=== PATIENT | female | born 1965 | race African-American/Black ===

== ENCOUNTER → 2017-01-28 09:55 | Outpatient (CLI) | payer MEDICAID ==
[2015-08-26 13:32] VITALS: BMI 35.4
[~2017-01-28 09:55] MED LIST: ATIVAN0.5 MG PO; CATAPRES0.1 MG PO; FERROUS SULFAT325 MG PO; GRAPE SEED EXTRACT PO; LANTUS INSULIN10 ML SC; LASIX40 MG PO; LUMIGAN 0.01%2.5 ML EACH EYE; MEGACE40 MG PO; MEGESTROL PO; MULTIPLE VITAMI1 TA1 PO; NORVASC5 MG PO; NOVOLOG100 U/M1 SC; PROBIOTIC1 EAC1 PO; PROTONIX PO; PROTONIX40 MG PO; TUMERIC PO; VITAMIN B-12 PO; VITAMIN C PO; [UNRECOGNIZED DRUG - REMARK] PO; [UNRECOGNIZED DRUG - REMARK] PO
== END | disposition home or self-care (01) ==
LOC: D.NM 09:55
DX: R00.2 Palpitations (principal); R06.00 Dyspnea, unspecified

== ENCOUNTER 2019-03-30 14:10 | Inpatient (IN) | payer MEDICAID ==
[2019-03-30] MEDS ORDERED: PAXIL20 MG PO (14:19)
[2019-03-30] MEDS ORDERED: ATIVAN1 MG PO (14:20)
[2019-03-30] MEDS ORDERED: METOPROLOL TART50 MG PO ×2 (14:20→22:53)
[2019-03-30 14:50] LABS: BASOPHILS 0.1 % (0-2); EOSINOPHILS 0 % (0-7); HEMATOCRIT 42.6 % (36.0-48.0); HEMOGLOBIN 14.5 g/dL (12-16); IMMATURE GRANULOCYTES 0.2 % (0-5); LYMPHOCYTES 3.8 % (15-50); MCH 29.9 pg (26.0-34.0); MCV 87.8 fL (80.0-100.0); MEAN PLATELET VOLUME 10.2 fL (7.4-10.4); MONOCYTES 3.9 % (2-11); PLATELET COUNT 286 10x3/uL (130-400); RBC 4.85 10x6/uL (4.00-5.40); RDW 15.6 % (11.5-14.5); WBC 16.7 10x3/uL (4.8-10.8)
[2019-03-30 14:52] LABS: APPEARANCE CLEAR (CLEAR); COLOR YELLOW (YELLOW); NITRITE NEGATIVE (NEGATIVE); SPECIFIC GRAVITY 1.005 (1.005-1.020)
[2019-03-30 14:53] LABS: BILIRUBIN NEGATIVE (NEGATIVE); GLUCOSE 500 mg/dL (NEGATIVE); KETONE NEGATIVE (NEGATIVE); PROTEIN 3+ mg/dL (NEGATIVE); UROBILINOGEN NORMAL (NORMAL)
--- NOTE | 2019-03-30 15:03 | NUR ---
PT APPEARS AGGITATED AND HAS COMPLAINED SINCE ARRIVAL TO ED ROOM E6. PT C/O ROOM BEING COLD, BLANKET WERE THEN PROVIDED FOR COMFORT. PT C/O IV BEING STARTED IN THE LEFT ARM BY THIS NURSE, PT IS RT ARM RESERVE D/T DIALYSIS FISTULA. WHEN VERIFYING PT'S ALLERGIES AND MEDICAL HX, PT BECAME VISIBLY AGGITATED AND ASKED THIS NURSE "WHAT DO YOU NOT GET ABOUT WHAT I TOLD YOU." THIS NURSE EXPLAINED THAT IN ORDER TO PROVIDE THE BEST CARE POSSIBLE, I NEEDED TO BE AWARE OF HER HEALTH HX AND CURRENT SYMPTOMS. THIS NURSE ASKED PT IF I HAD DONE SOMETHING TO OFFEND HER BASED ON PT APPEARING AGGITATED AND THE TONE SHE WAS SPEAKING TO THIS NURSE WITH. PT REPLIED, "NO I GET AGGITATED AND TAKE MEDICATION FOR ANXIETY." ASSESSMENT COMPLETED AND CALL LIGHT GIVEN TO PT. HOB ADJUSTED MULTIPLE TIMES. WILL CONTINUE TO MONITOR. FRIENDS OF PT AT THE BEDSIDE.
[2019-03-30 15:05] LABS: BACTERIA FEW /hpf (NONE SEEN); EPITHELIAL CELLS 0-5 /hpf (0-5); MUCUS <1+ /lpf (NONE SEEN); RED CELLS - URINE 0-5 /hpf (0-5); WHITE CELLS - URINE 0-5 /hpf (0-5)
[2019-03-30 15:11] LABS: ALBUMIN 4.3 g/dL (3.4-5.0); ANION GAP 18.5 mmol/L (8-16); BILIRUBIN - TOTAL 0.82 mg/dL (0.2-1.3); CALCIUM 10.2 mg/dL (8.5-10.1); CREATININE - SERUM 9.4 mg/dL (0.6-1.3); POTASSIUM - SERUM 4.5 mmol/L (3.5-5.1); PROTEIN - SERUM 8.7 g/dL (6.4-8.2)
--- NOTE | 2019-03-30 15:15 | NUR ---
ERP INFORMED OF GLUCOSE - 425.
--- NOTE | 2019-03-30 15:19 | NUR ---
THIS NURSE PROMPTLY ANSWERED PT'S CALL LIGHT. PT STATES "I HAVE HAD DIARRHEA." THIS NURSE THEN ASKED PT IF SHE WOULD LIKE ASSISTANCE TO THE BATHROOM, PT ROLLED HER EYES, LOUDLY SIGHED, AND SAID "I DONE TOLD YOU THAT TOILET IN THERE IS TOO LOW TO THE GROUND FOR ME. I WANT A BEDSIDE TOILET" IN A VERY AGGITATED MANNER. THIS NURSE RESPONDED THAT PT MIGHT HAVE MADE THAT STATEMENT, BUT IT WAS NOT TO THIS RN, THEREFORE I WAS UNAWARE SHE DID NOT WANT TO USE THE BATHROOM. BEDSIDE TOILET WAS THEN BROUGHT TO PT ROOM AND PT ASSISTED WITH TRANSFERRING. PT CONINTUES TO COMPLAIN ABOUT MANY THINGS, INCLUDING THINGS THAT HAVE HAPPENED TO HER AT DIFFERENT HOSPITAL FACILITIES. PT WILL THEN MAKE STATEMENTS SUCH , "YOU ALL BETTER NOT THINK YOU ARE GOING TO DO THAT TO ME HERE." THIS NURSE HAS REPEATEDLY STATED TO PT THAT STAFF, INCLUDING MYSELF, WOULD PROVIDE THE BEST POSSIBLE CARE WE CAN.
--- NOTE | 2019-03-30 15:43 | NUR ---
ANSWERED PT CALL LIGHT, PT SITTING UPRIGHT AT THE SIDE OF THE BED. PT CONTINUES TO C/O HER ROOM BEING TOO COLD. BLANKETS THAT WERE PROVIDED LYING IN A PILE AT THE FOOT OF THE BED. THIS NURSE BEGAN FOLDING BLANKETS AND THEN LAYED BLANKETS AROUND PT'S SHOULDERS, COVERING HER BACK. PT THEN STATED, I DON'T WANT THESE BLANKETS, THEY AREN'T EVEN WARM ANYMORE. I WANT SOME MORE WARM BLANKETS." THIS NURSE EXPLAINED THAT THE BLANKET WARMER HAD BEEN RESTOCKED AND ONCE WARM, ADDITIONAL BLANKETS WOULD BE PROVIDED.
--- NOTE | 2019-03-30 16:21 | NUR ---
THIS NURSE HAS ANSWERED PT'S CALL LIGHT MANY MANY TIMES SINCE ARRIVAL TO HER ROOM. WHEN THIS NURSE ANSWERED PT'S MOST RECENT CALL LIGHT, PT STATED THAT SHE HAD TO TRANSFER HERSELF FROM THE BED TO THE TOILET AND WAS "SLIPPING ALL OVER THE PLACE." PT STATED I NEED HELP EVERY 3-5 MINUTES. SLIP RESISTANT SOCKS WERE APPLIED BY THIS NURSE WHEN PT FIRST ARRIVED. PT HAS BEEN EDUCATED ON USE OF CALL LIGHT AND TO ASK FOR ASSISTANCE BEFORE TRANSFERRING HERSELF. THIS NURSE SUGGESTED THAT IF PT IS REQUIRING TOILETING EVERY 3-5 MINUTES THAT SHE REMAIN ON THE BEDSIDE TOILET FOR LONGER LENGTHS OF TIME. PT REFUSED. THIS NURSE EXPLAINED THAT D/T HAVING MULTIPLE PATIENTS, I AM UNABLE TO BE AT HER BEDSIDE EVERY 3-5 MINUTES, BUT I WOULD CONTINUE TO ATTEMPT TO PROVIDE THE BEST CARE POSSIBLE. ADDITIONAL WARM BALNKETS THEN LAID ON PT, AFTER SHE WAS ASSISTED BACK INTO BED. AGAIN, HOB ADJUSTED FOR COMFORT.
--- NOTE | 2019-03-30 17:05 | NUR ---
PT RETURNED TO THE ED VIA STRETCHER AT THIS TIME FOLLOWING ORDERED CT SCAN.
--- NOTE | 2019-03-30 17:15 | NUR ---
ONCE PT RETURNED TO THE ED SHE REQUESTED THAT BEDSIDE TOILET BE REMOVED FROM HER ROOM. PT STATES THAT SHE NO LONGER NEEDS BEDSIDE TOILET. PT LYING IN BED, DENIES ANY OTHER NEEDS. TOILET REMOVED REQUESTED.
--- NOTE | 2019-03-30 17:43 | NUR ---
PT REQUESTING ADDITIONAL HEATED BLANKETS AND WATER. PT HAS BEEN ADVISED MULTIPLE TIMES THAT WITH HER ABD PAIN, DIARRHEA, NAUSEA, AND REPORTED VOMITING, ANY PO INTAKE WOULD LIKELY MAKE SYMPTOMS WORSE. ALSO, PER TREATING PROVIDER, PT NOT TO HAVE PO INTAKE UNTIL CT RESULTS ARE BACK. PT DISREGARDED THIS, NURSE NOTIFIED BY LAB STAFF MEMBER THAT PT IS ASKING FOR WATER. WILL PROVIDE ADDITIONAL BLANKETS AGAIN REQUESTED BY PT.
--- NOTE | 2019-03-30 18:46 | NUR ---
PT REFUSED MEAL TRAY, REQUESTED JELLO AND SPRITE. PT THEN DEMANDED THAT THE CAN BE WRAPPED IN MATERIAL MAKING IT A TOLERABLE TEMPATURE FOR HER TO HOLD THE CAN. PT THEN DEMANDED THAT THIS NURSE BRING HER "NAME BRAND SPRITE" PT ALSO STATED THAT THE OFF BRAND SODA WAS "GOING TO MAKE HER THROW UP" AND IT WAS RIDICULOUS THAT I GAVE IT TO HER. THIS NURSE EXPLAINED THAT THE HOSPITAL CARRIED ONE BRAND OF SODA, THEREFORE THAT WAS ALL I COULD OFFER TO HER. PT REPLIED, "YOU BETTER FIGURE IT OUT THEN. GO GET ME SOME WATER." PT REFUSED MEAL TRAY AFTER THIS NURSE ADMINISTERED ORDERED INSULIN.
--- NOTE | 2019-03-30 18:50 | MORECARE ---
CASE MANAGEMENT DISCHARGE SUMMARY PATIENT: SMITH GILBERT UNIT: [id number] ADM DATE: 03/30/19 AGE: 53 : 61 SEX: F ROOM/BED: D.9466 AUTHOR: PARVIN GIFFORD PHYSICIAN: REFERRING PHYSICIAN: ROBINSON LIANG MD DATE OF SERVICE: 03/30/19 Discharge Plan Patient Name: SMITH GILBERT [facility] [facility] 1965 Planned Disposition: Anticipated Discharge Date: 04/03/19 Discharge Date: Expected LOS: 4 Initial Reviewer: [email or web address] Initial Review Date: 03/30/2019 Generated: 03/30/19 7:49 pm DCPIA - Discharge Planning Initial Assessment Updated by [id number]: Adriana Saha on 03/30/19 6:46 pm * Is the patient Alert and Oriented? Yes * PCP Dr. Cosme and Dr. Liang * Pharmacy [facility] * Preadmission Environment Home Alone * ADLs Independent * Equipment Bedside Commode Cane Glucometer Tub Bench * Other Equipment depends and bed pads from [employer]. * List name and contact numbers for known caregivers / representatives who currently or will assist patient after discharge: Chana verde - [phone] Josey Thomas [facility] - [phone] * Verbal permission to speak to the caregivers and representatives has been obtained from the patient. Yes * Community resources currently utilized Other Private Duty Care * Please name any agencies selected above. Stated she has AAA for counselors??? and is in the process for her niece getting approved to be her paid cg through [facility]. * Additional services required to return to the preadmission environment? No * Can the patient safely return to the preadmission environment? Yes * Has this patient been hospitalized within the prior 30 days at any hospital? Yes Patient Name: SMITH GILBERT Page 68430 at 1850 All edits/amendments must be made on the electronic document DICTATION DATE: 03/30/191848 SENIOR ELECTRICAL ENGINEER: ROSA 03/30/191848 RPT#: [id number] DC DATE: STATUS: ADM IN [facility] [address] [place] [address] END OF REPORT
--- NOTE | 2019-03-30 18:57 | MORECARE ---
CASE MANAGEMENT DISCHARGE SUMMARY PATIENT: SMITH GILBERT UNIT: [id number] ADM DATE: 03/30/19 AGE: 53 : 61 SEX: F ROOM/BED: D.9016 AUTHOR: BALTADOC PHYSICIAN: REFERRING PHYSICIAN: ROBINSON LIANG MD DATE OF SERVICE: 03/30/19 Discharge Plan Patient Name: SMITH GILBERT Facility: [facility]:[place] : 1965 Planned Disposition: Anticipated Discharge Date: 04/03/19 Discharge Date: Expected LOS: 4 Initial Reviewer: [email or web address] Initial Review Date: 03/30/2019 Generated: 03/30/19 7:56 pm Comments DCP- Discharge Planning Updated by [email or web address]: Adriana Saha on 03/30/19 5:[address] Patient Name: SMITH GILBERT Admission Status: ER Accout number: [id number] Admission Date: 03-30-2019 : 1965 Admission Diagnosis: Attending: ROBINSON LIANG Current LOS: 1 Anticipated DC Date: 04-03-2019 Planned Disposition: Primary Insurance: MEDICAID [place] Discharge Planning Comments: CM met with patient and two other ladies in the room to complete initial dc planning assessment. CM educated patient on the CM role and verbal consent given by patient to complete assessment. CM verified patient's address, phone number, and emergency contact phone numbers. Patient lives at home alone but reports she has area agency on aging for counselors. She also reported that her niece is in the process of getting approved to be her pd cg through [facility]. At discharge patient plans to return home and feels this is a safe discharge. CM discussed availability of home health, rehab services, and medical equipment. Cm asked her about HH at dc and she reported that she already told me she had AAA, unsure if a nurse visits her, she kept saying counselor. Patient is also a dialysis patient and her last hd treatment was 3 days ago. She gets to and from HD via [facility]. She goes [facility] every M--. Patient stated she needs help getting her current call button to work further in her home than her bedroom. She has given her murray to her niece for emergencies so she can get in if she falls and has to push her button but she said it only works if she falls in her bedroom. Patient reports a family member will transport her home at time of discharge. CM will continue to follow and will assist as needed with dc plans/needs. Animal Control Licensing Worker: Adriana Saha RN, [facility] DCPIA - Discharge Planning Initial Assessment Updated by [id number]: Adriana Saha on 03/30/19 6:46 pm * Is the patient Alert and Oriented? Yes * PCP Dr. Cosme and Dr. Liang * Pharmacy [facility] * Preadmission Environment Home Alone * ADLs Independent * Equipment Bedside Commode Cane Glucometer Tub Bench * Other Equipment depends and bed pads from [employer]. * List name and contact numbers for known caregivers / representatives who currently or will assist patient after discharge: Chana verde - [phone] Josey cain - [phone] * Verbal permission to speak to the caregivers and representatives has been obtained from the patient. Yes * Community resources currently utilized Other Private Duty Care * Please name any agencies selected above. Stated she has AAA for counselors??? and is in the process for her niece getting approved to be her paid cg through [facility]. * Additional services required to return to the preadmission environment? No * Can the patient safely return to the preadmission environment? Yes * Has this patient been hospitalized within the prior 30 days at any hospital? Yes Last DP export: 03/30/19 5:50 p Patient Name: SMITH GILBERT Page 25038 at 1857 All edits/amendments must be made on the electronic document DICTATION DATE: 03/30/191855 BEATER LEAD: ROSA 03/30/191855 RPT#: [id number] DC DATE: STATUS: ADM IN [facility] [address] [place] [address] END OF REPORT
--- NOTE | 2019-03-30 19:12 | NUR ---
ROOM 2138 ASSIGNED AT 1815, THIS NURSE CALLED REPORT TO LISY RN AT 1833. WHEN ASSESSING VS PRIOR TO PT LEAVING THE ED, BP 200/81. PROVIDER Steve MAI NOTIFIED. NOTED, PT HAS A HX OF HTN. ORDER RECEIVED TO TREAT BP, THEN TRANSPORT PT TO ASSIGNED ROOM.
--- NOTE | 2019-03-30 19:15 | NUR ---
PT REFUSED 10MG HYDRALAZINE. STATED" YOU DONT KNOW HOW MEDICATION WORK IN ME. GIVE ME 5 NOW AND 5 LATER". ASKED PA TO CHANGE ORDER TO MEET PT DEMAND. ORDER APPROVED
[2019-03-30 20:00] VITALS: BP 189/86
[2019-03-30 23:05] VITALS: BP 189/86; BMI 29.0
--- NOTE | 2019-03-30 23:43 | NUR ---
RECIEVED REPORT FROM ER. PT BROUGHT TO FLOOR IN W/C WITH STAFF ASSISTING HER. TRANSFERED SELF TO BED. ALERT AND ORIENTED X4. TRANSFERED SELF TO B/R. BECAME AGGITATED WHEN ASKED WHEN LAST TIME SHE TOOK HER MEDICINE. EXPLAINED THAT IS PART OF ADMISSION. THAN BECAME AGGITATED WHEN ASKED ABOUT HER HISTORY. ASSESSMENCOMPLTED. DR. LIANG IN TO SEE PT AND AFTER HE LEFT PT ASKED FOR SOMETHING FOR A HEADACHE. TOLD THIS NURSE TO CALL HIM AND GET SOMETHING FOR HER. SPOKE WITH ALAN ZAYAS WITH NEW ORDER FOR TYLENOL PER PT REQUEST. SAID HER PAIN WAS 10/10 IN HER HEAD AND BACK. NO OTHER COMPLAINTS VOICED.
[2019-03-31] VITALS: BP 179/60
[2019-03-31 05:00] VITALS: BP 181/73
--- NOTE | 2019-03-31 07:51 | NUR ---
ROUNDING DONE WITH PATIENT REQUESTING BOILED EGG, GRAPE JUICE, TOAST, FOR BREAKFAST, UP IN ROOM. LEFT AC PIV SEEN WITH SALINE LOCK. RESE. RIGHT ARM WITH AVF, + BRUIT AND THRILL.
[2019-03-31 08:13] LABS: ANION GAP 18.4 mmol/L (8-16); CALCIUM 9.5 mg/dL (8.5-10.1); CREATININE - SERUM 10.1 mg/dL (0.6-1.3); MAGNESIUM - SERUM 2.4 mg/dL (1.8-2.4); PHOSPHOROUS 5.4 mg/dL (2.5-4.9); POTASSIUM - SERUM 4.4 mmol/L (3.5-5.1)
[2019-03-31 08:19] LABS: BASOPHILS 0.2 % (0-2); EOSINOPHILS 0.6 % (0-7); HEMOGLOBIN 12.5 g/dL (12-16); IMMATURE GRANULOCYTES 0.3 % (0-5); LYMPHOCYTES 12.4 % (15-50); MCH 28.9 pg (26.0-34.0); MCHC 32.9 g/dL (31.0-37.0); MEAN PLATELET VOLUME 10.2 fL (7.4-10.4); MONOCYTES 5.9 % (2-11); NEUTROPHILS 80.6 % (40-80); PLATELET COUNT 266 10x3/uL (130-400); RBC 4.32 10x6/uL (4.00-5.40); RDW 15.8 % (11.5-14.5)
[2019-03-31 08:21] LABS: WBC 11.5 10x3/uL (4.8-10.8)
--- NOTE | 2019-03-31 08:41 | NUR ---
PATINET IS MADE NPO FOR MRI OF ABDOMEN. SIGN TO DOOR.
[2019-03-31 09:55] VITALS: BP 174/76
--- NOTE | 2019-03-31 10:33 | NUR ---
PATIENT DOES NOT WANT TO WEAR SCD'S, UP IN ROOM
[2019-03-31 12:49] VITALS: BP 179/66
--- NOTE | 2019-03-31 13:08 | NUR ---
I CALLED SANDI IN MRI TO SEE HOW MUCH LONGER FOR XRAY PATIENT IS GETTING HUNGRY. SHE STATES THAT ARE FINISHING ONE NOW AND THEN THIS PAITENT WILL BE NEXT. THIS IS RELAYED TO THE PATIENT.
--- NOTE | 2019-03-31 13:24 | NUR ---
SANDI WITH MRI HERE.
--- NOTE | 2019-03-31 13:26 | NUR ---
I CALLED THE DIET OFFICE FOR HER LATE LUNCH TRAY.
[2019-03-31 13:40] VITALS: BMI 28.9
--- NOTE | 2019-03-31 14:13 | NUR ---
BACK FROM MRI, UNABLE WITH FOOD TRAY. WILL TRY AND ORDER WHAT SHE WANTS.
--- NOTE | 2019-03-31 14:54 | NUR ---
PATIENT B/P IS 185/78, THIS IS RELAYED TO JUAN PERDOMO APN TO SEE ABOUT RE-STARTING HOME MEDS.
--- NOTE | 2019-03-31 16:43 | NUR ---
TO DIALYSIS VIA WHEELCHAIR.
--- NOTE | 2019-03-31 16:43 | NUR ---
NO STOOL YET FOR THIS SHIFT AT THIS TIME.
[2019-03-31 17:57] VITALS: BP 185/78
[2019-03-31 20:00] VITALS: BP 142/73
--- NOTE | 2019-03-31 20:45 | NUR ---
PT HAS ARRIVED BACK TO FLOOR FROM DIALYSIS BY WHEELCHAIR, PT DENIES FURTHER NEEDS AT THIS TIME. NO S/S OF DISTRESS NOTED. VITALS STABLE. 173 BLOOD SUGAR TREATED ORDERED. CALL LIGHT IN REACH. WILL CTM.
[2019-04-01] VITALS: BP 173/55
[2019-04-01 04:00] VITALS: BP 173/63
--- NOTE | 2019-04-01 04:39 | NUR ---
I have reviewed this patient and I concur with the Shift Assessment completed by the Licensed Practical Nurse today this shift.
--- NOTE | 2019-04-01 07:05 | NUR ---
UPON ENTERING ROOM SHE WAS COMING OUT OF THE BATHROOM. SHE DENIES ANY CURRENT NEEDS EXCEPT TO ASK WHEN BREAKFAST WAS. RESP EVEN WITHOUT LABOR. SHE IS ALERT
--- NOTE | 2019-04-01 09:30 | NUR ---
SITTING UP IN CHAIR IN ROOM WITH CL IN REACH. HL FLUSHED AND RETAPED AT THIS TIME. NO C/O VOICED.
[2019-04-01 10:08] VITALS: BP 149/58
[2019-04-01 10:44] LABS: BASOPHILS 0.3 % (0-2); EOSINOPHILS 1.6 % (0-7); HEMATOCRIT 38.8 % (36.0-48.0); HEMOGLOBIN 12.9 g/dL (12-16); IMMATURE GRANULOCYTES 0.4 % (0-5); LYMPHOCYTES 18.4 % (15-50); MCH 29.9 pg (26.0-34.0); MCHC 33.2 g/dL (31.0-37.0); MONOCYTES 10.5 % (2-11); NEUTROPHILS 68.8 % (40-80); PLATELET COUNT 234 10x3/uL (130-400); RBC 4.31 10x6/uL (4.00-5.40); RDW 15.8 % (11.5-14.5)
[2019-04-01 10:45] LABS: WBC 7.1 10x3/uL (4.8-10.8)
[2019-04-01 10:55] LABS: ANION GAP 14.2 mmol/L (8-16); CALCIUM 9.1 mg/dL (8.5-10.1); CARBON DIOXIDE 29.7 mmol/L (21.0-32.0); CREATININE - SERUM 8.3 mg/dL (0.6-1.3); POTASSIUM - SERUM 3.9 mmol/L (3.5-5.1)
--- NOTE | 2019-04-01 12:10 | NUR ---
SITTING IN ROOM UP IN CHAIR EATING LUNCH DENIES ANY CURRENT NEEDS CL IN REACH
--- NOTE | 2019-04-01 13:44 | NUR ---
SITTING UP IN CHAIR IN ROOM RECLINED BACK RESTING WITH EYES CLOSED RESP EVEN WITHOUT LABOR
--- NOTE | 2019-04-01 14:45 | NUR ---
LIQUID STOOL SAMPLE TAKEN TO LAB AT THIS TIME.
--- NOTE | 2019-04-01 17:30 | NUR ---
FSBS WAS 88 STATES I HAVE TO HAVE SOMETHING TO EAT. SKIN W/D NO S/S OF HYOGLYCEMIA. SHE REQUESTED A JELLO AND IT WAS GIVEN TO MAINTAIN BLOOD SUGAR STATUS. SHE STATES I HAVE BEEN TAKING CARE OF MY BLOOD SURGAR A LONG TIME
--- NOTE | 2019-04-01 17:42 | NUR ---
NEW ORDER GIVEN BY JARON LOERA FOR FLAGYL 500MG PO Q 8 HOURS FOR DX OF C-DIFF. SHE HAS BEEN PLACED IN ENTERIC PRECAUTIONS ALREADY. SHE IS AWARE OF NEW ORDER AND DX.
[2019-04-01 20:00] VITALS: BP 193/79
--- NOTE | 2019-04-01 20:30 | NUR ---
EVENING ROUNDS COMPLETED. REPORT RECEIVED. PT SITTING UP IN BED WITH EYES OPEN, RR EVEN AND UNLABORED. INTRODUCED SELF TO PT. PT DENIES FURTHER NEEDS AT THIS TIME. CALL LIGHT IN REACH. WILL CTM.
[2019-04-02] VITALS: BP 179/73
--- NOTE | 2019-04-02 03:20 | NUR ---
I have reviewed this patient and I concur with the Shift Assessment completed by the Licensed Practical Nurse today this shift.
[2019-04-02 04:00] VITALS: BP 170/79
--- NOTE | 2019-04-02 06:35 | NUR ---
PT SITTING UP IN BED WITH EYES OPEN, RR EVEN AND UNLABORED. PT HAS TAKEN SHOWER INDEPENDENTLY. 107 BLOOD SUGAR. NO COVERAGE NEEDED. CALL LIGHT IN REACH. DENIES FURTHER NEEDS AT THIS TIME. WILL CTM.
[2019-04-02 06:42] LABS: BASOPHILS 0.5 % (0-2); EOSINOPHILS 2.3 % (0-7); HEMATOCRIT 39.5 % (36.0-48.0); HEMOGLOBIN 13.2 g/dL (12-16); IMMATURE GRANULOCYTES 0.2 % (0-5); LYMPHOCYTES 31.3 % (15-50); MCH 29.5 pg (26.0-34.0); MCHC 33.4 g/dL (31.0-37.0); MCV 88.2 fL (80.0-100.0); MEAN PLATELET VOLUME 10.2 fL (7.4-10.4); MONOCYTES 8.9 % (2-11); NEUTROPHILS 56.8 % (40-80); PLATELET COUNT 237 10x3/uL (130-400); RBC 4.48 10x6/uL (4.00-5.40); RDW 15.5 % (11.5-14.5); WBC 6.5 10x3/uL (4.8-10.8)
--- NOTE | 2019-04-02 07:00 | NUR ---
RECEIVED REPORT. ASSUMED CARE OF PATIENT. CALL LIGHT WITHIN REACH. PATIENT SITTING TO SIDE OF BED, SHOWER COMPLETE. NO DISTRESS. DENIES NEEDS AT THIS TIME.
[2019-04-02 07:15] LABS: ANION GAP 22.6 mmol/L (8-16); CALCIUM 9.4 mg/dL (8.5-10.1); CARBON DIOXIDE 23.7 mmol/L (21.0-32.0); CREATININE - SERUM 9.2 mg/dL (0.6-1.3); POTASSIUM - SERUM 4.3 mmol/L (3.5-5.1)
[2019-04-02 08:51] VITALS: BP 168/71
--- NOTE | 2019-04-02 10:33 | NUR ---
STILL WAITING FOR PHARMACY TO BRING ORAL VANC TO UNIT.
--- NOTE | 2019-04-02 11:19 | NUR ---
FINALLY RECEIVED ORAL VANC FROM PHARMACY AT 1105! FSBS 95. NO INSULIN PER SLIDING SCALE. NO DISTRESS.
[2019-04-02 12:07] VITALS: BP 168/70
--- NOTE | 2019-04-02 12:42 | NUR ---
20 GAUGE IV REMOVED FROM LEFT AC. CATHETER TIP INTACT. CATHETER WOULD NOT FLUSH FOR ANTIBIOTIC ADMINISTRATION. 22 GAUGE IV PLACED X 1 STICK TO LEFT FOREARM. TOLERATED IV PLACEMENT WELL. TAPED, DATED, AND SECURED. NO DISTRESS.
--- NOTE | 2019-04-02 16:45 | NUR ---
PATIENT COMPLAIN OF THE BROTH THAT WAS PROVIDED FOR PM MEAL. PATIENT UPSET WITH THE BROTH THIS PRESCHOOL ASSOCIATE TEACHER PROVIDED HER. FINALLY CHICKEN BROTH MADE TO PATIENTS LIKING. PATIENT SITTING TO CHAIR AT BEDSIDE.
[2019-04-02 16:59] VITALS: BP 165/79
--- NOTE | 2019-04-02 17:23 | NUR ---
FSBS 207. PATIENT REFUSED INSULIN AND WILL WAIT TO SEE HOW HER FSBS IS AT 2100 DUE TO ONLY BEING ON CLEAR LIQUIDS.
[2019-04-02 20:00] VITALS: BP 199/89
--- NOTE | 2019-04-02 23:52 | NUR ---
EVENING ROUNDS COMPLETED. PT SITTING UP IN BED WITH EYES OPEN, RR EVEN AND UNLABORED. NO S/S OF DISTRESS NOTED. BED IN LOW POSITION. CALL LIGHT IN REACH. NIGHT TIME MEDICATIONS ADMINISTERED WITHOUT ISSUE. WILL CTM.
[2019-04-03] VITALS: BP 181/82
[2019-04-03 04:00] VITALS: BP 155/73
--- NOTE | 2019-04-03 04:00 | NUR ---
I have reviewed this patient and I concur with the Shift Assessment completed by the Licensed Practical Nurse today this shift.
[2019-04-03 06:16] LABS: ANION GAP 19.6 mmol/L (8-16); CALCIUM 9.5 mg/dL (8.5-10.1); CARBON DIOXIDE 26.4 mmol/L (21.0-32.0); CREATININE - SERUM 10.4 mg/dL (0.6-1.3)
[2019-04-03 06:55] LABS: BASOPHILS 0.3 % (0-2); EOSINOPHILS 3.9 % (0-7); HEMATOCRIT 42.6 % (36.0-48.0); HEMOGLOBIN 14.4 g/dL (12-16); IMMATURE GRANULOCYTES 0.4 % (0-5); LYMPHOCYTES 13.5 % (15-50); MCH 29.6 pg (26.0-34.0); MCHC 33.8 g/dL (31.0-37.0); MCV 87.7 fL (80.0-100.0); MEAN PLATELET VOLUME 10.5 fL (7.4-10.4); MONOCYTES 5.5 % (2-11); NEUTROPHILS 76.4 % (40-80); PLATELET COUNT 254 10x3/uL (130-400); RBC 4.86 10x6/uL (4.00-5.40); RDW 15.2 % (11.5-14.5); WBC 7.7 10x3/uL (4.8-10.8)
[2019-04-03 08:00] VITALS: BP 173/81
[2019-04-03 12:12] VITALS: BP 158/59
--- NOTE | 2019-04-03 14:06 | NUR ---
Nutrition follow-up: Pt now on clear liquid diet Labs reviewed Wt: 152# RDN will monitor patients diet advnacement and tolerance. RDN following.
[2019-04-03 16:24] VITALS: BP 154/55
--- NOTE | 2019-04-03 19:56 | NUR ---
PT CURRENTLY RECIEVING DIALYSIS IN ROOM. INITIAL ASSESSMENT COMPLETE. PT STATES "I AM HAVING JUST A LITTLE BIT OF HEADACHE." WILL CPOC.
[2019-04-03 20:00] VITALS: BP 188/42
--- NOTE | 2019-04-03 20:50 | NUR ---
PT STATE HEADACHE IS 6/10. TYLENOL GIVEN AT THIS TIME. PT STILL RECIEVING DIALYSIS.
--- NOTE | 2019-04-03 22:05 | NUR ---
PT BLOOD PRESSURE POST DIALYSIS IS 187/73. PO 0.1MG PRN CLONIDINE GIVEN PER PROVIDERS ORDER. PT ALSO REFUSED INSULIN, STATES 175 FSBS IN NOT REALLY HIGH, AND HER BLOOD SUGAR DROPS WITH LITTLE AMOUNT OF HUMULIN. INSULIN HELD AT THIS TIME. IV ATBX INFUSING @ THIS TIME. PT DENIES ANY FURTHER NEEDS. WILL CTM. CL WITHIN REACH.
[2019-04-04 04:00] VITALS: BP 149/52
[2019-04-04 04:49] LABS: BASOPHILS 0.4 % (0-2); EOSINOPHILS 3.5 % (0-7); HEMATOCRIT 34.4 % (36.0-48.0); IMMATURE GRANULOCYTES 0.4 % (0-5); MCH 28.9 pg (26.0-34.0); MCHC 33.1 g/dL (31.0-37.0); MCV 87.3 fL (80.0-100.0); MEAN PLATELET VOLUME 9.9 fL (7.4-10.4); MONOCYTES 14.1 % (2-11); NEUTROPHILS 61.6 % (40-80); RBC 3.94 10x6/uL (4.00-5.40); RDW 14.8 % (11.5-14.5)
[2019-04-04 05:12] LABS: HEMOGLOBIN 11.4 g/dL (12-16); PLATELET COUNT 187 10x3/uL (130-400); WBC 5.4 10x3/uL (4.8-10.8)
[2019-04-04 05:15] LABS: ANION GAP 14.3 mmol/L (8-16); CALCIUM 8.5 mg/dL (8.5-10.1); CARBON DIOXIDE 29.4 mmol/L (21.0-32.0); POTASSIUM - SERUM 3.7 mmol/L (3.5-5.1)
[2019-04-04 08:15] VITALS: BP 118/58
[2019-04-04 11:48] VITALS: BP 160/54
[2019-04-04 15:09] VITALS: BP 195/79
--- NOTE | 2019-04-04 19:25 | NUR ---
PT ASLEEP. AROUSES TO NURSE COMING INTO ROOM. PT DENIES ANY NEEDS. DINNER TRAY TAKEN FROM ROOM. PT HAS NO S/S OF DISTRESS,. NAME AND DATE PLACED ON BOARD. PT WILL CALL FOR ASSIST WHEN NEEDED. WILL CPOC
[2019-04-04 20:00] VITALS: BP 161/76
--- NOTE | 2019-04-04 22:57 | NUR ---
PT FSBS IS 281 PT ONLY WANTS 6 UNITS STATES ANY MORE THAN THAT WILL CAUSE HYPOGLYCEMIA. NURSE GAVE 6 UNITS. PT IS 162 POUNDS AT THIS TIME. NIGHT MEDICATIONS GIVEN. PT HAS NO S/S OF DISTRESS. WILL CPOC
[2019-04-05 04:00] VITALS: BP 134/69
[2019-04-05 05:05] LABS: BASOPHILS 0.3 % (0-2); EOSINOPHILS 3.7 % (0-7); HEMATOCRIT 34.1 % (36.0-48.0); HEMOGLOBIN 11.5 g/dL (12-16); IMMATURE GRANULOCYTES 0.5 % (0-5); LYMPHOCYTES 26.1 % (15-50); MCH 29.6 pg (26.0-34.0); MCHC 33.7 g/dL (31.0-37.0); MCV 87.9 fL (80.0-100.0); MEAN PLATELET VOLUME 9.5 fL (7.4-10.4); NEUTROPHILS 58.4 % (40-80); PLATELET COUNT 187 10x3/uL (130-400); RBC 3.88 10x6/uL (4.00-5.40); WBC 5.9 10x3/uL (4.8-10.8)
[2019-04-05 05:38] LABS: ANION GAP 16.9 mmol/L (8-16); CALCIUM 8.6 mg/dL (8.5-10.1); CARBON DIOXIDE 26.4 mmol/L (21.0-32.0); CREATININE - SERUM 8.6 mg/dL (0.6-1.3)
[2019-04-05 05:47] LABS: POTASSIUM - SERUM 4.3 mmol/L (3.5-5.1)
--- NOTE | 2019-04-05 06:09 | NUR ---
PT UP INTO CHAIR. PT HAS NO S/S OF DISTRESS. CALL LIGHT IN REACH. PT MORNING MEDS GIVEN. WILL CPOC
--- NOTE | 2019-04-05 06:11 | NUR ---
FSBS 126 NO INSULIN NEEDED.
[2019-04-05 08:39] VITALS: BP 153/56
[2019-04-05 11:40] VITALS: BP 156/62
--- NOTE | 2019-04-05 14:24 | NUR ---
Nutrition follow-up: Diet advanced to renal with po intake 75-100% of meals Wt: 162# +BM Labs reviewed RDN following.
--- NOTE | 2019-04-05 16:33 | MORECARE ---
CASE MANAGEMENT DISCHARGE SUMMARY PATIENT: SMITH GILBERT UNIT: [id number] ADM DATE: 03/30/19 AGE: 53 : 61 SEX: F ROOM/BED: D.3434 AUTHOR: BALTADOC PHYSICIAN: REFERRING PHYSICIAN: ROBINSON LIANG MD DATE OF SERVICE: 04/05/19 Discharge Plan Patient Name: SMITH GILBERT Facility: [facility]:[place] : 1965 Planned Disposition: Anticipated Discharge Date: 04/03/19 Discharge Date: Expected LOS: 4 Initial Reviewer: [email or web address] Initial Review Date: 03/30/2019 Generated: 04/05/19 5:32 pm DCP- Discharge Planning Updated by [email or web address]: Adriana Saha on 03/30/19 5:[address] Patient Name: SMITH GILBERT Admission Status: ER Accout number: [id number] Admission Date: 03-30-2019 : 1965 Admission Diagnosis: Attending: ROBINSON LIANG Current LOS: 1 Anticipated DC Date: 04-03-2019 Planned Disposition: Primary Insurance: MEDICAID [place] Discharge Planning Comments: CM met with patient and two other ladies in the room to complete initial dc planning assessment. CM educated patient on the CM role and verbal consent given by patient to complete assessment. CM verified patient's address, phone number, and emergency contact phone numbers. Patient lives at home alone but reports she has area agency on aging for counselors. She also reported that her niece is in the process of getting approved to be her pd cg through [facility]. At discharge patient plans to return home and feels this is a safe discharge. CM discussed availability of home health, rehab services, and medical equipment. Cm asked her about HH at dc and she reported that she already told me she had AAA, unsure if a nurse visits her, she kept saying counselor. Patient is also a dialysis patient and her last hd treatment was 3 days ago. She gets to and from HD via [facility]. She goes to [facility] every M-W-. Patient stated she needs help getting her current call button to work further in her home than her bedroom. She has given her murray to her niece for emergencies so she can get in if she falls and has to push her button but she said it only works if she falls in her bedroom. Patient reports a family member will transport her home at time of discharge. CM will continue to follow and will assist as needed with dc plans/needs. Archery Equipment Hay Sorter: Adriana Saha RN, [facility] DCPIA - Discharge Planning Initial Assessment Updated by [id number]: Adriana Saha on 03/30/19 6:46 pm * Is the patient Alert and Oriented? Yes * PCP Dr. Cosme and Dr. Liang * Pharmacy [facility] * Preadmission Environment Home Alone * ADLs Independent * Equipment Bedside Commode Cane Glucometer Tub Bench * Other Equipment depends and bed pads from [employer]. * List name and contact numbers for known caregivers / representatives who currently or will assist patient after discharge: Chana verde - [phone] Josey cain - [phone] * Verbal permission to speak to the caregivers and representatives has been obtained from the patient. Yes * Community resources currently utilized Other Private Duty Care * Please name any agencies selected above. Stated she has AAA for counselors??? and is in the process for her niece getting approved to be her paid cg through [facility]. * Additional services required to return to the preadmission environment? No * Can the patient safely return to the preadmission environment? Yes * Has this patient been hospitalized within the prior 30 days at any hospital? Yes External Providers External Provider: OTHER-OTHER Next Contact Date: 04/05/2019 Service Request Date: Service Type: Resolution: Reviewer: Comments: Last DP export: 03/30/19 5:56 p Patient Name: SMITH GILBERT Page 87978 at 1633 All edits/amendments must be made on the electronic document DICTATION DATE: 04/05/19 163 INSTRUCTOR TRAINER CANINE SERVICE: ROSA 04/05/19 163 RPT#: [id number] DC DATE: STATUS: ADM IN [facility] [address] [place] [address] END OF REPORT
--- NOTE | 2019-04-05 16:43 | MORECARE ---
CASE MANAGEMENT DISCHARGE SUMMARY PATIENT: SMITH GILBERT UNIT: [id number] ADM DATE: 03/30/19 AGE: 53 : 61 SEX: F ROOM/BED: D.4860 AUTHOR: BALTADOC PHYSICIAN: REFERRING PHYSICIAN: ROBINSON LIANG MD DATE OF SERVICE: 04/05/19 Discharge Plan Patient Name: SMITH GIBLERT Facility: [facility]:[place] : 1965 Planned Disposition: Home Anticipated Discharge Date: 04/06/19 Discharge Date: Expected LOS: 7 Initial Reviewer: [email or web address] Initial Review Date: 03/30/2019 Generated: 04/05/19 5:42 pm DCP- Discharge Planning Updated by [id number]: Adriana Saha on 03/30/19 5:[address] Patient Name: SMITH GILBERT Admission Status: ER Accout number: [id number] Admission Date: 03-30-2019 : 1965 Admission Diagnosis: Attending: ROBINSON LIANG Current LOS: 1 Anticipated DC Date: 04-03-2019 Planned Disposition: Primary Insurance: MEDICAID [place] Discharge Planning Comments: CM met with patient and two other ladies in the room to complete initial dc planning assessment. CM educated patient on the CM role and verbal consent given by patient to complete assessment. CM verified patient's address, phone number, and emergency contact phone numbers. Patient lives at home alone but reports she has area agency on aging for counselors. She also reported that her niece is in the process of getting approved to be her pd cg through [facility]. At discharge patient plans to return home and feels this is a safe discharge. CM discussed availability of home health, rehab services, and medical equipment. Cm asked her about HH at dc and she reported that she already told me she had AAA, unsure if a nurse visits her, she kept saying counselor. Patient is also a dialysis patient and her last hd treatment was 3 days ago. She gets to and from HD via [facility] transport. She goes to [facility] every M--. Patient stated she needs help getting her current call button to work further in her home than her bedroom. She has given her murray to her niece for emergencies so she can get in if she falls and has to push her button but she said it only works if she falls in her bedroom. Patient reports a family member will transport her home at time of discharge. CM will continue to follow and will assist as needed with dc plans/needs. Pizza Maker: Adriana Saha RN, [facility] DCPIA - Discharge Planning Initial Assessment Updated by [email or web address]: Adriana Saha on 03/30/19 6:46 pm * Is the patient Alert and Oriented? Yes * PCP Dr. Cosme and Dr. Liang * Pharmacy [facility] * Preadmission Environment Home Alone * ADLs Independent * Equipment Bedside Commode Cane Glucometer Tub Bench * Other Equipment depends and bed pads from [employer]. * List name and contact numbers for known caregivers / representatives who currently or will assist patient after discharge: Chana verde - [phone] Josey cain - [phone] * Verbal permission to speak to the caregivers and representatives has been obtained from the patient. Yes * Community resources currently utilized Other Private Duty Care * Please name any agencies selected above. Stated she has AAA for counselors??? and is in the process for her niece getting approved to be her paid cg through [facility]. * Additional services required to return to the preadmission environment? No * Can the patient safely return to the preadmission environment? Yes * Has this patient been hospitalized within the prior 30 days at any hospital? Yes Last DP export: 04/05/19 3:32 p Patient Name: SMITH GILBERT Page 33648 at 1643 All edits/amendments must be made on the electronic document DICTATION DATE: 04/05/191641 SNUFF PACKING MACHINE OPERATOR: ROSA 04/05/191641 RPT#: [id number] DC DATE: STATUS: ADM IN [facility] [address] [place] [address] END OF REPORT
--- NOTE | 2019-04-05 16:56 | NUR ---
ALERT AND ORIENTED X4. SITTING UP IN BED. CASE MANAGEMENT AT BEDSIDE. FSBS 186. PATIENT REFUSE INSULIN. PATIENT REPORTS EYES BURNING. PATIENT STATES, "I THINK IT'S THE VANCOMYCIN CAUSING THEM TO BURN. I HEARD THATS A SIDE AFFECT." REQUEST EYE DROPS. NOTIFY DOCTOR. CONTINUE PLAN OF CARE AND SAFETY PRECAUTIONS.
--- NOTE | 2019-04-05 17:05 | MORECARE ---
CASE MANAGEMENT DISCHARGE SUMMARY PATIENT: SMITH GILBERT UNIT: [id number] ADM DATE: 03/30/19 AGE: 53 : 61 SEX: F ROOM/BED: D.9862 AUTHOR: BALTADOC PHYSICIAN: REFERRING PHYSICIAN: ROBINSON LIANG MD DATE OF SERVICE: 04/05/19 Discharge Plan Patient Name: SMITH GILBERT Facility: [facility]:[place] : 1965 Planned Disposition: Home Anticipated Discharge Date: 04/06/19 Discharge Date: Expected LOS: 7 Initial Reviewer: [email or web address] Initial Review Date: 03/30/2019 Generated: 04/05/19 6:04 pm Comments DCP- Discharge Planning Updated by [email or web address]: Aldo Valencia on 04/05/19 4:[address] Patient Name: SMITH GILBERT Encounter No: [id number] : 1965 Primary Insurance: [place]ID [place] Anticipated DC Date: 04-06-2019 Planned Disposition: Home DCP follow-up note: CM SPOKE TO CHANA PERDOMO WHO INFORMED CM THAT PT REPORTS NOT BEING ABLE TO AFFORD MEDICATIONS FOR DISCHARGE AND SHE WAS READY TO DISCHARGE TODAY. CM MET WITH PT IN ROOM TO DISCUSS DISCHARGE PLANNING AND NEEDS. PT INFORMED CM THAT SHE ALREADY TOLD THE DOCTOR AND IS TELLING CM THAT SHE IS NOT LEAVING UNTIL WEDNESDAY. CM ASKED WHY PT NEEDS TO STAY UNTIL WEDNESDAY, PT STATES SHE WILL FIND A RIDE WEDNESDAY AND HAS NO RIDE UNTIL THEN. CM INFORMED PT THAT CM CAN ASSIST WITH ARRANGING MEDICAID TRANSPORTATION. PT STATES SHE HAS NO MONEY, NOT EVEN A BEATRIS, TO PAY FOR ANYTHING. CM EXPLORED PT'S PERSONAL RESOURCES AND SUPPORT SYSTEM. PT VERY UPSET ABOUT CM ASKING ABOUT FINANCES AND HER SUPPORT SYSTEM. CM EXPLAINED THAT IF PT IS ASKING FOR HELP, CM NEEDS INFORMATION. PT STATES SHE MAKES $771 MONTH IN DISABILITY. SHE RECEIVES $40 SNAP. PT'S RENT IS $230 PER MONTH, PLUS UTILITIES THAT ARE ABOUT $250 PER MONTH. PT HAS SIX SLOTS FOR MEDICATION THROUGH MEDICAID BUT SHE STATES SHE DOES NOT HAVE ANY MONEY EVEN FOR THE COPAY. PT REPORTS SHE HAS FAMILY AND FRIENDS, BUT NONE THAT WILL HELP HER WITH ANTIBIOTICS OR MONEY. PT RIDES [place] MEDICAID VAN FOR ALL OF HER MEDICAL APPOINTMENTS. PT REPORTS BEING LEGALLY BLIND AND "FALLS A LOT". CM DISCUSSED REHAB SERVICES, PT DECLINES AND STATES SHE IS GOING HOME ON WEDNESDAY. PT REPORTS HER NEICE WILL ASSIST HER AT HOME IF NEEDED WITH CARE. PT STATES SOMEONE NEEDS TO HELP HER WITH THESE MEDICINES. PT ASKED FOR TAXI RIDE HOME WEDNESDAY; CM OBSERVED PT STATED THAT SHE HAD A RIDE ON WEDNESDAY, PT STATES SHE WAS NOT SURE. CM INFORMED PT THAT A TAXI RIDE IS OVER $100 AND THE HOSPITAL IS NOT PLACING PT IN A TAXI ON WEDNESDAY. PT STATES SHE WILL FIND A RIDE BUT THAT SHE IS NOT LEAVING SHE CAN'T GET HER MEDICATION. CM CALLED PT'S PHARMACY, [facility] IN [place], SPOKE TO LISY WHO INFORMED CM THAT PT HAS ON SLOT LEFT, MEDICATIONS WOULD COST FLAGYL $15, VANC $3 (USING LAST SLOT FOR MEDICATION). CM CALLED [facility] IN [place], , SPOKE TO SUMMER, THEY CAN BILL PT'S MEDICAID SLOT AND THE FLAGYL WILL BE $29.41 (WAS $111.30 WITHOUT SLOT) TOTAL WOULD BE $32.41. CM CALLED AND SPOKE TO CM SLURRY PLANT OPERATOR DARIUSZ WHO AUTHORIZED EXPENSE. CM SPOKE TO PT WHO AGREED TO PLAN. CM CALLED [facility] IN [place], PROVIDED SUMMER WITH PATIENTS INFORMATION FOR BILLING AND PRESCRITPION INFORMATION. CM OBTAINED PRESCRIPTON AND FAXED TO [facility] AT [phone]. SUMMER AT [facility] INFORMED CM THAT PRESCRIPTION WILL BE READY IN THE MORNING. CM CALLED [employer] TRANSPORT, , SPOKE TO CANDI, SCHEDULED FOR 1000AM, CONFIRMATION # [id number]. CM CALLED AND SPOKE TO SUMMER AT [facility], WAS ADVISED THAT VANCOMYCIN WAS HAVING TO BE ORDERED IN BUT BOTH ANTIBIOTICS WOULD BE READY FOR WIDE PIECE GOODS INSPECTOR AT ABOUT 1030AM TOMORROW. CM TO CALL MEDICAID TRANSPORT, , ASK TO CHANGE WIDE PIECE GOODS INSPECTOR TIME ON 04-06-19 TO AFTER LUNCH. Aldo Valencia,. CASE MANAGEMENT DCP- Discharge Planning Updated by [email or web address]: Adriana Saha on 03/30/19 5:[address] Patient Name: SMITH GILBERT Admission Status: ER Accout number: [id number] Admission Date: 03-30-2019 : 02-18-1966 Admission Diagnosis: Attending: ROBINSON LIANG Current LOS: 1 Anticipated DC Date: 04-03-2019 Planned Disposition: Primary Insurance: MED[place]ID [place] Discharge Planning Comments: CM met with patient and two other ladies in the room to complete initial dc planning assessment. CM educated patient on the CM role and verbal consent given by patient to complete assessment. CM verified patient's address, phone number, and emergency contact phone numbers. Patient lives at home alone but reports she has area agency on aging for counselors. She also reported that her niece is in the process of getting approved to be her pd cg through [facility]. At discharge patient plans to return home and feels this is a safe discharge. CM discussed availability of home health, rehab services, and medical equipment. Cm asked her about HH at dc and she reported that she already told me she had AAA, unsure if a nurse visits her, she kept saying counselor. Patient is also a dialysis patient and her last hd treatment was 3 days ago. She gets to and from HD via [facility]. She goes to [facility] every --. Patient stated she needs help getting her current call button to work further in her home than her bedroom. She has given her murray to her niece for emergencies so she can get in if she falls and has to push her button but she said it only works if she falls in her bedroom. Patient reports a family member will transport her home at time of discharge. CM will continue to follow and will assist as needed with dc plans/needs. Head Neck Surgeon: Adriana Saha RN, [facility] DCPIA - Discharge Planning Initial Assessment Updated by [email or web address]: Adriana Saha on 03/30/19 6:46 pm * Is the patient Alert and Oriented? Yes * PCP Dr. Cosme and Dr. Liang * Pharmacy [facility] * Preadmission Environment Home Alone * ADLs Independent * Equipment Bedside Commode Cane Glucometer Tub Bench * Other Equipment depends and bed pads from [employer]. * List name and contact numbers for known caregivers / representatives who currently or will assist patient after discharge: Chana verde - [phone] Josey cain - [phone] * Verbal permission to speak to the caregivers and representatives has been obtained from the patient. Yes * Community resources currently utilized Other Private Duty Care * Please name any agencies selected above. Stated she has AAA for counselors??? and is in the process for her niece getting approved to be her paid cg through [facility]. * Additional services required to return to the preadmission environment? No * Can the patient safely return to the preadmission environment? Yes * Has this patient been hospitalized within the prior 30 days at any hospital? Yes Last DP export: 04/05/19 3:42 p Patient Name: SMITH GILBERT Page 45378 at 1705 All edits/amendments must be made on the electronic document DICTATION DATE: 04/05/191703 EXPORT FREIGHT SPECIALIST: ROSA 04/05/191703 RPT#: [id number] DC DATE: STATUS: ADM IN [facility] [address] [place] [address] END OF REPORT
[2019-04-05 20:00] VITALS: BP 174/57
--- NOTE | 2019-04-05 20:04 | NUR ---
REPORT RECIEVIED AND ROUNDING COMPLETE. PT SITTING ON THE SIDE OF HER BED. PT IS UPSET BECAUSE TODAY HER POWER GOT SHUT OFF AND SHE IS WORRIED ABOUT BEING DISCHARGED TOMORROW AND NEEDING OXYGEN AND NOT HAVING POWER. PT WANTS TO SPEAK WITH JUVENAL. INFORMED HER THAT JUVENAL IS GONE FOR THE DAY AND WILL RETURN IN THE MORNING. PT STATES SHE HAS NO OTHER NEEDS AT THIS TIME CALL LIGHT WITHIN REACH AND BED IN LOWEST POSITION. PT IS SHOWING NO S/SX OF DISTRESS.
[2019-04-06 04:00] VITALS: BP 158/60
--- NOTE | 2019-04-06 04:01 | NUR ---
I have reviewed this patient and I concur with the Shift Assessment completed by the Licensed Practical Nurse today this shift.
[2019-04-06 07:11] LABS: ANION GAP 16.7 mmol/L (8-16); CARBON DIOXIDE 26.7 mmol/L (21.0-32.0); CREATININE - SERUM 7.1 mg/dL (0.6-1.3); POTASSIUM - SERUM 4.4 mmol/L (3.5-5.1)
[2019-04-06 07:39] LABS: BASOPHILS 0.4 % (0-2); EOSINOPHILS 3.6 % (0-7); HEMATOCRIT 34.2 % (36.0-48.0); HEMOGLOBIN 11.4 g/dL (12-16); IMMATURE GRANULOCYTES 0.4 % (0-5); LYMPHOCYTES 22.4 % (15-50); MCH 29.4 pg (26.0-34.0); MCHC 33.3 g/dL (31.0-37.0); MCV 88.1 fL (80.0-100.0); MEAN PLATELET VOLUME 10.1 fL (7.4-10.4); MONOCYTES 13.1 % (2-11); NEUTROPHILS 60.1 % (40-80); PLATELET COUNT 217 10x3/uL (130-400); RBC 3.88 10x6/uL (4.00-5.40); RDW 15.2 % (11.5-14.5); WBC 6.9 10x3/uL (4.8-10.8)
[2019-04-06 08:10] VITALS: BP 204/88
--- NOTE | 2019-04-06 08:57 | MORECARE ---
CASE MANAGEMENT DISCHARGE SUMMARY PATIENT: SMITH GILBERT UNIT: [id number] ADM DATE: 03/30/19 AGE: 53 : 61 SEX: F ROOM/BED: D.4179 AUTHOR: BALTADOC PHYSICIAN: REFERRING PHYSICIAN: ROBINSON LIANG MD DATE OF SERVICE: 04/06/19 Discharge Plan Patient Name: SMITH GILBERT Facility: [facility]:[place] : 1965 Planned Disposition: Home Anticipated Discharge Date: 04/06/19 Discharge Date: Expected LOS: 7 Initial Reviewer: [email or web address] Initial Review Date: 03/30/2019 Generated: 04/06/19 9:57 am Comments DCP- Discharge Planning Updated by [email or web address]: Aldo Valencia on 04/06/19 7:[address] Patient Name: SMITH GILBERT Encounter No: [id number] : 1965 Primary Insurance: MEDICAID [place] Anticipated DC Date: 04-06-2019 Planned Disposition: Home DCP follow-up note: CM CALLED [employer] TRANSPORT, , CHANGED LOAD DISPATCHER TIME TO 1200 NOON TODAY. ANTIBIOTICS WOULD BE READY FOR LOAD DISPATCHER AT [facility] ABOUT 1030AM TODAY TO PROVIDE TO PT FOR DISCHARGE HOME TODAY. Aldo Valencia,. CASE MANAGEMENT DCP- Discharge Planning Updated by [id number]: Aldo Valencia on 04/05/19 4:[address] Patient Name: SMITH GILBERT Encounter No: [id number] : 1965 Primary Insurance: MEDICAID [place] Anticipated DC Date: 04-06-2019 Planned Disposition: Home DCP follow-up note: CM SPOKE TO CHANA PERDOMO WHO INFORMED CM THAT PT REPORTS NOT BEING ABLE TO AFFORD MEDICATIONS FOR DISCHARGE AND SHE WAS READY TO DISCHARGE TODAY. CM MET WITH PT IN ROOM TO DISCUSS DISCHARGE PLANNING AND NEEDS. PT INFORMED CM THAT SHE ALREADY TOLD THE DOCTOR AND IS TELLING CM THAT SHE IS NOT LEAVING UNTIL WEDNESDAY. CM ASKED WHY PT NEEDS TO STAY UNTIL WEDNESDAY, PT STATES SHE WILL FIND A RIDE WEDNESDAY AND HAS NO RIDE UNTIL THEN. CM INFORMED PT THAT CM CAN ASSIST WITH ARRANGING MEDICAID TRANSPORTATION. PT STATES SHE HAS NO MONEY, NOT EVEN A BEATRIS, TO PAY FOR ANYTHING. CM EXPLORED PT'S PERSONAL RESOURCES AND SUPPORT SYSTEM. PT VERY UPSET ABOUT CM ASKING ABOUT FINANCES AND HER SUPPORT SYSTEM. CM EXPLAINED THAT IF PT IS ASKING FOR HELP, CM NEEDS INFORMATION. PT STATES SHE MAKES $771 MONTH IN DISABILITY. SHE RECEIVES $40 SNAP. PT'S RENT IS $230 PER MONTH, PLUS UTILITIES THAT ARE ABOUT $250 PER MONTH. PT HAS SIX SLOTS FOR MEDICATION THROUGH MEDICAID BUT SHE STATES SHE DOES NOT HAVE ANY MONEY EVEN FOR THE COPAY. PT REPORTS SHE HAS FAMILY AND FRIENDS, BUT NONE THAT WILL HELP HER WITH ANTIBIOTICS OR MONEY. PT RIDES [place] MEDICAID VAN FOR ALL OF HER MEDICAL APPOINTMENTS. PT REPORTS BEING LEGALLY BLIND AND "FALLS A LOT". CM DISCUSSED REHAB SERVICES, PT DECLINES AND STATES SHE IS GOING HOME ON WEDNESDAY. PT REPORTS HER NEICE WILL ASSIST HER AT HOME IF NEEDED WITH CARE. PT STATES SOMEONE NEEDS TO HELP HER WITH THESE MEDICINES. PT ASKED FOR TAXI RIDE HOME WEDNESDAY; CM OBSERVED PT STATED THAT SHE HAD A RIDE ON WEDNESDAY, PT STATES SHE WAS NOT SURE. CM INFORMED PT THAT A TAXI RIDE IS OVER $100 AND THE HOSPITAL IS NOT PLACING PT IN A TAXI ON WEDNESDAY. PT STATES SHE WILL FIND A RIDE BUT THAT SHE IS NOT LEAVING SHE CAN'T GET HER MEDICATION. CM CALLED PT'S PHARMACY, [facility] [place], SPOKE TO LISY WHO INFORMED CM THAT PT HAS ON SLOT LEFT, MEDICATIONS WOULD COST FLAGYL $15, VANC $3 (USING LAST SLOT FOR MEDICATION). CM CALLED [facility] IN , , SPOKE TO SUMMER, THEY CAN BILL PT'S MEDICAID SLOT AND THE FLAGYL WILL BE $29.41 (WAS $111.30 WITHOUT SLOT) TOTAL WOULD BE $32.41. CM CALLED AND SPOKE TO CM STEM ROLLER OPERATOR DARIUSZ WHO AUTHORIZED EXPENSE. CM SPOKE TO PT WHO AGREED TO PLAN. CM CALLED [facility] IN , PROVIDED SUMMER WITH PATIENTS INFORMATION FOR BILLING AND PRESCRITPION INFORMATION. CM OBTAINED PRESCRIPTON AND FAXED TO [facility] AT [phone]. SUMMER AT [facility] INFORMED CM THAT PRESCRIPTION WILL BE READY IN THE MORNING. CM CALLED [employer]SP[employer], , SPOKE TO CANDI, SCHEDULED FOR 1000AM, CONFIRMATION # [id number]. CM CALLED AND SPOKE TO SUMMER AT [facility], WAS ADVISED THAT VANCOMYCIN WAS HAVING TO BE ORDERED IN BUT BOTH ANTIBIOTICS WOULD BE READY FOR LOAD DISPATCHER AT ABOUT 1030AM TOMORROW. CM TO CALL MEDICAID TRANSPORT, , ASK TO CHANGE LOAD DISPATCHER TIME ON 04-06-19 TO AFTER LUNCH. Aldo Valencia,. CASE MANAGEMENT DCP- Discharge Planning Updated by [email or web address]: Adriana Saha on 03/30/19 5:[address] Patient Name: SMIHT GILBERT Admission Status: ER Accout number: [id number] Admission Date: 03-30-2019 : 1965 Admission Diagnosis: Attending: ROBINSON LIANG Current LOS: 1 Anticipated DC Date: 04-03-2019 Planned Disposition: Primary Insurance: MEDICAID [place] Discharge Planning Comments: CM met with patient and two other ladies in the room to complete initial dc planning assessment. CM educated patient on the CM role and verbal consent given by patient to complete assessment. CM verified patient's address, phone number, and emergency contact phone numbers. Patient lives at home alone but reports she has [facility] agency on aging for counselors. She also reported that her niece is in the process of getting approved to be her pd cg through [facility]. At discharge patient plans to return home and feels this is a safe discharge. CM discussed availability of home health, rehab services, and medical equipment. Cm asked her about HH [place] and she reported that she already told me she had AAA, unsure if a nurse visits her, she kept saying counselor. Patient is also a dialysis patient and her last hd treatment was 3 days ago. She gets to and from HD via [facility]. She goes to [facility] every --. Patient stated she needs help getting her current call button to work further in her home than her bedroom. She has given her murray to her niece for emergencies so she can get in if she falls and has to push her button but she said it only works if she falls in her bedroom. Patient reports a family member will transport her home at time of discharge. CM will continue to follow and will assist as needed with dc plans/needs. Experimental Welder: Adriana Saha RN, [facility] DCPIA - Discharge Planning Initial Assessment Updated by [id number]: Adriana Saha on 03/30/19 6:46 pm * Is the patient Alert and Oriented? Yes * PCP Dr. Cosme and Dr. Liang * Pharmacy [facility] * Preadmission Environment Home Alone * ADLs Independent * Equipment Bedside Commode Cane Glucometer Tub Bench * Other Equipment depends and bed pads from [employer]. * List name and contact numbers for known caregivers / representatives who currently or will assist patient after discharge: Chana verde - [phone] Josey Thomas - - [phone] * Verbal permission to speak to the caregivers and representatives has been obtained from the patient. Yes * Community resources currently utilized Other Private Duty Care * Please name any agencies selected above. Stated she has AAA for counselors??? and is in the process for her niece getting approved to be her paid cg through [facility]. * Additional services required to return to the preadmission environment? No * Can the patient safely return to the preadmission environment? Yes * Has this patient been hospitalized within the prior 30 days at any hospital? Yes Last DP export: 04/05/19 4:04 p Patient Name: SMITH GILBERT Page 12358 at 0857 All edits/amendments must be made on the electronic document DICTATION DATE: 04/06/19856 CLINICAL TRIALS ASSISTANT: ROSA 04/06/19856 RPT#: [id number] DC DATE: STATUS: ADM IN [facility] [address] [place] [address] END OF REPORT
[2019-04-06 11:37] VITALS: BP 172/81
[2019-04-06] MEDS ORDERED: Vancomycin HCl PO (12:07)
[2019-04-06] MEDS ORDERED: FLAGYL500 MG PO (12:07)
--- NOTE | 2019-04-06 12:38 | MORECARE ---
CASE MANAGEMENT DISCHARGE SUMMARY PATIENT: SMITH GILBERT UNIT: [id number] ADM DATE: 03/30/19 AGE: 53 : 61 SEX: F ROOM/BED: D.5949 AUTHOR: BALTADOC PHYSICIAN: REFERRING PHYSICIAN: ROBINSON LIANG MD DATE OF SERVICE: 04/06/19 Discharge Plan Patient Name: SMITH GILBERT Facility: [facility]:[place] : 1965 Planned Disposition: Home Anticipated Discharge Date: 04/06/19 Discharge Date: Expected LOS: 7 Initial Reviewer: [id number] Initial Review Date: 03/30/2019 Generated: 04/06/19 1:38 pm Comments DCP- Discharge Planning Updated by [id number]: Aldo Valencia on 04/06/19 7:[address] Patient Name: SMITH GILBERT Encounter No: [id number] : 1965 Primary Insurance: MEDICAID [place] Anticipated DC Date: 04-06-2019 Planned Disposition: Home DCP follow-up note: CM CALLED MEDICAID TRANSPORT, , CHANGED RESISTOR WINDER TIME TO 1200 NOON TODAY. ANTIBIOTICS WOULD BE READY FOR RESISTOR WINDER AT [facility] ABOUT 1030AM TODAY TO PROVIDE TO PT FOR DISCHARGE HOME TODAY. Aldo Valencia,. CASE MANAGEMENT DCP- Discharge Planning Updated by [id number]: Aldo Valencia on 04/05/19 4:[address] Patient Name: SMITH GILBERT Encounter No: [id number] : 1965 Primary Insurance: MEDICAID [place] Anticipated DC Date: 04-06-2019 Planned Disposition: Home DCP follow-up note: CM SPOKE TO CHANA PERDOMO WHO INFORMED CM THAT PT REPORTS NOT BEING ABLE TO AFFORD MEDICATIONS FOR DISCHARGE AND SHE WAS READY TO DISCHARGE TODAY. CM MET WITH PT IN ROOM TO DISCUSS DISCHARGE PLANNING AND NEEDS. PT INFORMED CM THAT SHE ALREADY TOLD THE DOCTOR AND IS TELLING CM THAT SHE IS NOT LEAVING UNTIL WEDNESDAY. CM ASKED WHY PT NEEDS TO STAY UNTIL WEDNESDAY, PT STATES SHE WILL FIND A RIDE WEDNESDAY AND HAS NO RIDE UNTIL THEN. CM INFORMED PT THAT CM CAN ASSIST WITH ARRANGING MEDICAID TRANSPORTATION. PT STATES SHE HAS NO MONEY, NOT EVEN A BEATRIS, TO PAY FOR ANYTHING. CM EXPLORED PT'S PERSONAL RESOURCES AND SUPPORT SYSTEM. PT VERY UPSET ABOUT CM ASKING ABOUT FINANCES AND HER SUPPORT SYSTEM. CM EXPLAINED THAT IF PT IS ASKING FOR HELP, CM NEEDS INFORMATION. PT STATES SHE MAKES $771 MONTH IN DISABILITY. SHE RECEIVES $40 SNAP. PT'S RENT IS $230 PER MONTH, PLUS UTILITIES THAT ARE ABOUT $250 PER MONTH. PT HAS SIX SLOTS FOR MEDICATION THROUGH MEDICAID BUT SHE STATES SHE DOES NOT HAVE ANY MONEY EVEN FOR THE COPAY. PT REPORTS SHE HAS FAMILY AND FRIENDS, BUT NONE THAT WILL HELP HER WITH ANTIBIOTICS OR MONEY. PT RIDES [place] MEDICAID VAN FOR ALL OF HER MEDICAL APPOINTMENTS. PT REPORTS BEING LEGALLY BLIND AND "FALLS A LOT". CM DISCUSSED REHAB SERVICES, PT DECLINES AND STATES SHE IS GOING HOME ON WEDNESDAY. PT REPORTS HER NEICE WILL ASSIST HER AT HOME IF NEEDED WITH CARE. PT STATES SOMEONE NEEDS TO HELP HER WITH THESE MEDICINES. PT ASKED FOR TAXI RIDE HOME WEDNESDAY; CM OBSERVED PT STATED THAT SHE HAD A RIDE ON WEDNESDAY, PT STATES SHE WAS NOT SURE. CM INFORMED PT THAT A TAXI RIDE IS OVER $100 AND THE HOSPITAL IS NOT PLACING PT IN A TAXI ON WEDNESDAY. PT STATES SHE WILL FIND A RIDE BUT THAT SHE IS NOT LEAVING SHE CAN'T GET HER MEDICATION. CM CALLED PT'S PHARMACY, [facility] [place], SPOKE TO LISY WHO INFORMED CM THAT PT HAS ON SLOT LEFT, MEDICATIONS WOULD COST FLAGYL $15, VANC $3 (USING LAST SLOT FOR MEDICATION). CM CALLED [facility] , , SPOKE TO SUMMER, THEY CAN BILL PT'S MEDICAID SLOT AND THE FLAGYL WILL BE $29.41 (WAS $111.30 WITHOUT SLOT) TOTAL WOULD BE $32.41. CM CALLED AND SPOKE TO CM WIRE DRAWING DIE MAKER DARIUSZ WHO AUTHORIZED EXPENSE. CM SPOKE TO PT WHO AGREED TO PLAN. CM CALLED [facility] , PROVIDED SUMMER WITH PATIENTS INFORMATION FOR BILLING AND PRESCRITPION INFORMATION. CM OBTAINED PRESCRIPTON AND FAXED TO [facility] AT [phone]. SUMMER AT [facility] INFORMED CM THAT PRESCRIPTION WILL BE READY IN THE MORNING. CM CALLED MEDICAID TRANSPORT, , SPOKE TO CANDI, SCHEDULED FOR 1000AM, CONFIRMATION # [id number]. CM CALLED AND SPOKE TO SUMMER AT [facility], WAS ADVISED THAT VANCOMYCIN WAS HAVING TO BE ORDERED IN BUT BOTH ANTIBIOTICS WOULD BE READY FOR RESISTOR WINDER AT ABOUT 1030AM TOMORROW. CM TO CALL MEDICAID TRANSPORT, , ASK TO CHANGE RESISTOR WINDER TIME ON 04-06-19 TO AFTER LUNCH. Aldo Valencia,. CASE MANAGEMENT DCP- Discharge Planning Updated by [id number]: Adriana Shaa on 03/30/19 5:[address] Patient Name: SMITH GILBERT Admission Status: ER Accout number: [id number] Admission Date: 03-30-2019 : 1965 Admission Diagnosis: Attending: ROBINSON LIANG Current LOS: 1 Anticipated DC Date: 04-03-2019 Planned Disposition: Primary Insurance: MEDICAID [place] Discharge Planning Comments: CM met with patient and two other ladies in the room to complete initial dc planning assessment. CM educated patient on the CM role and verbal consent given by patient to complete assessment. CM verified patient's address, phone number, and emergency contact phone numbers. Patient lives at home alone but reports she has [facility] agency on aging for counselors. She also reported that her niece is in the process of getting approved to be her pd cg through [facility]. At discharge patient plans to return home and feels this is a safe discharge. CM discussed availability of home health, rehab services, and medical equipment. Cm asked her about HH at al and she reported that she already told me she had AAA, unsure if a nurse visits her, she kept saying counselor. Patient is also a dialysis patient and her last hd treatment was 3 days ago. She gets to and from HD via [facility] transport. She goes [facility] every --. Patient stated she needs help getting her current call button to work further in her home than her bedroom. She has given her murray to her niece for emergencies so she can get in if she falls and has to push her button but she said it only works if she falls in her bedroom. Patient reports a family member will transport her home at time of discharge. CM will continue to follow and will assist as needed with dc plans/needs. Guest Services Director: Adriana Saha RN, [facility] DCPIA - Discharge Planning Initial Assessment Updated by [id number]: Adriana Saha on 03/30/19 6:46 pm * Is the patient Alert and Oriented? Yes * PCP Dr. Cosme and Dr. Liang * Pharmacy [facility] * Preadmission Environment Home Alone * ADLs Independent * Equipment Bedside Commode Cane Glucometer Tub Bench * Other Equipment depends and bed pads from [employer]. * List name and contact numbers for known caregivers / representatives who currently or will assist patient after discharge: Chana verde - [phone] Josey Thomas - - [phone] * Verbal permission to speak to the caregivers and representatives has been obtained from the patient. Yes * Community resources currently utilized Other Private Duty Care * Please name any agencies selected above. Stated she has AAA for counselors??? and is in the process for her niece getting approved to be her paid cg through [facility]. * Additional services required to return to the preadmission environment? No * Can the patient safely return to the preadmission environment? Yes * Has this patient been hospitalized within the prior 30 days at any hospital? Yes Last DP export: 04/06/19 7:57 a Patient Name: SMITH GILBERT Page 00447 at 1238 All edits/amendments must be made on the electronic document DICTATION DATE: 04/06/19 1238 CAMP PROGRAM DIRECTOR: ROSA 04/06/19 1238 RPT#: [id number] DC DATE: STATUS: ADM IN [facility] [address] [place] [address] END OF REPORT
--- NOTE | 2019-04-06 12:46 | MORECARE ---
CASE MANAGEMENT DISCHARGE SUMMARY PATIENT: SMITH GILBERT UNIT: [id number] ADM DATE: 03/30/19 AGE: 53 : 61 SEX: F ROOM/BED: D.1245 AUTHOR: BALTA,DOC PHYSICIAN: REFERRING PHYSICIAN: ROBINSON LIANG MD DATE OF SERVICE: 04/06/19 Discharge Plan Patient Name: SMITH GILBERT Facility: [facility]:[place] : 1965 Planned Disposition: Home Anticipated Discharge Date: 04/06/19 Discharge Date: Expected LOS: 7 Initial Reviewer: [id number] Initial Review Date: 03/30/2019 Generated: 04/06/19 1:46 pm Comments DCP- Discharge Planning Updated by [id number]: Aldo Hernandez on 04/06/19 11:[address] Patient Name: SMITH GILBERT Encounter No: [id number] : 1965 Primary Insurance: MEDICAID [place] Anticipated DC Date: 04-06-2019 Planned Disposition: Home DCP follow-up note: CM CALLED MEDICAID TRANSPORT, , CHANGED VEHICLE DYNAMICS ENGINEER TIME TO 1200 NOON TODAY. ANTIBIOTICS WOULD BE READY FOR VEHICLE DYNAMICS ENGINEER AT [facility] ABOUT 1030AM TODAY TO PROVIDE TO PT FOR DISCHARGE HOME TODAY. Aldo Hernandez,. CASE MANAGEMENT Appended by Aldo Hernandez on 04/06/2019 12:39 CDT: CM P[facility] [place], COSTS OF $32. 41 BILLED TO CASE MANAGEMENT. CM RETURNED TO HOSPITAL. PT REQUESTED TO SEE CM. CM MET WITH PT IN ROOM WHO REQUESTED THAT CM SEND LETTER TO [facility] TO ASSIST WITH GETTING HER ELECTRICITY TURNED BACK ON AND PT HAS DISCUSSED THIS WITH CHANA MONTAGUE. PT IN AGREEMENT WITH DISCHARGE HOME TODAY. VERO MET WITH CHANA MONTAGUE WHO INFORMED CM THAT PT HAS LIFESAVING EQUIPMENT AT HOME, OXYGEN, CPAP AND LIFE ALERT BUTTON. CM COMPILED LETTER, FAXED TO [facility] AT [phone]. MEDICAID TRANSPORT ARRIVED, CHANA MONTAGUE INFORMED CM THAT IT WAS NOT DETERMINED AT THIS TIME THAT PT WILL DISCHARGE TODAY. CM CANCELLED TRANSPORT WITH MARKETING OFFICER. CM RECEIVED CALL BRIGIDO OF [facility] WHO INFORMED CM THAT PT'S ELECTRICITY WILL BE RESTORED TODAY AND THAT THEY WILL FAX A LETTER OF MEDICAL NECESSITY TO DR. LIANG'S OFFICE FOR SIGNATURE. PT NOTIFIED. CHANA MONTAGUE INFORMED CM THAT PT WILL DISCHARGE HOME TODAY. CM CALLED MEDICAID TRANSPORT, , SCHEDULED VAN VEHICLE DYNAMICS ENGINEER FOR 3PM TODAY, CONFIRMATION NUMBER [id number]. EXTRACTOR OPERATOR SOLVENT PROCESS NURSE NOTIFIED. HOME ANTIBIOTICS SUPPLIED TO EXTRACTOR OPERATOR SOLVENT PROCESS NURSE TO SEND HOME WITH PT. NO FURTHER DISCHARGE NEEDS IDENTIFIED. MEDICAID TRANSPORT TO VEHICLE DYNAMICS ENGINEER PT AT 3PM TODAY. ALDO HERNANDEZ, CASE MANAGEMENT DCP- Discharge Planning Updated by [id number]: Aldo Hernandez on 04/05/19 4:[address] Patient Name: SMITH GILBERT Encounter No: [id number] : 1965 Primary Insurance: MEDICAID [facility] DC Date: 04-06-2019 Planned Disposition: Home DCP follow-up note: CM SPOKE TO CHANA PERDOMO WHO INFORMED CM THAT PT REPORTS NOT BEING ABLE TO AFFORD MEDICATIONS FOR DISCHARGE AND SHE WAS READY TO DISCHARGE TODAY. CM MET WITH PT IN ROOM TO DISCUSS DISCHARGE PLANNING AND NEEDS. PT INFORMED CM THAT SHE ALREADY TOLD THE DOCTOR AND IS TELLING CM THAT SHE IS NOT LEAVING UNTIL WEDNESDAY. CM ASKED WHY PT NEEDS TO STAY UNTIL WEDNESDAY, PT STATES SHE WILL FIND A RIDE WEDNESDAY AND HAS NO RIDE UNTIL THEN. CM INFORMED PT THAT CM CAN ASSIST WITH ARRANGING MEDICAID TRANSPORTATION. PT STATES SHE HAS NO MONEY, NOT EVEN A BEATRIS, TO PAY FOR ANYTHING. CM EXPLORED PT'S PERSONAL RESOURCES AND SUPPORT SYSTEM. PT VERY UPSET ABOUT CM ASKING ABOUT FINANCES AND HER SUPPORT SYSTEM. CM EXPLAINED THAT IF PT IS ASKING FOR HELP, CM NEEDS INFORMATION. PT STATES SHE MAKES $771 MONTH IN DISABILITY. SHE RECEIVES $40 SNAP. PT'S RENT IS $230 PER MONTH, PLUS UTILITIES THAT ARE ABOUT $250 PER MONTH. PT HAS SIX SLOTS FOR MEDICATION THROUGH MEDICAID BUT SHE STATES SHE DOES NOT HAVE ANY MONEY EVEN FOR THE COPAY. PT REPORTS SHE HAS FAMILY AND FRIENDS, BUT NONE THAT WILL HELP HER WITH ANTIBIOTICS OR MONEY. PT RIDES [place] MEDICAID VAN FOR ALL OF HER MEDICAL APPOINTMENTS. PT REPORTS BEING LEGALLY BLIND AND "FALLS A LOT". CM DISCUSSED REHAB SERVICES, PT DECLINES AND STATES SHE IS GOING HOME ON WEDNESDAY. PT REPORTS HER NEICE WILL ASSIST HER AT HOME IF NEEDED WITH CARE. PT STATES SOMEONE NEEDS TO HELP HER WITH THESE MEDICINES. PT ASKED FOR TAXI RIDE HOME WEDNESDAY; CM OBSERVED PT STATED THAT SHE HAD A RIDE ON WEDNESDAY, PT STATES SHE WAS NOT SURE. CM INFORMED PT THAT A TAXI RIDE IS OVER $100 AND THE HOSPITAL IS NOT PLACING PT IN A TAXI ON WEDNESDAY. PT STATES SHE WILL FIND A RIDE BUT THAT SHE IS NOT LEAVING SHE CAN'T GET HER MEDICATION. CM CALLED PT'S PHARMACY, [facility] IN [place], SPOKE TO LISY WHO INFORMED CM THAT PT HAS ON SLOT LEFT, MEDICATIONS WOULD COST FLAGYL $15, VANC $3 (USING LAST SLOT FOR MEDICATION). CM CALLED [facility] IN [place], , SPOKE TO SUMMER, THEY CAN BILL PT'S MEDICAID SLOT AND THE FLAGYL WILL BE $29.41 (WAS $111.30 WITHOUT SLOT) TOTAL WOULD BE $32.41. CM CALLED AND SPOKE TO CM MEDICAL PATHOLOGY TEACHER DARIUSZ WHO AUTHORIZED EXPENSE. CM SPOKE TO PT WHO AGREED TO PLAN. CM CALLED [facility] IN [place], PROVIDED SUMMER WITH PATIENTS INFORMATION FOR BILLING AND PRESCRITPION INFORMATION. CM OBTAINED PRESCRIPTON AND FAXED TO [facility] AT [phone]. SUMMER AT [facility] INFORMED CM THAT PRESCRIPTION WILL BE READY IN THE MORNING. CM CALLED MEDICAID TRANSPORT, , SPOKE TO CANDI, SCHEDULED FOR 1000AM, CONFIRMATION # [phone]. CM CALLED AND SPOKE TO SUMMER AT [facility], WAS ADVISED THAT VANCOMYCIN WAS HAVING TO BE ORDERED IN BUT BOTH ANTIBIOTICS WOULD BE READY FOR VEHICLE DYNAMICS ENGINEER AT ABOUT 1030AM TOMORROW. CM TO CALL MEDICAID TRANSPORT, , ASK TO CHANGE VEHICLE DYNAMICS ENGINEER TIME ON 04-06-19 TO AFTER LUNCH. Aldo Hernandez,. CASE MANAGEMENT DCP- Discharge Planning Updated by [id number]: Adriana Saha on 03/30/19 5:[address] Patient Name: SMITH GILBERT Admission Status: ER Accout number: [id number] Admission Date: 03-30-2019 : 1965 Admission Diagnosis: Attending: ROBINSON LIANG Current LOS: 1 Anticipated DC Date: 04-03-2019 Planned Disposition: Primary Insurance: MEDICAID [place] Discharge Planning Comments: CM met with patient and two other ladies in the room to complete initial dc planning assessment. CM educated patient on the CM role and verbal consent given by patient to complete assessment. CM verified patient's address, phone number, and emergency contact phone numbers. Patient lives at home alone but reports she has area agency on aging for counselors. She also reported that her niece is in the process of getting approved to be her pd cg through [facility]. At discharge patient plans to return home and feels this is a safe discharge. CM discussed availability of home health, rehab services, and medical equipment. Cm asked her about HH at dc and she reported that she already told me she had AAA, unsure if a nurse visits her, she kept saying counselor. Patient is also a dialysis patient and her last hd treatment was 3 days ago. She gets to and from HD via [facility] transport. She goes to [facility] every --. Patient stated she needs help getting her current call button to work further in her home than her bedroom. She has given her murray to her niece for emergencies so she can get in if she falls and has to push her button but she said it only works if she falls in her bedroom. Patient reports a family member will transport her home at time of discharge. CM will continue to follow and will assist as needed with dc plans/needs. Facing End Trimmer: Adriana Saha RN, [facility] DCPIA - Discharge Planning Initial Assessment Updated by [id number]: Adriana Saha on 03/30/19 6:46 pm * Is the patient Alert and Oriented? Yes * PCP Dr. Cosme and Dr. Liang * Pharmacy [facility] * Preadmission Environment Home Alone * ADLs Independent * Equipment Bedside Commode Cane Glucometer Tub Bench * Other Equipment depends and bed pads from [facility]. * List name and contact numbers for known caregivers / representatives who currently or will assist patient after discharge: Chana verde - [phone] Josey Thomas - sister - [phone] * Verbal permission to speak to the caregivers and representatives has been obtained from the patient. Yes * Community resources currently utilized Other Private Duty Care * Please name any agencies selected above. Stated she has AAA for counselors??? and is in the process for her niece getting approved to be her paid cg through [facility]. * Additional services required to return to the preadmission environment? No * Can the patient safely return to the preadmission environment? Yes * Has this patient been hospitalized within the prior 30 days at any hospital? Yes Last DP export: 04/06/19 11:38 a Patient Name: SMITH GILBERT Page 90712 at 1246 All edits/amendments must be made on the electronic document DICTATION DATE: 04/06/191245 CAFE SERVER: ROSA 04/06/19 1246 RPT#: [id number] DC DATE: STATUS: ADM IN [facility] [address] [place] [address] END OF REPORT
--- NOTE | 2019-04-06 15:07 | NUR ---
I have reviewed this patient and I concur with the Shift Assessment completed by the Licensed Practical Nurse today this shift.
--- NOTE | 2019-04-06 16:04 | NUR ---
D/C INSTRUCTIONS GIVEN TO PT, IV REMOVED AND PT TAKEN TO [facility]AT BUS VIA WHEELCHAIR.
== END 2019-04-06 16:04 | disposition home or self-care (01) | DRG 438 ==
LOC: D.ER 14:10 → D.M2 18:31
PROVIDERS: Family Medicine; Internal Medicine; ADMIT Internal Medicine Nephrology; ATTEND Internal Medicine Nephrology
DX: K86.3 Pseudocyst of pancreas (principal); J18.9 Pneumonia, unspecified organism; N18.6 End stage renal disease; I12.0 Hypertensive chronic kidney disease with stage 5 chronic kidney disease or end stage renal disease; A04.72 Enterocolitis due to Clostridium difficile, not specified as recurrent; Z99.2 Dependence on renal dialysis; Z91.15 Patient's noncompliance with renal dialysis; E11.22 Type 2 diabetes mellitus with diabetic chronic kidney disease; Z87.891 Personal history of nicotine dependence

== ENCOUNTER 2019-04-27 00:18 | Inpatient (IN) | payer MEDICAID ==
[~2019-04-27] VITALS: Ht 158.8 cm; Wt 68.2 kg
[2019-04-27] VITALS: BP 204/76
[~2019-04-27 00:18] MED LIST changes: +ATIVAN1 MG PO; +FLAGYL500 MG PO; +METOPROLOL TART50 MG PO; +PAXIL20 MG PO; +Vancomycin HCl PO
[2019-04-27 01:07] LABS: BASOPHILS 0.3 % (0-2); EOSINOPHILS 0.3 % (0-7); HEMATOCRIT 40.9 % (36.0-48.0); HEMOGLOBIN 13.9 g/dL (12-16); IMMATURE GRANULOCYTES 0.5 % (0-5); LYMPHOCYTES 8.2 % (15-50); MCH 30.2 pg (26.0-34.0); MCV 88.9 fL (80.0-100.0); MEAN PLATELET VOLUME 10.4 fL (7.4-10.4); MONOCYTES 3.8 % (2-11); NEUTROPHILS 86.9 % (40-80); RDW 15.1 % (11.5-14.5); WBC 5.9 10x3/uL (4.8-10.8)
[2019-04-27 01:11] LABS: PLATELET COUNT 296 10x3/uL (130-400)
[2019-04-27 01:20] LABS: ANION GAP 16.6 mmol/L (8-16); BILIRUBIN - TOTAL 0.65 mg/dL (0.2-1.3); CALCIUM 10.2 mg/dL (8.5-10.1); CARBON DIOXIDE 28.4 mmol/L (21.0-32.0); CREATININE - SERUM 5.3 mg/dL (0.6-1.3); MAGNESIUM - SERUM 2.3 mg/dL (1.8-2.4); PROTEIN - SERUM 8.6 g/dL (6.4-8.2)
[2019-04-27 03:06] VITALS: BP 204/76; BMI 27.1
--- NOTE | 2019-04-27 03:17 | NUR ---
PATIENT TO THE FLOOR VIA WHELLCHAIR. FAMILY PRESENT. PATIENT'S B/P WAS 204/76. PAGED JUAN AVALOS AND SHE GAVE ORDERS, PUT ORDERS IN AND CALLED BANKING CENTER MANAGER TO PULL MEDICATIONS. CALL LIGTH WITHIN REACH AND BED IN LOWEST POSITION.
--- NOTE | 2019-04-27 07:49 | NUR ---
INITIAL ROUNDING, PATIENT IS UP AND DRESSED TRYING TO PLUG IN HER CELL PHONE VEHICLE CALIBRATION ENGINEER ABOVE THE BED. SHE IS REQUESTING THE RECLINER BE REMOVED FROM HER ROOM STATING 'IT IS A FALL RISK AND I DONT NEED IT". THE CHAIR WAS REMOVED AT THIS TIME AND SWAPPED FOR A SMALL STRAIGHT BACK CHAIR, SHE IS PLEASED. WHITE BOARD UPDATED.
[2019-04-27 08:03] VITALS: BP 182/62
[2019-04-27 12:06] VITALS: BP 182/64
--- NOTE | 2019-04-27 13:00 | NUR ---
CALLED AND SPOKE TO CRYSTAL KRAUS R D INTERN FOR HOBBY. SBAR, UPDATE ON PATIENT. INQUIRED ABOUT THE IVF ORDERED TO BE STARTED. NAYANA GAVE VERBAL TO D/C THE ORDER LONG THE PATIENT IS TOLERATING A CLEAR LIQUID DIET AND NOT HAVING N/V. IF THE PATIENT IS UNABLE TO HOLD LIQUIDS DOWN, RESTART NS AT 60 ML/HR
[2019-04-27 13:24] VITALS: Ht 158.8 cm; Wt 68.2 kg
[2019-04-27 19:13] VITALS: BP 173/59
[2019-04-27 20:00] VITALS: BP 137/55
--- NOTE | 2019-04-27 20:02 | NUR ---
REPORT RECIEVED AND ROUNDING COMPLETE. PATIENT STANDING IN DOORWAY OF HER BATHROOM. PATIENT WAS VERY DEMANDING IN KNOWING WHY SHE WASNT GETTING WHAT SHE WANTED. I ASKED WHAT SHE MENT AND SHE SAID NEVER MIND YOU WONT HELP ANYWAYS. I TOLD HER I WOULD DO ME BEST BUT SHE DIDNT WANT TO HEAR ANY OF IT. PATIENT STATED SHE NEEDED A HAT IN HER TOLIET FOR STOOL SAMPLE. AND WOULD LIKE TO REVIEW HER MEDICATIONS. I TOLD HER I WOULD BRING HAT AND REVIEW MEDICATIONS WITH HER. NO OTHER NEEDS AT THIS TIME CALL LIGTH WITHIN REACH AND BED IN LOWEST POSITION.
--- NOTE | 2019-04-28 01:38 | NUR ---
LAB CALLED PATIENT IS POSTIVE FOR CDIFF ANTIGEN. PRECATIONS PLACED ON DOOR. PATEINT INFORMED.
--- NOTE | 2019-04-28 03:20 | NUR ---
I have reviewed this patient and I concur with the Shift Assessment completed by the Licensed Practical Nurse today this shift.
[2019-04-28 04:00] VITALS: BP 157/58
[2019-04-28 06:15] LABS: BASOPHILS 0.2 % (0-2); EOSINOPHILS 1.6 % (0-7); HEMATOCRIT 34.5 % (36.0-48.0); IMMATURE GRANULOCYTES 0.3 % (0-5); LYMPHOCYTES 23.6 % (15-50); MCH 28.8 pg (26.0-34.0); MCHC 31.6 g/dL (31.0-37.0); MEAN PLATELET VOLUME 10.2 fL (7.4-10.4); MONOCYTES 10.9 % (2-11); NEUTROPHILS 63.4 % (40-80); PLATELET COUNT 239 10x3/uL (130-400); RBC 3.78 10x6/uL (4.00-5.40); RDW 15.5 % (11.5-14.5)
[2019-04-28 06:40] LABS: ANION GAP 13.4 mmol/L (8-16); CALCIUM 9.1 mg/dL (8.5-10.1); CARBON DIOXIDE 28.8 mmol/L (21.0-32.0); CHOL - HDL RATIO 3.5 ratio (2.3-4.1); HEMOGLOBIN 10.9 g/dL (12-16); LDL-HDL RATIO 2.1 ratio (1.5-3.5); MCV 91.3 fL (80.0-100.0); POTASSIUM - SERUM 4.2 mmol/L (3.5-5.1); WBC 9.1 10x3/uL (4.8-10.8)
[2019-04-28 06:41] LABS: CREATININE - SERUM 7.1 mg/dL (0.6-1.3)
--- NOTE | 2019-04-28 07:00 | NUR ---
INITIAL ROUNDING, PATIENT RESTING IN BED SEMI FOWLERS, LIGHTS OFF, EYES CLOSED. CALL LIGHT IN REACH
[2019-04-28 08:05] VITALS: BP 142/62
--- NOTE | 2019-04-28 08:15 | NUR ---
PATIENT CALLED AND DEMANDED A TURKEY SANDWITCH, STATING "I ATE ONE LAST NIGHT", SHE WAS INSTRUCTED ON THE CLEAR LIQUID DIET ORDERED SHE INTURREPTED THE EXPLANATION AND WASNT INTERESTED IN FURTHER DISSCUSSION. RECREATION SUPERVISOR NOTIFIED OF THE PATIENT BEING UPSET AND WILL SPEAK WITH HER.
--- NOTE | 2019-04-28 11:15 | NUR ---
REFUSED SCD'S PER ESTEVAN/ALEJA
--- NOTE | 2019-04-28 12:54 | NUR ---
DIALYSIS COODINATOR: [facility] MWF @ 11:00AM. JUAN DO.
[2019-04-28 20:00] VITALS: BP 158/61
--- NOTE | 2019-04-28 20:15 | NUR ---
RECIEVED UP IN BED WITH EYES OPENA ND TV ON. ALERT AND ORIENTED X4. UP AD CRISTIANE TO B/R. REMAINS IN ISOLATION. IV TO LEFT FA SL.. REMAINS ON CLEAR LIQUID DIET AT THIS TIME. EDUCATED ON DIET AND DISEASE PROCESS. REPORTED NONCOMPLIANT WITH DIET. DENIES ANY NEEDS AT THIS TIME.
[2019-04-29] VITALS: BP 171/64
[2019-04-29 04:00] VITALS: BP 148/60
[2019-04-29 06:42] LABS: BASOPHILS 0.4 % (0-2); HEMATOCRIT 37.6 % (36.0-48.0); HEMOGLOBIN 12.2 g/dL (12-16); IMMATURE GRANULOCYTES 0.3 % (0-5); LYMPHOCYTES 25.5 % (15-50); MCH 29.3 pg (26.0-34.0); MCHC 32.4 g/dL (31.0-37.0); MCV 90.4 fL (80.0-100.0); MEAN PLATELET VOLUME 9.9 fL (7.4-10.4); MONOCYTES 11.2 % (2-11); NEUTROPHILS 60.6 % (40-80); PLATELET COUNT 225 10x3/uL (130-400); RBC 4.16 10x6/uL (4.00-5.40); RDW 14.9 % (11.5-14.5); WBC 6.9 10x3/uL (4.8-10.8)
[2019-04-29 06:44] LABS: ANION GAP 13.9 mmol/L (8-16); CALCIUM 8.9 mg/dL (8.5-10.1); CARBON DIOXIDE 29.1 mmol/L (21.0-32.0); CREATININE - SERUM 6.5 mg/dL (0.6-1.3)
[2019-04-29 08:00] VITALS: BP 157/67
--- NOTE | 2019-04-29 08:09 | NUR ---
AM MEDS GIVEN AT THIS TIME. PT A/O X4, RESP EVEN AND NONLABORED ON RA. LT WRIST IV SL. PT DENIES ANY NEEDS AT THIS TIME. CALL LIGHT IN REACH,NAD NOTED, WILL CONTINUE PLAN OF CARE.
--- NOTE | 2019-04-29 16:28 | NUR ---
BLOOD SUGAR OF 112, NO COVERAGE NEEDED PER S/S. PT ASKED FOR POPSICLE, WILL PROVIDE PT WITH PROSICLE, PT DENIES ANY OTHER NEEDS AT THIS TIME. CALL LIGHT IN REACH, NAD NOTED.
[2019-04-29 16:45] VITALS: BP 147/62
--- NOTE | 2019-04-29 19:34 | NUR ---
RECIEVED LAYING IN BED WITH TV ON. ALERT AND ORIENTED X4. UP AD CRISTIANE TO B/R. IV TO LEFT FA SL.. REMAINS IN ENTERIC ISOLATION. RIGHT ARM RESERVE. DENIES ANY NEEDS AT THIS TIME.
[2019-04-29 20:00] VITALS: BP 128/48
[2019-04-30] VITALS: BP 146/52
--- NOTE | 2019-04-30 01:52 | NUR ---
WHEN ATTEMPTING TO GIVE PROTONIX IV THE IV INFILTRATED. IV D/C'D AND NOT RESTARTED D/T PROBABLE D/C TOMORROW.
[2019-04-30 04:00] VITALS: BP 162/63
[2019-04-30 07:13] LABS: ANION GAP 18.9 mmol/L (8-16); CALCIUM 8.7 mg/dL (8.5-10.1); CARBON DIOXIDE 22.6 mmol/L (21.0-32.0); POTASSIUM - SERUM 4.5 mmol/L (3.5-5.1)
[2019-04-30 07:16] LABS: CREATININE - SERUM 8.3 mg/dL (0.6-1.3)
--- NOTE | 2019-04-30 07:25 | NUR ---
KOFI MULLINS APN ULTRASOUND COORDINATOR FOR DR. LEA NOTIFIED AT 0643. EMERGENCY PHONE NUMBER GOES TO A PHARMACY AND NIECES NUMBER DISCONNECTED. PT GAVE THIS NURSE DENISSE HOLGUIN PHONE NUMBER AND STATED SHE IS NEXT OF [facility]. CALLED WITH NO ANSWER. LEFT A MESSAGE TO RETURN CALL WITH PHONE NUMBER.
[2019-04-30 07:30] LABS: BASOPHILS 0.3 % (0-2); EOSINOPHILS 1.8 % (0-7); HEMATOCRIT 35.4 % (36.0-48.0); HEMOGLOBIN 11.9 g/dL (12-16); IMMATURE GRANULOCYTES 0.5 % (0-5); LYMPHOCYTES 17.2 % (15-50); MCH 29.7 pg (26.0-34.0); MCHC 33.6 g/dL (31.0-37.0); MEAN PLATELET VOLUME 10.6 fL (7.4-10.4); MONOCYTES 9.9 % (2-11); NEUTROPHILS 70.3 % (40-80); PLATELET COUNT 207 10x3/uL (130-400); RBC 4.01 10x6/uL (4.00-5.40); RDW 14.7 % (11.5-14.5)
[2019-04-30 07:31] LABS: MCV 88.3 fL (80.0-100.0); WBC 8.8 10x3/uL (4.8-10.8)
--- NOTE | 2019-04-30 07:50 | NUR ---
PT STATES BOTH KNEES HURT. ULTRAM GIVEN PER ORDER. ASSESSMENT DONE. NO DISTRESS NOTED OTHERWISE. RR EVEN AND UNLABORED. DENIES NEEDS AT THIS TIME.
[2019-04-30 09:40] VITALS: BP 164/59
--- NOTE | 2019-04-30 10:36 | NUR ---
TUBE FEEDING GIVEN PER ORDER. PT TOLERATED WELL. NO RESIDUAL BEFORE FEEDING.
[2019-04-30] MEDS ORDERED: Pancrease 5000,17,00 PO (10:48)
[2019-04-30] MEDS ORDERED: Vancomycin HCl PO (10:48)
[2019-04-30] MEDS ORDERED: PROTONIX40 MG PO (10:49)
[2019-04-30] MEDS ORDERED: FLORAJEN3 CAPS460 MG PO (10:49)
--- NOTE | 2019-04-30 13:32 | NUR ---
PT D/C PER PERSONAL VEHICHLE. D/C PAPERWORK SIGNED. PT HAD NO FURTHER QUESTIONS OR CONCERNS AND VERBALIZED UNDERSTANDING.
--- NOTE | 2019-05-02 09:25 | MORECARE ---
CASE MANAGEMENT DISCHARGE SUMMARY PATIENT: SMITH GILBERT UNIT: [id number] ADM DATE: 04/27/19 AGE: 53 : 61 SEX: F ROOM/BED: D.2131 AUTHOR: PARVIN GIFFORD PHYSICIAN: REFERRING PHYSICIAN: ROBINSON LIANG MD DATE OF SERVICE: 05/02/19 Discharge Plan Patient Name: SMITH GILBERT Facility: [facility]:[place] : 1965 Planned Disposition: Home Anticipated Discharge Date: 04/30/19 Discharge Date: 04/30/2019 Expected LOS: 3 Initial Reviewer: [id number] Initial Review Date: 04/27/2019 Generated: 05/02/19 10:24 am Comments DCP- Discharge Planning Updated by [id number]: Veda Garza on 04/30/19 11:[address] Patient Name: SMITH GILBERT Admission Status: ER Accout number: [id number] Admission Date: 04-27-2019 : 1965 Admission Diagnosis: Attending: ROBINSON LIANG Current LOS: 3 Anticipated DC Date: Planned Disposition: Primary Insurance: MEDICAID [place] Discharge Planning Comments: PT STATES SHE CAN NOT AFFORD HER MEDS AGAIN AND WE ALWAYS HELP HER. PT GIVEN TODAYS DOSES OF MEDICATIONS AND WAS GIVEN 4 TABS OF VANCOMYCIN TO TAKE HOME UNTIL ARRANGEMENTS CAN BE MADE AT [facility] TOMORROW THE NEXT BUSINESS DAY. 05-01-19 Radiation Technician: Veda Garza Patient Name: SMITH GILBERT Page 52289 at 0925 All edits/amendments must be made on the electronic document DICTATION DATE: 05/02/19923 AUTOMATION ENGINEERING MANAGER: ROSA 05/02/19923 RPT#: [id number] DC DATE:04/30/19 STATUS: DIS IN [place] [id number] [place] [address] END OF REPORT
== END 2019-04-30 13:34 | disposition home or self-care (01) | DRG 438 ==
LOC: D.ER 00:18 → D.M2 01:38
PROVIDERS: Emergency Medicine; Internal Medicine Nephrology; ADMIT Internal Medicine Nephrology; ATTEND Internal Medicine Nephrology
DX: K85.90 Acute pancreatitis without necrosis or infection, unspecified (principal); N18.6 End stage renal disease; I12.0 Hypertensive chronic kidney disease with stage 5 chronic kidney disease or end stage renal disease; A04.72 Enterocolitis due to Clostridium difficile, not specified as recurrent; E11.22 Type 2 diabetes mellitus with diabetic chronic kidney disease; K21.9 Gastro-esophageal reflux disease without esophagitis; Z86.73 Personal history of transient ischemic attack (TIA), and cerebral infarction without residual deficits; F32.9 Major depressive disorder, single episode, unspecified; K86.9 Disease of pancreas, unspecified

== ENCOUNTER → 2019-07-13 08:11 | Outpatient (CLI) | payer MEDICAID ==
[2019-04-27 13:24] VITALS: BMI 27.0
[~2019-07-13 08:11] MED LIST changes: +FLORAJEN3 CAPS460 MG PO; +Pancrease 5000,17,00 PO
--- NOTE | 2019-07-17 14:34 | ST ---
PATIENT:SMITH GILBERT MEDICAL RECORD: [id number] SEX: F LOCATION:[facility] ORDER #: ADMISSION DATE: 07/13/19 AGE OF PATIENT: 53 REFERRING PHYSICIAN: INTERPRETING PHYSICIAN: FISH ARRIOLA MD DATE OF SERVICE: 07/13/2019 PROCEDURE: Nuclear stress test. INDICATIONS: Angina, abnormal ECG, hypertension, diabetes. She was exercised on standard Lexiscan protocol with 33 mCi of sestamibi injected at peak stress, 11 mCi were used previously for rest images. FINDINGS: Gated SPECT reveals a dilated left ventricle, ejection fraction decreased at 31%. SPECT imaging: Cardiolite was used as myocardial perfusion agent. There is a large area of reversibility anteriorly, laterally, apically as well as inferiorly. This includes the basal, mid, apical, anterior segments, basal, mid, apical, inferior segments, apical lateral, mid lateral, basal lateral segments as well as the apex itself. OVERALL IMPRESSION: This is markedly abnormal high risk nuclear stress test, reversible ischemia in multiple territories including anterior, lateral, apical, and inferior suggestive of severe multivessel coronary artery disease. TRANSINT:[id number] Voice Confirmation ID: [id number] DOCUMENT ID: [id number] FISH ARRIOLA MD at 1434 CC: [id number] DICTATION DATE: 07/16/19 1231 SALON/SPA MANAGER: 07/17/19 0009 DEP CLI 07/13/19 [id number] [place] [address]
--- NOTE | 2019-07-18 14:23 | EC ---
PATIENT:SMITH GILBERT DATE OF SERVICE: 07/13/19 SEX: F MEDICAL RECORD: [id number] DATE OF : [birth year] LOCATION:[facility] AGE OF PATIENT: 53 ADMISSION DATE: 07/13/19 REFERRING PHYSICIAN: INTERPRETING PHYSICIAN: RADHA CORDON MD ECHOCARDIOGRAM REPORT ECHO CHARGES 4 ECHO COMPLETE Date: 07/13/19 CLINICAL DIAGNOSIS: HEART MURMUR ECHOCARDIOGRAPHIC MEASUREMENTS (adult normal given) AC root (d.<3.7cm) 2.9 cm LV Septum d (<1.2 cm> 1.4 cm Valve Excursion 1.5 cm LV Septum (systole) 1.6 cm Left Atria (s.<4.0cm> 3.7 cm LVPW d(<1.2cm) 1.4 cm RV (d.<2.3cm) 4.1 cm LVPW (sytole) 1.5 cm LV diastole(<5.6CM) 4.4 cm MV E-F(>70mm/sec) cm LV systole 3.2 cm LVOT Diameter 1.7 cm MV exc.(>10mm) 1.6 cm Est.ejection fraction (50-75%) % DOPPLER: LVIT cm/sec A 92.0 cm/sec E 85.0 cm/sec LA cm/sec RVSP 31 mmHg LVOT 78 cm/sec AOP1/2T m/s Asc. Ao 128 cm/sec RVOT 48 cm/sec RA cm/sec PA 88 cm/sec AV Gradient Peak 6.50 mmHg AV Mean 3.50 mmHg AV Area 1.6 cm MV Gradient Peak 4.04 mmHg MV Mean 2.06 mmHg MV Area cm COMMENTS: Wolf Hunter: 2 ALIS BRAXTON Senior Project Leader/Team Lead: 3 Dr. Soria TAPE# PACS Pericardial Effusion Y DATE OF SERVICE: Adequate 2D, color flow imaging, spectral Doppler, and M-mode. Mild LVH. LV internal dimension is normal. Wall motion is normal. EF is greater than or equal 55%. Aortic valve is tricuspid. No evidence of stenosis by Doppler interrogation. Left atrium is normal. Mitral valve shows no prolapse. Trace MR. Right-sided chambers are grossly normal. Trace TR. TRANSINT:[id number] Voice Confirmation ID: [id number] DOCUMENT ID: [id number] ECHOCARDIOGRAM REPORT [id number] GOSHEN,SMITH RADHA CORDON MD at 1423 CC: [id number] DICTATION DATE: 07/17/19 1312 COTTON PICKING MACHINE OPERATOR: 07/18/19 0037 DEP CLI 07/13/19 [id number] [place] [address]
== END | disposition home or self-care (01) ==
LOC: D.HCCECHO 08:11
PROVIDERS: ATTEND Internal Medicine Interventional Cardiology
DX: I20.9 Angina pectoris, unspecified (principal)

== ENCOUNTER 2019-08-08 10:06 | Outpatient (CLI) | payer MEDICAID ==
[~2019-08-08] VITALS: Ht 158.8 cm; Wt 71.4 kg
--- NOTE | ~2019-08-08 | HEMODYNAMI ---
PATIENT:SMITH GILBERT MEDICAL RECORD: [id number] : 61 LOCATION:[facility] ADMISSION DATE: 08/08/19 Generatedon:08/08/201914:18 Patient name: SMITH GILBERT Patient #: [id number] SSN: [id number] : 1965 Date of study: 08/08/2019 Page: Of Hemodynamic Procedure Report Patient Data Patient Demographics Procedure consent was obtained First Name: SMITH Gender: Female Last Name: OFELIA : 1965 Patient #: [id number] Age: 53 year(s) Race: Black SSN: [id number] Additional ID: [id number] Contact details Address: [address] [place] [address] [address] State: [place] City: [place] Zip code: [address] Past Medical History Allergies Allergen Reaction Date Comments Reported Other 08/08/2019 iodine,gabapentin(from allergy Neurontin)/ondansetron(from zofran) /latex Admission Admission Data Admission Date: 08/08/2019 Admission Time: 10:06 Arrival Date: 08/08/2019 Arrival Time: 0:00 Admit Source: Other Insurance Payor: Medicaid [facility] #: [id number] Height (in.): 62.6 BSA: 1.73 (m2) Height (cm.): 159 BMI: 28.08 (kg/m2) Weight (lbs.): 156.53 Weight (kg.): 71 Lab Results Lab Result Date: 08/08/2019 Lab Result Time: 0:00 Biochemistry Name Units Result Min Max BUN mg/dl 48 --(----)-* 7 18 Creatinine mg/dl 6.3 --(----)-* 0.6 1.3 eGFR ml/min 9 *-(----)-- 90 120 AM CBC Name Units Result Min Max Hemoglobin g/dl 13.3 -*(----)-- 13.5 17.5 Procedure Procedure Types Cath Procedure Diagnostic Procedure LHC LH w/Coronaries Sedation Charges Moderate Sedation up to 30 minutes PCI Procedure Coronary Stent Coronary Stent Initial Peripheral Cath Diagnostic Procedure Volunteer Recruiter Peripheral Procedures AFRO (Diagnostic) Procedure Description Procedure Date Procedure Date: 08/08/2019 Procedure Start Time: 13:35 Procedure End Time: 14:14 Procedure Staff Name Function Sean Rodriguez MD Performing Physician Diane Henry RT Monitor Kellen Fu RT Monitor Tasneem Donato RN Nurse Roopa Bang RT Scrub Indication Angina Procedure Data Cath Procedure Fluoroscopy Diagnostic fluoroscopy Total fluoroscopy Time: 0 time: 0 min min Diagnostic fluoroscopy Total fluoroscopy dose: 908 dose: 908 mGy mGy Contrast Material Contrast Material Type Amount (ml) Isovue 300 165 Entry Location Entry Primary Successful Side Size Upsize Upsize Entry Closure Succes sful Closure Location (Fr) 1 (Fr) 2 (Fr) Remarks Device Remarks Femoral Right 5 Fr 6 Fr Exoseal artery Short Estimated blood loss: 10 ml Diagnostic catheters Device Type Used For End Catheter Placement MULTIPACK JL 4.0 5Fr Left Coronary catheter Angiography MULTIPACK 3DRC 5Fr Right Coronary catheter Angiography MULTIPACK Pigtail 5 Fr LV Angiography catheter Procedure Complications No complications Procedure Medications Medication Administration Route Dosage 0.9% NaCl I.V. Oxygen etCO2 Nasal cannula 2 l/min Lidocaine 2% added to field 20 Heparin Flush Bag added to field 2 bags (1000units/500ml NS) Versed I.V. 2 mg Fentanyl I.V. 50 mcg Fentanyl I.V. 50 mcg Lopressor I.V. 5 mg Heparin Bolus I.V. 5000 units Integrilin (Bolus I.V. 6.2 ml 2mg/ml) Integrilin (Bolus wasted 3.8 ml 2mg/ml) Plavix P.O. 600 mg Hemodynamics Rest BSA: 1.73 (m2) HGB: 13.3 (g/dl) O2 Consumption: Estimated: 188.66 (ml/min) O2 Co nsumption indexed: Estimated:109.05 (ml/min/m) Heart Rate: 104 (bpm) Pressure Samples Time Site Value (mmHg) Purpose Heart Use Rate(bpm) 13:44 LV 208/23,24 Snapshot 94 Gradients Valve Time Site Site Mean SEP/DFP Peak To Heart Use 1 2 (mmHg) (sec/min) Peak Rate (mmHg) (bpm) Aortic 13:44 LV AO 92 Snapshots Pre Cath Intra NCS Post Cath Vital Signs Time Heart Resp SPO2 etCO2 NIBP (mmHg) Rhythm Pain Sedation Rate (ipm) (%) (mmHg) Status Level (bpm) 13:26:54 [address] 0 (11) 10(A) , No pain 13:27:41 104 20 100 36.1 219/117(171) ST 0 (11) 10(A) , No pain 13:32:24 105 19 99 48.2 196/108(147) ST 0 (11) 10(A) , No pain 13:37:00 111 18 100 47.4 209/116(157) ST 0 (11) 10(A) , No pain 13:41:39 110 18 99 48.2 197/109(154) ST 0 (11) 9(A) , No pain 13:46:15 89 15 100 48.2 198/102(158) NSR 0 (11) 9(A) , No pain 13:50:50 87 15 100 48.1 195/104(145) NSR 0 (11) 9(A) , No pain 13:55:14 86 15 100 46.7 147/83(125) NSR 0 (11) 9(A) , No pain 14:00:13 88 16 100 42.9 Measuring NSR 0 (11) 9(A) , No pain 14:00:29 89 16 100 45.1 146/92(116) NSR 0 (11) 9(A) , No pain 14:04:49 89 16 100 42.1 122/85(108) NSR 0 (11) 9(A) , No pain 14:09:48 88 19 100 20.3 Measuring NSR 0 (11) 9(A) , No pain 14:11:12 87 15 100 42.9 202/101(147) NSR 0 (11) 9(A) , No pain Medications Time Medication Route Dose Verified Delivered Reason Notes Effectiveness by by 13:33:46 0.9% NaCl I.V. kvo Sean Boateng used for JenniferWill Donato procedure MD HART 13:33:53 Oxygen etCO2 2 Sean Boateng used for Nasal l/min St Will Donato procedure cannula MD HART 13:33:59 Lidocaine 2% added 20ml Sean Estrada for local to vial [place] [facility] anesthetic field MD MEHTA 13:34:04 Heparin Flush added 2 Sean Estrada used for Bag to bags [facility] procedure (1000units/500ml field MD MEHTA NS) 13:34:18 Versed I.V. 2 mg Sean Tasneem for sedation St Will Donato MD RN 13:34:24 Fentanyl I.V. 50 Sean Tasneem for sedation mcg St Will Donato MD RN 13:38:29 Fentanyl I.V. 50 Sean Tasneem for sedation mcg St Will Donato MD RN 13:41:37 Lopressor I.V. 5 mg Sean Tasneem Per physician St Will Donato MD, RN 13:50:34 Heparin Bolus I.V. 5000 Sean Tasneem for verif ied units Psychiatric anticoagulation with Dr. MEHTA RN [place] 13:50:47 Integrilin I.V. 6.2 Sean Tasneem for (Bolus 2mg/ml) ml St Will Donato antiplatelet RN therapy 13:51:14 Integrilin wasted 3.8 Sean Castroyla for (Bolus 2mg/ml) ml St Will Donato antiplatelet RN therapy 13:51:20 Plavix P.O. 600 Sean Castroyla for mg St Will Donato antiplatelet RN therapy Procedure Log Time Note 13:05:51 Informed consent obtained and on chart 13:06:26 Procedure Status Elective Heart Cath (OP). 13:07:31 Indication : Angina 13:07:39 Diane Henry RT(R) sent for patient. Start room use. 13:07:41 Time tracking: Regular hours (M-F 7:00 - 5:00) 13:07:50 Plan of Care:Hemodynamics will remain stable., Cardiac rhythm will remain stable., Comfort level will be maintained., Respiratory function will remain adequate., Patient/ family verbilizes understanding of procedure., Procedure tolerated without complication., Recovers from procedure without complications.. 13:08:42 ACC Patient presents with Stable Angina CCS Anginal Class 2--Slight limitation of ordinary activity. 13:11:55 Arrival Date: 08/08/2019 12:00:00 AM 13:12:13 Insurance Payor : Medicaid 13:12:21 Patient Height : 62.6 inches 13:12:27 Patient Weight : 156.53 lbs 13:12:32 Admit Source: Other 13:14:36 Patient allergic to Other allergyiodine,gabapentin(from Neurontin)/ondansetron(from zofran) /latex 13:15:33 Patient received from Pre/Post Procedure Room to CCL 1 Alert and oriented. Tansferred to table in Supine position. 13:20:04 ACCPatient has been prescribed/administered the following anti-anginal medication within the last 2 weeks: None 13:20:08 Warm blankets applied, and susana hugger turned on for patient comfort. 13:20:09 Correct patient and procedure confirmed by team. 13:20:22 H&P Date Dictated: 08/08/2019 H&P Addendum completed by physician on da y of procedure. (MUST COMPLETE FOR ALL OUTPATIENTS), New H&P dictated by physician.. 13:20:24 Pre-procedure instructions explained to patient. 13:20:25 Pre-op teaching completed and patient verbalized understanding. 13:20:52 Family in patients room. 13:20:55 Patient NPO since Midnight. 13:20:59 Is the patient allergic to Iodine/contrast media? Yes. 13:21:02 Was the patient premedicated? Yes 13:21:15 Is patient on blood thinner?No 13:21:20 Patient diabetic? Yes. 13:21:22 If diabetic: On Metformin? No 13:21:29 Previous problem with sedation/anesthesia? No ? 13:21:32 Snore? Yes 13:21:57 Sleep apnea? No 13:21:59 Deviated septum? No 13:22:02 Opens mouth fully? Yes 13:22:04 Sticks out tongue? Yes 13:22:12 Airway obstruction? Yes bronchitis 13:22:43 Dentures? No ? 13:23:02 Pre procedure: right dorsailis pedis pulse Doppler 13:23:09 Pre procedure: left dorsailis pedis pulse Doppler 13:23:18 Patient pain scale 0/10 ?. 13:23:30 IV patent on arrival in left forearm with 0.9% NaCl at [facility]. 13:25:04 Vital chart was started 13:25:30 Lab Result : Creatinine 6.3 mg/dl 13:25:30 Lab Result : BUN 48 mg/dl 13:25:30 Lab Result : Hemoglobin 13.3 g/dl 13:25:30 Lab Result : eGFR AM 9 ml/min 13:25:51 Lab results completed and on chart. 13:27:59 Risk of Mortality: 0.3 13:28:04 Risk of blood transfusion: 4.0 13:28:10 Risk of KIERRA: 11.6 13:28:16 Right groin area was prepped with chlora-prep and draped in sterile fashion 13:28:19 Alarms reviewed by R. N. 13:28:19 Sharps counted by scrub and verified by R.N. 13:30:32 Baseline sample Acquired. 13:30:40 Rhythm: sinus tachycardia 13:30:48 Full Disclosure recording started 13:30:48 - 13:31:55 Physician arrived 13:33:26 Use device set Femoral Dx 13:33:28 ACIST Syringe (36774) opened to sterile field. 13:33:29 Bag Decanter (2002S) opened to sterile field. 13:33:30 Medline Cath Pack ([id number]) opened to sterile field. 13:33:32 ACIST Hand Control (45008) opened to sterile field. 13:33:33 ACIST Manifold (96813) opened to sterile field. 13:33:37 DIAGNOSTIC Multipack 5Fr catheter set (QJ6680) opened to sterile field. 13:33:38 Tegaderm 4 x 4 (1626W) opened to sterile field. 13:33:40 SHEATH 5FR Neponset (JNU582) opened to sterile field. 13:33:42 EMERALD Guide Wire (366-717) opened to sterile field. 13:33:46 0.9% NaCl kvo I.V. was administered by Tasneem Donato RN; used for procedure; Verbal order read back and verified. 13:33:49 Zero performed for pressure channel P1 13:33:53 Oxygen 2 l/min etCO2 Nasal cannula was administered by Tasneem Donato RN ; used for procedure; Verbal order read back and verified. 13:33:59 Lidocaine 2% 20ml vial added to field was administered by Sean Rodriguez MD; for local anesthetic; Verbal order read back and verified. 13:34:04 Heparin Flush Bag (1000units/500ml NS) 2 bags added to field was administered by Sean Rodriguez MD; used for procedure; Verbal order read back and verified. 13:34:07 --------ALL STOP TIME OUT------ 13:34:08 Final Timeout: patient, procedure, and site verified with staff and physician. All members of the team are in agreement. 13:34:10 Right groin site verified by team. 13:34:18 Versed 2 mg I.V. was administered by Tasneem Donato RN; for sedation; Verbal order read back and verified. 13:34:18 Fire Safety Assessment: A--An alcohol-based skin anteseptic being used preoperatively., C--Open oxygen or nitrous oxide is being used., D--An ESU, laser, or fiber-optic light is being used. 13:34:23 Physical assessment completed. ASA score P 2 - A patient with mild systemic disease as per Sean Rodriguez MD. 13:34:24 Fentanyl 50 mcg I.V. was administered by Tasneem Donato RN; for sedation ; Verbal order read back and verified. 13:35:18 5) <15 or on dialysis Very severe, or end stage kidney failure. 13:35:23 Maximum allowable contrast dose (3.7 X eGFR X 0.75)25 ml. 13:35:31 Sedation plan: IV Moderate Sedation Medication:Versed, Fentanyl 13:35:40 Procedure started. 13:35:47 Local anesthetic to right femoral artery with Lidocaine 2% by Sean [facility] MD.INITIAL ACCESS ONLY 13:37:11 Procedure type changed to Cath procedure, Diagnostic procedure, LHC, LH C w/Coronaries, Sedation Charges, Moderate Sedation up to 30 minutes, PCI procedure, Coronary Stent, Coronary Stent Initial, Peripheral Cath Diagnostic Procedure, Volunteer Recruiter Peripheral Procedures, AFRO (Diagnostic) 13:38:29 Fentanyl 50 mcg I.V. was administered by Tasneem Donato RN; for sedation ; Verbal order read back and verified. 13:38:44 A 5 Fr sheath was inserted into the Right Femoral artery 13:39:33 A MULTIPACK JL 4.0 5Fr catheter was advanced over the wire and used for Left Coronary Angiography. 13:39:42 LCA angiography performed. 13:39:57 Injector settings: Ml/sec: 3, Volume: 6, 13:41:32 Catheter exchanged over wire. 13:41:37 Lopressor 5 mg I.V. was administered by Tasneem Donato RN; Per physician ; Verbal order read back and verified. 13:41:51 A MULTIPACK 3DRC 5Fr catheter was advanced over the wire and used for Right Coronary Angiography. 13:41:58 RCA angiography performed. 13:42:30 ACCDominant side:Right 13:42:34 Injector settings: Ml/sec: 3, Volume: 6, 13:42:39 Catheter exchanged over wire. 13:42:49 A MULTIPACK Pigtail 5 Fr catheter was advanced over the wire and used for LV Angiography. 13:43:10 LV hemodynamics recorded. 13:43:16 LV gram done using RUFF 13:43:21 Injector settings: Ml/sec: 10, Volume: 20, 13:44:49 EF : 25 % 13:45:56 PIGTAIL PULLED DOWN FOR AFRO. 13:46:06 Abdominal angiogram w/ runoff was performed. 13:46:17 Right leg runoff performed. 13:46:40 Left leg runoff performed. 13:47:02 SHEATH 6FR Neponset (QYV471) opened to sterile field. 13:47:11 WHISPER 300cm guide wire (9005750KG) opened to sterile field. 13:47:13 INFLATOR Merit BasixCompak (YB0495) opened to sterile field. 13:47:38 GUIDE 6FR XBLAD 3.5 catheter ([id number]) opened to sterile field. 13:49:01 Sheath upsized to a 6 Fr Short. 13:49:14 6 Fr XBLAD3.5 guide catheter was inserted over the wire 13:49:31 WHISPER 300 wire advanced. 13:50:34 Heparin Bolus 5000 units I.V. was administered by Tasneem Donato RN; for anticoagulation; verified with Dr. Soria Verbal order read back and verified. 13:50:47 Integrilin (Bolus 2mg/ml) 6.2 ml I.V. was administered by Tasneem Donato RN; for antiplatelet therapy; Verbal order read back and verified. 13:51:14 Integrilin (Bolus 2mg/ml) 3.8 ml wasted was administered by Tasneem Donato RN; for antiplatelet therapy; Verbal order read back and verified. 13:51:20 Plavix 600 mg P.O. was administered by Tasneem Donato RN; for antiplatelet therapy; Verbal order read back and verified. 13:52:25 Pre PCI Site: [place] mLAD has 80% stenosis. 13:54:15 Inflate balloon Inflation number: 1 A EMERGE OTW 3.0 x 15 balloon ([id number]) was prepped and advanced across the Mid LAD , then inflated to 8 [facility] for 0:10 (min:sec) . 13:54:37 Inflation number: 2 The EMERGE OTW 3.0 x 15 balloon ([id number]) was reinflated across the Mid LAD , to 10 [facility] for 0:10 (min:sec) . 13:55:12 Inflation number: 3 The EMERGE OTW 3.0 x 15 balloon ([id number]) was reinflated across the Mid LAD , to 10 [facility] for 0:00 (min:sec) . 13:56:07 Balloon removed over the wire. 14:00:28 Place stent Inflation Number: 4 A MAI OTW 3.0 x 38 stent ([id number]) was prepped and advanced across the Mid LAD . The stent was deployed at 14 [facility] for 0:10 (min:sec) . 14:00:56 Stent catheter was removed intact over wire. 14:04:26 Place stent Inflation Number: 5 A MAI OTW 3.0 x 12 stent ([id number]) was prepped and advanced across the Mid LAD . The stent was deployed at 14 [facility] for 0:10 (min:sec) . 14:04:46 Stent catheter was removed intact over wire. 14:04:52 Wire removed. 14:04:54 Guide catheter removed. 14:05:24 EXOSEAL 6Fr (EX600) opened to sterile field. 14:06:20 ACT drawn and resulted at 255 seconds. (normal therapeutic range 180-24 0 seconds). 14:06:41 Sheath removed intact; hemostasis achieved with Exoseal to the Right Femoral artery. 14:07:11 Procedure ended.(Physican Out) 14:07:38 Contrast amount:Isovue 300 165ml. 14:07:42 Maximum allowable dose exceeded? Yes. 14:08:01 Fluoroscopy time 00.00 minutes. 14:08:09 Fluoroscopy dose: 908 mGy 14:08:09 Flurop Dose total: 908 14:08:28 Dose Area Product 61075 mGy/cm. 14:08:42 Sharps counted by scrub and verified by R.N. 14:09:29 Insertion/operative site no bleeding no hematoma. 14:09:36 Post-op/insertion site Right Femoral artery dressed using a 4 x 4 and Tegaderm. 14:09:43 Post right femoral artery:stable 14:09:46 Post Procedure Pulses reassessed and unchanged 14:09:58 Post-procedure physical assessment completed. ASA score P 2 - A patient with mild systemic disease as per Sean Rodriguez MD. 14:10:26 Post procedure rhythm: unchanged. 14:10:32 Estimated blood loss: 10 ml 14:10:36 Post procedure instruction explained to patient.Patient verbalizes understanding. 14:10:38 Patient needs reinforcement of post procedure teaching. 14:12:38 Procedure and supply charges have been captured, reviewed, submitted an d are correct. 14:13:45 Procedure Complication : No complications 14:13:50 Vital chart was stopped 14:13:53 Operative report dictated upon procedure completion. 14:13:54 See physician's report for complete and final results. 14:13:57 Report given to Pre/Post Procedure Room. 14:14:03 Patient transfered to Pre/Post Procedure Room with Stretcher. 14:14:06 Procedure ended. 14:14:06 Full Disclosure recording stopped 14:14:16 ACC-PCI Only Patient was given prescriptions, or instructed by Sean Rodriguez MD to start/continue the following medications upon discharge: Plavix 14:14:30 End room use (Document Last) Intervention Summary Intervention Notes Time ActionType Lesion and Equipment Action# Pressure Duration Attributes Used 13:54:15 Inflate Mid LAD EMERGE OTW 1 8 00:10 balloon 3.0 x 15 balloon ([id number]) 13:54:37 Reinflate Mid LAD EMERGE OTW 2 10 00:10 balloon 3.0 x 15 balloon ([id number]) 13:55:12 Reinflate Mid LAD EMERGE OTW 3 10 00:00 balloon 3.0 x 15 balloon ([id number]) 14:00:28 Place stent Mid LAD MAI OTW 3.0 4 14 00:10 x 38 stent ([id number]) 14:04:26 Place stent Mid LAD MAI OTW 3.0 5 14 00:10 x 12 stent ([id number]) Device Usage Item Name Manufacture Quantity Catalog Number Hospital Part Current M inimal Lot# / Charge Number Stock Stock Serial# Code ACIST Syringe Acist 1 88555 105967 333614 064110 2 0 (95313) Medical Systems Inc Bag Decanter Microtek 1 2001S 856575 66903 783707 5 () Medical Inc. Medline Cath Medline 1 [id number] 635457 64647 803383 5 Pack ([id number]) ACIST Hand Acist 1 70464 357144 165915 422998 5 Control Medical (54190) Systems Inc ACIST Acist 1 89572 908486 578063 290784 5 Manifold Medical (90867) Systems Inc DIAGNOSTIC Cardinal 1 CE5672 092013 04527 959814 3 0 Multipack 5Fr Health catheter set (RX5922) Tegaderm 4 x 3M 1 1626W 291606 044951 469172 5 4 (1626W) SHEATH 5FR Terumo 1 LYT988 163275 569093 172358 5 Neponset (PAQ861) EMERALD Guide Cardinal 1 502-455 514981 046926 639164 5 Wire Health (502-455) MULTIPACK JL Cardinal 1 241360 5 4.0 5Fr Health catheter MULTIPACK Cardinal 1 506690 5 3DRC 5Fr Health catheter MULTIPACK Cardinal 1 551341 5 Pigtail 5 Fr Health catheter SHEATH 6FR Terumo 1 DPC038 306442 332539 642633 4 0 Neponset (PJA931) WHISPER 300cm Gleason 1 [id number] 979090 368227 605222 5 guide wire Vascular (2307459OC) INFLATOR Merit 1 TT0901 280018 030465 026740 1 5 TOMS Shoes Medical BasixCompak (BN9049) GUIDE 6FR Cardinal 1 58479218 442461 788616 191657 1 0 XBLAD 3.5 Health catheter (16257795) EMERGE OTW Tilly 1 [id number] 302464 778405 393654 5 [id number] 3.0 x 15 Scientific balloon ([id number]) MAI OTW 3.0 Medtronic 1 [id number] 361159 4582877 780221 5 [id number] x 38 stent ([id number]) MAI OTW 3.0 Medtronic 1 [id number] 481357 9546614 921717 5 [id number] x 12 stent ([id number]) EXOSEAL 6Fr Cardinal 1 EX600 592381 853020 920024 1 0 (EX600) Health Signature Audit Provencal Stage Time Signature Unsigned Intra-Procedure 08/08/2019 Kellen 2:16:26 PM Nickie RT(R) (CV) Intra-Procedure 08/08/2019 Tasneem Donato 2:16:59 PM RN Intra-Procedure 08/08/2019 Sean Cotton 2:18:16 PM Will MEHTA [id number] [place] [address]
[2019-08-08] MEDS ORDERED: LANTUS SOL100 UNIT/1 SC (10:40)
[2019-08-08] MEDS ORDERED: RENVELA800 MG PO (10:41)
[2019-08-08 10:58] VITALS: BP 229/82; BMI 28.1
[2019-08-08 12:10] LABS: BASOPHILS 0 % (0-2); EOSINOPHILS 0 % (0-7); HEMATOCRIT 40.6 % (36.0-48.0); HEMOGLOBIN 13.3 g/dL (12-16); IMMATURE GRANULOCYTES 0.8 % (0-5); LYMPHOCYTES 6.3 % (15-50); MCH 31.4 pg (26.0-34.0); MCHC 32.8 g/dL (31.0-37.0); MEAN PLATELET VOLUME 11.4 fL (7.4-10.4); MONOCYTES 0.3 % (2-11); NEUTROPHILS 92.6 % (40-80); RBC 4.23 10x6/uL (4.00-5.40); RDW 14.9 % (11.5-14.5); WBC 6.2 10x3/uL (4.8-10.8)
[2019-08-08 12:12] LABS: PLATELET COUNT 254 10x3/uL (130-400)
[2019-08-08 13:11] LABS: ANION GAP 14.3 mmol/L (8-16); CALCIUM 9.4 mg/dL (8.5-10.1); CARBON DIOXIDE 28.8 mmol/L (21.0-32.0); CHOL - HDL RATIO 3.6 ratio (2.3-4.1); CREATININE - SERUM 6.3 mg/dL (0.6-1.3); LDL-HDL RATIO 2.5 ratio (1.5-3.5); POTASSIUM - SERUM 5.1 mmol/L (3.5-5.1)
[2019-08-08] MEDS ORDERED: PLAVIX75 MG PO (14:18)
--- NOTE | 2019-08-08 14:20 | NUR ---
PT RECEIVED VIA STRETCHER FROM CLAIMS AGENT RIGHT OF WAY FOR RECOVERY. PT DROWSY BUT VERBALLY AROUSABLE. CARDIAC MONITORS PLACED ON PT, O2 ON VIA NC AT 2L. IV PATENT INFUSING VIA ORDERS. R GROIN W 5FR EXOCELE, DRESSING W MOD AMOUNT OF BRIGHT RED BLOOD WHICH HAS INCREASED IN SIZE SINCE LEAVING CLAIMS AGENT RIGHT OF WAY. FEMOSTOP PLACED ON GROIN W PRESSURE OF 158. LEG PINK AND WARM, PEDAL PULSES PALPABLE. PT DENIES PAIN OR NAUSEA. SIPS OF WATER GIVEN TO HELP W HEARTBURN FROM PLAVIX. FAMILY AT BEDSIDE, CALL LIGHT IN REACH. HR NSR 84, BP 186/96, RR 18, SAT 100.
[2019-08-08] MEDS ORDERED: COREG6.25 MG PO (14:35)
[2019-08-08] MEDS ORDERED: BAYER CHEWABLE81 MG PO (14:36)
--- NOTE | 2019-08-08 14:45 | NUR ---
PT RESTING COMFORTABLY, FEMOSTOP IN PLACE, NO ACTIVE BLEEDING NOTED. LEG WARM, PEDAL PULSES PALPABLE. VSS. CALL LIGHT IN REACH, FAMILY MEMBER AT BEDSIDE.
--- NOTE | 2019-08-08 15:31 | NUR ---
PT RESTING FLAT. FEMOSTOP PRESSURE REDUCED TO 115 W NO ADD'L BLEEDING. PEDAL PULSES PALPABLE. PT STATES SOME DISCOMFORT DUE TO PRESSURE DEVICE. VSS CALL LIGHT IN REACH. FAMILY REMAINS AT BEDSIDE.
--- NOTE | 2019-08-08 15:48 | NUR ---
FEMOSTOP PRESSURE REDUCED TO 70 W/O BLEEDING NOTED. PT RESTING COMFORTABLY, DENIES PAIN OR NEEDS AT THIS TIME. CALL LIGHT IN REACH. LEG REMAINS WARM, PEDAL PULSES PALPALBE.
--- NOTE | 2019-08-08 16:01 | NUR ---
PT RESTING W/O COMPLAINTS. FEMOSTOP PRESSURE REDUCED TO 40, W/O BLEEDING. VSS. CALL LIGHT IN REACH. IV PATENT INFUSING VIA GRAVITY.
--- NOTE | 2019-08-08 16:35 | NUR ---
FEMOSTOP REMOVED, NO BLEEDING NOTED. DRESSING REMOVED AND NEW ONE PLACED, 4X4 AND TEGADERM. LEG WARM, PEDAL PULSES PALPABLE. VSS. CALL LIGHT REMAINS IN REACH
--- NOTE | 2019-08-08 16:50 | NUR ---
R GROIN REMAINS SOFT, NO BLEEDING OR HEMATOMA NOTED. PT'S BP IS HIGHER AT 194/87. PT STATES THAT SHE CANT TAKE MEDICINE FOR HER BP BECAUSE "IT BOTTOMS OUT" EXPLAINED THAT WE WILL CONTINUE TO MONITOR.
--- NOTE | 2019-08-08 17:01 | NUR ---
R GROIN SOFT, NO BLEEDING OR HEMATOMA NOTED. HOB ELEVATED SLIGHTLY. SANDWICH TRAY AND SPRITE SERVED. FAMILY MEMBER REMAINS AT BEDSIDE, CALL LIGHT IN REACH
--- NOTE | 2019-08-08 17:15 | NUR ---
BP STILL INCREASED, PT INSRUCTED ON DISCHARGE INSTRUCTIONS, NIECE AND PT VERBALIZED UNDERSTANDING. PT INSTRUCTED ON MEDICATION CHANGES AND IMPORTANCE OF GETTING PLAVIX AND COREG FILLED AND TO START THEM DIRECTED. R GROIN DRESSING REMAINS CDI NO BLEEDING OR HEMATOMA NOTED. CALL LIGHT IN REACH
--- NOTE | 2019-08-08 17:25 | NUR ---
DR ARRIOLA CALLED REGARDING PT'S BLOOD PRESSURE, ORDERS RECEIVED FOR 0.2 CLONIDINE AND TO ADMIT FOR OVERNIGHT OBSERVATION. 1740 0.2 CLONIDINE GIVEN PER ORDERS. LONGWALL HEADGATE OPERATOR CALLED FOR BED.
--- NOTE | 2019-08-08 18:02 | NUR ---
PRESCRIPTIONS CALLED TO [facility] IN [place] PER PT REQUEST. WAITING ON BED ON FLOOR FOR TRANSFER. R GROIN SOFT, NO BLEEDING OR SWELLING NOTED. DRESSING REMAINS CDI
--- NOTE | 2019-08-08 18:21 | NUR ---
REPORT AND CARE FROM VESNA DEAN RN. PT SITTING UP IN BED, ALERT AND VISITING WITH NEICE IN ROOM. DRESSING CDI TO RIGHT GROIN. NSR, RATE 89, BP IS 196/85. PT DENIES ANY C/O CHEST PAIN. TIFFANY PO FLUIDS AND SANDWICH WITH NO C/O. WILL CONTINUE TO MONITOR. AWAITING ROOM NUMBER FOR TRANSFER TO THE FLOOR.
--- NOTE | 2019-08-08 18:37 | NUR ---
REPORT CALLED TO [facility] BOWERS ON MED 2. PT TO BE TRNASFERRED VIA . PT IS ALERT AND DENIES ANY C/O AT THIS TIME. DRESSING IS CDI RIGHT GROIN, AREA IS SOFT AND NONTENDER. PEDAL PULSES PALPABLE. NIECE AT BEDSIDE.
--- NOTE | 2019-08-08 19:19 | NUR ---
1855 PT TRANSFERRED TO ROOM 2124 VIA STRETCHER, PT HAS ALL PEROSNAL BELONGINGS, IS ALERT AND DENIES ANY C/O CHEST PAIN. ZINA PRESENT WITH PATIENT AT TIME OF TRANSFER.
[2019-08-08 20:00] VITALS: BP 134/72
[2019-08-08 20:46] VITALS: BP 164/72
[2019-08-08 22:35] VITALS: Ht 158.8 cm; Wt 71.4 kg
[2019-08-09] VITALS: BP 168/58
--- NOTE | 2019-08-09 03:00 | NUR ---
RESTING WITH EYES CLOSED, RESPERATIONS EVEN, NO S/S DISTRESS NOTED.
[2019-08-09 04:00] VITALS: BP 147/69
[2019-08-09 08:00] VITALS: BP 172/70
--- NOTE | 2019-08-09 08:38 | NUR ---
ASSESSMENT DONE. DENIES NEEDS
--- NOTE | 2019-08-09 08:56 | OP ---
PATIENT NAME: SMITH GILBERT MEDICAL RECORD: [id number] :61 LOCATION:D.M2 D.2125 ADMISSION DATE:08/08/19 SURGEON: RADHA CORDON MD DATE OF OPERATION: 08/08/2019 PROCEDURE: Left heart catheterization, selective coronary angiography, AFRO, PTCA stent in the LAD, right femoral artery approach. CATHETERS: A 5-[place] sheath, 5/4 left and right Marie, 5/4 pig. The procedure was well tolerated. The patient was [facility]. Sheath was removed. ExoSeal device placed. FINDINGS: Left ventriculography in 30-degree RUFF view shows global LV hypokinesis, reduced EF, estimated EF 25%. CORONARY ANATOMY: LEFT MAIN: Left main is free of disease. LAD: Has a long typical diabetic diffuse stenosis of 80%, extending from first diagonal to second diagonal encompasses this entire area. CIRCUMFLEX: Free of disease. RIGHT CORONARY ARTERY: Has luminal irregularities. No focal disease. Next, the catheter was withdrawn to the level of the renal arteries. Aortofemoral runoff was performed. 1. Abdominal aortography shows no evidence of dissection, no evidence of aneurysmal dilatation, minimal atherosclerotic debris. 2. Right lower extremity: Right internal and external iliacs show no significant stenosis. The right superficial femoral system shows 2 areas of better than 90% stenosis, one at the mid portion of vessel, one at the distal portion before the popliteal. 3. Left system: Left internal and common external iliac without significant disease. The left superficial femoral system shows about 70% to 80% stenosis, discrete portion as mid portion, questionable flow limiting with good 2-vessel runoff. IMPRESSION: Plan intervention of the LAD momentarily. Intervention of the right superficial femoral at a later date. DESCRIPTION OF PROCEDURE: A 5-[place] sheath was exchanged for a 6-[place] sheath. XB LAD guiding catheter gave good guide catheter support followed by 300 cm Whisper wire placed across the tightly occluded LAD down this portion of vessel. Pre-deployment balloon was a 3.0 Otter Tail balloon up and down the stenosis up to 8-10 atmospheres. Next, stents were deployed distally, a 3.0 x 30 mm Jose Ramon drug-eluting stent more proximally, a 3.0 x 12 mm nondrug-eluting stent, both at 14 atmospheres for 45 seconds. Final angiography shows excellent resolution of 80% long diffuse stenosis, no significant residual. DEBBIE flow was 3 throughout the procedure. Heparin and Integrilin were used during the case. Sheath was closed with ExoSeal device. Intervention of the right superficial femoral at a later date. TRANSINT:[id number] Voice Confirmation ID: [id number] DOCUMENT ID: [id number] OPERATIVE REPORT [id number] SMITH GILBERT,RADHA Garcia MD at 0856 CC: [id number] DICTATION DATE: 08/08/19 1444 EXTENSION DIVISION DIRECTOR: 08/08/19 1625 ADM IN [facility] [address] [place] [address]
[2019-08-09] MEDS ORDERED: BRILINTA90 MG PO (09:11)
[2019-08-09] MEDS ORDERED: LIPITOR20 MG PO (09:12)
--- NOTE | 2019-08-09 10:20 | NUR ---
I have reviewed this patient and I concur with the Shift Assessment completed by the Licensed Practical Nurse today this shift.
--- NOTE | 2019-08-09 10:21 | NUR ---
DC GIVEN TO PT, PT ARGUING AND SAYING SHE IS NOT TAKING THOSE MEDS
--- NOTE | 2019-08-09 11:08 | NUR ---
DC HOME PER VAN
[2019-08-10] MEDS ORDERED: NOVOLOG100 UNIT/1 SC (02:09)
== END 2019-08-09 11:08 | disposition home or self-care (01) ==
LOC: D.CATH 10:06 → D.M2 18:09 → D.CATH 08-09 11:08 → D.M2 08-09 11:08
PROVIDERS: ATTEND Internal Medicine Interventional Cardiology
PROC: B2111ZZ Fluoroscopy of Multiple Coronary Arteries using Low Osmolar Contrast (ICD-10-PCS; 2019-08-08)
PROC: B2151ZZ Fluoroscopy of Left Heart using Low Osmolar Contrast (ICD-10-PCS; 2019-08-08)
PROC: B41D1ZZ Fluoroscopy of Aorta and Bilateral Lower Extremity Arteries using Low Osmolar Contrast (ICD-10-PCS; 2019-08-08)
PROC: 02703DZ Dilation of Coronary Artery, One Artery with Intraluminal Device, Percutaneous Approach (ICD-10-PCS; principal; 2019-08-08 13:00)
PROC: 027034Z Dilation of Coronary Artery, One Artery with Drug-eluting Intraluminal Device, Percutaneous Approach (ICD-10-PCS; 2019-08-08 13:00)
PROC: 4A023N7 Measurement of Cardiac Sampling and Pressure, Left Heart, Percutaneous Approach (ICD-10-PCS; 2019-08-08 13:00)
DX: I25.10 Atherosclerotic heart disease of native coronary artery without angina pectoris (principal); R94.30 Abnormal result of cardiovascular function study, unspecified; I70.213 Atherosclerosis of native arteries of extremities with intermittent claudication, bilateral legs
CPT/HCPCS: 93458; 92928; C9600

== ENCOUNTER 2019-08-10 00:07 | Inpatient (IN) | payer MEDICAID ==
[2019-08-10] VITALS (8 sets, daily range): BP systolic 138–179; BP diastolic 35–59; Ht 158.8 cm; Wt 72.0 kg
[~2019-08-10] VITALS: Ht 158.8 cm; Wt 72.0 kg
--- NOTE | ~2019-08-10 | HEMODYNAMI ---
PATIENT:SMITH GILBERT MEDICAL RECORD: [id number] : 61 [id number] ADMISSION DATE: 08/10/19 Generatedon:08/15/201915:49 Patient name: SMITH GILBERT Patient #: [id number] SSN: [id number] : 1965 Date of study: 08/15/2019 Page: Of Hemodynamic Procedure Report Patient Data Patient Demographics Procedure consent was obtained First Name: SMITH Gender: Female Last Name: OFELIA : 1965 Patient #: [id number] Age: 53 year(s) Race: Black SSN: [id number] Additional ID: [id number] Contact details Address: [address] [place] [address] DRIVE State: [place] City: [place] Zip code: [address] Past Medical History Allergies Allergen Reaction Date Comments Reported Other 08/08/2019 iodine,gabapentin(from allergy Neurontin)/ondansetron(from zofran) /latex Admission Admission Data Admission Date: 08/10/2019 Admission Time: 0:41 Arrival Date: 08/10/2019 Arrival Time: 0:41 Admit Source: Other Insurance Payor: Medicaid Room #: D.2134 [facility] #: [id number] Height (in.): 62.6 BSA: 1.74 (m2) Height (cm.): 159 BMI: 28.48 (kg/m2) Weight (lbs.): 158.73 Weight (kg.): 72 Lab Results Lab Result Date: 08/15/2019 Lab Result Time: 0:00 Biochemistry Name Units Result Min Max BUN mg/dl 76 --(----)-* 7 18 Creatinine mg/dl 8.6 --(----)-* 0.6 1.3 CBC Name Units Result Min Max Hemoglobin g/dl 12.9 -*(----)-- 13.5 17.5 Procedure Procedure Types Cath Procedure Peripheral vascular Intervention Procedure Description Procedure Date Procedure Date: 08/15/2019 Procedure Start Time: 15:24 Procedure End Time: 15:41 Procedure Staff Name Function Sean Rodriguez MD Performing Physician Alena Kim RT Monitor Rosemary Walker RT Scrub Tasneem Donato RN Nurse Procedure Data Cath Procedure Fluoroscopy Diagnostic fluoroscopy Total fluoroscopy Time: 3.7 time: 3.7 min min Diagnostic fluoroscopy Total fluoroscopy dose: 124 dose: 124 mGy mGy Contrast Material Contrast Material Type Amount (ml) Isovue 300 26 Entry Location Entry Primary Successful Side Size Upsize Upsize Entry Closure Succes sful Closure Location (Fr) 1 (Fr) 2 (Fr) Remarks Device Remarks Femoral Left 6 Fr 6 Fr 6 Fr Exoseal artery Short Long Short Estimated blood loss: 5 ml Diagnostic catheters Device Type Used For End Catheter Placement DIAGNOSTIC UF 5Fr Multi-vessel catheter ([id number]) Angiography Procedure Complications No complications Procedure Medications Medication Administration Route Dosage 0.9% NaCl I.V. Oxygen etCO2 Nasal cannula 2 l/min Lidocaine 2% added to field 20 Heparin Flush Bag added to field 2 bags (1000units/500ml NS) Versed I.V. 2 mg Fentanyl I.V. 50 mcg Fentanyl I.V. 50 mcg Heparin Bolus I.V. 5000 units Hemodynamics Rest BSA: 1.74 (m2) HGB: 12.9 (g/dl) O2 Consumption: Estimated: 179.26 (ml/min) O2 Co nsumption indexed: Estimated:103.02 (ml/min/m) Heart Rate: 88 (bpm) Snapshots Pre Cath Intra NCS Post Cath Vital Signs Time Heart Resp SPO2 etCO2 NIBP (mmHg) Rhythm Pain Sedation Rate (ipm) (%) (mmHg) Status Level (bpm) 15:18:40 85 13 99 36 Measuring NSR 0 (11) 10(A) , No pain 15:19:04 85 13 99 36.8 184/92(131) NSR 0 (11) 10(A) , No pain 15:23:24 87 16 100 36 182/94(147) NSR 0 (11) 10(A) , No pain 15:27:44 89 17 100 39.8 190/97(145) NSR 0 (11) 10(A) , No pain 15:32:08 88 15 100 41.3 184/90(137) NSR 0 (11) 9(A) , No pain 15:36:31 89 16 100 41.3 183/89(137) NSR 0 (11) 9(A) , No pain 15:40:51 90 16 100 39.8 191/96(135) NSR 0 (11) 10(A) , No pain Medications Time Medication Route Dose Verified Delivered Reason Notes Effectiveness by by 15:22:14 0.9% NaCl I.V. kvo Sean Tasneem used for [place] [facility] procedure MD HART 15:22:23 Oxygen etCO2 2 Sean Tasneem used for Nasal l/min [facility] procedure cannula MD HART 15:22:28 Lidocaine 2% added 20ml Sean Estrada for local to vial [facility] anesthetic field MD MEHTA 15:22:32 Heparin Flush added 2 Sean Burrory used for Bag to bags [facility] procedure (1000units/500ml field MD MEHTA NS) 15:22:42 Versed I.V. 2 mg Sean Tasneem for sedation St Will Donato MD, RN 15:22:46 Fentanyl I.V. 50 Sean Tasneem for sedation mcg St Will Donato MD RN 15:29:47 Heparin Bolus I.V. 5000 Sean Tasneem for verif ied units [facility] anticoagulation with Dr. MEHTA RN [place] 15:29:47 Fentanyl I.V. 50 Sean Tasneem for sedation mcg St Will Donato MD accounts receivable representative Log Time Note 14:31:42 Informed consent obtained and on chart 14:34:48 Admit Source: Other 14:34:53 Arrival Date: 08/10/2019 12:41:00 AM 14:35:10 Insurance Payor : Medicaid 14:45:35 Patient Height : 62.6 inches 14:45:39 Patient Weight : 158.73 lbs 14:47:52 Lab Result : Hemoglobin 12.9 g/dl 14:47:52 Lab Result : Creatinine 8.6 mg/dl 14:47:52 Lab Result : BUN 76 mg/dl 14:48:18 Procedure Status Peripheral. 14:48:26 Diagnostic Cath Status : Elective 14:49:05 Rosemary BEAULIEU(R) sent for patient. Start room use. 14:49:07 Time tracking: Regular hours (M-F 7:00 - 5:00) 14:49:11 Plan of Care:Hemodynamics will remain stable., Cardiac rhythm will remain stable., Comfort level will be maintained., Respiratory function will remain adequate., Patient/ family verbilizes understanding of procedure., Procedure tolerated without complication., Recovers from procedure without complications.. 14:56:39 5) <15 or on dialysis Very severe, or end stage kidney failure. 14:57:14 Maximum allowable contrast dose (3.7 X eGFR X 0.75)13 ml. 15:01:23 Patient received from Med II to CCL 2 Alert and oriented. Tansferred to table in Supine position. 15:01:24 Warm blankets applied, and susana hugger turned on for patient comfort. 15:01:25 Correct patient and procedure confirmed by team. 15:01:25 ECG and BP/O2 sat monitors applied to patient. 15:16:49 Vital chart was started 15:16:50 Baseline sample Acquired. 15:16:54 Rhythm: sinus rhythm 15:16:56 Full Disclosure recording started 15:17:00 H&P Date Dictated: 08/15/2019 Within 30 days and on chart., H&P Addendum completed by physician on day of procedure. (MUST COMPLETE FOR ALL OUTPATIENTS). 15:17:01 Pre-procedure instructions explained to patient. 15:17:01 Pre-op teaching completed and patient verbalized understanding. 15:17:07 Family unavailable. 15:17:09 Patient NPO since Midnight. 15:17:10 Is the patient allergic to Iodine/contrast media? Yes. 15:17:11 Was the patient premedicated? Yes 15:17:12 Is patient on blood thinner?Yes 15:17:17 ACC The patient was administered the following blood thiners within the last 24 hours: ACCPlavix 15:18:13 Patient diabetic? Yes. 15:18:14 If diabetic: On Metformin? No 15:18:17 Previous problem with sedation/anesthesia? No ? 15:18:20 Snore? Yes 15:18:21 Sleep apnea? No 15:18:22 Deviated septum? No 15:18:23 Opens mouth fully? Yes 15:18:24 Sticks out tongue? Yes 15:18:30 Airway obstruction? Yes bronchitis 15:18:34 Dentures? No ? 15:18:37 Pre procedure: right dorsailis pedis pulse Doppler 15:18:39 Pre procedure: left dorsailis pedis pulse Doppler 15:18:41 Patient pain scale 0/10 ?. 15:18:48 IV patent on arrival in left antecubital with 0.9% NaCl at KVO. 15:18:50 Lab results completed and on chart. 15:18:59 Bilateral groins area was prepped with chlora-prep and draped in sterile fashion 15:19:00 Alarms reviewed by R. N. 15:19:01 Sharps counted by scrub and verified by R.N. 15:19:03 Physician arrived 15:19:03 --------ALL STOP TIME OUT------ 15:19:04 Final Timeout: patient, procedure, and site verified with staff and physician. All members of the team are in agreement. 15:19:06 Bilateral groins site verified by team. 15:19:08 Fire Safety Assessment: A--An alcohol-based skin anteseptic being used preoperatively., C--Open oxygen or nitrous oxide is being used., D--An ESU, laser, or fiber-optic light is being used. 15:19:11 Physical assessment completed. ASA score P 2 - A patient with mild systemic disease as per Sean Rodriguez MD. 15:19:15 Sedation plan: IV Moderate Sedation Medication:Versed, Fentanyl 15:19:55 Use device set CATH PACK 15:19:57 ACIST Syringe (51653) opened to sterile field. 15:19:57 ACIST Hand Control (25018) opened to sterile field. 15:19:58 ACIST Manifold (47362) opened to sterile field. 15:19:59 Medline Cath Pack ([id number]) opened to sterile field. 15:19:59 Bag Decanter (2002S) opened to sterile field. 15:20:00 EMERALD Guide Wire (502-532) opened to sterile field. 15:20:12 SHEATH 6FR [place] (MYA159) opened to sterile field. 15:21:03 GLIDE WIRE ANGLE 260cm (LQ3587) opened to sterile field. 15:22:14 0.9% NaCl kvo I.V. was administered by Tasneem Donato RN; used for procedure; Verbal order read back and verified. 15:22:23 Oxygen 2 l/min etCO2 Nasal cannula was administered by Tasneem Donato RN; used for procedure; Verbal order read back and verified. 15::28 Lidocaine 2% 20ml vial added to field was administered by Sean Rodriguez MD; for local anesthetic; Verbal order read back and verified. 15:22:32 Heparin Flush Bag (1000units/500ml NS) 2 bags added to field was administered by Sean Rodriguez MD; used for procedure; Verbal order read back and verified. 15::42 Versed 2 mg I.V. was administered by Tasneem Donato RN; for sedation; Verbal order read back and verified. 15::46 Fentanyl 50 mcg I.V. was administered by Tasneem Donato RN; for sedation; Verbal order read back and verified. 15::42 Procedure started. 15::46 Local anesthetic to left femerol artery with Lidocaine 2% by Sean Rodriguez MD.INITIAL ACCESS ONLY 15:25:05 A 6 Fr Short sheath was inserted into the Left Femoral artery 15:26:15 A DIAGNOSTIC UF 5Fr catheter ([id number]) was advanced over the wire and used for Multi-vessel Angiography. 15:29:47 Heparin Bolus 5000 units I.V. was administered by Tasneem Donato RN; for anticoagulation; verified with Dr. Soria Verbal order read back and verified. 15::47 Fentanyl 50 mcg I.V. was administered by Tasneem Donato RN; for sedation; Verbal order read back and verified. 15:30:40 SHEATH 6FR Destination (RSR01) opened to sterile field. 15:30:47 Sheath upsized to a 6 Fr Long. 15:32:20 Right leg runoff performed. 15:34:56 INFLATOR Merit BasixCompak (XM0445) opened to sterile field. 15:36:06 Inflate balloon Inflation number: 1 A POWERFLEX PRO 5.0 x 40 x 135cm balloon ([id number]) was prepped and advanced across the Mid Superficial Femoral, Right 95, then inflated to 6 [facility] for 0:30 (min:sec) . 15:38:33 Balloon removed over the wire. 15:38:47 Sheath upsized to a 6 Fr Short. 15:39:03 EXOSEAL 6Fr (EX600) opened to sterile field. 15:39:32 Wire removed. 15:39:40 Sheath removed intact; hemostasis achieved with Exoseal to the Left Femoral artery. 15:39:44 Procedure ended.(Physican Out) 15:40:16 Fluoroscopy time 03.70 minutes. 15:40:20 Flurop Dose total: 124 15:40:20 Fluoroscopy dose: 124 mGy 15:40:26 Dose Area Product 81867 mGy/cm. 15:40:44 Contrast amount:Isovue 300 26ml. 15:41:01 Maximum allowable dose exceeded? Yes. 15:41:02 Sharps counted by scrub and verified by R.N. 15:41:04 Insertion/operative site no bleeding no hematoma. 15:41:21 Post-op/insertion site Left Femoral artery dressed using a 4 x 4 and Tegaderm. 15:41:22 Post Procedure Pulses reassessed and unchanged 15:41:25 Post procedure rhythm: unchanged. 15:41:27 Estimated blood loss: 5 ml 15:41:28 Post procedure instruction explained to patient.Patient verbalizes understanding. 15:41:29 Patient needs reinforcement of post procedure teaching. 15:41:30 Procedure and supply charges have been captured, reviewed, submitted and are correct. 15:41:34 Procedure Complication : No complications 15:41:37 Vital chart was stopped 15:41:42 AFRO Findings: PVD: CURRICULUM ADVISORY TEACHER performed (see procedure notes) 15:41:44 Operative report dictated upon procedure completion. 15:41:44 See physician's report for complete and final results. 15:41:49 Report given to [facility]. 15:41:51 Patient transfered to [facility] with Stretcher. 15:41:53 Procedure ended. 15:41:53 Full Disclosure recording stopped 15:43:02 ACC-PCI Only Patient was given prescriptions, or instructed by Sean Rodriguez MD to start/continue the following medications upon discharge: Plavix 15:43:05 End room use (Document Last) 15:47:19 Femstop placed over the left femerol artery at 208 mmHg. Hemostasis achieved. 15:47:55 ACT drawn and resulted at 352 seconds. (normal therapeutic range 180-240 seconds). Intervention Summary Intervention Notes Time ActionType Lesion and Equipment Action# Pressure Duration Attributes Used 15:36:06 Inflate Mid POWERFLEX 1 6 00:30 balloon Superficial PRO 5.0 x Femoral, 40 x 135cm Right balloon ([id number]) Device Usage Item Name Manufacture Quantity Catalog Hospital Part Current Minimal L ot# / Number Charge Number Stock Stock Serial# Code ACIST Acist 1 46860 982332 181503 107588 20 Syringe Medical (52432) Systems Inc ACIST Hand Acist 1 44461 296323 077639 034651 5 Control Medical (27521) Systems Inc ACIST Acist 1 13098 963781 588330 970911 5 Manifold Medical (30128) Systems Inc Medline Medline 1 [id number] 661103 26181 118990 5 Cath Pack ([id number]) Bag Microtek 1 2001S 698754 60994 766957 5 Decanter Medical Inc. () EMERALD Cardinal 1 502-455 804683 360477 477647 5 Guide Wire Health (502-455) SHEATH 6FR Terumo 1 ZCJ770 149649 185302 411377 40 [place] (NVX644) GLIDE WIRE Terumo 1 IE6271 664694 106808 842413 5 ANGLE 260cm (ZO2733) DIAGNOSTIC Cardinal 1 [id number] 658877 468122 839302 10 UF 5Fr Health catheter (482600V1) SHEATH 6FR Terumo 1 RSR01 061885 44785 997661 5 Destination (RSR01) INFLATOR Merit 1 IA6771 929459 025022 604831 15 [facility] Medical BasixCompak (WA3832) POWERFLEX Cardinal 1 [id number] 448419 015582 665000 5 PRO 5.0 x Health 40 x 135cm balloon ([id number]) EXOSEAL 6Fr Cardinal 1 EX600 630314 686407 199674 10 (EX600) Health Signature Audit Watts Stage Time Signature Unsigned Intra-Procedure 08/15/2019 Alena Kim 3:48:03 PM RT(R) Intra-Procedure 08/15/2019 Tasneem Donato 3:48:43 PM RN Intra-Procedure 08/15/2019 eSan Cotton 3:49:11 PM Will MEHTA Signatures Performing Physician : Signature : eSan Rodriguez MD Date : Time : Monitor : Alena Julio RT Signature : Date : Time : Nurse : Tasneem Donato RN Signature : Date : Time : [address] [place] [address]
[~2019-08-10 00:07] MED LIST changes: +BAYER CHEWABLE81 MG PO; +BRILINTA90 MG PO; +COREG6.25 MG PO; +LANTUS SOL100 UNIT/1 SC; +LIPITOR20 MG PO; +PLAVIX75 MG PO; +RENVELA800 MG PO
--- NOTE | 2019-08-10 00:52 | NUR ---
FSBS 426.
[2019-08-10 01:13] LABS: BASOPHILS 0.2 % (0-2); EOSINOPHILS 0.4 % (0-7); HEMATOCRIT 34.8 % (36.0-48.0); HEMOGLOBIN 11.1 g/dL (12-16); IMMATURE GRANULOCYTES 0.3 % (0-5); LYMPHOCYTES 15.1 % (15-50); MCH 30.6 pg (26.0-34.0); MCHC 31.9 g/dL (31.0-37.0); MCV 95.9 fL (80.0-100.0); MEAN PLATELET VOLUME 9.8 fL (7.4-10.4); MONOCYTES 5.6 % (2-11); NEUTROPHILS 78.4 % (40-80); PLATELET COUNT 268 10x3/uL (130-400); RBC 3.63 10x6/uL (4.00-5.40); RDW 15.1 % (11.5-14.5)
[2019-08-10 01:15] LABS: WBC 12.6 10x3/uL (4.8-10.8)
[2019-08-10 01:29] LABS: APTT 25.2 SECONDS (22.8-39.4); INR 1.06 (0.85-1.17); PROTIME 13.3 SECONDS (11.6-15.0)
[2019-08-10 01:48] LABS: ALBUMIN 3.2 g/dL (3.4-5.0); ALKALINE PHOSPHATASE 153 U/L (46-116); BILIRUBIN - TOTAL 0.23 mg/dL (0.2-1.3); CALCIUM 8.7 mg/dL (8.5-10.1); CARBON DIOXIDE 31.7 mmol/L (21.0-32.0); CHLORIDE - SERUM 95 mmol/L (98-107); CKMB 1.2 U/L (0.0-3.6); CREATINE KINASE 48 UL (21-215); MAGNESIUM - SERUM 2.4 mg/dL (1.8-2.4); POTASSIUM - SERUM 4.5 mmol/L (3.5-5.1); PROTEIN - SERUM 7.1 g/dL (6.4-8.2); SODIUM 134 mmol/L (136-145); THYROID STIMULATING HORMONE 1.39 uIU/mL (0.36-3.74); UREA NITROGEN 51 mg/dL (7-18); eGFR NON AFRICAN AMERICAN 8 mL/min (90-120)
[2019-08-10 01:49] LABS: ALT (SGPT) 24 U/L (10-68); CALC OSMOLALITY 299 mosm/kg (275-300)
[2019-08-10 01:50] LABS: GLUCOSE 414 mg/dL (74-106); TROPONIN-I 0.147 ng/mL (0.000-0.060)
--- NOTE | 2019-08-10 01:54 | NUR ---
PATIENT TO MRI @ 0115 VIA W/C IN STABLE CONDITION.
--- NOTE | 2019-08-10 01:56 | NUR ---
PATIENT TAKEN TO FLOOR VIA W/C IN STABLE CONDITION, UP AMBULATING IN ROOM WITHOUT DISTRESS.
[2019-08-10] MEDS ORDERED: NOVOLOG100 UNIT/1 SC (02:09)
--- NOTE | 2019-08-10 02:49 | NUR ---
ARRIVED TO FLOOR AT 0200 IN W/C. TRANSFERED SELF TO BED. ALERT AND ORIENTED X4. STATES" ANESTHESIA ALWAYS MESSES WITH MY MEMORY." BLOOD SUGAR REPORTED TO BE 424 IN ER AND 10 UNITS OF INSULIN GIVEN. PT REQUEST SOMETHING TO EAT STATED " I WILL BOTTOM OUT IF I DON'T GET SOMETHING TO EAT". SANDWICH BOX GIVEN. NO OTHER NEEDS VOICED. ALSO, STATED SHE HAS NOT BEEN ABLE TO STATRT HER NEW MEDICATIONS THAT WERE PRESCRIBED THIS MORNING. PT WANTS TO BE A FALL RISK. WILL IMPLEMENT FALL PRECAUTIONS. ASSESSMET COMPLETED.
[2019-08-10 05:34] LABS: BASOPHILS 0.2 % (0-2); EOSINOPHILS 0.6 % (0-7); HEMATOCRIT 33.6 % (36.0-48.0); HEMOGLOBIN 10.7 g/dL (12-16); IMMATURE GRANULOCYTES 0.3 % (0-5); LYMPHOCYTES 16.7 % (15-50); MCH 30.5 pg (26.0-34.0); MCHC 31.8 g/dL (31.0-37.0); MCV 95.7 fL (80.0-100.0); MEAN PLATELET VOLUME 9.9 fL (7.4-10.4); MONOCYTES 6.6 % (2-11); NEUTROPHILS 75.6 % (40-80); PLATELET COUNT 261 10x3/uL (130-400); RBC 3.51 10x6/uL (4.00-5.40); RDW 15.3 % (11.5-14.5); WBC 12.1 10x3/uL (4.8-10.8)
[2019-08-10 05:57] LABS: ANION GAP 12.7 mmol/L (8-16); CALCIUM 8.6 mg/dL (8.5-10.1); CARBON DIOXIDE 29.7 mmol/L (21.0-32.0); CREATININE - SERUM 6.4 mg/dL (0.6-1.3); MAGNESIUM - SERUM 2.3 mg/dL (1.8-2.4); PHOSPHOROUS 5.9 mg/dL (2.5-4.9); POTASSIUM - SERUM 4.4 mmol/L (3.5-5.1)
--- NOTE | 2019-08-10 06:58 | NUR ---
REPORT RECEIVED. SHE IS AWAKE ANSWERS TO NAME. DENIES ANY CURRENT NEEDS OR C/O. LEFT F/A SALINE LOCK INTACT. RESP EVEN WITHOUT LABOR. SHE IS REMINDED OF NEED FOR URINE SPECIMEN BUT RARELY URINATES AND SOMETIMES NOT AT ALL. CL IN REACH. BLIND PRECAUTIONS IN PLACE INCLUDING ALL PERSONAL BELONGINGS IN HER REACH AND SHE IS ORIENT TO LOCATION. BED IN LOWEST POSITION AND LOCKED. CAREPLAN REVIEW DONE WITH SAFETY PRECAUTIONS IN PLACE
--- NOTE | 2019-08-10 11:24 | NUR ---
SHE REFUSED CELEXA STATED I CANNT TAKE THAT IT DONE SOMETHING TO ME, I AM ON PAXIL, SHE ALSO REFUSED NICOTINE PATCH STATED I HAVE NOT SMOKED IN ALONG TIME
--- NOTE | 2019-08-10 20:00 | NUR ---
PT SITTING UP IN BED ALERT AND ORIENTED X4. PT SENIES ANY PAIN AT THIS TIME. FSBS-91 PT REFUSES LONG ACTING INSULIN AND STATES THAT SHE DOESN'T WANT TO TAKE IT B/C IT WILL BOTTOM HER OUT. PT ALSO REFUSED BRILINTA AND WANTS TO SPEAK WITH PRESCRIBING DOCTOR. NO S/S OF DISTRESS AT THIS TIME BED LOW CALL LIGHT WITHIN REACH. WILL CONTINUE TO MONITOR.
--- NOTE | 2019-08-11 01:13 | NUR ---
PT RESTING WITH EYES CLOSED. RR EVEN AND UNLABORED. BED LOW CALL LIGHT WITHIN REACH. WILL CONTINUE TO MONITOR.
--- NOTE | 2019-08-11 03:23 | NUR ---
I have reviewed this patient and I concur with the Shift Assessment completed by the Licensed Practical Nurse today this shift.
[2019-08-11 04:38] VITALS: BP 161/42
--- NOTE | 2019-08-11 06:45 | NUR ---
REPORT RECEIVED. SHE IS ALERT AND ORIENT SHE ANSWERS ALL QUESTIONS INCLUDING DATE TIME PLACE. SHE IS LEGALLY BLIND WITH ALL PERSONAL EFFECTS IN REACH. BED IN LOWEST POSITION AND LOCKED NO CONFUSION NOTED. CL IN REACH RESP EVEN WITHOUT LABOR. LEFT F/A SALINE LOCK INTACT CAREPLAN REVIEW DONE WITH SAFETY PRECAUTIONS IN PLACE
[2019-08-11 07:53] LABS: UDS - AMPHET NEGATIVE QUAL (NEGATIVE); UDS - BARB NEGATIVE QUAL (NEGATIVE); UDS - BENZO POSITIVE QUAL (NEGATIVE); UDS - COCAINE NEGATIVE QUAL (NEGATIVE); UDS - OPIATE NEGATIVE QUAL (NEGATIVE); UDS - PCP NEGATIVE QUAL (NEGATIVE); UDS - THC NEGATIVE QUAL (NEGATIVE)
[2019-08-11 08:53] LABS: APPEARANCE SL CLDY (CLEAR); COLOR YELLOW (YELLOW)
[2019-08-11 08:54] LABS: BACTERIA MODERATE /hpf (NEGATIVE); BILIRUBIN NEGATIVE (NEGATIVE); EPITHELIAL CELLS 0-5 /hpf (0-5); GLUCOSE 500 mg/dL (NEGATIVE); GRANULAR CAST RARE /lpf (NONE SEEN); KETONE SMALL mg/dL (NEGATIVE); MUCUS <1+ /lpf (NONE SEEN); NITRITE NEGATIVE (NEGATIVE); PROTEIN 3+ mg/dL (NEGATIVE); RED CELLS - URINE 0-5 /hpf (0-5); SPECIFIC GRAVITY 1.015 (1.005-1.020); UROBILINOGEN NORMAL (NORMAL); WHITE CELLS - URINE 0-5 /hpf (NEGATIVE); YEAST >1+ /hpf (NONE SEEN)
[2019-08-11 09:05] VITALS: BP 130/70
[2019-08-11 12:59] VITALS: BP 111/62
[2019-08-11 18:01] VITALS: BP 132/72
[2019-08-11 18:48] LABS: BASOPHILS 0.1 % (0-2); EOSINOPHILS 2.3 % (0-7); HEMATOCRIT 30.5 % (36.0-48.0); IMMATURE GRANULOCYTES 0.5 % (0-5); LYMPHOCYTES 16.8 % (15-50); MCH 30.7 pg (26.0-34.0); MCHC 32.8 g/dL (31.0-37.0); MEAN PLATELET VOLUME 9.8 fL (7.4-10.4); MONOCYTES 8.9 % (2-11); NEUTROPHILS 71.4 % (40-80); PLATELET COUNT 266 10x3/uL (130-400); RBC 3.26 10x6/uL (4.00-5.40); RDW 14.7 % (11.5-14.5); WBC 9.7 10x3/uL (4.8-10.8)
[2019-08-11 18:55] LABS: MCV 93.6 fL (80.0-100.0)
[2019-08-11 19:04] LABS: ANION GAP 17.8 mmol/L (8-16); CALCIUM 8.1 mg/dL (8.5-10.1); CARBON DIOXIDE 23.4 mmol/L (21.0-32.0); MAGNESIUM - SERUM 2.4 mg/dL (1.8-2.4); PHOSPHOROUS 5.5 mg/dL (2.5-4.9)
[2019-08-11 19:06] LABS: CREATININE - SERUM 8.9 mg/dL (0.6-1.3); POTASSIUM - SERUM 5.2 mmol/L (3.5-5.1)
--- NOTE | 2019-08-11 19:17 | NUR ---
BEDSIDE REPORT RECEIVED FROM DAY SHIFT, PT CARE ASSUMED. WROTE NAME ON BOARD, PT OUT OF ROOM AT DIALYSIS.
--- NOTE | 2019-08-11 19:20 | NUR ---
BEDSIDE REPORT RECEIVED FROM DAY SHIFT, PT CARE ASSUMED. INTRODUCED SELF AND WROTE NAME ON BOARD. PT SITTING UP IN BED, AAOX4. DAUGHTER AT BEDSIDE. DENIES ANY NEEDS AT THIS TIME. BED IN LOWEST POSITION, SR X2, CALL LIGHT WITHIN REACH. WILL CONTINUE TO MONITOR.
--- NOTE | 2019-08-11 19:30 | NUR ---
RECEIVED CRITICAL LAB VALUE FOR AMYLASE OF 349, PER ALEXA. SPOKE WITH CHANA CARROLL, REPORTS THIS IS A NORMAL FINDING FOR PT'S CHRONIC PANCREATITIS.
[2019-08-12] VITALS: BP 126/58
[2019-08-12 06:39] LABS: ANION GAP 12.1 mmol/L (8-16); CALCIUM 8.4 mg/dL (8.5-10.1); MAGNESIUM - SERUM 2.1 mg/dL (1.8-2.4); POTASSIUM - SERUM 4.5 mmol/L (3.5-5.1)
[2019-08-12 06:40] LABS: CARBON DIOXIDE 30.4 mmol/L (21.0-32.0); CREATININE - SERUM 5.2 mg/dL (0.6-1.3); PHOSPHOROUS 3.9 mg/dL (2.5-4.9)
--- NOTE | 2019-08-12 08:00 | NUR ---
PATIENT IS AWAKE AND ALERT. LIGHTS ARE ON FULL. SHE REPORTS THAT SHE HAS HAD NAUSEA. SHE APPEARS FRUSTRATED AND STATES THAT EVERYONE IS COMING IN HER ROOM AND ASKING IF SHE WANTS HER LIGHT TURNED DOWN. SHE STATES THAT SHE IS LEGALLY BLIND, AND CAN NOT SEE ANYTHING WHEN THE LIGHTS ARE DOWN.
[2019-08-12 09:20] VITALS: BP 144/76
--- NOTE | 2019-08-12 12:48 | NUR ---
PATIENT PULLED HER IV OUT. CATHETER INTACT.
--- NOTE | 2019-08-12 12:57 | NUR ---
PATIENT IS ON TEMP CONTACT [facility] FOR STAFF.
[2019-08-12 15:33] LABS: LIPASE 1498 U/L (73-393)
[2019-08-12 15:34] LABS: AMYLASE - SERUM 404 U/L (25-115)
--- NOTE | 2019-08-12 15:48 | NUR ---
PATIENT HAS REFUSED EVERYTHING TODAY. FINALLY SHE AGREED TO HAVE TREATMENT FOR THE NAUSEA. SHE PULLED OUT HER IV AND DOES NOT HAVE ANOTHER IV YET AT THIS TIME. SHE IS REFUSING TO WEAR HER TELEMETRY AND WAS REFUSING TO HAVE HER VITAL SIGNS TAKEN. LAB JUST CALLED AND REPORTED A CRITICAL AMILASE.
--- NOTE | 2019-08-12 16:21 | NUR ---
REPORTED AMYLASE TO [facility]. WILL CALL ICU AND ER FOR HELP PLACING AN IV.
--- NOTE | 2019-08-12 16:29 | NUR ---
ER NURSE AT BEDSIDE TO START IV.
--- NOTE | 2019-08-12 17:55 | NUR ---
NEW IV PLACED IN THE LEFT AC BY SHA COTTRELL . 20 G PATIENT TOLERATED.
--- NOTE | 2019-08-12 21:56 | NUR ---
INITIAL ROUNDS COMPLETED. PT STATED FOR STAFF TO GO AWAY. ASSESSMENT COMPLETED AT 1999 HRS. PT REFUSED VS, TELEMETRY. OPENS EYES TO VERBAL STIMULI, FOLLOWS COMMANDS. ANSWERS QUESTIONS APPROPRIATLEY. IV TO LAC SL. FISTULA TO R ARM WITH GOOD BRUIT AND THRILL. [place]. PALPABLE PERIPHERAL PULSES. Carolyn MONTAGUE APN NOTIFIED AT 2029 THAT PT IS REFUSING TELEMETRY, VS AND MEDS. NO NEW ORDERS. PT ALLOWED BS TO BE TAKEN WITH RESULTS OF 242. ALLOWED S/S INSULIN TO BE GIVEN. CONVINCED PT OF IMPORTANCE OF TAKING BRILLINTA. PT ONLY TOOK BRILINTA FOR HS MEDS. PT CURRENTLY RESTING WITH EYES CLOSED. RESP EVEN AND REGULAR. SR UP X2, CALL LIGHT WITHIN REACH.
--- NOTE | 2019-08-12 23:44 | NUR ---
PT AWAKE, ALERT. STATED DARIUS SMELL OF PEOPLE'S PERFUME WAS MAKING HER SICK. REGLAN 5MG SIVP GIVEN. WILL CONTINUE TO MONITOR. CALL LIGHT WITHIN REACH.
--- NOTE | 2019-08-13 00:33 | NUR ---
PT REEFUSES MIDNIGHT VS.
--- NOTE | 2019-08-13 02:07 | NUR ---
PT RESTING WITH EYES CLOSED. RESP EVEN AND REGULAR. CALL LIGHT WITHIN REACH.
--- NOTE | 2019-08-13 04:14 | NUR ---
PT RESTING WITH EYES CLOSED. RESP EVEN AND REGULAR. CALL LIGHT WITHIN REACH.
--- NOTE | 2019-08-13 04:29 | NUR ---
PT REFUSED AM LAB DRAW.
--- NOTE | 2019-08-13 06:36 | NUR ---
AM FSBS 160. PT REFUSED S/S INSULIN. PT DID TAKE AM MEDS. REFUSED VS THROUGHOUT SHIFT. ALERT AND ORIENTED THIS AM. RESTED WELL DURING SHIFT. PT BATHING WITH HIBICLENS AT THIS TIME. WILL CONTINUE TO MONITOR.
[2019-08-13 07:30] VITALS: BP 188/76
--- NOTE | 2019-08-13 07:45 | NUR ---
PATIENT IS ON HER LEFT SIDE IN BED. DENEIS ANY NEEDS AT THIS TIME.
--- NOTE | 2019-08-13 09:56 | NUR ---
PATIENT REFUSED TO HAVE HER ROOM CLEANED. SHE WAS REFUSING TO GET HER VITAL SIGNS. THEN SHE DECIDED TO HAVE THEM TAKEN, AND TOOK HER MEDICINE. SHE WAS UP TO THE SINK TO WASH HERSELF. SHE IS NAKED IN THE ROOM, AND DOES NOT WANT TO BE BOTHERED UNLESS ABSOLUTELY NECCESSARY. SHE IS IRRITABLE, HOWEVER SHE IS NOT VOMITING THIS MORNING. SHE HAS REFUSED ALL MEALS.
--- NOTE | 2019-08-13 18:07 | NUR ---
PATIENT REFUSED ALL MEALS AND THE NEW CLEAR LIQUID DIET. SHE STATES THAT THE REGLAN DOESNT DO ANYTHING, HOWEVER, SHE HAS BEEN MUCH LESS NAUSEATED TODAY. THE PHENERGAN SEEMS TO BE HELPING A GREAT DEAL. SHE HAS BEEN TAKING HER MEDICATIONS, BUT SHE IS AFRAID TO EAT.
--- NOTE | 2019-08-13 19:34 | NUR ---
INITIAL ROUNDS COMPLETED. NO DISTRES NOTED. REFUSED OFFER FOR SOME JUICE. CALL LIGHT WITHIN REACH.
[2019-08-13 20:00] VITALS: BP 175/75
--- NOTE | 2019-08-13 22:42 | NUR ---
ASSESSMENT COMPLETED AT 2000 HRS. PT ALERT AND ORIENTED TO PERSON, PLACE AND TIME. [place]. IV TO LAC SL. R ARM FISTULA WITH GOOD BRUIT AND THRILL. ABD SOFT WITH ACTIVE BS NOTED. REFUSES TELEMETRY. PM FSBS 155. NO INSULIN ADMINISTERED PT IS NOT EATING. HAS C/O NAUSEA BUT REFUSED PHENERGAN. REFUSED ALL PM MEDS EXCEPT LIPITOR. PT CURRENTLY RESTING WITH EYES CLOSED. RESP EVEN AND REGULAR. CALL LIGHT WITHIN REACH.
--- NOTE | 2019-08-14 00:05 | NUR ---
PT STSATES SHE FEELS HER BSIS LOW. FSBS 114. PT REFUSED OFFER FOR JUICE BUT STATED SHE WOULD TAKE A POPSICLE. REFUSED SCHEDULED REGLAN. CALL LIGHT WITHIN REACH. REFUSED 2400 VSS.
--- NOTE | 2019-08-14 01:52 | NUR ---
PT RESTING WITH EYES CLOSED. RESP EVEN AND REGULAR. CALL LIGHT WITHIN REACH.
[2019-08-14 04:00] VITALS: BP 137/70
--- NOTE | 2019-08-14 04:31 | NUR ---
FOUND PT SITTING ON FLLOR WITH BACK AGAINST WALL BY BATHROOM. PT STATED SHE WAS COMING OUT OF THE BATHROOM AND LOST HER BALANCE AND TUMBLED BACKWARDS. STATES HIT BACK OF HEAD ON WALL. [place]. ALERT AND ORIENTED TO PERSON,PLACE AND TIME. SUPERFICIAL ABRASION NOTED TO OUTER RFA. NO SWELLING TO BACK OF HEAD. ASSISTED PT BACK TO BED. VSS. BP 137/70. CHICKEN SOUP GIVEN PER REQUEST. SR UP X1, CALL LIGHT WITHIN REACH AND BED ALARM ON.
--- NOTE | 2019-08-14 05:43 | NUR ---
[facility] PAGED.
--- NOTE | 2019-08-14 05:45 | NUR ---
Zaina MULLINS APN RETURNS PAGE. INFORMED OF PT'S FALL, VS, FINDINGS AND PT'S CURRENT C/O HEADA ND NECK PAIN. NEW ORDERS RECEIVED AND NOTED.
--- NOTE | 2019-08-14 06:01 | NUR ---
PT'S NIECE PARDEEP BROWN NOTIFIED OF PT'S FALL, FINDINGS AND ORDERS FOR XRAYS.
[2019-08-14 06:19] LABS: ANION GAP 22.5 mmol/L (8-16); CALCIUM 9.7 mg/dL (8.5-10.1); CARBON DIOXIDE 24.9 mmol/L (21.0-32.0); MAGNESIUM - SERUM 2.6 mg/dL (1.8-2.4)
[2019-08-14 06:21] LABS: BASOPHILS 0.2 % (0-2); EOSINOPHILS 0.8 % (0-7); HEMATOCRIT 39.7 % (36.0-48.0); HEMOGLOBIN 12.9 g/dL (12-16); IMMATURE GRANULOCYTES 0.5 % (0-5); LYMPHOCYTES 8.2 % (15-50); MCH 30.4 pg (26.0-34.0); MCHC 32.5 g/dL (31.0-37.0); MCV 93.4 fL (80.0-100.0); MEAN PLATELET VOLUME 10.8 fL (7.4-10.4); MONOCYTES 9.5 % (2-11); NEUTROPHILS 80.8 % (40-80); PLATELET COUNT 244 10x3/uL (130-400); RBC 4.25 10x6/uL (4.00-5.40); WBC 9.5 10x3/uL (4.8-10.8)
[2019-08-14 06:53] LABS: CREATININE - SERUM 8.6 mg/dL (0.6-1.3); PHOSPHOROUS 7.7 mg/dL (2.5-4.9); POTASSIUM - SERUM 5.4 mmol/L (3.5-5.1)
--- NOTE | 2019-08-14 07:29 | NUR ---
PATIENT IS AWAKE AND ALERT. PATIENT REPORTED NAUSEA AND WAS TREATED WITH PRN PHENEGAN ORDERED. SHE JUST WENT DOWN TO GET A HEAD CT BECAUSE OF HER FALL LAST NIGHT. WEB ART DIRECTOR NURSE REPORTED THAT HER FAMILY HAD BEEN TOLD ABOUT THE FALL.
--- NOTE | 2019-08-14 07:58 | NUR ---
PATIENT REFUSING TO HAVE HER ROOM CLEANED. B/P ELEVATED. WILL CALL [facility] AGAIN.
[2019-08-14 08:27] VITALS: BP 232/85
--- NOTE | 2019-08-14 08:48 | NUR ---
PATIENT GIVEN A ONE TIME DOSE OF B/P MED AFTER CALLING [facility] AND GETTING IT ORDERED FOR HER HIGH B/P.
--- NOTE | 2019-08-14 09:58 | MORECARE ---
CASE MANAGEMENT DISCHARGE SUMMARY PATIENT: SMITH GILBERT UNIT: [id number] ADM DATE: 08/10/19 AGE: 53 : [birth year] SEX: F ROOM/BED: D.2134 AUTHOR: PARVIN GIFFORD PHYSICIAN: REFERRING PHYSICIAN: REGGIE CASTRO MD DATE OF SERVICE: 08/14/19 Discharge Plan Patient Name: SMITH GILBERT Facility: [facility]:[place] : 1965 Planned Disposition: Home Anticipated Discharge Date: Discharge Date: Expected LOS: Initial Reviewer: [email or web address] Initial Review Date: 08/14/2019 Generated: 08/14/19 10:57 am Comments DCP- Discharge Planning Updated by [email or web address]: Helenphill Graf on 08/14/19 8:[address] Patient Name: SMITH GILBERT Admission Status: ER Accout number: [id number] Admission Date: 08-10-2019 : 1965 Admission Diagnosis: Attending: REGGIE CASTRO Current LOS: 4 Anticipated DC Date: Planned Disposition: Home Primary Insurance: [place]ID [place] Discharge Planning Comments: CM MET WITH PATIENT TO DISCUSS DC PLANNING/NEEDS AFTER OBTAINING VERBAL CONSENT. PATIENT IS VERY DROWSY AND FALLS ALSEEP WHILE TRYING TO ANSWER QUESTIONS. SHE DOES STATE HER ZINA BROWN IS HER CAREGIVER AND SHE PLANS TO DC TO HOME. I DISCUSSED THE NEED FOR HH WITH THE PATIENT BUT SHE STATES SHE DOES NEED IT. CM TO FOLLOW AND ASSIST. Blue Leather Sorter: Helen Graf DCPIA - Discharge Planning Initial Assessment Updated by [email or web address]: Helen Graf on 08/14/19 9:51 am * Pharmacy [facility] * Preadmission Environment Home Alone * ADLs Independent * Other Equipment CANE * List name and contact numbers for known caregivers / representatives who currently or will assist patient after discharge: PARDEEPZINA, * Please name any agencies selected above. STATES PARDEEP BROWN IS CAREGIVER * Additional services required to return to the preadmission environment? No * Can the patient safely return to the preadmission environment? Yes * Has this patient been hospitalized within the prior 30 days at any hospital? No Patient Name: SMITH GILBERT Page [id number] at 0958 All edits/amendments must be made on the electronic document DICTATION DATE: 08/14/19956 MARKING DEVICES ASSEMBLER: ROSA 08/14/19956 RPT#: [id number] DC DATE: STATUS: ADM IN [facility] [address] [place] [address] END OF REPORT
[2019-08-14 13:04] VITALS: BP 161/48
--- NOTE | 2019-08-14 15:03 | NUR ---
Nutrition Follow-up: Diet changed to clear liquid yesterday. Pt had N/V and elevated Amylase/Lipase over the weekend. Diet: Clear liquid PO intake: 0% x 6 meals Wt: 158.4# Labs noted: K+ 5.4, PO4 7.7, Glu 137, Alena 369, Lip 343 Meds noted: Reglan, Humulin, Pancrease, Renagel -When medically feasible, rec ADAT to renal carb consistent. -If unable to advance diet past clears in 48-72 hours, may consider nutrition support. -RD following.
--- NOTE | 2019-08-14 15:12 | NUR ---
CALLED TELEPHONE OPERATOR RECEPTIONIST OFFICE AND WAS TOLD BY DIAN THAT DR CORDON IS CANCELLING THE PROCEDURE TOMORROW. HE DOES NOT THINK IT IS A GOOD IDEA BECAUSE SHE IS ALLERGIC TO THE CONTRAST AND THEY WOULD HAVE TO PUYT HER ON PREDNISONE WHICH COULD FLARE UP HER PANCREATITIS EVEN MORE. WILL RESCHEDULE
--- NOTE | 2019-08-14 15:21 | NUR ---
INFORMED PATIENT OF THE CHANGE IN SCHEDULE OF HER PROCEDURE.
--- NOTE | 2019-08-14 15:22 | NUR ---
PATIENT PRODUCES VERY LITTLE URINE, AND SHE IS INCONTINENT. SHE MADE IT TO THE TOILET AND MISSED THE HAT. ATTEMPTING TO GET A URINE AND STOOL SAMPLE. IT WAS CONTAMINATED AND LOST.
[2019-08-14 17:19] VITALS: BP 138/48
--- NOTE | 2019-08-14 19:20 | NUR ---
BEING ASSISTED BY STAFF PT SEEMS IRITABLE BUT DENIES NEEDS FROM ME. BED IS LOW AND LOCKED AND SRX2 CALL LIGHT IS WITH PT WILL CONTINUE TO OBSERVE CONTACT ISOLATION
[2019-08-14 20:00] VITALS: BP 117/49
--- NOTE | 2019-08-14 22:03 | NUR ---
PT IS RECIEVING DIALYSIS AND CO SOB DEMANDING O2 SPO2 IS 99% AND LCTA BUT I APPLIED O2 AT TWO LITERS
[2019-08-15] VITALS: BP 108/56
--- NOTE | 2019-08-15 00:55 | NUR ---
PT IS PRESENTING WITH WEIRD BEHAVIOR PUTTING PLAYGROUND AIDE LIGHT BUT JUST STARING AT ME WITH NO WORDS WHEN I ANSWER THE LIGHT
[2019-08-15 04:00] VITALS: BP 122/53
[2019-08-15 05:55] LABS: BASOPHILS 0.3 % (0-2); EOSINOPHILS 1.3 % (0-7); HEMATOCRIT 33.7 % (36.0-48.0); HEMOGLOBIN 10.6 g/dL (12-16); IMMATURE GRANULOCYTES 0.7 % (0-5); LYMPHOCYTES 12.3 % (15-50); MCH 30.2 pg (26.0-34.0); MCHC 31.5 g/dL (31.0-37.0); MEAN PLATELET VOLUME 9.8 fL (7.4-10.4); MONOCYTES 11.4 % (2-11); PLATELET COUNT 268 10x3/uL (130-400); RBC 3.51 10x6/uL (4.00-5.40); RDW 15.1 % (11.5-14.5)
[2019-08-15 06:12] LABS: WBC 6.7 10x3/uL (4.8-10.8)
[2019-08-15 06:23] LABS: ANION GAP 13.7 mmol/L (8-16); CALCIUM 8.4 mg/dL (8.5-10.1); CARBON DIOXIDE 29.7 mmol/L (21.0-32.0); MAGNESIUM - SERUM 2.2 mg/dL (1.8-2.4)
[2019-08-15 06:24] LABS: POTASSIUM - SERUM 4.4 mmol/L (3.5-5.1)
--- NOTE | 2019-08-15 07:00 | NUR ---
RECEIVED REPORT. ASSUMED CARE OF PATIENT. PATIENT RESTING IN BED WITH EYES OPEN. RESP EVEN AND UNLABORED. BEDSIDE SHIFT REPORT COMPLETE WITH OFFGOING NURSE. PATIENT HAD NO COMPLAINTS AT THIS TIME. DENIES ANY NEEDS. CALL LIGHT WITHIN REACH. PATIENT REMAINS IN ISOLATION FOR CONTACT ISOLATION FOR STAPH INFECTION. NO DISTRESS.
[2019-08-15 08:45] LABS: CHOL - HDL RATIO 2.5 ratio (2.3-4.1); LDL-HDL RATIO 1.3 ratio (1.5-3.5)
--- NOTE | 2019-08-15 09:17 | NUR ---
CONSENTS SIGNED AND PLACED ON THE CHART. CHANA KIRBY CALLED TO REQUEST ORDER FOR CARDILOLGY CONSULT. CARDIOLOGY SEEN PATIENT THIS AM AND SCHEDULED AN ARTERIAL FEMORAL RUNOFF AND NO CONSULT HAS BEEN GENERATED SINCE PATIENT WAS READMITTED ON THE .
--- NOTE | 2019-08-15 09:19 | NUR ---
NOTED THAT PT WAS SCHEDULED FOR HEART CATH. SPOKE WITH ZENOBIA, RN BEDSIDE NURSE. CARDIOLOGY HAS NOT BEEN CONSULTED ON THIS PATIENT, AND DR DELGADO SAID YESTERDAY THAT THE PATIENT WAS GOING TO HAVE TO RESCHEDULE HER OP HEART CATH THAT WAS SCHEDULED FOR WHEN SHE WAS OUT OF THE HOSPITAL. ZENOBIA HAS PAGED KOFI TO DISCUSS THIS AND SEE IF THEY CAN GO AHEAD AND GET THE CARDIOLOGY CONSULT SINCE THE PATIENT IS SCHEDULED TO HAVE HEART CATH INPT NOW OR IF SHE NEEDS TO CALL DR CEE BACK AND EXPLAIN THE SITUTATION TO HIM.
--- NOTE | 2019-08-15 09:47 | NUR ---
PATIENT ABLE TO HAVE A DIABETIC RENAL DIET AFTER PROCEDURE TODAY.
--- NOTE | 2019-08-15 10:04 | NUR ---
DR.ST JUSTIN PAGEEricka PATIENT IS ALLERGIC TO IODINE AND SCHEDULED FOR PROCEDURE IN [facility] TODAY. WAITING FOR CALL BACK.
--- NOTE | 2019-08-15 11:43 | NUR ---
FSBS 236. PATIENT NPO FOR PROCEDURE THIS AFTERNOON.
[2019-08-15 12:42] LABS: LIPASE 919 U/L (73-393)
[2019-08-15 12:51] LABS: AMYLASE - SERUM 375 U/L (25-115)
--- NOTE | 2019-08-15 15:10 | NUR ---
PATIENT PREOPT AND LEFT UNIT VIA BED FOR ARTERIAL FEMORAL RUNOFF IN CATHLAB AT 1455. NO DISTRESS UPON LEAVING UNIT.
[2019-08-15 16:00] VITALS: BP 151/71
--- NOTE | 2019-08-15 16:08 | NUR ---
PATIENT RETURNED TO UNIT AT THIS TIME VIA BED. PERIPHERAL PULSES PATENT. FEMOSTOP TO LEFT FEMORAL. NO HEMATOMA FORMATION. NO BLEEDING FROM SITE. PATIENT LYING FLAT. PATIENT WITH EYES OPEN, FOLLOWING DIRECTIONS. VITALS Q 15 MINUTES AT THIS TIME.
--- NOTE | 2019-08-15 17:25 | NUR ---
FSBS 329. PATIENT WOULD ONLY ACCEPT 6 UNITS HUMULIN INSULIN.
--- NOTE | 2019-08-15 18:30 | NUR ---
PATEINT REMAINS WITH FEMOSTOP IN PLACE. PATENT. NO BLEEDING TO AREA. NO S/S HEMATOMA. PERIPHERAL PULSES PATENT TO BILATERAL LOWER EXTREMITIES. LEFT IS FAINT WITH FEMOSTOP PATENT. PATIENT REMAINS FLAT WITH HEAD ON 2 PILLOWS. VS STABLE. CALL LIGHT WITHIN REACH. NO DISTRESS.
--- NOTE | 2019-08-15 19:15 | NUR ---
PT IS DEMANDING AND WANTS THINGS DONE PERCISLY SHE DIRECTS BUT HER DIRECTION IS NOT ALWAYS THE CORRECT WAY...PT IS REFUSING SOME CARE FROM ME DUE TO MY GENDER. BED IS LOW AND PT IS FLAT SHE WILL NOT ALLOW ME TO EXAMINE FEMSTOP. I WILL ENGAGE CHARGE NURSE ON THIS ISSUE
[2019-08-15 20:00] VITALS: BP 142/70
--- NOTE | 2019-08-15 20:08 | NUR ---
GLUCOSE CHECKED X2 518 PT IS REFUSING TO TAKE MORE NBA 6 UNITS SO THIS IS WHAT I GAVE
--- NOTE | 2019-08-15 20:45 | NUR ---
PT IS REFUSING A LOT OF CARE FROM MYSELF CHARGE NURSE TO REMOVE FEMSTOP
--- NOTE | 2019-08-15 22:51 | NUR ---
GROIN SITE OBSSERVED BY CHARGE NURSE "WNL NON TENDER NO BLEEDING"
--- NOTE | 2019-08-15 23:50 | NUR ---
PT REFUSES TO SLOW DOWN ON EATING I REMINDED HER OF HER HIGH GLUCOSE ALSO DISCUSSED UPCOMING IV MED BUT SHE REFUSES STATING I DONT NEED ANYTHING IN MY IV
[2019-08-16] VITALS: BP 141/64
[2019-08-16 04:00] VITALS: BP 155/67
[2019-08-16 05:20] LABS: BASOPHILS 0 % (0-2); EOSINOPHILS 0 % (0-7); HEMOGLOBIN 9.8 g/dL (12-16); IMMATURE GRANULOCYTES 0.4 % (0-5); LYMPHOCYTES 4.4 % (15-50); MCH 30.2 pg (26.0-34.0); MCHC 31.6 g/dL (31.0-37.0); MCV 95.7 fL (80.0-100.0); MEAN PLATELET VOLUME 9.5 fL (7.4-10.4); MONOCYTES 13.5 % (2-11); NEUTROPHILS 81.7 % (40-80); PLATELET COUNT 259 10x3/uL (130-400); RBC 3.24 10x6/uL (4.00-5.40); RDW 14.7 % (11.5-14.5)
[2019-08-16 05:41] LABS: ANION GAP 13.5 mmol/L (8-16); CALCIUM 7.8 mg/dL (8.5-10.1); CARBON DIOXIDE 29.5 mmol/L (21.0-32.0); CREATININE - SERUM 7.4 mg/dL (0.6-1.3); MAGNESIUM - SERUM 2.2 mg/dL (1.8-2.4)
[2019-08-16 05:47] LABS: WBC 10.5 10x3/uL (4.8-10.8)
[2019-08-16 08:45] VITALS: BP 162/70
--- NOTE | 2019-08-16 10:29 | NUR ---
PATIENT IS SITTING UP IN BED. SHE IS TALKING AND TOOK HER MEDICATION THIS MORNING. SHE DENIES ANY NEEDS AT THIS TIME.
[2019-08-16] MEDS ORDERED: BRILINTA90 MG PO (12:03)
[2019-08-16] MEDS ORDERED: Pancrease 5000,17,00 PO (12:04)
[2019-08-16] MEDS ORDERED: CREON DR 6,0001 EACH PO (12:16)
--- NOTE | 2019-08-16 12:58 | NUR ---
DIALYSIS AT BEDSIDE NOW.
[2019-08-16 13:01] VITALS: BP 160/75
--- NOTE | 2019-08-16 15:50 | NUR ---
PATIENT HAS BEEN CLEARED OFF ISOLATION. SHE WAS ON TEMPORARY ISOLATION, BUT SHE HAS NOW BEEN CLEARED. SCAT HAS BEEN NOTIOFIED. REMOVED IV FRON LEFT ARM CATHETER INTACT. DISCHARGE INSTRUCTIONS COMPLETE AND PAPERS SIGNED. PATIENT IS VERY FRUSTRATED AND ANGRY AT THIS TIME. SHE IS FRUSTRATED WITH HER FAMILY. SISTER WAS NOTIFIED OF HER DISCHARGE AND HER SISTER IS UNABLE TO DRIVE BACK TO GIVE THE PATIENT A RIDE AT THIS TIME. ALL PATIENT BELONGINGS REMOVED FROM THE ROOM AND GOING WITH THE PATIENT.
--- NOTE | 2019-08-16 16:08 | MORECARE ---
CASE MANAGEMENT DISCHARGE SUMMARY PATIENT: SMITH GILBERT UNIT: [id number] ADM DATE: 08/10/19 AGE: 53 : 61 SEX: F ROOM/BED: D.2134 AUTHOR: PARVIN GIFFORD PHYSICIAN: REFERRING PHYSICIAN: REGGIE CASTRO MD DATE OF SERVICE: 08/16/19 Discharge Plan Patient Name: SMITH GILBERT Facility: [facility]:[place] : 1965 Planned Disposition: Home Anticipated Discharge Date: 08/16/19 Discharge Date: Expected LOS: 6 Initial Reviewer: [email or web address] Initial Review Date: 08/14/2019 Generated: 08/16/19 5:08 pm DCP- Discharge Planning Updated by [id number]: Helen Graf on 08/14/19 8:[address] Patient Name: SMITH GILBERT Admission Status: ER Accout number: [id number] Admission Date: 08-10-2019 : 1965 Admission Diagnosis: Attending: REGGIE CASTRO Current LOS: 4 Anticipated DC Date: Planned Disposition: Home Primary Insurance: [place]ID [place] Discharge Planning Comments: CM MET WITH PATIENT TO DISCUSS DC PLANNING/NEEDS AFTER OBTAINING VERBAL CONSENT. PATIENT IS VERY DROWSY AND FALLS ALSEEP WHILE TRYING TO ANSWER QUESTIONS. SHE DOES STATE HER ZINA BROWN IS HER CAREGIVER AND SHE PLANS TO DC TO HOME. I DISCUSSED THE NEED FOR HH WITH THE PATIENT BUT SHE STATES SHE DOES NEED IT. CM TO FOLLOW AND ASSIST. Mechanist: Helen Graf DCPIA - Discharge Planning Initial Assessment Updated by [email or web address]: Helen Graf on 08/14/19 9:51 am * Pharmacy [facility] * Preadmission Environment Home Alone * ADLs Independent * Other Equipment CANE * List name and contact numbers for known caregivers / representatives who currently or will assist patient after discharge: PARDEEPZINA Garcia, * Please name any agencies selected above. STATES PARDEEP BROWN IS CAREGIVER * Additional services required to return to the preadmission environment? No * Can the patient safely return to the preadmission environment? Yes * Has this patient been hospitalized within the prior 30 days at any hospital? No Last DP export: 08/14/19 8:58 Patient Name: SMITH GILBERT Page [phone] at 1608 All edits/amendments must be made on the electronic document DICTATION DATE: 08/16/191607 PAYROLL TECHNICIAN: ROSA 08/16/191607 RPT#: [id number] DC DATE: STATUS: ADM IN [facility] [address] [place] [address] END OF REPORT
--- NOTE | 2019-08-16 16:17 | MORECARE ---
CASE MANAGEMENT DISCHARGE SUMMARY PATIENT: SMITH GILBERT UNIT: [id number] ADM DATE: 08/10/19 AGE: 53 : 61 SEX: F ROOM/BED: D.8640 AUTHOR: BALTA,DOC PHYSICIAN: REFERRING PHYSICIAN: REGGIE CASTRO MD DATE OF SERVICE: 08/16/19 Discharge Plan Patient Name: SMITH GILBERT Facility: [facility]:[place] : 1965 Planned Disposition: Home Anticipated Discharge Date: 08/16/19 Discharge Date: Expected LOS: 6 Initial Reviewer: [email or web address] Initial Review Date: 08/14/2019 Generated: 08/16/19 5:17 pm Comments DCP- Discharge Planning Updated by [email or web address]: Aldo Valencia on 08/16/19 3:[address] Patient Name: SMITH GILBERT Encounter No: [id number] : 1965 Primary Insurance: MEDICAID [place] Anticipated DC Date: 08-16-2019 DCP follow-up note: CM SPOKE TO BEDSIDE NURSE WHO INFORMED CM THAT PT'S SISTER, JACQUI, CALLED AND INFORMED HER THAT IT IS NOT SAFE FOR PT TO GO HOME ALONE AND FAMILY IS NOT ABLE TO ASSIST WITH PT'S CARE DUE TO PT'S CONTACT ISOLATION. CM SPOKE TO PT IN ROOM WHO WAS UPSET WITH HER SISTER. CM ATTEMPTED TO DISCUSS PLACEMENT OPTIONS. PT REFUSED. PT CALLED HER SISTER. PT SPOKE TO SISTER AT LENGTH. PT THEN INFORMED CM THAT HER SISTER WILL NOT PICK HER UP AND ASKED CM TO ARRANGE MEDICAID TRANSPORTATION FOR HER. PT INSISTS THAT SHE IS SAFE TO GO HOME AND THAT HER NEICE ASSISTS NEEDED AT HOME AND PT HAS LIVED ALONE FOR MOST OF HER LIFE AND NOTHING HAS CHANGED AT THIS TIME. PT'S NURSE CAME INTO ROOM, NOTIFIED PT AND CM THAT CONTACT ISOLOATION BEEN LIFTED, PT IS NO LONGER ON CONTACT ISOLATION. CM OFFERED PT HOME HEALTH SERVICES, PT DECLINED. PT STATES SHE JUST NEEDS SCAT TRANSPORTATION AND FAMILY TO STOP TALKING ABOUT HER. CM CALLED MEDICAID TRANSPORTATION, , SPOKE TO CANDI, ARRANGE TRANSPORT HOME TODAY, ENVIRONMENTAL SERVICES LEAD WILL CALL NURSES STATION WHEN DOWNSTAIRS FOR PT TO BE WHEELED DOWN. CM NOTIFIED PT WHO DENIES FURTHER DISCHARGE NEEDS. FOOD PRODUCTION MACHINE OPERATOR NURSE NOTIFIED. MEDICAID TRANSPORT CONFIRMATION NUMBER IS [id number]. Aldo Valencia, CASE MANAGEMENT DCP- Discharge Planning Updated by [email or web address]: Helen Graf on 08/14/19 8:[address] Patient Name: SMITH GILBERT Admission Status: ER Accout number: [id number] Admission Date: 08-10-2019 : 1965 Admission Diagnosis: Attending: REGGIE CASTRO Current LOS: 4 Anticipated DC Date: Planned Disposition: Home Primary Insurance: MEDICAID [place] Discharge Planning Comments: CM MET WITH PATIENT TO DISCUSS DC PLANNING/NEEDS AFTER OBTAINING VERBAL CONSENT. PATIENT IS VERY DROWSY AND FALLS ALSEEP WHILE TRYING TO ANSWER QUESTIONS. SHE DOES STATE HER NEWENDY BROWN IS HER CAREGIVER AND SHE PLANS TO DC TO HOME. I DISCUSSED THE NEED FOR HH WITH THE PATIENT BUT SHE STATES SHE DOES NEED IT. CM TO FOLLOW AND ASSIST. Gifts Officer: Helen Graf DCPIA - Discharge Planning Initial Assessment Updated by [email or web address]: Helen Graf on 08/14/19 9:51 am * Pharmacy [facility] * Preadmission Environment Home Alone * ADLs Independent * Other Equipment CANE * List name and contact numbers for known caregivers / representatives who currently or will assist patient after discharge: PARDEEP TIFFANIWENDY, * Please name any agencies selected above. STATES PARDEEP BROWN IS CAREGIVER * Additional services required to return to the preadmission environment? No * Can the patient safely return to the preadmission environment? Yes * Has this patient been hospitalized within the prior 30 days at any hospital? No Last DP export: 08/16/19 3:09 Patient Name: SMITH GILBERT Page 74393 at 1617 All edits/amendments must be made on the electronic document DICTATION DATE: 08/16/19 1617 VEGETABLE LOADER: ROSA 08/16/19 161 RPT#: [id number] DC DATE: STATUS: ADM IN [facility] [address] [place] [address] END OF REPORT
--- NOTE | 2019-08-16 17:12 | NUR ---
PATIENT HAS BEEN D/C . ALL BELONGINGS LEFT WITH PATIENT. SHE WENT DOWNSTAIRS BY WHEEL CHAIR. SCAT BUS TO DRIVE HER HOME
--- NOTE | 2019-09-18 09:58 | OP ---
PATIENT NAME: SMITH GILBERT MEDICAL RECORD: [id number] :[birth year] LOCATION:D.M2 D.2134 ADMISSION DATE:08/10/19 SURGEON: RADHA CORDON MD DATE OF OPERATION: 08/15/2019 PROCEDURE: FRUIT OR NUT CROPS FARM MANAGER to the right superficial femoral. left femoral artery was cannulated. A 6-Samoan sheath placed into the left femoral artery around the horn with the stiff Glidewire so it will cross the 90% stenosed right superficial down this portion of this vessel. Then, the wire was exchanged for a long 6-Samoan sheath. Next, 5.0 x 40 mm balloon inflated up to 6 atmospheres for 45 seconds, final angiography showed excellent resolution of a 90% stenosis in the right superficial femoral to no significant residual, improved distal runoff was noted. Sheath was then closed with ExoSeal device. The patient was previously on Plavix. Heparin was used during the case. TRANSINT:[id number] Voice Confirmation ID: [id number] DOCUMENT ID: [id number] RADHA CORDON MD at 0958 CC: [id number] DICTATION DATE: 08/15/19 1548 BRIDAL CONSULTANT: 08/15/19 2211 DIS IN 08/16/19 [facility] [address] [place] [address]
== END 2019-08-16 17:13 | disposition home or self-care (01) | DRG 70 ==
LOC: D.ER 00:07 → D.M2 00:41
PROVIDERS: Family Medicine; Internal Medicine Interventional Cardiology; Internal Medicine Nephrology; ADMIT Internal Medicine Nephrology; ATTEND Internal Medicine Nephrology
PROC: 5A1D70Z Performance of Urinary Filtration, Intermittent, Less than 6 Hours Per Day (ICD-10-PCS; principal; 2019-08-10)
DX: G93.41 Metabolic encephalopathy (principal); N18.6 End stage renal disease; K85.90 Acute pancreatitis without necrosis or infection, unspecified; I12.0 Hypertensive chronic kidney disease with stage 5 chronic kidney disease or end stage renal disease; F17.213 Nicotine dependence, cigarettes, with withdrawal; E87.1 Hypo-osmolality and hyponatremia; E11.22 Type 2 diabetes mellitus with diabetic chronic kidney disease; Z99.2 Dependence on renal dialysis; K21.9 Gastro-esophageal reflux disease without esophagitis; F41.8 Other specified anxiety disorders; D63.1 Anemia in chronic kidney disease; I25.10 Atherosclerotic heart disease of native coronary artery without angina pectoris; E11.43 Type 2 diabetes mellitus with diabetic autonomic (poly)neuropathy; K31.84 Gastroparesis; E11.51 Type 2 diabetes mellitus with diabetic peripheral angiopathy without gangrene

== ENCOUNTER 2019-09-11 14:57 | Inpatient (IN) | payer MEDICAID ==
[~2019-09-11] VITALS: Ht 158.8 cm; Wt 65.8 kg
[~2019-09-11 14:57] MED LIST changes: +CREON DR 6,0001 EACH PO; +NOVOLOG100 UNIT/1 SC
[2019-09-11 15:39] LABS: BASOPHILS 0.2 % (0-2); EOSINOPHILS 2.1 % (0-7); HEMATOCRIT 35.4 % (36.0-48.0); HEMOGLOBIN 11.5 g/dL (12-16); IMMATURE GRANULOCYTES 0.5 % (0-5); LYMPHOCYTES 21.2 % (15-50); MCH 30.6 pg (26.0-34.0); MCHC 32.5 g/dL (31.0-37.0); MCV 94.1 fL (80.0-100.0); MEAN PLATELET VOLUME 9.7 fL (7.4-10.4); MONOCYTES 7.9 % (2-11); NEUTROPHILS 68.1 % (40-80); RBC 3.76 10x6/uL (4.00-5.40); RDW 14.2 % (11.5-14.5); WBC 9.8 10x3/uL (4.8-10.8)
[2019-09-11 15:50] LABS: PLATELET COUNT 370 10x3/uL (130-400)
[2019-09-11 15:55] LABS: APTT 28.5 SECONDS (22.8-39.4); INR 1.17 (0.85-1.17); PROTIME 14.3 SECONDS (11.6-15.0)
[2019-09-11 15:56] LABS: ALBUMIN 3.3 g/dL (3.4-5.0); ANION GAP 16.9 mmol/L (8-16); BILIRUBIN - TOTAL 0.36 mg/dL (0.2-1.3); CALCIUM 8.8 mg/dL (8.5-10.1); CARBON DIOXIDE 30.2 mmol/L (21.0-32.0); CREATININE - SERUM 10.7 mg/dL (0.6-1.3); POTASSIUM - SERUM 4.1 mmol/L (3.5-5.1)
--- NOTE | 2019-09-11 16:08 | NUR ---
PT OBSERVED EATING CANDY, PT EDUCATED THAT THIS WAS CAUSING HYPERGLYCEMIA. PT DISREGARDED SUGGESTIONS AND CONTINUES TO EAT CANDY
--- NOTE | 2019-09-11 16:50 | NUR ---
BOTH EDP AND DR. CARRION NOTIFIED THAT PT'S BLOOD GLUCOSE GREATER THAN 400. INSULIN ADMINISTERED PER SLIDING SCALE, NO FURTHER ORDERS RECEIVED.
[2019-09-11 17:00] VITALS: BP 192/57
--- NOTE | 2019-09-11 17:01 | MORECARE ---
CASE MANAGEMENT DISCHARGE SUMMARY PATIENT: SMITH GILBERT UNIT: [id number] ADM DATE: 09/11/19 AGE: 53 : 61 SEX: F ROOM/BED: D.4649 AUTHOR: PARVIN GIFFORD PHYSICIAN: REFERRING PHYSICIAN: SHASTA CARRION MD DATE OF SERVICE: 09/11/19 Discharge Plan Patient Name: SMITH GILBERT [facility] : 1965 Planned Disposition: Home Anticipated Discharge Date: 09/13/19 Discharge Date: Expected LOS: 2 Initial Reviewer: [email or web address] Initial Review Date: 08/22/2019 Generated: 09/11/19 6:00 pm DCPIA - Discharge Planning Initial Assessment Updated by [email or web address]: Adriana Saha on 09/11/19 4:58 pm * Is the patient Alert and Oriented? Yes * How many steps to enter\exit or inside your home? No * PCP Dr. Cosme * Pharmacy [facility] * Preadmission Environment Home Alone * ADLs Partial Dependent * Partial ADLs (Assistance needed) Bathing Transfers * Equipment Cane * List name and contact numbers for known caregivers / representatives who currently or will assist patient after discharge: Chana Rogers - [phone] Isaura Jack [facility] [phone] * Verbal permission to speak to the caregivers and representatives has been obtained from the patient. Yes * Community resources currently utilized None * Please name any agencies selected above. Dialysis M-W-F at [facility] Scat transportation * Additional services required to return to the preadmission environment? No * Can the patient safely return to the preadmission environment? Yes * Has this patient been hospitalized within the prior 30 days at any hospital? Yes Patient Name: SMITH GILBERT Page 41891 at 1701 All edits/amendments must be made on the electronic document DICTATION DATE: 09/11/19 170 TEACHER EDUCATION DIRECTOR: ROSA 09/11/191699 RPT#: [id number] DC DATE: STATUS: ADM IN [facility] [address] [place] [address] END OF REPORT
--- NOTE | 2019-09-11 17:09 | MORECARE ---
CASE MANAGEMENT DISCHARGE SUMMARY PATIENT: SMITH GILBERT UNIT: [id number] ADM DATE: 09/11/19 AGE: 53 : 61 SEX: F ROOM/BED: D.6606 AUTHOR: BALTADOC PHYSICIAN: REFERRING PHYSICIAN: SHASTA CARRION MD DATE OF SERVICE: 09/11/19 Discharge Plan Patient Name: SMITH GILBERT Facility: [facility]:[place] : 1965 Planned Disposition: Home Anticipated Discharge Date: 09/13/19 Discharge Date: Expected LOS: 2 Initial Reviewer: [email or web address] Initial Review Date: 08/22/2019 Generated: 09/11/19 6:09 pm Comments DCP- Discharge Planning Updated by [email or web address]: Adriana Saha on 09/11/19 4:[address] DC PLAN: Return home alone. ANTICIPATED DC NEEDS: May need SCAT transport home. CM met with patient to complete initial dc planning assessment. CM educated patient on the CM role and verbal consent given by patient to complete assessment. CM verified patient's address, phone number, and emergency contact phone numbers. Patient lives at home alone. She reports her niece assists her with some of her ADL's. At discharge patient plans to return home alone and feels this is a safe discharge. CM discussed availability of home health, rehab services, and medical equipment. Patient reports she would like home health at time of discharge. [facility]YO form presented, explained and signed by the patient for [facility]. Signed form placed on patient's chart and a signed copy left with the patient for her records. Will need a home health order at discharge if MD feels HH is appropriate. Patient denied known discharge needs at this time. Transportation provider at discharge will be either [facility] or her niece. CM will continue to follow and will assist as needed with dc plans/needs. Adriana Saha RN, CCM DCPIA - Discharge Planning Initial Assessment Updated by [email or web address]: Adriana Saha on 09/11/19 4:58 pm * Is the patient Alert and Oriented? Yes * How many steps to enter\exit or inside your home? No * PCP Dr. Cosme * [facility] * Preadmission Environment Home Alone * ADLs Partial Dependent * Partial ADLs (Assistance needed) Bathing Transfers * Equipment Cane * List name and contact numbers for known caregivers / representatives who currently or will assist patient after discharge: Chana Rogers - [phone] [facility] - [phone] * Verbal permission to speak to the caregivers and representatives has been obtained from the patient. Yes * Community resources currently utilized None * Please name any agencies selected above. Dialysis M-W-F at [facility] Scat transportation * Additional services required to return to the preadmission environment? No * Can the patient safely return to the preadmission environment? Yes * Has this patient been hospitalized within the prior 30 days at any hospital? Yes Last DP export: 09/11/19 4:01 Patient Name: SMITH GILBERT Page 76885 at 1709 All edits/amendments must be made on the electronic document DICTATION DATE: 09/11/191708 ANIMATION DIRECTOR: ROSA 09/11/191708 RPT#: [id number] DC DATE: STATUS: ADM IN [facility] [address] [place] [address] END OF REPORT
[2019-09-11 17:15] VITALS: BP 155/62; BMI 26.1
[2019-09-11 20:00] VITALS: BP 105/31
--- NOTE | 2019-09-11 20:10 | NUR ---
FLU SWAB DONE AND TAKEN TO LAB.
[2019-09-12] VITALS: BP 119/49
--- NOTE | 2019-09-12 03:50 | NUR ---
I have reviewed this patient and I concur with the Shift Assessment completed by the Licensed Practical Nurse today this shift.
[2019-09-12 04:00] VITALS: BP 116/30
[2019-09-12 05:32] LABS: BASOPHILS 0.2 % (0-2); EOSINOPHILS 2.9 % (0-7); HEMATOCRIT 31.5 % (36.0-48.0); HEMOGLOBIN 10.1 g/dL (12-16); IMMATURE GRANULOCYTES 0.8 % (0-5); LYMPHOCYTES 18.1 % (15-50); MCH 30.1 pg (26.0-34.0); MCHC 32.1 g/dL (31.0-37.0); MCV 93.8 fL (80.0-100.0); MONOCYTES 7.7 % (2-11); NEUTROPHILS 70.3 % (40-80); PLATELET COUNT 350 10x3/uL (130-400); RBC 3.36 10x6/uL (4.00-5.40); RDW 14.4 % (11.5-14.5); WBC 9.2 10x3/uL (4.8-10.8)
[2019-09-12 05:59] LABS: ANION GAP 18.6 mmol/L (8-16); CALCIUM 8.7 mg/dL (8.5-10.1); CARBON DIOXIDE 27.5 mmol/L (21.0-32.0); CREATININE - SERUM 11.4 mg/dL (0.6-1.3); PHOSPHOROUS 6.8 mg/dL (2.5-4.9); POTASSIUM - SERUM 4.1 mmol/L (3.5-5.1)
--- NOTE | 2019-09-12 07:47 | NUR ---
INFORMED PT ABOUT NEED FOR URINE SAMPLE, PROVIDED PT WITH COLECTION CUP AND ASKED HER TO NOTIFY NURSE OR [employer] CONSULTANT WHEN SAMPLE IS AVAILABLE. PT IN BED, A/O X4, RESP EVEN AND UNLABORED ON RA. LT AC IV SL, TELEMETRY SHOWING SR WITH RATE OF 77. RT AV FISTULA WITH BRUIE AND THRILL. PT DENIES ANY NEEDS AT THIS TIME. CALL LIGHT IN REACH, BEDSIDE RAILS X2, NAD NOTED, WILL CONTINUE PLAN OF CARE.
--- NOTE | 2019-09-12 08:25 | NUR ---
AM MEDS GIVEN AT THIS TIME. ALSO GAVE 2UNIT OF INSULIN FOR BLOOD SUGAR OF 187. PROVIDED PT WITH ICE WATER, PT DENIES ANY NEEDS AT THIS TIME. CALL LIGHT IN REACH, NAD NOTED, WILL CONTINUE TO MONITOR.
[2019-09-12 08:41] VITALS: BP 117/38
--- NOTE | 2019-09-12 11:23 | NUR ---
PT TO DIALYSIS VIA BED, NAD NOTED.
[2019-09-12 14:28] VITALS: Ht 158.8 cm; Wt 65.8 kg
[2019-09-12 15:58] LABS: AMYLASE - SERUM 251 U/L (25-115); LIPASE 451 U/L (73-393)
[2019-09-12 17:43] VITALS: BP 129/50
--- NOTE | 2019-09-12 19:05 | NUR ---
AWAKE AND ALERT ASSISTED WITH COMFORT AND RETRIEVED ITEMS REQUESTED BED IS LOW AND LOCKED CALL LIGHT IS WITHIN REACH TA
[2019-09-12 20:00] VITALS: BP 130/25
--- NOTE | 2019-09-12 23:45 | NUR ---
PT CO BP BEING TOO LOW CHECKED 126/56 THIS IS CONSISTANT WITH WHAT IT HAS BEEN EACH CHECK
[2019-09-13] VITALS: BP 124/40
--- NOTE | 2019-09-13 02:55 | NUR ---
I have reviewed this patient and I concur with the Shift Assessment completed by the Licensed Practical Nurse today this shift.
[2019-09-13 06:05] LABS: BASOPHILS 0.2 % (0-2); EOSINOPHILS 2.4 % (0-7); HEMATOCRIT 34.9 % (36.0-48.0); HEMOGLOBIN 10.8 g/dL (12-16); IMMATURE GRANULOCYTES 0.8 % (0-5); MCH 29.8 pg (26.0-34.0); MCHC 30.9 g/dL (31.0-37.0); MEAN PLATELET VOLUME 9.7 fL (7.4-10.4); MONOCYTES 7.8 % (2-11); NEUTROPHILS 66.8 % (40-80); PLATELET COUNT 366 10x3/uL (130-400); RBC 3.62 10x6/uL (4.00-5.40); RDW 14.4 % (11.5-14.5); WBC 9.6 10x3/uL (4.8-10.8)
[2019-09-13 06:08] LABS: ANION GAP 12.2 mmol/L (8-16); CALCIUM 8.7 mg/dL (8.5-10.1); CARBON DIOXIDE 31.6 mmol/L (21.0-32.0); MCV 96.4 fL (80.0-100.0); POTASSIUM - SERUM 3.8 mmol/L (3.5-5.1)
[2019-09-13 06:15] LABS: CREATININE - SERUM 8.4 mg/dL (0.6-1.3); PHOSPHOROUS 4.5 mg/dL (2.5-4.9)
[2019-09-13 06:27] VITALS: BP 155/52
--- NOTE | 2019-09-13 08:08 | NUR ---
PT RSTING. RR EVEN AND UNLABORED. DENIES NEEDS OR PAIN AT THIS TIME. EDUCATED ON MEDICATIONS TAKING CURRENTLY. BED IN LOWEST POSITION. CALL LIGHT WITHIN REACH. WILL CONTINUE TO MONITOR.
[2019-09-13] MEDS ORDERED: PROTONIX40 MG PO (08:14)
[2019-09-13] MEDS ORDERED: CARAFATE1 G PO (08:14)
[2019-09-13 09:36] VITALS: BP 172/72
--- NOTE | 2019-09-13 11:56 | MORECARE ---
CASE MANAGEMENT DISCHARGE SUMMARY PATIENT: SMITH GILBERT UNIT: [id number] ADM DATE: 09/11/19 AGE: 53 : 61 SEX: F ROOM/BED: D.9618 AUTHOR: BALTA,DOC PHYSICIAN: REFERRING PHYSICIAN: SHASTA CARRION MD DATE OF SERVICE: 09/13/19 Discharge Plan Patient Name: SMITH GILBERT Facility: [facility]:[place] : 1965 Planned Disposition: Home with Home Health Anticipated Discharge Date: 09/13/19 Discharge Date: Expected LOS: 2 Initial Reviewer: [email or web address] Initial Review Date: 08/22/2019 Generated: 09/13/19 12:55 pm Comments DCP- Discharge Planning Updated by [email or web address]: Adriana Saha on 09/11/19 4:[address] DC PLAN: Return home alone. ANTICIPATED DC NEEDS: May need SCAT transport home. CM met with patient to complete initial dc planning assessment. CM educated patient on the CM role and verbal consent given by patient to complete assessment. CM verified patient's address, phone number, and emergency contact phone numbers. Patient lives at home alone. She reports her niece assists her with some of her ADL's. At discharge patient plans to return home alone and feels this is a safe discharge. CM discussed availability of home health, rehab services, and medical equipment. Patient reports she would like home health at time of discharge. [facility]YO form presented, explained and signed by the patient for [facility]. Signed form placed on patient's chart and a signed copy left with the patient for her records. Will need a home health order at discharge if MD feels HH is appropriate. Patient denied known discharge needs at this time. Transportation provider at discharge [facility] be either [facility] or her niece. CM will continue to follow and will assist as needed with dc plans/needs. Adriana Saha RN, [facility] DCPIA - Discharge Planning Initial Assessment Updated by [email or web address]: Adriana Saha on 09/11/19 4:58 pm * Is the patient Alert and Oriented? Yes * How many steps to enter\exit or inside your home? No * PCP Dr. Cosme * Pharmacy [facility] * Preadmission Environment Home Alone * ADLs Partial Dependent * Partial ADLs (Assistance needed) Bathing Transfers * Equipment Cane * List name and contact numbers for known caregivers / representatives who currently or will assist patient after discharge: Chanamaya Rogers - [phone] Isaura Santiago [facility] [phone] * Verbal permission to speak to the caregivers and representatives has been obtained from the patient. Yes * Community resources currently utilized None * Please name any agencies selected above. Dialysis M-W-F at [facility] Scat transportation * Additional services required to return to the preadmission environment? No * Can the patient safely return to the preadmission environment? Yes * Has this patient been hospitalized within the prior 30 days at any hospital? Yes Last DP export: 09/11/19 4:09 Patient Name: SMITH GILBERT Page 50756 at 1156 All edits/amendments must be made on the electronic document DICTATION DATE: 09/13/19 1155 PARADICHLOROBENZENE TENDER: ROSA 09/13/19 1155 RPT#: [id number] DC DATE: STATUS: ADM IN [facility] [address] [place] [address] END OF REPORT
--- NOTE | 2019-09-13 15:36 | NUR ---
WAS TOLD SCAT BUS WAS WAITING ON PT. PT WAS FINISHED WITH DIALYSIS AND WAITING TO COME BACK TO ROOM. ALL OF PTS BELONGINGS GATHERED AND BROUGHT TO DIALYSIS. PT WAS ASSISTED WITH GETTING DRESSED. IV D/C WITH CATHETER TIP INTACT. PT STATED ALL BELONGINGS IN HER POSSESSION. ATTEMPTED TO REVIEW D/C INSTRUCTIONS, PT STATED SHE DID NOT WANT TO GO OVER THEM, SHE WOULD JUST HAND THE D/C INSTRUCTIONS TO HER SISTER AT HOME. PT TRANSFERED TO [place] VIA WHEELCHAIR.
--- NOTE | 2019-09-13 15:36 | MORECARE ---
CASE MANAGEMENT DISCHARGE SUMMARY PATIENT: SMITH GILBERT UNIT: [id number] ADM DATE: 09/11/19 AGE: 53 : 61 SEX: F ROOM/BED: D.4685 AUTHOR: BALTA,DOC PHYSICIAN: REFERRING PHYSICIAN: SHASTA CARRION MD DATE OF SERVICE: 09/13/19 Discharge Plan Patient Name: SMITH GILBERT Facility: [facility]:[place] : 1965 Planned Disposition: Home with Home Health Anticipated Discharge Date: 09/13/19 Discharge Date: Expected LOS: 2 Initial Reviewer: [email or web address] Initial Review Date: 08/22/2019 Generated: 09/13/19 4:36 pm Comments DCP- Discharge Planning Updated by [email or web address]: Adriana Saha on 09/11/19 4:[address] DC PLAN: Return home alone. ANTICIPATED DC NEEDS: May need [facility] transport home. CM met with patient to complete initial dc planning assessment. CM educated patient on the CM role and verbal consent given by patient to complete assessment. CM verified patient's address, phone number, and emergency contact phone numbers. Patient lives at home alone. She reports her niece assists her with some of her ADL's. At discharge patient plans to return home alone and feels this is a safe discharge. CM discussed availability of home health, rehab services, and medical equipment. Patient reports she would like home health at time of discharge. GOYO form presented, explained and signed by the patient for [facility]. Signed form placed on patient's chart and a signed copy left with the patient for her records. Will need a home health order at discharge if MD feels HH is appropriate. Patient denied known discharge needs at this time. Transportation provider at discharge will be either [facility] or her niece. CM will continue to follow and will assist as needed with dc plans/needs. Adriana Saha RN, [facility] DCPIA - Discharge Planning Initial Assessment Updated by [email or web address]: Adriana Saha on 09/11/19 4:58 pm * Is the patient Alert and Oriented? Yes * How many steps to enter\exit or inside your home? No * PCP Dr. Cosme * Pharmacy [facility] * Preadmission Environment Home Alone * ADLs Partial Dependent * Partial ADLs (Assistance needed) Bathing Transfers * Equipment Cane * List name and contact numbers for known caregivers / representatives who currently or will assist patient after discharge: Chana Ken - [phone] Isaura Santiago [facility] [phone] * Verbal permission to speak to the caregivers and representatives has been obtained from the patient. Yes * Community resources currently utilized None * Please name any agencies selected above. Dialysis M-W-F at [facility] transportation * Additional services required to return to the preadmission environment? No * Can the patient safely return to the preadmission environment? Yes * Has this patient been hospitalized within the prior 30 days at any hospital? Yes External Providers External Provider: [facility] Next Contact Date: 09/13/2019 Service Request Date: Service Type: Resolution: Reviewer: Comments: Zheng DP export: 09/13/19 10:56 Patient Name: SMITH GILBERT Page [id number] at 1536 All edits/amendments must be made on the electronic document DICTATION DATE: 09/13/19 1536 WELDER REPAIR: ROSA 09/13/19 1536 RPT#: [id number] DC DATE: STATUS: ADM IN [facility] [address] [place] [address] END OF REPORT
--- NOTE | 2019-09-13 15:50 | MORECARE ---
CASE MANAGEMENT DISCHARGE SUMMARY PATIENT: SMITH GILBERT UNIT: [id number] ADM DATE: 09/11/19 AGE: 53 : 61 SEX: F ROOM/BED: D.2182 AUTHOR: PARVIN GIFFORD PHYSICIAN: REFERRING PHYSICIAN: SHASTA CARRION MD DATE OF SERVICE: 09/13/19 Discharge Plan Patient Name: SMITH GILBERT Facility: [facility]:[place] : 1965 Planned Disposition: Home with Home Health Anticipated Discharge Date: 09/13/19 Discharge Date: 09/13/2019 Expected LOS: 2 Initial Reviewer: [email or web address] Initial Review Date: 08/22/2019 Generated: 09/13/19 4:50 pm Comments DCP- Discharge Planning Updated by [email or web address]: Aldo Valencia on 09/13/19 2:[address] Patient Name: SMITH GILBERT Encounter No: [id number] : 1965 Primary Insurance: MEDICAID [place] Anticipated DC Date: 09-13-2019 Planned Disposition: Home with Home Health External Planned Provider: [facility] DCP follow-up note: CM RECEIVED DISCHARGE ORDER, CM MET WITH PT IN ROOM TO DISCUSS DISCHARGE NEEDS AND PLANNING. CM DISCUSSED AVAILABILITY OF HOME HEALTH, REHAB SERVICES AND MEDICAL EQUIPMENT. PT DOES WANT HOME HEALTH WITH [facility] AND HAS PREVIOUSLY SIGNED CONSENT WITH "THE OTHER OFFSET SECOND PRESS OPERATOR". PT ASKED CM TO CALL MEDICAID TRANSPORT TO TRANSPORT HOME AT DISCHARGE TODAY. CM CALLED [facility], , SPOKE TO AAKASH, REFERRAL PROVIDED, PT PLACED ON SCHEDULE FOR WEDNESDAY. CM FAXED REFERRAL AND DISCHARGE INFORMATION TO [facility] AT [phone]. CM CALLED MEDICA[employer] TRANSPORT, , SPOKE TO GINA WHO TOOK REFERRAL FOR DISCHARGE TRANSPORTATION, ARRANGED ROOFING APPRENTICE FOR 3PM TODAY. CONFIRMATION NUMBER [id number]. FLOW COODINATOR NURSE NOTIFIED. Aldo Valencia, CASE MANAGEMENT DCP- Discharge Planning Updated by [email or web address]: Adriana Saha on 09/11/19 4:[address] DC PLAN: Return home alone. ANTICIPATED DC NEEDS: May need [facility] transport home. CM met with patient to complete initial dc planning assessment. CM educated patient on the CM role and verbal consent given by patient to complete assessment. CM verified patient's address, phone number, and emergency contact phone numbers. Patient lives at home alone. She reports her niece assists her with some of her ADL's. At discharge patient plans to return home alone and feels this is a safe discharge. CM discussed availability of home health, rehab services, and medical equipment. Patient reports she would like home health at time of discharge. GOYO form presented, explained and signed by the patient for [facility]. Signed form placed on patient's chart and a signed copy left with the patient for her records. Will need a home health order at discharge if MD feels HH is appropriate. Patient denied known discharge needs at this time. Transportation provider at discharge will be either [facility] or her niece. CM will continue to follow and will assist as needed with dc plans/needs. Adriana Saha RN, [facility] DCPIA - Discharge Planning Initial Assessment Updated by [email or web address]: Adriana Saha on 09/11/19 4:58 pm * Is the patient Alert and Oriented? Yes * How many steps to enter\\exit or inside your home? No * PCP Dr. Cosme * Pharmacy [facility] * Preadmission Environment Home Alone * ADLs Partial Dependent * Partial ADLs (Assistance needed) Bathing Transfers * Equipment Cane * List name and contact numbers for known caregivers / representatives who currently or will assist patient after discharge: Chana Rogers - [phone] Isaura Santiago [facility] - [phone] * Verbal permission to speak to the caregivers and representatives has been obtained from the patient. Yes * Community resources currently utilized None * Please name any agencies selected above. Dialysis M[facility]W-F at [facility] transportation * Additional services required to return to the preadmission environment? No * Can the patient safely return to the preadmission environment? Yes * Has this patient been hospitalized within the prior 30 days at any hospital? Yes Last DP export: 09/13/19 2:36 Patient Name: SMITH GILBERT Page 43988 at 1550 All edits/amendments must be made on the electronic document DICTATION DATE: 09/13/19 1550 SENIOR ANALYST PROGRAMMER: ROSA 09/13/19 155 RPT#: [id number] DC DATE:09/13/19 STATUS: DIS IN [facility] [address] [facility] [place] [address] END OF REPORT
== END 2019-09-13 15:41 | disposition home or self-care (01) | DRG 682 ==
LOC: D.ER 14:57 → D.M2 15:24
PROVIDERS: Family Medicine; ADMIT Internal Medicine Nephrology; ATTEND Internal Medicine Nephrology
PROC: 5A1D70Z Performance of Urinary Filtration, Intermittent, Less than 6 Hours Per Day (ICD-10-PCS; principal; 2019-09-11)
DX: I12.0 Hypertensive chronic kidney disease with stage 5 chronic kidney disease or end stage renal disease (principal); N18.6 End stage renal disease; K86.1 Other chronic pancreatitis; E11.43 Type 2 diabetes mellitus with diabetic autonomic (poly)neuropathy; K31.84 Gastroparesis; E11.22 Type 2 diabetes mellitus with diabetic chronic kidney disease; Z99.2 Dependence on renal dialysis; I25.10 Atherosclerotic heart disease of native coronary artery without angina pectoris; F41.8 Other specified anxiety disorders; K21.9 Gastro-esophageal reflux disease without esophagitis; D63.1 Anemia in chronic kidney disease; H40.9 Unspecified glaucoma; E11.51 Type 2 diabetes mellitus with diabetic peripheral angiopathy without gangrene

== ENCOUNTER 2019-12-04 16:21 | Inpatient (IN) | payer MEDICAID ==
[~2019-12-04] VITALS: Ht 158.8 cm; Wt 75.0 kg
--- NOTE | ~2019-12-04 | HEMODYNAMI ---
PATIENT:SMITH GILBERT MEDICAL RECORD: [id number] : 61 LOCATION:[facility] D.2101 ADMISSION DATE: 12/04/19 Generatedon:12/05/201914:29 Patient name: SMITH GILBERT Patient #: [id number] SSN: [id number] : 1965 Date of study: 12/05/2019 Page: Of Hemodynamic Procedure Report Patient Data Patient Demographics Procedure consent was obtained First Name: SMITH Gender: Female Last Name: OFELIA : 1965 Patient #: [id number] Age: 54 year(s) Race: Black SSN: [id number] Additional ID: [id number] Contact details [address]: [address] [place] [address] DRIVE State: [place] City: [place] Zip code: [address] Past Medical History Allergies Allergen Reaction Date Comments Reported Other 08/08/2019 iodine,gabapentin(from allergy Neurontin)/ondansetron(from zofran) /latex Other 12/05/2019 gabapentin,iodine, latex allergy Admission Admission Data Admission Date: 12/04/2019 Admission Time: 20:59 Arrival Date: 12/05/2019 Arrival Time: 0:00 Admit Source: Other Insurance Payor: Medicaid Room #: D.2101 [facility] #: [id number] Height (in.): 62.5 BSA: 1.77 (m2) Height (cm.): 158.75 BMI: 29.76 (kg/m2) Weight (lbs.): 165.35 Weight (kg.): 75 Lab Results Lab Result Date: 12/05/2019 Lab Result Time: 0:00 Biochemistry Name Units Result Min Max BUN mg/dl 12.5 --(-*--)-- 7 18 Creatinine mg/dl 7.7 --(----)-* 0.6 1.3 eGFR ml/min 6 *-(----)-- 90 120 NONAFRICAN CBC Name Units Result Min Max Hematocrit % 38.5 *-(----)-- 42 54 Hemoglobin g/dl 12.5 *-(----)-- 13.5 17.5 Procedure Procedure Types Cath Procedure Diagnostic Procedure Sedation Charges Moderate Sedation up to 45 minutes PCI Procedure Hemochron ACT Test Peripheral Cath Diagnostic Procedure Matrix Plater Peripheral Procedures Cwwfq-Akpurek-Zpl-Off Peripheral vascular Intervention Angioplasty Angioplasty Fem/Pop Procedure Description Procedure Date Procedure Date: 12/05/2019 Procedure Start Time: 13:26 Procedure End Time: 14:20 Procedure Staff Name Function Sean Rodriguez MD Performing Physician Ernst Salcido RT Monitor Roopa Bang RT Scrub Brian Grijalva RN Nurse Procedure Data Cath Procedure Fluoroscopy Diagnostic fluoroscopy Total fluoroscopy Time: time: 13.7 min 13.7 min Diagnostic fluoroscopy Total fluoroscopy dose: 291 dose: 291 mGy mGy Contrast Material Contrast Material Type Amount (ml) Isovue 370 97 Entry Location Entry Primary Successful Side Size Upsize Upsize Entry Closure Succes sful Closure Location (Fr) 1 (Fr) 2 (Fr) Remarks Device Remarks Femoral Right 5 Fr 6 Fr 6 Fr Exoseal artery Long Short Diagnostic catheters Device Type Used For End Catheter Placement DIAGNOSTIC UF 5Fr Abdominal catheter ([id number]) aortogram with runoff Procedure Complications No complications Procedure Medications Medication Administration Route Dosage Oxygen etCO2 Nasal cannula 2 l/min Lidocaine 2% added to field 20 Heparin Flush Bag added to field 2 bags (1000units/500ml NS) 0.9% NaCl I.V. Zofran I.V. 4 mg Versed I.V. 1 mg Fentanyl I.V. 50 mcg Versed I.V. 1 mg Fentanyl I.V. 50 mcg Heparin Bolus I.V. 4000 units Fentanyl I.V. 50 mcg Versed I.V. 1 mg Versed I.V. 1 mg Fentanyl I.V. 50 mcg Plavix P.O. 75 mg Fentanyl I.V. 50 mcg Hemodynamics Rest BSA: 1.77 (m2) HGB: 12.5 (g/dl) O2 Consumption: Estimated: 240.72 (ml/min) O2 Co nsumption indexed: Estimated:136 (ml/min/m) Pre Cath Intra NCS Post Cath Vital Signs Time Heart Resp SPO2 etCO2 NIBP (mmHg) Rhythm Pain Sedation Rate (ipm) (%) (mmHg) Status Level (bpm) 13:24:11 93 15 98 41.4 182/80(95) NSR 0 (11) 10(A) , No pain 13:28:31 94 14 100 42.1 182/90(132) NSR 0 (11) 10(A) , No pain 13:32:53 94 18 99 45.1 184/87(134) NSR 0 (11) 10(A) , No pain 13:37:15 94 13 100 41.4 119/91(113) NSR 0 (11) 9(A) , No pain 13:42:08 95 12 100 47.4 181/87(139) NSR 0 (11) 9(A) , No pain 13:46:28 92 14 99 39.1 173/78(130) NSR 0 (11) 9(A) , No pain 13:50:50 89 13 100 50.4 158/71(109) NSR 0 (11) 9(A) , No pain 13:55:08 86 22 100 58 158/70(109) NSR 0 (11) 9(A) , No pain 13:59:27 86 11 99 39.9 151/75(103) NSR 0 (11) 9(A) , No pain 14:03:45 86 16 99 36.9 145/65(105) NSR 0 (11) 9(A) , No pain 14:08:01 84 15 99 46.7 152/65(115) NSR 0 (11) 9(A) , No pain 14:12:17 84 16 98 40.6 152/69(109) NSR 0 (11) 10(A) , No pain 14:16:24 92 14 100 42.1 166/94(138) NSR 0 (11) 10(A) , No pain Medications Time Medication Route Dose Verified Delivered Reason Notes Effectiveness by by 13:23:24 Oxygen etCO2 2 Sean Torres used for Nasal l/min St Will Grijalva director construction services cannula 13:23:31 Lidocaine 2% added 20ml Sean Estrada for local to vial [facility] anesthetic field MD MEHTA 13:23:38 Heparin Flush added 2 Sean Sean used for Bag to bags [facility] procedure (1000units/500ml field MD MEHTA NS) 13:23:46 0.9% NaCl I.V. kvo Sean Torres Per physician ml/hr St Will Grijalva RN, MD 13:23:58 Zofran I.V. 4 mg Sean Brownie Per physician St Will Grijalva RN, MD 13:25:15 Versed I.V. 1 mg Sean Buffie for sedation St Will Grijalva RN, MD 13:25:21 Fentanyl I.V. 50 Sean Buffie for sedation mcg St Will Grijalva RN, MD 13:31:33 Versed I.V. 1 mg Sean Buffie for sedation St Will Grijalva RN, MD 13:31:37 Fentanyl I.V. 50 Sean Buffie for sedation mcg St Will Grijalva RN, MD 13:36:58 Fentanyl I.V. 50 Sean Buffie for sedation mcg St Will Grijalva RN, MD 13:40:06 Heparin Bolus I.V. 4000 Sean Buffie for verif ied units St Will Grijalva RN anticoagulation with dr MD lawton 13:43:23 Versed I.V. 1 mg Sean Buffie for sedation St Will Grijalva RN, MD 13:53:19 Versed I.V. 1 mg Sean Buffie for sedation St Will Grijalva RN, MD 13:53:25 Fentanyl I.V. 50 Sean Buffie for sedation mcg St Will Grijalva RN, MD 14:05:33 Fentanyl I.V. 50 Sean Buffie for sedation mariele Villanueva RN, MD 14:17:09 Plavix P.O. 75 mg Sean Buffie for St Will Grijalva RN antiplatelet MD therapy Procedure Log Time Note 12:49:44 Admit Source: Other 12:50:20 Procedure Status Peripheral. 12:50:23 Ernst Salcido RT(R) sent for patient. Start room use. 12:50:25 Time tracking: Regular hours (M-F 7:00 - 5:00) 12:50:32 Plan of Care:Hemodynamics will remain stable., Cardiac rhythm will remain stable., Comfort level will be maintained., Respiratory function will remain adequate., Patient/ family verbilizes understanding of procedure., Procedure tolerated without complication., Recovers from procedure without complications.. 12:59:03 H&P Date Dictated: 12/04/2019 Within 30 days and on chart.. 12:59:04 Pre-procedure instructions explained to patient. 12:59:05 Pre-op teaching completed and patient verbalized understanding. 12:59:45 Lab Result : Hemoglobin 12.5 g/dl 12:59:45 Lab Result : Hematocrit 38.5 % 12:59:51 Lab results completed and on chart. 12:59:56 Stress Test: no; N/A ? 12:59:58 Alarms reviewed by R. N. 12:59:59 Sharps counted by scrub and verified by R.N. 13:00:29 Right groin area was prepped with chlora-prep and draped in sterile fashion 13:04:05 Risk of Mortality: 0.7 13:04:08 Risk of blood transfusion: 8.3 13:04:13 Risk of KIRERA: 13.0 13:06:30 Lab Result : Creatinine 7.7 mg/dl 13:06:30 Lab Result : BUN 12.5 mg/dl 13:06:30 Lab Result : eGFR NONAFRICAN 6 ml/min 13:06:34 Arrival Date: 12/05/2019 12:00:00 AM 13:06:37 Patient Height : 62.5 inches 13:06:43 Patient Weight : 165.35 lbs 13:06:50 Insurance Payor : Medicaid 13:07:17 Patient received from Med II to CCL 1 Alert and oriented. Tansferred to table in Supine position. 13:07:18 Warm blankets applied, and susana hugger turned on for patient comfort. 13:07:20 Signed procedure consent form obtained from patient. 13:07:21 Correct patient and procedure confirmed by team. 13:07:22 ECG and BP/O2 sat monitors applied to patient. 13:07:28 Family unavailable. 13:07:29 Patient NPO since Midnight. 13:07:53 Patient allergic to Other allergygabapentin,iodine, latex 13:20:06 Is the patient allergic to Iodine/contrast media? No. 13:20:08 Is patient on blood thinner?Yes 13:20:11 ACC The patient was administered the following blood thiners within the last 24 hours: ACCPlavix 13:20:13 Patient diabetic? Yes. 13:20:15 If diabetic: On Metformin? No 13:20:16 ----Pre-sedation anethsthesia assessment.---- 13:20:18 Previous problem with sedation/anesthesia? No ? 13:20:20 Snore? Yes 13:20:21 Sleep apnea? No 13:20:23 Deviated septum? No 13:20:25 Opens mouth fully? Yes 13:20:27 Sticks out tongue? Yes 13:20:41 Airway obstruction? Yes Bronchitits 13:20:53 Dentures? No ? 13:20:56 Pre procedure: right dorsailis pedis pulse 1+ Palpable, but thready & weak; easily obliterated 13:21:00 Pre procedure: left dorsailis pedis pulse 1+ Palpable, but thready & weak; easily obliterated 13:21:03 Patient pain scale 0/10 ?. 13:21:12 IV patent on arrival in left forearm with 0.9% NaCl at O. 13:21:50 Physician arrived 13:21:51 --------ALL STOP TIME OUT------ 13:21:52 Final Timeout: patient, procedure, and site verified with staff and physician. All members of the team are in agreement. 13:21:54 Bilateral groins site verified by team. 13:21:58 Fire Safety Assessment: A--An alcohol-based skin anteseptic being used preoperatively., C--Open oxygen or nitrous oxide is being used., D--An ESU, laser, or fiber-optic light is being used. 13:22:14 Physical assessment completed. ASA score P 2 - A patient with mild systemic disease as per Sean Rodriguez MD. 13:22:27 5) <15 or on dialysis Very severe, or end stage kidney failure. 13:22:54 Maximum allowable contrast dose (3.7 X eGFR X 0.75)19.42 ml. 13:22:58 Sedation plan: IV Moderate Sedation Medication:Fentanyl 13:23:01 Vital chart was started 13:23:06 Use device set Femoral Dx 13:23:07 ACIST Syringe (05929) opened to sterile field. 13:23:07 Bag Decanter (2001S) opened to sterile field. 13:23:08 Medline Cath Pack ([id number]) opened to sterile field. 13:23:09 ACIST Hand Control (41549) opened to sterile field. 13:23:10 ACIST Manifold (51214) opened to sterile field. 13:23:12 Tegaderm 4 x 4 (1626W) opened to sterile field. 13:23:14 SHEATH 5FR [place] (JYB772) opened to sterile field. 13:23:14 EMERALD Guide Wire (647-416) opened to sterile field. 13:23:24 Oxygen 2 l/min etCO2 Nasal cannula was administered by Brian Grijalva RN; used for procedure; Verbal order read back and verified. 13:23:31 Lidocaine 2% 20ml vial added to field was administered by Sean Rodriguez MD; for local anesthetic; Verbal order read back and verified. 13:23:38 Heparin Flush Bag (1000units/500ml NS) 2 bags added to field was administered by Sean Rodriguez MD; used for procedure; Verbal order read back and verified. 13:23:46 0.9% NaCl kvo ml/hr I.V. was administered by Brian Grijalva RN; Per physician; Verbal order read back and verified. 13:23:58 Zofran 4 mg I.V. was administered by Brian Grijalva RN; Per physician; Verbal order read back and verified. 13:25:15 Versed 1 mg I.V. was administered by Brian Grijalva RN; for sedation; Verbal order read back and verified. 13:25:21 Fentanyl 50 mcg I.V. was administered by Brian Grijalva RN; for sedation; Verbal order read back and verified. 13:26:16 Procedure started. 13:26:16 Full Disclosure recording started 13:26:23 Local anesthetic to right femoral artery with Lidocaine 2% by Sean Rodriguez MD.INITIAL ACCESS ONLY 13:29:10 A DIAGNOSTIC UF 5Fr catheter ([id number]) was advanced over the wire and used for Abdominal aortogram with runoff. 13:30:05 Zero performed for pressure channel P1 13:30:08 Zero performed for pressure channel P1 13:31:33 Versed 1 mg I.V. was administered by Brian Grijalva RN; for sedation; Verbal order read back and verified. 13:31:37 Fentanyl 50 mcg I.V. was administered by Brian Grijalva RN; for sedation; Verbal order read back and verified. 13:31:42 A 5 Fr sheath was inserted into the Right Femoral artery 13:33:59 Abdominal angiogram w/ runoff was performed. 13:34:01 Angiography was performed. 13:34:04 Left leg runoff performed. 13:34:05 Right leg runoff performed. 13:36:20 GLIDE WIRE Super Stiff Angled 260cm (YF6548) opened to sterile field. 13:36:43 glide wire advanced. 13:36:53 INFLATOR Merit Ekaterina (VN5652) opened to sterile field. 13:36:58 Fentanyl 50 mcg I.V. was administered by Brian Grijalva RN; for sedation; Verbal order read back and verified. 13:37:10 wire around the horn 13:40:06 Heparin Bolus 4000 units I.V. was administered by Brian Grijalva RN; for anticoagulation; verified with dr lawton Verbal order read back and verified. 13:40:44 TORQUE DEVICE PLASTIC .038 ( TD01) opened to sterile field. 13:40:45 SHEATH 6FR [place] (RSR01) opened to sterile field. 13:41:03 Sheath upsized to a 6 Fr Long. 13:43:23 Versed 1 mg I.V. was administered by Brian Grijalva RN; for sedation; Verbal order read back and verified. 13:45:44 CHOICE PT Extra Support J 300cm guide wire ([id number]) opened to sterile field. 13:45:56 Wire removed. 13:46:03 CPTES wire advanced. 13:53:03 GLIDE CATHETER 5FR STRAIGHT 100cm (CG506) opened to sterile field. 13:53:13 CHOICE PT Extra Support J 300cm guide wire ([id number]) opened to sterile field. 13:53:19 Versed 1 mg I.V. was administered by Brian Grijalva RN; for sedation; Verbal order read back and verified. 13:53:22 Wire removed. 13:53:25 Fentanyl 50 mcg I.V. was administered by Brian Grijalva RN; for sedation; Verbal order read back and verified. 13:53:54 NEW CPTES wire advanced. 13:57:31 Inflate balloon Inflation number: 3 A EMERGE OTW 4.0 x 15 balloon ([id number]) was prepped and advanced across the Mid Superficial Femoral, Left , then inflated to 12 [facility] for 0:22 (min:sec) . 13:57:57 Inflation number: 2 The EMERGE OTW 4.0 x 15 balloon ([id number]) was reinflated across the Mid Superficial Femoral, Left , to 12 [facility] for 0:11 (min:sec) . 13:58:58 Inflation number: 1 The EMERGE OTW 4.0 x 15 balloon ([id number]) was reinflated across the Mid Superficial Femoral, Left , to 14 [facility] for 0:15 (min:sec) . 13:59:29 Inflation number: 2 The EMERGE OTW 4.0 x 15 balloon ([id number]) was reinflated across the Mid Superficial Femoral, Left , to 14 [facility] for 0:12 (min:sec) . 14:00:32 Inflation number: 3 The EMERGE OTW 4.0 x 15 balloon ([id number]) was reinflated across the Mid Superficial Femoral, Left , to 14 [facility] for 0:22 (min:sec) . 14:01:36 Inflation number: 6 The EMERGE OTW 4.0 x 15 balloon ([id number]) was reinflated across the Mid Superficial Femoral, Left , to 14 [facility] for 0:31 (min:sec) . 14:04:17 Balloon removed over the wire. 14:05:33 Fentanyl 50 mcg I.V. was administered by Brian Grijalva RN; for sedation; Verbal order read back and verified. 14:05:47 Inflate balloon Inflation number: 7 A SABER 5.0 X 100 X 150 balloon ([id number]) was prepped and advanced across the Mid Superficial Femoral, Left , then inflated to 8 [facility] for 0:43 (min:sec) . 14:06:57 Inflation number: 8 The SABER 5.0 X 100 X 150 balloon ([id number]) was reinflated across the Mid Superficial Femoral, Left , to 8 [facility] for 0:35 (min:sec) . 14:12:07 EXOSEAL 6Fr (EX600) opened to sterile field. 14:12:16 SHEATH 6FR [place] (HOG721) opened to sterile field. 14:12:30 Sheath upsized to a 6 Fr Short. 14:12:35 Sheath removed intact; hemostasis achieved with Exoseal to the Right Femoral artery. 14:12:38 Procedure ended.(Physican Out) 14:12:59 Fluoroscopy time 13.70 minutes. 14:13:35 Fluoroscopy dose: 291 mGy 14:13:35 Flurop Dose total: 291 14:14:06 Dose Area Product 53656 mGy/cm. 14:15:07 Contrast amount:Isovue 370 97ml. 14:15:10 Maximum allowable dose exceeded? Yes. 14:15:11 Sharps counted by scrub and verified by R.N. 14:15:13 Insertion/operative site no bleeding no hematoma. 14:15:28 Post-op/insertion site Right Femoral artery dressed using a 4 x 4 and Tegaderm. 14:15:31 Post right femoral artery:stable 14:15:32 Post Procedure Pulses reassessed and unchanged 14:15:35 Post procedure: right dorsailis pedis pulse 1+ Palpable, but thready & weak; easily obliterated. 14:15:56 Post-procedure physical assessment completed. ASA score P 2 - A patient with mild systemic disease as per Sean Rodriguez MD. 14:16:00 Post procedure rhythm: sinus rhythm 14:16:37 Post procedure instruction explained to patient.Patient verbalizes understanding. 14:16:39 Procedure and supply charges have been captured, reviewed, submitted and are correct. 14:17:09 Plavix 75 mg P.O. was administered by Brian Grijalva RN; for antiplatelet therapy; Verbal order read back and verified. 14:18:03 Procedure type changed to Cath procedure, Diagnostic procedure, Sedation Charges, Moderate Sedation up to 45 minutes, PCI procedure, Hemochron ACT Test, Peripheral Cath Diagnostic Procedure, Matrix Plater Peripheral Procedures, Tkeeo-Btsbari-Vhm-Off, Peripheral vascular Intervention, Angioplasty, Angioplasty Fem/Pop 14:19:06 ACT drawn and resulted at 290 seconds. (normal therapeutic range 180-240 seconds). 14:19:36 Procedure Complication : No complications 14:19:38 Vital chart was stopped 14:19:45 AFRO Findings: PVD: MINING SUPPORT WORKER performed (see procedure notes) 14:19:48 Operative report dictated upon procedure completion. 14:19:49 See physician's report for complete and final results. 14:19:59 Report given to PCU. 14:20:03 Patient transfered to PCU with Bed. 14:20:05 Procedure ended. 14:20:05 Full Disclosure recording stopped 14:20:08 End room use (Document Last) 14:20:22 ACC-PCI Only Patient was given prescriptions, or instructed by Sean Rodriguez MD to start/continue the following medications upon discharge: Plavix Intervention Summary Intervention Notes Time ActionType Lesion and Equipment Action# Pressure Duration Attributes Used 13:57:31 Inflate Mid EMERGE OTW 3 12 00:22 balloon Superficial 4.0 x 15 Femoral, balloon Left ([id number]) 13:57:57 Reinflate Mid EMERGE OTW 2 12 00:11 balloon Superficial 4.0 x 15 Femoral, balloon Left ([id number]) 13:58:58 Reinflate Mid EMERGE OTW 1 14 00:15 balloon Superficial 4.0 x 15 Femoral, balloon Left ([id number]) 13:59:29 Reinflate Mid EMERGE OTW 2 14 00:12 balloon Superficial 4.0 x 15 Femoral, balloon Left ([id number]) 14:00:32 Reinflate Mid EMERGE OTW 3 14 00:23 balloon Superficial 4.0 x 15 Femoral, balloon Left ([id number]) 14:01:36 Reinflate Mid EMERGE OTW 6 14 00:31 balloon Superficial 4.0 x 15 Femoral, balloon Left ([id number]) 14:05:47 Inflate Mid SABER 5.0 X 7 8 00:43 balloon Superficial 100 X 150 Femoral, balloon Left ([id number]) 14:06:57 Reinflate Mid SABER 5.0 X 8 8 00:35 balloon Superficial 100 X 150 Femoral, balloon Left ([id number]) Device Usage Item Name Manufacture Quantity Catalog Number Hospital Part Current Min imal Lot# / Charge Number Stock Stock Serial# Code ACIST Acist 1 17573 031145 765264 119937 20 Syringe Medical (85646) Systems Inc Bag Decanter Microtek 1 2001S 409790 92852 499446 5 () Medical Inc. Medline Cath Medline 1 [id number] 937353 53870 331770 5 Pack ([id number]) ACIST Hand Acist 1 81058 010057 934143 690104 5 Control Medical (51364) Systems Inc ACIST Acist 1 34387 672619 075491 203592 5 Manifold Medical (62631) Systems Inc Tegaderm 4 x 3M 1 1626W 635131 121071 977216 5 4 (1626W) SHEATH 5FR Terumo 1 GXT077 204012 764622 922396 5 [place] (FWK047) EMERALD Cardinal 1 502-455 109767 803868 886031 5 Guide Wire Health (502-455) DIAGNOSTIC Cardinal 1 [id number] 489501 547550 520837 10 UF 5Fr Health catheter (801373E8) GLIDE WIRE Terumo 1 ZR2325 290590 703993 058651 5 Super Stiff Angled 260cm (LX4618) INFLATOR Merit 1 LJ6265 525480 180328 981986 15 [facility] Medical BasixCompak (FU5838) TORQUE [place] 1 TD01 903363 942922 718648 5 DEVICE Scientific PLASTIC .038 ( TD01) SHEATH 6FR Terumo 1 RSR01 200534 32469 968714 5 Destination (RSR01) CHOICE PT [place] 2 [id number] [id number] 600970 5 Extra Scientific Support J 300cm guide wire (1331435H2) GLIDE Terumo 1 CG506 953184 95882 881714 4 CATHETER 5FR STRAIGHT 100cm (CG506) EMERGE OTW [place] 1 [id number] 032593 217476 643580 5 [id number] 4.0 x 15 Scientific balloon ([id number]) SABER 5.0 X Cardinal 1 [id number] 209256 649467 5 100 X 150 Health balloon ([id number]) EXOSEAL 6Fr Cardinal 1 EX600 648097 044737 505936 10 (EX600) Health SHEATH 6FR Terumo 1 EXM658 675866 417228 000458 40 [place] (FCN985) Signature Audit [place] Stage Time Signature Unsigned Intra-Procedure 12/05/2019 Brian Grijalva RN 2:27:53 PM Intra-Procedure 12/05/2019 Ernst Salcido RT(R) 2:28:18 PM Intra-Procedure 12/05/[address] 2:29:24 PM Will MEHTA [facility] [address] [facility] [place] [address]
[~2019-12-04 16:21] MED LIST changes: +CARAFATE1 G PO
[2019-12-04 17:09] LABS: BASOPHILS 0.2 % (0-2); EOSINOPHILS 0.2 % (0-7); HEMATOCRIT 38.5 % (36.0-48.0); HEMOGLOBIN 12.5 g/dL (12-16); IMMATURE GRANULOCYTES 0.1 % (0-5); LYMPHOCYTES 9.2 % (15-50); MCH 29.1 pg (26.0-34.0); MCHC 32.5 g/dL (31.0-37.0); MCV 89.5 fL (80.0-100.0); MEAN PLATELET VOLUME 9.8 fL (7.4-10.4); MONOCYTES 6.1 % (2-11); NEUTROPHILS 84.2 % (40-80); PLATELET COUNT 308 10x3/uL (130-400); RDW 14.7 % (11.5-14.5); WBC 8.5 10x3/uL (4.8-10.8)
[2019-12-04 17:17] LABS: INR 0.97 (0.85-1.17); PROTIME 12.9 SECONDS (11.6-15.0)
[2019-12-04 17:24] LABS: ALBUMIN 3.8 g/dL (3.4-5.0); BILIRUBIN - TOTAL 0.4 mg/dL (0.2-1.3); CALCIUM 9.5 mg/dL (8.5-10.1); CARBON DIOXIDE 32.3 mmol/L (21.0-32.0); CREATININE - SERUM 6.7 mg/dL (0.6-1.3); POTASSIUM - SERUM 4.3 mmol/L (3.5-5.1); PROTEIN - SERUM 8.7 g/dL (6.4-8.2)
--- NOTE | 2019-12-04 19:08 | NUR ---
PT RETURNED TO ED VIA STRETCHER FROM CT
[2019-12-04 20:00] VITALS: BP 157/55
--- NOTE | 2019-12-04 20:30 | NUR ---
PT RESTING ON BED. NO S/S OF ACUTE DISTRESS NOTED.
[2019-12-04 21:00] VITALS: BP 177/65
--- NOTE | 2019-12-04 21:54 | NUR ---
FSBS 282
[2019-12-04] MEDS ORDERED: RENA-VITE TABL0.8 MG PO (22:45)
[2019-12-04 22:49] VITALS: BMI 29.7
[2019-12-05] VITALS (7 sets, daily range): BP systolic 130–180; BP diastolic 55–91; Ht 158.8 cm; Wt 75.0 kg
--- NOTE | 2019-12-05 02:14 | NUR ---
HEPARIN DTT STOPPED AT THIS TIME. WILL RESTART IN ONE HOUR.
--- NOTE | 2019-12-05 03:18 | NUR ---
HEPARIN DTT RESTARTED AT THIS TIME @10 ML/HR PER PROTOCOL.
--- NOTE | 2019-12-05 07:34 | NUR ---
ADJUSTED DOSE ACCORDING TO APTT THAT WAS 64.8 . INCREASED FROM 10ML/HR TO 11 ML /HR AND RECHECK IN 6 HOURS.
--- NOTE | 2019-12-05 07:36 | NUR ---
RECIVEVED REPORT. PATIENT IS ALERT AND AWAKE. DENIES ANY NEEDS AT THIS TIME. SHE DOES REPORT THAT SHE WANTS JUICE AND WATER, AND STATES THAT SHE DOES NOT LIKE MANY FOODS.
[2019-12-05 08:55] LABS: ANION GAP 12.5 mmol/L (8-16); CALCIUM 9.2 mg/dL (8.5-10.1); CARBON DIOXIDE 32.6 mmol/L (21.0-32.0); CHOL - HDL RATIO 2.2 ratio (2.3-4.1); CREATININE - SERUM 7.7 mg/dL (0.6-1.3); LDL-HDL RATIO 1.2 ratio (1.5-3.5)
[2019-12-05 08:57] LABS: POTASSIUM - SERUM 5.1 mmol/L (3.5-5.1)
[2019-12-05 09:01] LABS: BASOPHILS 0.1 % (0-2); EOSINOPHILS 1.6 % (0-7); HEMATOCRIT 34.5 % (36.0-48.0); HEMOGLOBIN 10.9 g/dL (12-16); IMMATURE GRANULOCYTES 0.3 % (0-5); LYMPHOCYTES 15.3 % (15-50); MCH 28.6 pg (26.0-34.0); MCHC 31.6 g/dL (31.0-37.0); MCV 90.6 fL (80.0-100.0); MEAN PLATELET VOLUME 9.6 fL (7.4-10.4); MONOCYTES 9.5 % (2-11); NEUTROPHILS 73.2 % (40-80); PLATELET COUNT 280 10x3/uL (130-400); RBC 3.81 10x6/uL (4.00-5.40); RDW 14.5 % (11.5-14.5); WBC 6.7 10x3/uL (4.8-10.8)
--- NOTE | 2019-12-05 10:25 | NUR ---
CALLED ACQUISITION MANAGER TO BE SURE THEY KNOW PATIENT IS ON A HEPARIN DRIP. CONSENTS ARE SIGNED AND IN THE CHART. SHE HAD BREAKFAST AND NOW SHE IS NPO. SHE IS GETTING CLEANED UP NOW AND PREPED FOR PROCEDURE.
--- NOTE | 2019-12-05 12:55 | NUR ---
PATIENT HAS BEEN PREOPED , SHE DOES NOT LIKE THE BENADRYL. ON HER WAY TO PROCEDURE NOW.
--- NOTE | 2019-12-05 16:15 | NUR ---
AT 1429 RECIEVED REPORT FROM FACILITIES SUPERVISOR. PATIENT HAD A AFRO BY DR CORDON. SHE HAD A BALLOON ANGIOPLASTY. ORDER IS TO RESTART HEPARIN DRIP AT PREVIOUS RATE AT 1630. SHE CAN ALSO SIT UP AT 1630. WILL RESTART HEPARIN AT 10ML/HR AT 1630. THE INCISION IS IN THE RIGHT GROIN. DRESSING IS C/D/I, NO BLEEDING, NO HEMATOMA. VITAL SIGNS ARE STABLE. ASKED CARLA IS SHE COULD EAT AND RESTARTED HER DIET, AND ORDERED HER A TRAY.
--- NOTE | 2019-12-05 16:21 | EC ---
PATIENT:SMITH GILBERT DATE OF SERVICE: 12/04/19 SEX: F MEDICAL RECORD: [id number] DATE OF : 61 LOCATION:D.M2 D.210 AGE OF PATIENT: 54 ADMISSION DATE: 12/04/19 REFERRING PHYSICIAN: INTERPRETING PHYSICIAN: RADHA CORDON MD ECHOCARDIOGRAM REPORT ECHO CHARGES 4 ECHO COMPLETE Date: 12/05/19 CLINICAL DIAGNOSIS: CMP,HX OF CAD/PVD/HTN ECHOCARDIOGRAPHIC MEASUREMENTS (adult normal given) AC root (d.<3.7cm) 3.0 cm LV Septum d (<1.2 cm> 1.3 cm Valve Excursion 1.4 cm LV Septum (systole) 1.5 cm Left Atria (s.<4.0cm> 3.7 cm LVPW d(<1.2cm) 1.4 cm RV (d.<2.3cm) 3.14 cm LVPW (sytole) 1.7 cm LV diastole(<5.6CM) 4.6 cm MV E-F(>70mm/sec) cm LV systole 3.3 cm LVOT Diameter 1.9 cm MV exc.(>10mm) 1.7 cm Est.ejection fraction (50-75%) % DOPPLER: LVIT cm/sec A 65.0 cm/sec E 89.0 cm/sec LA cm/sec RVSP 17 mmHg LVOT 110 cm/sec AOP1/2T m/s Asc. Ao 129 cm/sec RVOT 83 cm/sec RA cm/sec PA 115 cm/sec AV Gradient Peak 6.68 mmHg AV Mean 4.29 mmHg AV Area 2.4 cm MV Gradient Peak 4.45 mmHg MV Mean 2.04 mmHg MV Area cm COMMENTS: Editor House Organ: 2 ALIS BRAXTON Carcass Washer: 3 Dr. Soria TAPE# PACS Pericardial Effusion N DATE OF SERVICE: Adequate 2D, color flow imaging, spectral Doppler, and M-Mode LVH is present. LV internal dimensions are normal. Wall motion is normal. EF is greater than or equal to 55%. Aortic valve is tricuspid. No evidence of stenosis by Doppler interrogation. Left atrium is normal at 3.7 cm. Mitral valve shows no prolapse. Trace MR. Right-sided chambers are grossly normal. Trace TR. ECHOCARDIOGRAM REPORT [id number] SMITH GILBERT TRANSINT:[id number] Voice Confirmation ID: [id number] DOCUMENT ID: [id number] RADHA CORDON MD at 1621 CC: [id number] DICTATION DATE: 12/05/19 1440 DEPUTY [place] MARSHAL: 12/05/19 1532 ADM IN [place] [address] [place] [address]
--- NOTE | 2019-12-05 16:21 | CN ---
PATIENT NAME:SMITH GILBERT MEDICAL RECORD: [id number] : 61 LOCATION:D. D.2101 ADMIT DATE: 12/04/19 ACCOUNT: [id number] CONSULTING PHYSICIAN: RADHA CORDON MD REFERRING PHYSICIAN: KATIE FORD DO DATE OF CONSULTATION: 12/05/2019 HISTORY OF PRESENT ILLNESS: A 54-year-old female with known history of coronary artery disease as well as peripheral vascular disease, onset of severe rest symptomology of the left lower extremity. Found to have total occlusion with minimal distal filling of the left SFA popliteal region on CT. Started on heparin. We are asked to see her concerning her peripheral vascular disease. She has a history of intervention to the right as well as intervention with a drug-eluting stent back in August. Unfortunately, she has had problems with medications. She has not been able to afford her Plavix intermittently, has not been on this on admission. Additionally only intermittently compliant with her cardiomyopathic meds. PAST MEDICAL HISTORY: Include; 1. History of chronic renal insufficiency, on dialysis. 2. Hypertension. 3. Hyperlipidemia. 4. Cardiomyopathy, ejection fraction 20% to 25%. 5. Peripheral vascular disease, status post intervention. 6. Diabetes mellitus. SOCIAL HISTORY: Lives independently. Nonsmoker, nondrinker. No set exercise program. Has had trouble with ADLs over the last few days. ALLERGIES: IODINE, NEURONTIN, LATEX. MEDICATIONS: Include Lipitor 20 mg p.o. day, carvedilol 6.25 every day, aspirin 81 every day, Paxil 20 every day, insulin 30 units subcutaneous. REVIEW OF SYSTEMS: The patient reports easy bruising but reports no swollen glands. The patient reports no fever, no night sweats, no significant weight gain, no significant weight loss. No significant exercise tolerance. The patient reports no dry eyes, no irritation, no vision change. Patient reports no difficulty hearing and no ear pain. Patient reports no frequent nose bleeds or nose and sinus problems. Patient reports on arm pain on exertion. No shortness of breath while lying down. No history of heart murmur. Patient reports no cough, no wheezing or coughing up blood. Patient reports no abdominal pain, no vomiting. Normal appetite. No diarrhea and not vomiting blood. No nausea and no constipation. Patient reports no incontinence. No difficulty urinating. No hematuria. No increased frequency. Patient reports no muscle aches. No weakness, no arthralgias, no back pain. No swelling of the extremities. Patient reports no abnormal mole, no jaundice, no rashes. Reports no loss of consciousness. No weakness and no numbness. No seizures, dizziness, or headaches. The patient reports no depression, no sleep disturbance, feeling safe in a relationship and no alcohol abuse. Patient reports on fatigue. Reports no runny nose or sinus pressure. No itching, no hives, and no frequent sneezing. PHYSICAL EXAMINATION: GENERAL: A middle-aged female, in no acute distress. CONSULT REPORT [id number] SMITH GILBERT VITAL SIGNS: Blood pressure 130/55, pulse 68 and regular. HEENT: Normocephalic, atraumatic. NECK: No bruits noted. HEART: Regular. Questionable S3 gallop. LUNGS: Fair air excursion. ABDOMEN: Soft, nontender. EXTREMITIES: Faint pulse palpable on the right. I cannot palpate a pulse on the left. IMPRESSION: Acute ischemic left lower extremity. PLAN: We will plan for AFRO intervention as indicated on the left. May continue to be a problem with compliance in the future. Further recommendations based on above. TRANSINT:[id number] Voice Confirmation ID: [id number] DOCUMENT ID: [id number] RADHA CORDON MD at 1621 CC: [id number] DICTATION DATE: 12/05/19 0839 MED SPECIALIST: 12/05/19 1142 ADM IN [id number] [place] [address]
--- NOTE | 2019-12-05 17:39 | NUR ---
PATIENT IS RESTING. DENIES ANY NEEDS , VITAL SIGNS STABLE.
--- NOTE | 2019-12-05 19:24 | NUR ---
EVENING ROUDNS COMPLETE. PT LAYING IN BED. NO SIGNS OF DISTRESS. PT DEINES ANY NEEDS AT THIS TIME. CL IN REACH, BED IN LOWEST POSITION.
--- NOTE | 2019-12-05 20:07 | NUR ---
PT GLUCOSE ON GLUCOMETER OF 514. PT REFUSING TO FOLLOW PROTOCOL. PT STATES THE GLUCOMETER IS NOT ACCURATE AFTER TESTING TWICE.
--- NOTE | 2019-12-05 20:42 | NUR ---
PAGED DR SHEYLA WAER PT GLUCOSE.
--- NOTE | 2019-12-05 20:47 | NUR ---
CARLA MONTAGUE APN RETURNED PAGE. THIS NURSE EXPLAINED THAT PT IS REFUSING TO TAKE INSULIN PERSCRIBED AND HER STAT GLUCOSE WAS 427. CHANA AGUIRRE STATED THAT PT IS NONCOMPLIANT AND THANKED THIS NURSE FOR INFORMING OF THE GLUCOSE LEVELS. CL IN REACH, BED IN LOWEST POSITION.
[2019-12-06] VITALS (7 sets, daily range): BP systolic 95–178; BP diastolic 54–81
--- NOTE | 2019-12-06 03:19 | NUR ---
PT FSBS 217. PT REFUSING ANY TREATMENT. THIS NURSE TRIED TO EXPLAIN TO PT IMPORTANCE OF KEEP BLOOD SUGAR UNDER CONTROL. PT STILL REFUSED TO COMPLY. CL IN REACH, BED IN LOWEST POSITION.
[2019-12-06 07:13] LABS: BASOPHILS 0.1 % (0-2); EOSINOPHILS 0.1 % (0-7); HEMATOCRIT 31.3 % (36.0-48.0); HEMOGLOBIN 9.9 g/dL (12-16); IMMATURE GRANULOCYTES 0.2 % (0-5); LYMPHOCYTES 8.5 % (15-50); MCH 28.4 pg (26.0-34.0); MCHC 31.6 g/dL (31.0-37.0); MCV 89.9 fL (80.0-100.0); MEAN PLATELET VOLUME 9.9 fL (7.4-10.4); NEUTROPHILS 84.1 % (40-80); PLATELET COUNT 259 10x3/uL (130-400); RBC 3.48 10x6/uL (4.00-5.40); RDW 14.6 % (11.5-14.5)
[2019-12-06 07:23] LABS: WBC 11.9 10x3/uL (4.8-10.8)
--- NOTE | 2019-12-06 07:39 | NUR ---
REPORT RECIEVED. PT LYING SEMI FOWLERS IN BED. RR EVEN AND UNALBORED ON RA. PT HAS A L AC PIV INFUSING HEPRIN @ 10. SHE IS RESERVE R ARM FOR DIALYSIS. BED LOCKED AND IN LOWEST POSITION, CALL LIGHT WITHIN REACH. WILL CTM
[2019-12-06 07:43] LABS: ANION GAP 13.5 mmol/L (8-16); CARBON DIOXIDE 29.6 mmol/L (21.0-32.0); CREATININE - SERUM 9.4 mg/dL (0.6-1.3)
[2019-12-06 07:55] LABS: POTASSIUM - SERUM 6.1 mmol/L (3.5-5.1)
--- NOTE | 2019-12-06 08:15 | NUR ---
REPORTED PT K OF 6.1 TO . SHE SAID PT WOULD BE GOING TO DIALYSIS AND THAT SHE WOULD PUT ORDERS IN. WILL CTM
--- NOTE | 2019-12-06 15:15 | NUR ---
PT WAS TAKIN TO DIALYSIS ON A HEPRIN DRIP. WHEN PT RETURNED TO ROOM PT HAD LOST IV ACCESS WHILE IN DIALYSIS. I DID NOT KNOW OF THIS UNTIL PT BROUGHT IT UP TO ALEJA MALDONADO BACK TO ROOM. NOR DID DIALYSIS CALL REPORT TO ME ON PT. AFTER X2 ATTEMPTS OF GETTING ACCESS. IV ASCCESS NURSE WAS CALLED TO GET PT AN IV. SHANITA IN ROOM AT THIS TIME. WILL LAURA
--- NOTE | 2019-12-06 16:13 | NUR ---
RESP UL ON . TELEMETRY SR. CALL LIGHT IN REACH. WILL CONT. PLAN OF CARE.
--- NOTE | 2019-12-06 16:17 | NUR ---
DR. FORD NOTIFIED ABOUT PEDAL PULSE BEING MORE FAINT ON DOPLER THAN THIS MORNING AND UNABLE TO HEAR DORSAL PULSE ON DOPLER. PT ALSO COMPLAINING OF ALOT OF PAIN IN RIGHT GROIN. HEMATOMA FELT. WILL CTM
--- NOTE | 2019-12-06 19:34 | NUR ---
DR. CORREA CAME TO PT ROOM TO PLACE CENTRAL LINE. PT REFUSED PLACEMENT, PT STATED "YOU JUST NEED TO GET ONE OF THOSE ONES RIGHT HERE" WHILE POINTING AT HER LEFT ARM. PT UNDERSTANDS THE IMPORTANCE OF HAVING IV ACCESS FOR THE USE OF HEPARIN. PT INSISTS ON GETTING A PIV INSTEAD, EVEN THOUGH IT WAS ATTEMPTED MULTIPLE TIMES DURING THE DAY TO GAIN ACCESS UNSUCCESSFULLY.
--- NOTE | 2019-12-06 20:30 | NUR ---
NEW 20G PIV STARTED IN LAC. PT TOLERATED WELL. NO SIGNS OF DISTRESS. PT DENIES ANY PAIN OR NEEDS AT THIS TIME.
[2019-12-07] VITALS (8 sets, daily range): BP systolic 131–179; BP diastolic 40–76
--- NOTE | 2019-12-07 01:00 | NUR ---
PT VOICED CONCERN OVER R GROIN AREA WHERE THE HEMATOMA IS LOCATED. PT STATED "IM SURE IM GETTING AN INFECTION, I CAN FEEL IT". WHEN THIS NURSE LOOKED AT DRESSING ON R GROIN, THERE WAS A 2CM/2CM AREA OUTSIDE OF THE DRESSING WHERE THE TOP LAYERS OF SKIN HAD BEEN REMOVED. THERE WAS NO WARMTH TO THE AREA. PT ADMITTED TO SCRATCHING R GROIN, BUT INSISTED SHE DID NOT BREAK THE SKIN. THIS NURSE REDRESSED PT DRESSING TO R GROIN AT THIS TIME. TIMED AND DATED. PT DENIES ANY OTHER NEEDS OR PAIN AT THIS TIME. CL IN REACH, BED IN LOWEST POSITION. TEACH WITH PT ON IMPORTANCE ON NOT SCRATCHING R GROIN. PT VOICED UNDERSTANDING.
--- NOTE | 2019-12-07 02:00 | NUR ---
ORDER PLACED FOR LAB TO DRAW PTT AT 0237
--- NOTE | 2019-12-07 02:30 | NUR ---
THIS NURSE CALLED LAB TO SEE IF ANYONE HAD LEFT TO DRAW PTT SO THAT HEPARIN DTT CAN BE STOPPED WITH TIME TO DRAW LAB.
--- NOTE | 2019-12-07 03:00 | NUR ---
THIS NURSE CALLED LAB TO CHECK AGAIN IF ANYONE HAD LEFT TO DRAW PTT LAB. LAB STATED THAT SOMEONE LEFT LAB WITH ORDER AND SHOULD BE ON THEIR WAY. THIS NURSES STOPPED HEPARIN AT THIS TIME. CL IN REACH, BED IN LOWEST POSITION.
--- NOTE | 2019-12-07 03:30 | NUR ---
PTT LAB DRAWN AT THIS TIME. RESTARTED HEPARIN DTT AT THIS TIME. CL IN REACH, BED IN LOWEST POSITION.
--- NOTE | 2019-12-07 04:12 | NUR ---
PT PEDAL PULSES FAINT THROUGH DOPPLER AT THIS TIME. CL IN REACH, BED IN LOWEST POSITION.
--- NOTE | 2019-12-07 04:12 | NUR ---
PT HEPARIN DTT INCREASED TO 12 ML/HR.
--- NOTE | 2019-12-07 07:30 | NUR ---
PT AWAKE AND ALERT. HEP GTT INFUSING AT 12 ML/HR. PTT DUE AT 1000.
--- NOTE | 2019-12-07 07:59 | NUR ---
PAGE INTO DR FORD THRU OFFICE TO CLARIFY CTA NEEDING TO BE DONE SHE STATED TO MYSELF AND SHA ABEL LAST NIGHT TO HOLD OFF ON IT.
--- NOTE | 2019-12-07 08:19 | NUR ---
ADAMS MONTAGUE APN TO CALL ME BACK AND WILL TALK TO DR FORD AND LET US KNOW WHAT NEEDS TO BE DONE NEXT. AWAITING CALL BACK.
--- NOTE | 2019-12-07 08:26 | NUR ---
ADAMS MONTAGUE APN TO CALL BACK AND STATES THAT DR FORD WANTS TO CANCEL THE CTA. I CALLED RADIOLOGY AND SPOKE WITH REYNALDO AND TOLD HIM AND PRIMARY NURSE, HAILEY JOSEPH.
[2019-12-07 09:20] LABS: HEMATOCRIT 30.2 % (36.0-48.0); HEMOGLOBIN 9.7 g/dL (12-16)
--- NOTE | 2019-12-07 10:38 | NUR ---
PT WITH ELEVATED FSBS AT 423. HAS BEEN NON COMPLIANT AND NOT TAKING SLIDING SCALE. AFTER TALKING WITH HER SHE WILL NOW TAKE COMPLETE DOSE OF INSULIN. ALSO CALL PLACED TO CARLA ZAYAS WITH RENAL RELATED TO HEPARIN GTT, CARDIO WANTS TO START XARELTO BUT NOT WHILE HEPARIN INFUSING. AWAITING CALL BACK.
--- NOTE | 2019-12-07 13:00 | NUR ---
Nutrition Follow-up: Eating well. Diet: Renal ADA PO intake: 100% No new wt; last wt: 165# (12/05) Labs noted: Glu 423 Meds noted: Lantus, Pancrease, Nephrovite, Humulin, Miralax -Continue current diet as tolerated. -Need new wt; noted daily wts ordered. -RD following.
[2019-12-07 13:10] LABS: HEPATITIS C ANTIBODY <0.1 S/CO RAT (0.0-0.9)
--- NOTE | 2019-12-07 13:11 | OP ---
PATIENT NAME: SMITH GILBERT MEDICAL RECORD: [id number] :61 LOCATION:D.M2 D.2100 ADMISSION DATE:12/04/19 SURGEON: RADHA CORDON MD DATE OF OPERATION: 12/05/2019 PROCEDURE: Aortofemoral runoff was performed. The catheters were placed just below the level of renal arteries. Abdominal aortogram shows minimal atherosclerotic debris. Nonselective angiography of the renal showed no evidence of focal stenosis. RIGHT SYSTEM: Right iliac system shows calcification and wall disease, but no flow obstructive disease. Right common and deep femoral mild wall disease. The right superficial femoral shows a good flow distally to the area of the popliteal with minimal, no more than 40% in-stent restenosis both brisk flow. LEFT SYSTEM: Left iliac system shows wall disease but no significant flow obstructive stenosis. Right deep and common femoral shows wall disease but no significant stenosis. The left superficial femoral in area of previous intervention shows a total occlusion with minimal collateral formation and minimal distal flow, no more than 1 vessel. Next, we exchanged for a long sheath around the horn and a 300 cm PT ChoICE wire was placed across the totally occluded superficial femoral down the distal part of the posterior tibial. A 5.0 x 100 length balloon was used in this area, inflated up to nominal 8 atmospheres. This showed marked resolution of 100% stenosis to no more than 50% residual. There is a distal 1-vessel runoff, although this was not a healthy vessel. IMPRESSION: Successful PORTFOLIO MGR of the left superficial femoral with congregational of 1 vessel flow below the knee although weatherization director patency distal is still somewhat concerning. We will plan on heparin overnight, reiteration of medication compliance as well. Further recommendations based on clinical course. TRANSINT:[id number] Voice Confirmation ID: [id number] DOCUMENT ID: [id number] RADHA CORDON MD at 1311 CC: [id number] DICTATION DATE: 12/05/19 1424 AUDIOVISUAL LEAD TECHNICIAN: 12/05/19 1752 ADM IN [id number] [place] [address]
--- NOTE | 2019-12-07 19:21 | NUR ---
REPORT RECIEVED AND ROUNDING COMPLETE. PATIENT LAYING IN BED IN LOW FOWLERS, PATIENT ASKED FOR HELP TRANFERING TO HER BSC. ASSISTANCE PROVIDED. PATIENT HAS AN UNEVEN UNSTEADY GAIT. PATIENT NOT WEARING O2 AT THIS TIME. SHAUNNET STATES SHE DOES USE O2 AT HOME AND ONLY USES IT PRN WHILE SHES HERE. PATIENT IS LEGALLY BLIND. PATIENT HAS A LEFT PIV THAT IS SALINE LOCKED AT THIS TIME. PATIENT'S PIV IS PATENT AND FLUSHES, PIV SHOWS NO S/SX OF INFILTRATION. PATINET SHOWS NO S/SX OF DISTRESS AT THIS TIME. CALL LIGHT WITHIN REACH. PATIENT IS ALERT AND ORIENTED X4. PATIENT IS TO CALL WHEN ASSISTANCE IS NEEDED.
--- NOTE | 2019-12-07 20:52 | NUR ---
PATIENT REFUSED RECOMMENDED DOSE OF HUMULIN FOR HER FSBS OF 258. PATIETN STATES SHE WILL ONLY RECIEVE 6 UNITS.
--- NOTE | 2019-12-08 00:20 | NUR ---
CHECKED PATIENT'S BLOOD SUGAR BECAUSE SHE WAS FEELING BAD. FSBS 59, PATIENT REFUSES ANY TREATMENT, JUST WANTS POPSICLES. ASKED FOR A BASIN WITH WATER TO WIPE DOWN. COMPLAINING OF HER BOWELS MOVING ALOT NOW. WILL RECHECK IN 15 MIN.
--- NOTE | 2019-12-08 00:36 | NUR ---
RECHECKED FSBS 82. PATIENT FEELING BETTER. WILL CHECK AGAIN IN 15 MIN.
--- NOTE | 2019-12-08 01:00 | NUR ---
PATIENT'S FSBS IS NOW 113 PATIENT IS LAYING IN BED IN LOW FOWLERS POSITION EATING LARGE BANANA NUT MUFFINS. STATES SHE HAS A 4 PACK OF MUFFINS IN HER ROOM. WILL RECHECK HER SUGAR AT SCHEDULED TIME.
--- NOTE | 2019-12-08 01:05 | NUR ---
PATIENT STATES SHE IS NO LONGER GOING TO WEAR HEART MONITOR AND HAD ME TAKE IT OUT OF HER ROOM.
[2019-12-08 01:18] VITALS: BP 129/42
--- NOTE | 2019-12-08 03:42 | NUR ---
PATIENT REQUESTED ONLY 5 UNITS GIVEN TO NOT BOTTOM OUT HER BLOOD SUGAR.
--- NOTE | 2019-12-08 03:43 | NUR ---
I have reviewed this patient and I concur with the Shift Assessment completed by the Licensed Practical Nurse today this shift.
[2019-12-08 04:42] VITALS: BP 139/45
--- NOTE | 2019-12-08 07:30 | NUR ---
AM ROUNDS COMPLETED. INTRODUCED MYSELF TO PT PRIMARY RN FOR TODAYS SHIFT. PT IS A&O SITTING UP ON EDGE OF BED. SHIFT ASSESSMENT COMPLETED. PT IS WANTING TO TAKE A BEDBATH. SUPPLIED PT WITH ALL THINGS SHE WOULD NEED AND ASSISTED HER BY SETTING UP SHE IS LEGALLY BLIND HOWEVER PT DOES FUNCTION VERY INDEPENDENTLY. NO FURTHER NEEDS AT THIS TIME. WILL CTM.
[2019-12-08 08:00] VITALS: BP 149/57
--- NOTE | 2019-12-08 08:20 | NUR ---
MORNING MEDICATIONS GIVEN WITH EXCEPTION OF XARELTO IM WAITING ON PHARMACY TO BRING IT UP. FSBS 216 PROVIDED PT WITH INSULIN PER SS. PT SITTING UP ON EDGE OF BED EATING BREAKFAST. NO FURTHER NEEDS AT THIS TIME. CL IN REACH, BED IN LOWEST, SIDE RAILS X2. WILL CPOC.
[2019-12-08 10:53] LABS: BASOPHILS 0.2 % (0-2); EOSINOPHILS 0.4 % (0-7); HEMATOCRIT 27.3 % (36.0-48.0); HEMOGLOBIN 8.7 g/dL (12-16); IMMATURE GRANULOCYTES 0.3 % (0-5); LYMPHOCYTES 14.3 % (15-50); MCH 28.7 pg (26.0-34.0); MCHC 31.9 g/dL (31.0-37.0); MCV 90.1 fL (80.0-100.0); MEAN PLATELET VOLUME 9.5 fL (7.4-10.4); MONOCYTES 6.3 % (2-11); NEUTROPHILS 78.5 % (40-80); PLATELET COUNT 253 10x3/uL (130-400); RBC 3.03 10x6/uL (4.00-5.40); RDW 14.4 % (11.5-14.5); WBC 11.5 10x3/uL (4.8-10.8)
[2019-12-08 11:01] LABS: ANION GAP 17.8 mmol/L (8-16); CALCIUM 8.2 mg/dL (8.5-10.1); CARBON DIOXIDE 27.2 mmol/L (21.0-32.0); CREATININE - SERUM 10.4 mg/dL (0.6-1.3)
[2019-12-08 12:00] VITALS: BP 139/58
--- NOTE | 2019-12-08 12:01 | NUR ---
DIALYSIS CALLED FOR PT. ASSISTED PT DOWN TO DIALYSIS VIA W/C. PT HAS FOOD TRAY WITH HER AND DENIES ANY CURRENT PAIN OR NEEDS. WILL CTM.
--- NOTE | 2019-12-08 16:30 | NUR ---
PT BACK FROM DIALYSIS AND IN HER BED. PTS FSBS 174 AND SHE REFUSED INSULIN STATING SHE DOESNT WANT TO DROP TOO LOW. PT AGREED TO TAKE IF ABOVE 200. NO FURTHER NEEDS AT THIS TIME. CL IN REACH. WILL CTM.
--- NOTE | 2019-12-08 18:07 | MORECARE ---
CASE MANAGEMENT DISCHARGE SUMMARY PATIENT: SMITH GILBERT UNIT: [id number] ADM DATE: 12/04/19 AGE: 54 : 63 SEX: F ROOM/BED: D.2105 AUTHOR: PARVIN GIFFORD PHYSICIAN: REFERRING PHYSICIAN: KATIE FORD DO DATE OF SERVICE: 12/08/19 Discharge Plan Patient Name: SMITH GILBERT Facility: [facility]:[place] : 1965 Planned Disposition: Home Anticipated Discharge Date: 12/08/19 Discharge Date: Expected LOS: 4 Initial Reviewer: CHEPE Initial Review Date: 12/04/2019 Generated: 12/08/19 7:07 pm DCPIA - Discharge Planning Initial Assessment Updated by [id number]: Aldo Valencia on 12/08/19 6:05 pm * Is the patient Alert and Oriented? Yes * How many steps to enter\exit or inside your home? NONE * PCP DR. REDD * Pharmacy [facility] * Preadmission Environment Home Alone * ADLs Partial Dependent * Partial ADLs (Assistance needed) Bathing Transfers * Equipment Cane Walker * Other Equipment [facility], MEDICAL EQUIPMENT PROVIDER * List name and contact numbers for known caregivers / representatives who currently or will assist patient after discharge: SALTY JARAMILLO, * Verbal permission to speak to the caregivers and representatives has been obtained from the patient. N/A * Community resources currently utilized Other Private Duty Care * Please name any agencies selected above. OUTPATIENT DIALYSIS, [facility], MWF, MEDICAID TRANSPORTATION [facility], SALTY IS PAID CAREGIVER, 5 DAYS PER WEEK, 2-3 HOURS PER DAY NEEDED. * Additional services required to return to the preadmission environment? No * Can the patient safely return to the preadmission environment? Yes * Has this patient been hospitalized within the prior 30 days at any hospital? No External Providers External Provider: [facility] Next Contact Date: 12/08/2019 Service Request Date: Service Type: Resolution: Reviewer: Comments: Patient Name: SMITH GILBERT Page [phone] at 1807 All edits/amendments must be made on the electronic document DICTATION DATE: 12/08/191806 SPEECH PATHOLOGIST: ROSA 12/08/191806 RPT#: [id number] DC DATE: STATUS: ADM IN [facility] [address] [place] [address] END OF REPORT
--- NOTE | 2019-12-08 18:24 | MORECARE ---
CASE MANAGEMENT DISCHARGE SUMMARY PATIENT: SMITH GILBERT UNIT: [id number] ADM DATE: 12/04/19 AGE: 54 : 61 SEX: F ROOM/BED: D.2104 AUTHOR: BALTA,DOC PHYSICIAN: REFERRING PHYSICIAN: KATIE FORD DO DATE OF SERVICE: 12/08/19 Discharge Plan Patient Name: SMITH GILBERT Facility: [facility]:[place] : 1965 Planned Disposition: Home Anticipated Discharge Date: 12/08/19 Discharge Date: Expected LOS: 4 Initial Reviewer: [email or web address] Initial Review Date: 12/04/2019 Generated: 12/08/19 7:24 pm Comments DCP- Discharge Planning Updated by [id number]: Aldo Valencia on 12/08/19 5:[address] Patient Name: SMITH GILBERT Admission Status: ER Accout number: [id number] Admission Date: 12-04-2019 : 1965 Admission Diagnosis: Attending: SYLVIA Current LOS: 4 Anticipated DC Date: 12-08-2019 Planned Disposition: Home Primary Insurance: MEDICAID [place] Discharge Planning Comments: CM RECEIVED REQUEST FOR WHEELCHAIR FROM PATIENT. CM SPOKE TO CHANA PERDOMO WHO PROVIDED ORDER FOR WHEELCHAIR. CM MET WITH PT IN ROOM TO DISCUSS DISCHARGE PLANNING AND NEEDS. PT REPORTS LIVING AT HOME ALONE DEPENDENTLY ON NIECE WHO IS [facility]ID WHO ASSISTS WITH BATHING AND TRANSFERS 2-3 HOURS PER DAY, 5 DAYS PER WEEK. PT HAS CANE AND WALKER FROM [facility]. CM DISCUSSED AVAILABILITY OF HOME HEALTH, REHAB SERVICES AND MEDICAL EQUIPMENT. PT DENIES DISCHARGE NEEDS OTHER THAN A WHEELCHAIR. CHOICE FOR [facility] SIGNED. PT REPORTS HER FAMILY WILL PICK HER UP FOR DISCHARGE HOME, IF THEY ARE NOT AVAILABLE, PT WILL NEED MEDICAID TRANSPORTATION THAT IS ONLY AVAILABLE ON WEEKDAYS. CM CALLED [facility], , SPOKE TO PATRICIA AND DISCUSSED REFERRAL. CM FAXED REFERRAL AND ORDER TO [facility] AT [phone]. [facility] TO PROCESS ORDER FOR WHEELCHAIR. PT PLANS TO DISCHARGE HOME. ORDER FOR WHEELCHAIR SENT TO [facility] FOR PROCESSING AND HOME DELIVERY OF WHEELCHAIR. CM TO FOLLOW AND ASSIST NEEDED. Databases Software Consultant: Aldo Valencia DCPIA - Discharge Planning Initial Assessment Updated by [id number]: Aldo Valencia on 12/08/19 6:05 pm * Is the patient Alert and Oriented? Yes * How many steps to enter\exit or inside your home? NONE * PCP DR. REDD * Pharmacy [facility] * Preadmission Environment Home Alone * ADLs Partial Dependent * Partial ADLs (Assistance needed) Bathing Transfers * Equipment Cane Walker * Other Equipment [employer], MEDICAL EQUIPMENT PROVIDER * List name and contact numbers for known caregivers / representatives who currently or will assist patient after discharge: SALTY JARAMILLO, * Verbal permission to speak to the caregivers and representatives has been obtained from the patient. N/A * Community resources currently utilized Other Private Duty Care * Please name any agencies selected above. OUTPATIENT DIALYSIS, [facility], MWF, MEDICAID TRANSPORTATION [facility], SALTY IS PAID CAREGIVER, 5 DAYS PER WEEK, 2-3 HOURS PER DAY NEEDED. * Additional services required to return to the preadmission environment? No * Can the patient safely return to the preadmission environment? Yes * Has this patient been hospitalized within the prior 30 days at any hospital? No Last DP export: 12/08/19 5:07 p Patient Name: SMITH GILBERT Page [phone] at 1824 All edits/amendments must be made on the electronic document DICTATION DATE: 12/08/191823 OVERHEAD FOREMAN: ROSA 12/08/191823 RPT#: [id number] DC DATE: STATUS: ADM IN [facility] [address] [place] [address] END OF REPORT
--- NOTE | 2019-12-08 18:44 | NUR ---
PT FINISHED DINNER AND STATES IT WAS GOOD. PT RESTING QUIETLY IN BED. DENIES ANY CURRENT PAIN OR NEEDS. WILL PASS ON IN BEDSIDE SHIFT REPORT TO NIGHTSHIFT NURSE.
--- NOTE | 2019-12-08 19:10 | NUR ---
REPORT RECEIVED. BEDSIDE SHIFT REPORT COMPLETE. PT LAYING IN BED DEMANDING COOKIES. RR EVEN AND UNLABORED. NO S/SX OF DISTRESS OBSERVED. NO NEEDS EXPRESSED. CALL LIGHT IN REACH. WILL CTM.
[2019-12-08 20:30] VITALS: BP 144/42
--- NOTE | 2019-12-08 21:45 | NUR ---
PT BLOOD SUGAR 399 REFUSED TOTAL DOSE FROM SLIDING SCALE, ONLY ACCEPTED 10UX.
[2019-12-09 00:30] VITALS: BP 117/44
[2019-12-09 04:30] VITALS: BP 130/45
[2019-12-09 08:00] VITALS: BP 118/34
--- NOTE | 2019-12-09 09:20 | NUR ---
PT AWAKE AND ORIENTED, HAD BED BATH SELF ADMINISTERED THIS AM. PT THEN THREW UP LARGE AMOUNTS OF EMISIS TOO INCLUDE WHAT SHE ATE FOR BREAKFAST.
[2019-12-09] MEDS ORDERED: XALATAN 0.0052.5 ML LEFT EYE (09:29)
[2019-12-09 09:31] LABS: HEMATOCRIT 30.7 % (36.0-48.0); HEMOGLOBIN 9.9 g/dL (12-16)
--- NOTE | 2019-12-09 11:23 | NUR ---
I have reviewed this patient and I concur with the Shift Assessment completed by the Licensed Practical Nurse today this shift.
[2019-12-09 16:00] VITALS: BP 143/66
[2019-12-09 16:23] LABS: ANION GAP 20.8 mmol/L (8-16); CALCIUM 8.7 mg/dL (8.5-10.1); CARBON DIOXIDE 23.3 mmol/L (21.0-32.0)
[2019-12-09 16:29] LABS: CREATININE - SERUM 7.5 mg/dL (0.6-1.3)
[2019-12-09 16:31] LABS: BASOPHILS 0.2 % (0-2); EOSINOPHILS 1.1 % (0-7); HEMATOCRIT 30.9 % (36.0-48.0); HEMOGLOBIN 9.9 g/dL (12-16); IMMATURE GRANULOCYTES 0.6 % (0-5); LYMPHOCYTES 11.3 % (15-50); MCH 28.5 pg (26.0-34.0); MEAN PLATELET VOLUME 9.8 fL (7.4-10.4); NEUTROPHILS 79.8 % (40-80); PLATELET COUNT 291 10x3/uL (130-400); RBC 3.47 10x6/uL (4.00-5.40); RDW 14.6 % (11.5-14.5); WBC 12.3 10x3/uL (4.8-10.8)
[2019-12-09 16:33] LABS: POTASSIUM - SERUM 6.1 mmol/L (3.5-5.1)
--- NOTE | 2019-12-09 18:35 | NUR ---
PT WAS BROUGHT AN EMPTY PORTABLE OXYGEN TANK. [facility] TO AD[facility]ISE.
--- NOTE | 2019-12-09 19:00 | NUR ---
REPORT RECEIVED. PT IN DIALYSIS AT THIS TIME.
[2019-12-09 21:30] VITALS: BP 135/42
--- NOTE | 2019-12-09 21:30 | NUR ---
PT RETURNED FROM DUALYSIS, NO NEEDS EXPRESSED. REFUSING LYRICA THINKS ITS WHAT HAS BEEN CAUSING HER N/V.
[2019-12-10 00:30] VITALS: BP 158/33
[2019-12-10 08:00] VITALS: BP 154/58
[2019-12-10 09:09] LABS: ANION GAP 15.5 mmol/L (8-16); BASOPHILS 0.2 % (0-2); BILIRUBIN - TOTAL 0.28 mg/dL (0.2-1.3); CALCIUM 8.9 mg/dL (8.5-10.1); CARBON DIOXIDE 28.5 mmol/L (21.0-32.0); CREATININE - SERUM 6.3 mg/dL (0.6-1.3); EOSINOPHILS 1.5 % (0-7); HEMATOCRIT 29.5 % (36.0-48.0); HEMOGLOBIN 9.3 g/dL (12-16); IMMATURE GRANULOCYTES 0.6 % (0-5); LYMPHOCYTES 13.5 % (15-50); MCH 28.2 pg (26.0-34.0); MCHC 31.5 g/dL (31.0-37.0); MCV 89.4 fL (80.0-100.0); MEAN PLATELET VOLUME 9.5 fL (7.4-10.4); MONOCYTES 6.2 % (2-11); PLATELET COUNT 294 10x3/uL (130-400); PROTEIN - SERUM 7.4 g/dL (6.4-8.2); RDW 14.6 % (11.5-14.5); WBC 10.4 10x3/uL (4.8-10.8)
--- NOTE | 2019-12-10 09:24 | NUR ---
PT AWAKE AND ORIENTED, ASSISTED TO BATHROOM (BEDSIDE COMMODE). NO COMPLAINTS OF NAUSEA THIS MORNING, STILL REFUSES COREG AND LYRICA D/T SIDE EFFECTS SHE DOES NOT WANT. NO COMPLAITNS/CONCERNS AT THIS TIME. CL INR EACH, SRX2.
[2019-12-10 16:00] VITALS: BP 147/55
--- NOTE | 2019-12-10 19:21 | NUR ---
REPORT RECEIVED. PT LAYING IN BED WATCHING TV. RR EVEN AND UNLABORED OR RA. NO S/SX OF DISTRESS OBSERVED AT THIS TIME. PT DENIES NEEDS. SRX2, CALL LIGHT IN REACH. WILL CTM.
[2019-12-10 20:30] VITALS: BP 154/68
[2019-12-11 00:30] VITALS: BP 157/39
[2019-12-11 04:30] VITALS: BP 139/62
[2019-12-11 04:32] LABS: BASOPHILS 0.2 % (0-2); EOSINOPHILS 1.6 % (0-7); HEMATOCRIT 26.7 % (36.0-48.0); HEMOGLOBIN 8.5 g/dL (12-16); IMMATURE GRANULOCYTES 0.8 % (0-5); LYMPHOCYTES 18.8 % (15-50); MCH 28.3 pg (26.0-34.0); MCHC 31.8 g/dL (31.0-37.0); MEAN PLATELET VOLUME 9.6 fL (7.4-10.4); MONOCYTES 7.5 % (2-11); NEUTROPHILS 71.1 % (40-80); PLATELET COUNT 295 10x3/uL (130-400); RDW 14.8 % (11.5-14.5); WBC 10.9 10x3/uL (4.8-10.8)
[2019-12-11 04:55] LABS: ANION GAP 16.2 mmol/L (8-16); CALCIUM 8.9 mg/dL (8.5-10.1); CARBON DIOXIDE 26.2 mmol/L (21.0-32.0); POTASSIUM - SERUM 5.4 mmol/L (3.5-5.1)
--- NOTE | 2019-12-11 07:35 | NUR ---
PT AWAKE AND OREINTED, LYING IN BED WAITING ON BREAFKAST. NO COMPLAINTS/CONCENRS NOTED/STATED AT THIS TIME. CL IN REACH, SRX2, NO FAMILY PRESENT AT BEDSIDE.
[2019-12-11 10:26] VITALS: BP 110/90
--- NOTE | 2019-12-11 10:28 | NUR ---
PT AWAKE ALERT ORIENTED. NO COMPLAINTS OR CONCERNS AT THIS TIME. NO FAMILY AT BEDSIDE. ASSSITED TO [facility] COMMODE AND BACK. REQUESTING REPEATEDLY TO SPEAK TO THE AERONAUTICAL TEST ENGINEER STATING SHE NEEDS A WHEELCHIAR ACCESSABLE HOME. NO FURTHER QUESTIONS AND COMPLAINTS. CL INR EACH, SRX2
--- NOTE | 2019-12-11 11:01 | NUR ---
I have reviewed this patient and I concur with the Shift Assessment completed by the Licensed Practical Nurse today this shift.
--- NOTE | 2019-12-11 12:16 | NUR ---
PT AWAKE AND ORIENTED, AGREED TO NO MORE PUDDINGS TO DAY SINCE HER BLOOD SUGAR WAS 445. CL IN REACH, SRX2. NO COMPLAINTS OR CONCERNS, WANTS TO KNOW WHEN SHE'S GOING TO DIALYSIS, CALLED DIALYSIS NURSE THEY STATED THEY WERE NOT SURE YET D/T MACHINE DIFFICULTIES.
--- NOTE | 2019-12-11 13:03 | NUR ---
TP AWAKE/ORIENTED, TAKEN TO DIALYSIS BY BED.
[2019-12-11 14:55] VITALS: BP 173/62
--- NOTE | 2019-12-11 17:28 | NUR ---
PT AWAKE AND ORIENTED, C/O NOT FEELING LIKE SHE'S BEEN GIVEN ENOUGH INFORMATION. WHEN CM WENT TO ROOM AND INFORMED HER OF PENDING D/C TOMORROW PT HAD LOTS AND LOTS OF QUESTIONS CENTERING AROUND WANTING TO SPEAK TO THE ACCESS REPRESENTATIVE AND GAIN CLARIFICATION OVER HER CARDIAC ISSUES. CL IN REACH, SRX2.
--- NOTE | 2019-12-11 17:31 | MORECARE ---
CASE MANAGEMENT DISCHARGE SUMMARY PATIENT: SMITH GILBERT UNIT: [id number] ADM DATE: 12/04/19 AGE: 54 : 61 SEX: F ROOM/BED: D.2106 AUTHOR: PARVIN GIFFORD PHYSICIAN: REFERRING PHYSICIAN: KATIE FORD DO DATE OF SERVICE: 12/11/19 Discharge Plan Patient Name: SMITH GILBERT Facility: [facility]:[place] : 1965 Planned Disposition: Home Anticipated Discharge Date: 12/08/19 Discharge Date: Expected LOS: 4 Initial Reviewer: [id number] Initial Review Date: 12/04/2019 Generated: 12/11/19 6:30 pm DCP- Discharge Planning Updated by : Aldo Valencia on 12/11/19 4:[address] Patient Name: SMITH GILBERT Encounter No: [id number] : 1965 Primary Insurance: MEDICAID [place] Anticipated DC Date: 12-08-2019 Planned Disposition: Home DCP follow-up note: CM MET WITH PT IN ROOM TO DISCUSS DISCHARGE NEEDS AND PLANNING. PT HAS WHEELCHAIR FROM [employer]. PT REPORTS IT IS A RENTAL AND SHE NEEDS ORDER FOR POWER WHEELCHAIR AND IT WILL TAKE UP TO THREE MONTHS TO GET. CM EXPLAINED SHE WILL NEED TO SPEAK TO THE DOCTOR ABOUT GETTING A POWER WHEELCHAIR. CM DISCUSSED AVAILABILITY OF HOME HEALTH, REHAB SERVICES AND MEDICAL EQUIPMENT. PT DENIES DISCHARGE NEEDS. STATES SHE NEEDS TO TALK TO THE DIVING SUPERVISOR ABOUT HER BLOOD CLOTS AND IF SHE HAS XERALTO ORDERED FOR DISCHARGE HOME, SHE CAN'T AFFORD IT. CM EXPLAINED THAT IF ORDERED XERALTO, CM CAN PROVIDE A COUPON. PT STATES SHE CAN AFFORD $10 PER MONTH. PT REPORTS SHE WILL NEED MEDICAID TRANPSORT HOME AT DISCHARGE, SHE HAS CALLED THEM TO ENSURE THEY CAN ACCOMODATE HER NEW WHEELCHAIR AND THEY CAN. IMPORTANT MESSAGE FROM MEDICARE PROVIDED AND EXPLAINED. CM TO FOLLOW AND ASSIST NEEDED. Aldo Valencia CASE MANAGEMENT DCP- Discharge Planning Updated by [id number]: Aldo Valencia on 12/08/19 5:[address] Patient Name: SMITH GILBERT Admission Status: ER Accout number: [id number] Admission Date: 12-04-2019 : 1965 Admission Diagnosis: Attending: SYLVIA Current LOS: 4 Anticipated DC Date: 12-08-2019 Planned Disposition: Home Primary Insurance: MEDICAID [place] Discharge Planning Comments: CM RECEIVED REQUEST FOR WHEELCHAIR FROM PATIENT. CM SPOKE TO CHANA PERDOMO WHO PROVIDED ORDER FOR WHEELCHAIR. CM MET WITH PT IN ROOM TO DISCUSS DISCHARGE PLANNING AND NEEDS. PT REPORTS LIVING AT HOME ALONE DEPENDENTLY ON NIECE WHO IS PAID CAREGIVER THROUGH [employer] / [employer]ICA[employer] WHO ASSISTS WITH BATHING AND TRANSFERS 2-3 HOURS PER DAY, 5 DAYS PER WEEK. PT HAS CANE AND WALKER FROM [facility]. CM DISCUSSED AVAILABILITY OF HOME HEALTH, REHAB SERVICES AND MEDICAL EQUIPMENT. PT DENIES DISCHARGE NEEDS OTHER THAN A WHEELCHAIR. CHOICE FOR [facility] SIGNED. PT REPORTS HER FAMILY WILL PICK HER UP FOR DISCHARGE HOME, IF THEY ARE NOT AVAILABLE, PT WILL NEED MEDICAID TRANSPORTATION THAT IS ONLY AVAILABLE ON WEEKDAYS. CM CALLED [facility], , SPOKE TO PATRICIA AND DISCUSSED REFERRAL. CM FAXED REFERRAL AND ORDER TO [facility] AT [phone]. [facility] TO PROCESS ORDER FOR WHEELCHAIR. PT PLANS TO DISCHARGE HOME. ORDER FOR WHEELCHAIR SENT TO [facility] FOR PROCESSING AND HOME DELIVERY OF WHEELCHAIR. CM TO FOLLOW AND ASSIST NEEDED. Training Technician: Aldo Valencia [facility] - Discharge Planning Initial Assessment Updated by [id number]: Aldo Valencia on 12/08/19 6:05 pm * Is the patient Alert and Oriented? Yes * How many steps to enter\exit or inside your home? NONE * PCP DR. REDD * Pharmacy [facility] * Preadmission Environment Home Alone * ADLs Partial Dependent * Partial ADLs (Assistance needed) Bathing Transfers * Equipment Cane Walker * Other Equipment [employer], MEDICAL EQUIPMENT PROVIDER * List name and contact numbers for known caregivers / representatives who currently or will assist patient after discharge: PARDEEP BROWN SALTY, * Verbal permission to speak to the caregivers and representatives has been obtained from the patient. N/A * Community resources currently utilized Other Private Duty Care * Please name any agencies selected above. OUTPATIENT DIALYSIS, [facility], MWF, MEDICAID TRANSPORTATION [facility], NIECE IS PAID CAREGIVER, 5 DAYS PER WEEK, 2-3 HOURS PER DAY NEEDED. * Additional services required to return to the preadmission environment? No * Can the patient safely return to the preadmission environment? Yes * Has this patient been hospitalized within the prior 30 days at any hospital? No Coverage Notice Reviewer: [id number] Surekha Valencia Notice Issued Date-Time: 12/11/2019 17:20 Notice Type: IM Discharge Notice Notice Delivered To: Patient Relationship to Patient: Warehouse Traffic Supervisor Name: Delivery Method: HAND - Hand Delivered Nishi Days: Prior Verbal Notification: Recipient Understood Notice: Yes Recipient Signature: Yes Med Rec Note Co-signed by Attending: Coverage Notice Comment: Last DP export: 12/08/19 5:24 p Patient Name: SMITH GILBERT Page 99123 at 1731 All edits/amendments must be made on the electronic document DICTATION DATE: 12/11/191729 BROKE MAN: ROSA 12/11/191729 RPT#: [id number] AL DATE: STATUS: ADM IN [facility] [address] [place] [address] END OF REPORT
--- NOTE | 2019-12-11 19:02 | NUR ---
PT AWAKE AND OX4 VERY ARGUEMENTATIVE AND MEETS ME WITH LOADS OF QUESTIONS ABOUT MEDS AND OUR PROCEDURES MOSTLY WHY SHE IS NOT GETTING CERTAIN MEDS EACH ONE I FOUND ON THE MAR AND DOCUMENTATION THAT IT HAS BEEN GIVEN SHE ALSO CO THAT THE DRS ARE NOT TELLING HER WHAT IS WRONG WITH HER AND "IM NOT GOING HOME TILL I SPEAK TO MY DRs" PT IS UPSET ALSO THAT HER INSULINE WE GIVE IS NOT INSULATED I ATTEMPTED TO EDUCATE BED IS LOW AND LOCKED AND PT IS WITH CALL LIGHT SAFTY CHECK DONE PT IS LEGALLY BLIND
[2019-12-11 20:36] VITALS: BP 160/70
--- NOTE | 2019-12-11 21:44 | NUR ---
PT IS EXTREMELY ARGUMENTATIVE AND REFUSED SOME MEDS TONIGHT
[2019-12-12 00:28] VITALS: BP 154/57
--- NOTE | 2019-12-12 03:46 | NUR ---
PT PUTS CHURN OPERATOR LIGHT AND STATES I DONT FEEL RIGHT ITS BP OR SUGER SPOT CHECK GLUCOSE 203
--- NOTE | 2019-12-12 03:53 | NUR ---
BP 166/80 PULSE 88 PT AT THIS POINT IS ASKING ME TO QUOTE ALL HER MEDS BY HEART AND TELLING ME YOU ARE MY NURSE YOU SHOULD BE ABLE TO TELL ME ANYTHING ON MY CHART I SAID NO MA'AM I DO NOT KNOW YOUR MEDS AND CHART WITHOUT LOOKING THINGS UP PT IS REFUSING MEDS TELLING ME IM MAKING HER SICK BY GIVING HER MEDS TOLD ME THAT CRYSTAL PILL YOU GAVE ME MADE ME SICK I REMINDEED HER THAT I ONLY GAVE HER TWO TABS BOTH OF WHICH ARE WHITE. PT BECAME VERY ARGUMENTATIVE SO I ASKED HER MAY I GET YOU ANYTHING SHE SAID NO SO I LEFT THE ROOM
--- NOTE | 2019-12-12 06:29 | NUR ---
PT IS REFUSING TO ALLOW ME TO FINGER STICK OR TO GIVE INSULINE BS WAS 198 2 HOURS AGO
[2019-12-12 06:30] VITALS: BP 166/40
[2019-12-12 07:05] LABS: BASOPHILS 0.3 % (0-2); EOSINOPHILS 1.6 % (0-7); HEMATOCRIT 25.4 % (36.0-48.0); HEMOGLOBIN 8.3 g/dL (12-16); IMMATURE GRANULOCYTES 0.6 % (0-5); LYMPHOCYTES 10.7 % (15-50); MCH 28.2 pg (26.0-34.0); MCHC 32.7 g/dL (31.0-37.0); MEAN PLATELET VOLUME 9.8 fL (7.4-10.4); MONOCYTES 8.3 % (2-11); NEUTROPHILS 78.5 % (40-80); PLATELET COUNT 310 10x3/uL (130-400); RBC 2.94 10x6/uL (4.00-5.40); RDW 14.4 % (11.5-14.5); WBC 11.6 10x3/uL (4.8-10.8)
[2019-12-12 07:08] LABS: MCV 86.4 fL (80.0-100.0)
[2019-12-12 07:12] LABS: ANION GAP 18.6 mmol/L (8-16); CALCIUM 8.7 mg/dL (8.5-10.1); CARBON DIOXIDE 24.2 mmol/L (21.0-32.0); CREATININE - SERUM 7.6 mg/dL (0.6-1.3); POTASSIUM - SERUM 5.8 mmol/L (3.5-5.1)
--- NOTE | 2019-12-12 08:27 | MORECARE ---
CASE MANAGEMENT DISCHARGE SUMMARY PATIENT: SMITH GILBERT UNIT: [id number] ADM DATE: 12/04/19 AGE: 54 : 61 SEX: F ROOM/BED: D.3969 AUTHOR: PARVIN GIFFORD PHYSICIAN: REFERRING PHYSICIAN: KATIE FORD DO DATE OF SERVICE: 12/12/19 Discharge Plan Patient Name: SMITH GILBERT Facility: [facility]:[place] : 1965 Planned Disposition: Home Anticipated Discharge Date: 12/08/19 Discharge Date: Expected LOS: 4 Initial Reviewer: [id number] Initial Review Date: 12/04/2019 Generated: 12/12/19 9:27 am Comments DCP- Discharge Planning Updated by [id number]: Aldo Hernandez on 12/12/19 7:[address] Patient Name: SMITH GILBERT Encounter No: [id number] : 1965 Primary Insurance: MEDICAID [place] Anticipated DC Date: 12-08-2019 Planned Disposition: Home DCP follow-up note: CM MET WITH PT IN ROOM TO DISCUSS DISCHARGE NEEDS AND PLANNING. PT HAS WHEELCHAIR FROM [employer]. PT REPORTS IT IS A RENTAL AND SHE NEEDS ORDER FOR POWER WHEELCHAIR AND IT WILL TAKE UP TO THREE MONTHS TO GET. CM EXPLAINED SHE WILL NEED TO SPEAK TO THE DOCTOR ABOUT GETTING A POWER WHEELCHAIR. CM DISCUSSED AVAILABILITY OF HOME HEALTH, REHAB SERVICES AND MEDICAL EQUIPMENT. PT DENIES DISCHARGE NEEDS. STATES SHE NEEDS TO TALK TO THE ACCOUNTING LECTURER ABOUT HER BLOOD CLOTS AND IF SHE HAS XERALTO ORDERED FOR DISCHARGE HOME, SHE CAN'T AFFORD IT. CM EXPLAINED THAT IF ORDERED XERALTO, CM CAN PROVIDE A COUPON. PT STATES SHE CAN AFFORD $10 PER MONTH. PT REPORTS SHE WILL NEED MEDICAID TRANPSORT HOME AT DISCHARGE, SHE HAS CALLED THEM TO ENSURE THEY CAN ACCOMODATE HER NEW WHEELCHAIR AND THEY CAN. IMPORTANT MESSAGE FROM MEDICARE PROVIDED AND EXPLAINED. CM TO FOLLOW AND ASSIST NEEDED. Aldo Hernandez, CASE MANAGEMENT Appended by Aldo Hernandez on 12/12/2019 8:23 HOME HEALTH PHYSICAL THERAPIST: CM MET WITH PT, EXPLAINED THAT THE IMPORTANT MESSAGE FROM MEDICARE HAD BEEN PROVIDED IN ERROR PT HAS MEDICAID, NOT MEDICARE. PT REPORTED UNDERSTANDING. ALDO HERNANDEZ, CASE MANAGMEENT DCP- Discharge Planning Updated by [id number]: Aldo Hernandez on 12/08/19 5:[address] Patient Name: SMITH GILBERT Admission Status: ER Accout number: [id number] Admission Date: 12-04-2019 : 1965 Admission Diagnosis: Attending: SYLVIA Current LOS: 4 Anticipated DC Date: 12-08-2019 Planned Disposition: Home Primary Insurance: [place]ICAID [place] Discharge Planning Comments: CM RECEIVED REQUEST FOR WHEELCHAIR FROM PATIENT. CM SPOKE TO CHANA PERDOMO WHO PROVIDED ORDER FOR WHEELCHAIR. CM MET WITH PT IN ROOM TO DISCUSS DISCHARGE PLANNING AND NEEDS. PT REPORTS LIVING AT HOME ALONE DEPENDENTLY ON [place] WHO IS PAID CAREGIVER THROUGH [employer] / [employer]ICA[employer] WHO ASSISTS WITH BATHING AND TRANSFERS 2-3 HOURS PER DAY, 5 DAYS PER WEEK. PT HAS CANE AND WALKER FROM [facility]. CM DISCUSSED AVAILABILITY OF HOME HEALTH, REHAB SERVICES AND MEDICAL EQUIPMENT. PT DENIES DISCHARGE NEEDS OTHER THAN A WHEELCHAIR. CHOICE FOR [facility] SIGNED. PT REPORTS HER FAMILY WILL PICK HER UP FOR DISCHARGE HOME, IF THEY ARE NOT AVAILABLE, PT WILL NEED MEDICAID TRANSPORTATION THAT IS ONLY AVAILABLE ON WEEKDAYS. CM CALLED [facility], , SPOKE TO PATRICIA AND DISCUSSED REFERRAL. CM FAXED REFERRAL AND ORDER TO [facility] AT [phone]. [facility] TO PROCESS ORDER FOR WHEELCHAIR. PT PLANS TO DISCHARGE HOME. ORDER FOR WHEELCHAIR SENT TO [facility] FOR PROCESSING AND HOME DELIVERY OF WHEELCHAIR. CM TO FOLLOW AND ASSIST NEEDED. Environmental Field Services Technician: Aldo Hernandez DCPIA - Discharge Planning Initial Assessment Updated by [id number]: Aldo Hernandez on 12/08/19 6:05 pm * Is the patient Alert and Oriented? Yes * How many steps to enter\exit or inside your home? NONE * PCP DR. REDD * Pharmacy [facility] * Preadmission Environment Home Alone * ADLs Partial Dependent * Partial ADLs (Assistance needed) Bathing Transfers * Equipment Cane Walker * Other Equipment [employer], MEDICAL EQUIPMENT PROVIDER * List name and contact numbers for known caregivers / representatives who currently or will assist patient after discharge: SALTY JARAMILLO, * Verbal permission to speak to the caregivers and representatives has been obtained from the patient. N/A * Community resources currently utilized Other Private Duty Care * Please name any agencies selected above. OUTPATIENT DIALYSIS, [facility], MWF, MEDICAID TRANSPORTATION [facility], NIECE IS PAID CAREGIVER, 5 DAYS PER WEEK, 2-3 HOURS PER DAY NEEDED. * Additional services required to return to the preadmission environment? No * Can the patient safely return to the preadmission environment? Yes * Has this patient been hospitalized within the prior 30 days at any hospital? No Coverage Notice Reviewer: [id number] Surekha Hernandez Notice Issued Date-Time: 12/11/2019 17:20 Notice Type: IM Discharge Notice Notice Delivered To: Patient Relationship to Patient: Line Dancer Name: Delivery Method: HAND - Hand Delivered Nishi Days: Prior Verbal Notification: Recipient Understood Notice: Yes Recipient Signature: Yes Med Rec Note Co-signed by Attending: Coverage Notice Comment: Last DP export: 12/11/19 4:31 p Patient Name: SMITH GILBERT Page 34501 at 0827 All edits/amendments must be made on the electronic document DICTATION DATE: 12/12/19826 INSURANCE APPLICATION INVESTIGATOR: ROSA 12/12/19826 RPT#: [id number] DC DATE: STATUS: ADM IN [facility] [address] [place] [address] END OF REPORT
[2019-12-12 08:34] VITALS: BP 163/62
[2019-12-12 11:50] VITALS: BP 143/45
--- NOTE | 2019-12-12 12:46 | NUR ---
Nutrition Follow-up: Eating well. HD yesterday. Diet: Renal ADA PO intake: 100% yesterday No new wt; last wt: 165# (12/05) Last BM: 12/12 per chart Labs noted: Na 132, K+ 5.8, Glu 161 Meds noted: Humulin, Lantus, Miralax, Pancrease, Nephrovite -Continue current diet as tolerated. -Need new wt; noted daily wts ordered. -RD following.
--- NOTE | 2019-12-12 14:39 | NUR ---
PATIENT ALERT, ORIENTED, DEMANDING, QUITE IRRITABLE, REFUSED LYRICA AT MORNING MED PASS. DENIES PAIN OR DISCOMFORT. RESTING QUIETLY IN BED AT THIS TIME. MEDS ADMIN PER ORDERS WITH EXCEPTION OF LYRICA. CALL LIGHT WITHIN REACH, INSTRUCTED TO CALL WITH NEEDS.
[2019-12-12 16:04] VITALS: BP 155/61
--- NOTE | 2019-12-12 19:10 | NUR ---
RESTING WITH EYES CLOSED PT IS DEMANDING NOT TO BE DISTURBED UNTILL SHE CALLS BED APPEARS LOW AND LOCKED CALL LIGHT IS BESIDE PT
[2019-12-12 21:03] VITALS: BP 175/60
[2019-12-13 01:51] VITALS: BP 164/64
--- NOTE | 2019-12-13 02:09 | NUR ---
I have reviewed this patient and I concur with the Shift Assessment completed by the Licensed Practical Nurse today this shift.
[2019-12-13 04:36] LABS: BASOPHILS 0.1 % (0-2); EOSINOPHILS 1.3 % (0-7); HEMATOCRIT 24.9 % (36.0-48.0); HEMOGLOBIN 8.1 g/dL (12-16); IMMATURE GRANULOCYTES 0.2 % (0-5); LYMPHOCYTES 13.6 % (15-50); MCH 28.5 pg (26.0-34.0); MCHC 32.5 g/dL (31.0-37.0); MCV 87.7 fL (80.0-100.0); MEAN PLATELET VOLUME 9.3 fL (7.4-10.4); MONOCYTES 10.1 % (2-11); NEUTROPHILS 74.7 % (40-80); PLATELET COUNT 322 10x3/uL (130-400); RBC 2.84 10x6/uL (4.00-5.40); RDW 14.5 % (11.5-14.5); WBC 8.8 10x3/uL (4.8-10.8)
[2019-12-13 04:50] LABS: ANION GAP 17.2 mmol/L (8-16); CALCIUM 8.8 mg/dL (8.5-10.1); CARBON DIOXIDE 26.1 mmol/L (21.0-32.0); CREATININE - SERUM 8.7 mg/dL (0.6-1.3)
[2019-12-13 05:04] LABS: POTASSIUM - SERUM 6.3 mmol/L (3.5-5.1)
--- NOTE | 2019-12-13 05:17 | NUR ---
REFUSES WIEGHT CHECK AND GLUCOSE DRAW
[2019-12-13 06:34] VITALS: BP 153/58
--- NOTE | 2019-12-13 08:27 | NUR ---
PT WANTING HYDROCODONE AND NOT FENTANYL PATCH AND WANTS AN ORTHOPEDIC DOCTOR TO COME LOOK AT HER FOOT. I STATED I WILL CALL [facility] AND LET THEM KNOW. PT VERBALIZED UNDERSTANDING. CALLED JUAN LOERA AND LEFT VOICE MESSAGE ABOUT WHAT PT IS WANTING. WILL AWAIT A RETURNED CALL.
[2019-12-13 08:33] VITALS: BP 153/37
--- NOTE | 2019-12-13 08:38 | NUR ---
SPOKE WITH JUAN ZAYAS AND I STATED TO HER PT WANTS HYDROCODNE AND NOT FENTANYL PATCH AND REFUSED FENTANYL PATCH YESTERDAY AND WANTS ORTHOPEDIC DOCTOR TO SEE HER AND SHE STATES TO DC FENTANYL PATCH AND ORDER SAME AMOUNT OF HYDROCODONE SHE WAS ON PREVIOSLY AND CONSULT ORTHO AND IF DR. LIANG WANTS TO CHANGE ANYTHING THEN HE CAN CHANGE IT WHEN HE GETS HERE. I VERBALIZED UNDERSTANDING.
--- NOTE | 2019-12-13 10:37 | NUR ---
PT TAKEN TO DIALYSIS VIA BED.
--- NOTE | 2019-12-13 14:39 | NUR ---
PT RETURNED FROM DIALYSIS VIA BED. DIALYSIS STATES THEY REMOVED 2L.
[2019-12-13 15:39] VITALS: BP 157/82
--- NOTE | 2019-12-13 17:44 | NUR ---
I have reviewed this patient and I concur with the Shift Assessment completed by the Licensed Practical Nurse today this shift.
[2019-12-13 20:00] VITALS: BP 138/42
--- NOTE | 2019-12-13 20:30 | NUR ---
PT UPSET THAT MANOHAR IS STILL ON THE MAR TO GIVE TO HER. SHE STATES SHE NO LONGER TAKES THIS BECAUSE IT MAKES HER HALLUCINATE.
--- NOTE | 2019-12-13 21:18 | NUR ---
PTS BLOOD SUGAR IS 297. PER SLIDING SCALE SHE WOULD GET 10 UNITS OF REGULAR INSULIN. SHE STATES SHE ONLY WANTS 6 UNITS BECAUSE SHE WILL BOTTOM OUT IF I GIVE HER 10UNITS. GAVE HER 6 UNITS REQUESTED.
[2019-12-14] VITALS: BP 129/41
[2019-12-14 04:00] VITALS: BP 131/40
[2019-12-14 06:38] LABS: BASOPHILS 0.2 % (0-2); EOSINOPHILS 1.5 % (0-7); HEMATOCRIT 26.4 % (36.0-48.0); HEMOGLOBIN 8.2 g/dL (12-16); IMMATURE GRANULOCYTES 0.2 % (0-5); MCH 27.9 pg (26.0-34.0); MCHC 31.1 g/dL (31.0-37.0); MEAN PLATELET VOLUME 9.7 fL (7.4-10.4); MONOCYTES 9.1 % (2-11); PLATELET COUNT 316 10x3/uL (130-400); RBC 2.94 10x6/uL (4.00-5.40); RDW 14.8 % (11.5-14.5)
[2019-12-14 06:39] LABS: MCV 89.8 fL (80.0-100.0)
--- NOTE | 2019-12-14 06:47 | NUR ---
PTS CONCERNED ABOUT HER BLOOD SUGAR OF 95. SHE SAID THAT IS LOW FOR HER AND SHE FEELS REALLY BAD. WHEN ASKED HOW SHE FEELS SHE STATES JUST REALLY BAD. GLUCAGEN 1MG IM GIVEN.
[2019-12-14 06:58] LABS: CALCIUM 8.6 mg/dL (8.5-10.1); CARBON DIOXIDE 29.5 mmol/L (21.0-32.0); CREATININE - SERUM 7.3 mg/dL (0.6-1.3)
[2019-12-14 07:26] LABS: POTASSIUM - SERUM 6.5 mmol/L (3.5-5.1)
[2019-12-14 18:10] VITALS: BP 148/41
--- NOTE | 2019-12-14 19:17 | NUR ---
PT ALERT AND CALL LIGHT IS IN REACH PT EXPRESSES NEEDS AND THOSE NEEDS MEET PT IS LESS ARGUMENTATIVE AT THIS TIME THE MY PAST DEALINGS STUMP TO PT LEFT LEG FROM RECENT BKA BANDAGE IN PLACE AND COVERED WITH RAFAEL BANDAGES NO BLEAD THROUGH
[2019-12-14 20:00] VITALS: BP 156/41
[2019-12-15] VITALS: BP 164/43
--- NOTE | 2019-12-15 02:29 | NUR ---
PT BEGAN TO COMPLAIN THAT HER EJ WAS LEAKING I SAW NO EVIDENCE OF THIS I REAPPLIED DRSG AND FLUSHED WITH 10 CC FLUID AND SAW NO LEAK CHARGE NURSE ANSWERED LIGHT AND SAW NO LEAK I ANSWERED LIGHT NOW AND DRSG IS REMOVED AND A COPIUS AMT OF CLEAR LIQUID IS ON PT"S CHEST I ASKED CHARGE NURSE TO HANDLE THE SITUATION
--- NOTE | 2019-12-15 02:52 | NUR ---
RN REPORTED TO ME THAT THE HUB WAS UNSCREWED RN FIXED AND REDRESSED SITE WITH NO LEAKING AFTER
--- NOTE | 2019-12-15 03:32 | NUR ---
I have reviewed this patient and I concur with the Shift Assessment completed by the Licensed Practical Nurse today this shift.
[2019-12-15 04:21] LABS: BASOPHILS 0.1 % (0-2); EOSINOPHILS 0 % (0-7); HEMATOCRIT 24.5 % (36.0-48.0); HEMOGLOBIN 7.9 g/dL (12-16); IMMATURE GRANULOCYTES 0.3 % (0-5); LYMPHOCYTES 8.2 % (15-50); MCH 28.6 pg (26.0-34.0); MCHC 32.2 g/dL (31.0-37.0); MCV 88.8 fL (80.0-100.0); MEAN PLATELET VOLUME 9.3 fL (7.4-10.4); MONOCYTES 11.9 % (2-11); NEUTROPHILS 79.5 % (40-80); PLATELET COUNT 331 10x3/uL (130-400); RBC 2.76 10x6/uL (4.00-5.40); RDW 14.9 % (11.5-14.5); WBC 9.4 10x3/uL (4.8-10.8)
[2019-12-15 04:40] LABS: ANION GAP 16.6 mmol/L (8-16); CALCIUM 8.9 mg/dL (8.5-10.1); CARBON DIOXIDE 26.3 mmol/L (21.0-32.0); CREATININE - SERUM 6.2 mg/dL (0.6-1.3); POTASSIUM - SERUM 5.9 mmol/L (3.5-5.1)
--- NOTE | 2019-12-15 10:06 | NUR ---
WHILE TAKING ANOTHER PT IN DIALYSIS. PT YELLING AT THIS NURSE (WHO IS NOT HER PRIMARY NURSE) AND DIALYSIS NURSE THAT SHE NEEDS TO SPEAK WITH SPINNING AND WINDING SUPERVISOR RIGHT AWAY. WHEN ASKED WHAT SHE NEEDS TO SPEAK WITH SPINNING AND WINDING SUPERVISOR ABOUT SHE STATES "IT IS A PERSONAL MATTER THAT DOESN'T CONCERN YA'LL." DIALYSIS NURSE STATES SHE CAN CALL PRIMARY NURSE AND TELL THEM SHE WANTS TO SPEAK WITH THEM. PT VERBALIZED UNDERSTANDING. WHEN THIS NURSE ARRIVED TO FLOOR CALLED SPINNING AND WINDING SUPERVISOR AND TOLD HER HOW PT IS ACTING AND WHAT SHE IS STATING PORSHA HARTAPNS STATES "I WILL NOT GO SEE HER IN DIALYSIS BUT I WILL SEE HER WHEN SHE COMES BACK ON THE FLOOR SO LET ME KNOW WHEN SHE COMES BACK." I VERBALIZED UNDERSTANDING. CALLED AND SPOKE WITH PAGE IN DIALYSIS AND STATED TO HER WHAT SPINNING AND WINDING SUPERVISOR STATED TO ME. SHE VERBALIZED UNDERSTANDING AND STATED SHE WOULD LET PT KNOW.
[2019-12-15 10:16] VITALS: BP 109/46
--- NOTE | 2019-12-15 10:37 | NUR ---
Nutrition Follow-up: POD 1 L BKA. Ate 100% of breakfast this AM per record. HD today. Diet: Renal ADA Wt: 165# (12/14); 165# (12/04) Labs noted: Na 135, K+ 5.9, Glu 146 Meds noted: Humulin, Lantus, Miralax, Pancrease, Nephrovite -Continue current diet as tolerated. -Monitor wt; noted daily wts ordered. -RD following.
[2019-12-15 18:09] VITALS: BP 132/51
--- NOTE | 2019-12-15 19:00 | NUR ---
REPORT RECEIVED. BEDSIDE SHIFT REPORT COMPLETE. PT C/O THAT SHE DOESNT THINK SHE IS GETTING THE MORHINE FROM GENERAL LABOR FORKLIFT OPERATOR BECAUSE HER PAIN HAS NOT IMPROVED. GENERAL LABOR FORKLIFT OPERATOR +NS IS INFUSING TO L FA. PT C/O ABOUT HER MEDICATION. INFORMED HER IT WASNT TIME. NO FUTHER C/O AT THIS TIME. BANDAGE TO LEFT BKA C/D/I. CALL LIGHT IN REACH. WILL CTM.
[2019-12-15 20:30] VITALS: BP 143/81
[2019-12-16 04:30] VITALS: BP 141/47
--- NOTE | 2019-12-16 07:38 | NUR ---
PT SITTING UP IN BED. RR EVEN AND UNLABORED. REQUESTED JUICE, ALREADY HAD A JUICE FROM THIS MORNING, STATED THAT WAS OKAY. DENIES NEEDS OR PAIN AT THIS TIME. BED IN LOWEST POSITION. CALL LIGHT WITHIN REACH. WILL CONTINUE TO MONITOR.
[2019-12-16 08:21] VITALS: BP 192/51
[2019-12-16 11:22] VITALS: BP 127/38
[2019-12-16 11:26] LABS: MCH 28.1 pg (26.0-34.0); MCHC 30.8 g/dL (31.0-37.0); MEAN PLATELET VOLUME 9.5 fL (7.4-10.4); RDW 15.8 % (11.5-14.5)
[2019-12-16 11:27] LABS: HEMATOCRIT 33.4 % (36.0-48.0); HEMOGLOBIN 10.3 g/dL (12-16); RBC 3.67 10x6/uL (4.00-5.40); WBC 15.2 10x3/uL (4.8-10.8)
[2019-12-16 11:33] LABS: ANION GAP 14.9 mmol/L (8-16); CARBON DIOXIDE 29.2 mmol/L (21.0-32.0); CREATININE - SERUM 5.3 mg/dL (0.6-1.3); POTASSIUM - SERUM 5.1 mmol/L (3.5-5.1)
[2019-12-16 15:32] VITALS: BP 125/55
--- NOTE | 2019-12-16 18:34 | NUR ---
I have reviewed this patient and I concur with the Shift Assessment completed by the Licensed Practical Nurse today this shift.
--- NOTE | 2019-12-16 19:47 | NUR ---
REPORT RECEIVED. BEDSIDE SHIFT REPORT COMPLETE. PT IN BED DEMANDING I CHECK HER BLOOD SUGAR. BLOOD GLUCOSE 112. RR EVEN AND UNLABORED. PT C/O 07/27 AT INCISION SITE, DESPITE UTALIZING BUDGET COORDINATOR. NO S/SX OF DISTRESS OBSERVED AT THIS TIME. CALLL LIGHT IN REACH. WILL CTM.
--- NOTE | 2019-12-17 01:30 | NUR ---
PT CALLED FOR ASSISTANCE. PT C/O THAT SHE DOESNT THINK THE MORPHINE PROFESSOR OF LITERATURE IS ACTUALLY WORKING. EDUCATED PT THAT SHE IS USING CORRECTLEY AND CANNOT EXPECT TO BE COMPLETELY PAIN FREE. WILL CTM.
[2019-12-17 04:30] VITALS: BP 95/55
[2019-12-17 08:06] VITALS: BP 130/44
--- NOTE | 2019-12-17 08:38 | NUR ---
RECIVED REPORT. PATIENT IS SITTING UP IN BED EATTING HER BREAKFAST. DENIES ANY NEEDS AT THIS TIME.
[2019-12-17 09:59] LABS: BASOPHILS 0.1 % (0-2); EOSINOPHILS 0.5 % (0-7); HEMATOCRIT 27.2 % (36.0-48.0); HEMOGLOBIN 8.5 g/dL (12-16); IMMATURE GRANULOCYTES 0.4 % (0-5); LYMPHOCYTES 5.1 % (15-50); MCH 28.3 pg (26.0-34.0); MCHC 31.3 g/dL (31.0-37.0); MCV 90.7 fL (80.0-100.0); MEAN PLATELET VOLUME 9.2 fL (7.4-10.4); MONOCYTES 6.7 % (2-11); NEUTROPHILS 87.2 % (40-80); PLATELET COUNT 288 10x3/uL (130-400); RDW 15.4 % (11.5-14.5)
[2019-12-17 10:00] LABS: WBC 19.3 10x3/uL (4.8-10.8)
[2019-12-17 10:17] LABS: ANION GAP 16.7 mmol/L (8-16); CALCIUM 7.9 mg/dL (8.5-10.1); CARBON DIOXIDE 25.9 mmol/L (21.0-32.0); CREATININE - SERUM 7.1 mg/dL (0.6-1.3); POTASSIUM - SERUM 5.6 mmol/L (3.5-5.1)
[2019-12-17 11:47] VITALS: BP 112/37
--- NOTE | 2019-12-17 13:11 | NUR ---
CALLED PHARM FOR PANCREASE MED. WAITING.
--- NOTE | 2019-12-17 13:55 | NUR ---
CHANGED MORPHINE SYSTEMS TECHNOLOGIST DR LIANG ORDERED.
--- NOTE | 2019-12-17 15:18 | NUR ---
JUST STARTED A NEW MORPHINE IN THE FILE DRAWER FINISHER. SETTINGS ORDERED BY DR LIANG. WASTED THE 5ML THAT WAS PULLED YESTERDAY BY DIRECTOR OF FAMILY SERVICE CENTER NURSE BRIANA. CALLING TO REPORT THE WASTE TO PHARMACY.
[2019-12-17 15:55] VITALS: BP 111/33
--- NOTE | 2019-12-17 19:00 | NUR ---
REPORT RECEIVED. BEDSIDE SHIFT REPORT COMPLETE. PT LAYING IN BED COMFORTABLY TALKING ON THE PHONE. NO S/SX OF DISTRESS OBSERVED AT THIS TIME. NO NEEDS EXPRESSED. CALL LIGHT IN REACH. WILL CTM.
[2019-12-17 20:30] VITALS: BP 129/57
[2019-12-18 00:30] VITALS: BP 137/39
[2019-12-18 04:30] VITALS: BP 125/56
[2019-12-18 07:56] LABS: HEMATOCRIT 27.2 % (36.0-48.0); HEMOGLOBIN 8.5 g/dL (12-16); MCHC 31.3 g/dL (31.0-37.0); MCV 89.5 fL (80.0-100.0); RBC 3.04 10x6/uL (4.00-5.40); RDW 15.2 % (11.5-14.5); WBC 25.5 10x3/uL (4.8-10.8)
[2019-12-18 08:25] LABS: ANION GAP 16.4 mmol/L (8-16); CALCIUM 8.1 mg/dL (8.5-10.1); CARBON DIOXIDE 27.8 mmol/L (21.0-32.0); CREATININE - SERUM 8.7 mg/dL (0.6-1.3)
[2019-12-18 08:32] LABS: POTASSIUM - SERUM 6.2 mmol/L (3.5-5.1)
--- NOTE | 2019-12-18 08:41 | OP ---
PATIENT NAME: SMITH GILBERT MEDICAL RECORD: [id number] :[birth year] LOCATION:D.M2 D.2101 ADMISSION DATE:12/04/19 SURGEON: CLARI TAVAREZ MD DATE OF OPERATION: 12/14/2019 PREOPERATIVE DIAGNOSIS: Chronic ischemia to the left lower extremity. POSTOPERATIVE DIAGNOSIS: Chronic ischemia to the left lower extremity. PROCEDURE: Left below knee amputation. SURGEON: Clari Tavarez MD CENTRAL SUPPLY TECHNICIAN: GRANT Huntley INTRAOPERATIVE COMPLICATIONS: None. SUMMARY OF PATHOLOGIC FINDINGS: Essentially none at the level of the amputation. The patient did appear to have adequate blood flow consistent with the patient's CTA and previous vascular studies. 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 After prolonged workup interventional radiology intervention, as well as vascular surgery consultation, the patient was deemed not a candidate for any further vascular intervention. She began to have ischemic necrosis of her toes as well as a very cold painful foot. After discussing the risks, hazards, and benefits associated with the surgery, the patient agreed to have a below-knee amputation on the left. OPERATIVE SUMMARY IN DETAIL: After obtaining the appropriate preoperative orthopedic surgery consent as well as anesthetic consultation, evaluation and clearance, the patient was brought to the operating room and placed on the operating table in supine position. After adequate general laryngeal mask airway was administered, tourniquet was placed on the proximal aspect of left lower extremity. Left lower extremity was then prepped and draped in routine sterile fashion. Leg was elevated, tourniquet was inflated at 300 mmHg. Planned incision was drawn with a sterile marking pen. Incision was then made down across the tibia and fibula. Corticotomy was done with a power saw. The posterior flap was then created with the amputation knife. At this point, the vessels just below the trifurcation were all identified and ligated with a 0 silk tie. The nerve was also identified, retracted, and cut to try and prevent neuroma formation in the stump. At this point, tourniquet was deflated and no arterial bleeders were noted. Good generalized perfusion was noted. The flap was copiously irrigated and was closed with 2-0 Ethibond followed by #1 Vicryl, 2-0 Vicryl, and skin ian. Sterile dressings were applied. The patient was awakened, taken to recovery room in stable condition. All final needle and sponge counts were correct. TRANSINT:[id number] Voice Confirmation ID: [id number] DOCUMENT ID: [id number] OPERATIVE REPORT [id number] SMITH GILBERT MD, CLARI MAURO at 0841 CC: [id number] DICTATION DATE: 12/14/19 1451 BLEACH PLANT OPERATOR: 12/14/19 2343 ADM IN [facility] [address] [place] [address]
[2019-12-18 08:43] VITALS: BP 128/35
--- NOTE | 2019-12-18 11:15 | NUR ---
PT TAKEN TO DIALYSIS VIA BED. PT A/O VSS. O2-2L NC.
[2019-12-18 11:46] VITALS: BP 125/61
--- NOTE | 2019-12-18 14:19 | NUR ---
I have reviewed this patient and I concur with the Shift Assessment completed by the Licensed Practical Nurse today this shift.
--- NOTE | 2019-12-18 19:55 | NUR ---
PT IV INFILTRATED. HAVE TRIED TO RESTART A NEW PIV TO NO AVAIL. VIDEOTAPE EDITOR AND ATBX ON HOLD AT THIS TIME. WILL CONTINUE ADMINISTRATION WHEN NEW PIV IS PLACED.
[2019-12-18 20:00] VITALS: BP 114/45
--- NOTE | 2019-12-19 00:25 | NUR ---
PT STATES SHE WAS HUNGRY AND ASSUME HER BLOOD SUGAR WAS LOW. OFFERED TO CHECK BLOOD SUGAR LEVEL, BUT PT REFUSED. STATES DINNER WAS NOT PROVIDED TO HER, BUT PT HAVE A PLATE OF CHICKEN AND RICE ON BEDSIDE TABLE. OFFERED TURKEY SANDWICH, BUT PT REFUSED. PT DENIES ANY FURTHER NEEDS AT THIS TIME. WILL CTM. CL WITHIN REACH.
[2019-12-19 00:55] VITALS: BP 129/57
--- NOTE | 2019-12-19 02:54 | NUR ---
PT HAVE BEEN COMPLAINING ABOUT ALL INTERVENTION RENDERED AND ALSO ABOUT HER CARE. PT HAVE CALLED THE CHARGE NURSE ON THE PHONE AND ALSO CALLED ADMISSIONS. STATING SHE HAS NOT BEEN CHECKED UPON. MEANWHILE, I JUST LEFT PT ROOM, PROVIDED PT WITH WATER AND RUBI CRACKERS. PT ALSO C/O THAT HER BP IS LOW AND SHE CAN'T HEAR NOTHING FOR THAT REASON. ASSESSED PT BP AND IT IS 110/65. NOTIFIED PT ABOUT RESULT. PT STILL NOT SATISFIED WITH THE RESULTS. TRIED TO PLACE AN IV FOR THE 2ND TIME, BUT PT KEEPS C/O NOT FEELING COMFORTABLE EVEN AFTER ALL MEASURES HAVE BEEN TAKEN TO MAKE HER COMFORTABLE. ELEVATED HOB, WOOD FLOUR MILLER GAVE PT A BED BATH AND PROVIDED FRESH LINEN. PT STILL NOT SATISFIED. CHARGE NURSE NOTIFIED ABOUT RECENT DEVELOPMENT WITH PT.
[2019-12-19 03:03] VITALS: BP 120/52
--- NOTE | 2019-12-19 08:37 | MORECARE ---
CASE MANAGEMENT DISCHARGE SUMMARY PATIENT: SMITH GILBERT UNIT: [id number] ADM DATE: 12/04/19 AGE: 54 : 61 SEX: F ROOM/BED: D.210 AUTHOR: BALTADOC PHYSICIAN: REFERRING PHYSICIAN: KATIE FORD DO DATE OF SERVICE: 12/19/19 Discharge Plan Patient Name: SMITH GILBERT Facility: [facility]:[place] : 1965 Planned Disposition: Home Anticipated Discharge Date: 12/08/19 Discharge Date: Expected LOS: 4 Initial Reviewer: CHEPE Initial Review Date: 12/04/2019 Generated: 12/19/19 9:36 am Comments DCP- Discharge Planning Updated by [id number]: Aldo Hernandez on 12/19/19 7:[address] Patient Name: SMITH GILBERT Encounter No: [id number] : 1965 Primary Insurance: MEDICAID [place] Anticipated DC Date: 12-08-2019 Planned Disposition: Home with home health External Planned Provider: To be determined DCP follow-up note: LATE ENTRY FROM 12-18-19, 1730 HOURS: CM MET WITH PT IN ROOM TO DISCUSS DISCHARGE PLANNING AND NEEDS. PT'S INSURANCE WILL NOT COVER INPATIENT REHAB., NOR WILL IT COVER LONG TERM FACILITY REHAB SERVICES. CM DISCUSSED HEAD OF MAINTENANCE CARE PLACEMENT IN NURSING FACILITY. PT REFUSED AND REPORTS SHE WILL BE GOING HOME AT DISCHARGE AND THE DOCTOR NEEDS "TO BE GETTING HER PAIN UNDER CONTROL." CM EXPLAINED THAT THE DOCTOR CONTINUES TO TREAT PT AND THAT CM IS ASSISTING WITH DISCHARGE PLANNING, CM DISCUSSED AVAILABILITY OF HOME HEALTH. PT WILL CONSIDER HOME HEALTH AT DISCHARGE BUT AGAIN STATES SHE IS NOT GOING TO LIVE IN A [facility]. PT FEELS GOING HOME IS A SAFE DISHCHARGE PLAN AND INSISTS THAT SHE IS ABLE TO GET ON AND OFF THE MEDICAID TRANSPORTATION BUS FOR DIALYSIS TREATMENT. PT REFUSES PLACEMENT IN [facility] FOR HEAD OF MAINTENANCE CARE PROVIDED BY MEDICAID. PT'S INSURANCE DOES NOT COVER INPATIENT REHAB OR LONG TERM REHAB SERVICES. PT WILL CONSIDER HOME HEALTH FOR THERAPY SERVICES AT HOME. CM TO CONTINUE TO FOLLOW AND ASSIST NEEDED. Aldo Hernandez CASE MANAGEMENT DCP- Discharge Planning Updated by [id number]: Aldo Hernandez on 12/12/19 7:[address] Patient Name: SMITH GILBERT Encounter No: [id number] : 1965 Primary Insurance: MEDICAID [place] Anticipated DC Date: 12-08-2019 Planned Disposition: Home DCP follow-up note: CM MET WITH PT IN ROOM TO DISCUSS DISCHARGE NEEDS AND PLANNING. PT HAS WHEELCHAIR FROM [employer]. PT REPORTS IT IS A RENTAL AND SHE NEEDS ORDER FOR POWER WHEELCHAIR AND IT WILL TAKE UP TO THREE MONTHS TO GET. CM EXPLAINED SHE WILL NEED TO SPEAK TO THE DOCTOR ABOUT GETTING A POWER WHEELCHAIR. CM DISCUSSED AVAILABILITY OF HOME HEALTH, REHAB SERVICES AND MEDICAL EQUIPMENT. PT DENIES DISCHARGE NEEDS. STATES SHE NEEDS TO TALK TO THE COMMUNITY HEALTH ADVISOR ABOUT HER BLOOD CLOTS AND IF SHE HAS XERALTO ORDERED FOR DISCHARGE HOME, SHE CAN'T AFFORD IT. CM EXPLAINED THAT IF ORDERED XERALTO, CM CAN PROVIDE A COUPON. PT STATES SHE CAN AFFORD $10 PER MONTH. PT REPORTS SHE WILL NEED MEDICAID TRANPSORT HOME AT DISCHARGE, SHE HAS CALLED THEM TO ENSURE THEY CAN ACCOMODATE HER NEW WHEELCHAIR AND THEY CAN. IMPORTANT MESSAGE FROM MEDICARE PROVIDED AND EXPLAINED. CM TO FOLLOW AND ASSIST NEEDED. Aldo Hernandez, CASE MANAGEMENT Appended by Aldo Hernandez on 12/12/2019 8:23 FROTHING MACHINE OPERATOR: CM MET WITH PT, EXPLAINED THAT THE IMPORTANT MESSAGE FROM MEDICARE HAD BEEN PROVIDED IN ERROR PT HAS MEDICAID, NOT MEDICARE. PT REPORTED UNDERSTANDING. ALDO HERNANDEZ, CASE MANAGMEENT DCP- Discharge Planning Updated by [id number]: Aldo Hernandez on 12/08/19 5:[address] Patient Name: SMITH GILBERT Admission Status: ER Accout number: [id number] Admission Date: 12-04-2019 : 1965 Admission Diagnosis: Attending: SYLVIA Current LOS: 4 Anticipated DC Date: 12-08-2019 Planned Disposition: Home Primary Insurance: MEDICAID [place] Discharge Planning Comments: CM RECEIVED REQUEST FOR WHEELCHAIR FROM PATIENT. CM SPOKE TO CHANA PERDOMO WHO PROVIDED ORDER FOR WHEELCHAIR. CM MET WITH PT IN ROOM TO DISCUSS DISCHARGE PLANNING AND NEEDS. PT REPORTS LIVING AT HOME ALONE DEPENDENTLY ON NIECE WHO IS PAID CAREGIVER THROUGH [employer] / [employer] WHO ASSISTS WITH BATHING AND TRANSFERS 2-3 HOURS PER DAY, 5 DAYS PER WEEK. PT HAS CANE AND WALKER FROM [facility]. CM DISCUSSED AVAILABILITY OF HOME HEALTH, REHAB SERVICES AND MEDICAL EQUIPMENT. PT DENIES DISCHARGE NEEDS OTHER THAN A WHEELCHAIR. CHOICE FOR [facility] SIGNED. PT REPORTS HER FAMILY WILL PICK HER UP FOR DISCHARGE HOME, IF THEY ARE NOT AVAILABLE, PT WILL NEED MEDICAID TRANSPORTATION THAT IS ONLY AVAILABLE ON WEEKDAYS. CM CALLED [facility], , SPOKE TO PATRICIA AND DISCUSSED REFERRAL. CM FAXED REFERRAL AND ORDER TO [facility] AT [phone]. [facility] TO PROCESS ORDER FOR WHEELCHAIR. PT PLANS TO DISCHARGE HOME. ORDER FOR WHEELCHAIR SENT TO [facility] FOR PROCESSING AND HOME DELIVERY OF WHEELCHAIR. CM TO FOLLOW AND ASSIST NEEDED. Floorleader: Aldo Hernandez DCPIA - Discharge Planning Initial Assessment Updated by [id number]: Aldo Hernandez on 12/08/19 6:05 pm * Is the patient Alert and Oriented? Yes * How many steps to enter\\exit or inside your home? NONE * PCP DR. REDD * Pharmacy [facility] * Preadmission Environment Home Alone * ADLs Partial Dependent * Partial ADLs (Assistance needed) Bathing Transfers * Equipment Cane Walker * Other Equipment [employer], MEDICAL EQUIPMENT PROVIDER * List name and contact numbers for known caregivers / representatives who currently or will assist patient after discharge: SALTY JARAMILLO, * Verbal permission to speak to the caregivers and representatives has been obtained from the patient. N/A * Community resources currently utilized Other Private Duty Care * Please name any agencies selected above. OUTPATIENT DIALYSIS, [facility], MWF, MEDICAID TRANSPORTATION [facility], SALTY IS PAID CAREGIVER, 5 DAYS PER WEEK, 2-3 HOURS PER DAY NEEDED. * Additional services required to return to the preadmission environment? No * Can the patient safely return to the preadmission environment? Yes * Has this patient been hospitalized within the prior 30 days at any hospital? No Coverage Notice Reviewer: [id number] - Aldo Hernandez Notice Issued Date-Time: 12/11/2019 17:20 Notice Type: IM Discharge Notice Notice Delivered To: Patient Relationship to Patient: Field Sales Representative Name: Delivery Method: HAND - Hand Delivered Nishi Days: Prior Verbal Notification: Recipient Understood Notice: Yes Recipient Signature: Yes Med Rec Note Co-signed by Attending: Coverage Notice Comment: Last DP export: 12/12/19 7:27 a Patient Name: SMITH GILBERT Page 82075 at 0837 All edits/amendments must be made on the electronic document DICTATION DATE: 12/19/19835 JEWISH THOUGHT PROFESSOR: ROSA 12/19/19835 RPT#: [id number] DC DATE: STATUS: ADM IN [facility] [address] [place] [address] END OF REPORT
[2019-12-19 09:09] LABS: HEMATOCRIT 24.8 % (36.0-48.0); HEMOGLOBIN 7.8 g/dL (12-16); MCH 28.3 pg (26.0-34.0); MCHC 31.5 g/dL (31.0-37.0); MCV 89.9 fL (80.0-100.0); MEAN PLATELET VOLUME 9.2 fL (7.4-10.4); PLATELET COUNT 274 10x3/uL (130-400); RBC 2.76 10x6/uL (4.00-5.40); RDW 15.4 % (11.5-14.5); WBC 28.9 10x3/uL (4.8-10.8)
[2019-12-19 09:17] LABS: CALCIUM 8.6 mg/dL (8.5-10.1); CARBON DIOXIDE 24.7 mmol/L (21.0-32.0); CREATININE - SERUM 7.1 mg/dL (0.6-1.3); POTASSIUM - SERUM 5.7 mmol/L (3.5-5.1)
[2019-12-19 09:58] VITALS: BP 111/36
[2019-12-19 10:44] LABS: ANISOCYTOSIS 1+; LYMPHOCYTES 3 % (15-50); MONOCYTES 6 % (2-11); NEUTROPHILS 88 % (40-80); PLATELET ESTIMATE NORMAL; POLYCHROMASIA OCC
--- NOTE | 2019-12-19 12:45 | NUR ---
Nutrition Follow-up: Eating well. Ate ~75% of breakfast this AM. POD 5 L BKA. HD yesterday. Diet: Renal ADA PO intake: 50-100% Wt: 165# (12/18); 165# (12/14); 165# (12/04) Last BM: 12/17 per chart Labs noted: Na 131, K+ 5.7, Glu 161 Meds noted: Renagel, Humulin, Lantus, Miralax, Pancrease, Nephrovite -Continue current diet as tolerated. -Need a post-amputation wt. -RD following.
[2019-12-19 12:56] VITALS: BP 123/52
[2019-12-19 18:33] VITALS: BP 91/40
--- NOTE | 2019-12-19 19:30 | NUR ---
BED LOW AND LOCKED CALL LIGHT WITH PT PT DOES NOT ACKNOWLEGE MY PRESENCE EVEN WHEN SPOKEN TOO SAFTY CHECK DONE BANDAGE IS IN PLACE IV INTACT TO LEFT FA
[2019-12-19 20:00] VITALS: BP 148/62
--- NOTE | 2019-12-19 21:13 | NUR ---
PT TOOK PO MED AND EYE DROPS BUT REFUSED INSULINE PTS BEHAVIOR MET SOCAIL NORMS AT THIS TIME SHE WAS CALM AND NON ARGUEMENTATTIVE
[2019-12-20] VITALS: BP 137/56
--- NOTE | 2019-12-20 02:12 | NUR ---
I have reviewed this patient and I concur with the Shift Assessment completed by the Licensed Practical Nurse today this shift.
[2019-12-20 04:00] VITALS: BP 108/83
--- NOTE | 2019-12-20 04:13 | NUR ---
FOUND PT TO HAVE REMOVED DRSG FROM STUMP REPLACED WITH STERILE ADAPTIC GAUZE AND STERILE 4X4 COVERED WITH SLEEEVE AND RAFAEL BANDAGE AFTER THE PROCEDURE PT BEGAN TELLING ME "YOU ARE NOT GONNA HIT ME AGAIN" I HAVE NO KNOWLEGE OF ANY CONTACT WITH PT IN THIS MANNER
--- NOTE | 2019-12-20 04:29 | NUR ---
PT CALLED ME TO HER ROOM COMPLAINING THAT I HAVE NOT GIVEN HER PAIN MEDIOCINE ALL NIGHT I ATTEMPTED TO TELL HER THAT THIS IS THE FIRST SHE HAS ASKED BUT ALSO ATTEMPTRED TO EDUCATE HER THAT SHE HAS A SET RIDER PUMP
--- NOTE | 2019-12-20 06:14 | NUR ---
PT PERSISTS IN BEING ARGUEMENTATIVE IMEDIATLY TALKING OVER ME WHEN I TRY TO RELEY INFORMATION TO HER REFUSED GLUCOSE CHECK AT THIS TIME STATEING " YOU ARE NOT GOING TO ABUSE ME ANYMORE" "YOU WILL NOT HIT ME AGAIN"
[2019-12-20 09:00] VITALS: BP 140/54
--- NOTE | 2019-12-20 14:46 | NUR ---
I have reviewed this patient and I concur with the Shift Assessment completed by the Licensed Practical Nurse today this shift.
--- NOTE | 2019-12-20 20:03 | NUR ---
PT LYING IN BED AWAKE ALERT AND ORIENTED x4 NO SIGNS OF DISTRESS NOTED RESPIRATIONS EVEN AND UNLABORED. NO COMPLAINTS OF PAIN AT THIS TIME CALL LIGHT WITH IN REACH AND BED IS IN LOWEST POSITION. WILL CONTINUE TO MONITOR.
[2019-12-20 21:17] VITALS: BP 138/31
[2019-12-20 22:05] VITALS: BP 141/64
[2019-12-20 23:31] VITALS: BP 121/47
[2019-12-21 00:31] VITALS: BP 104/63
--- NOTE | 2019-12-21 02:27 | NUR ---
PT LYING IN BED AWAKE ALERT AND ORIENTED x4. NO SIGNS OF DISTRESS RESPIRATIONS EVEN AND UNLABORED. PT REFUSES MORPHINE SHAKER WASHER PUMP. PT STATED "SHE WANTS IT TURNED OFF BECAUSE ITS NOT WORKING FOR HER PAIN". PT DOES HAVE PRN PO MEDICATION IF NEEDED. NO COMPLAINTS OF PAIN AT THIS TIME. WILL CONTINUE TO MONITOR
--- NOTE | 2019-12-21 03:50 | NUR ---
PRN PAIN MEDICATION GIVEN FOR 10/10 PAIN LEVEL. PT REQUEST FOR MORPHINE SENIOR ARCHITECTURAL DESIGNER PUMP TO BE HOOKED BACK UP. WILL CONTINUE TO MONITOR
[2019-12-21 04:53] VITALS: BP 125/68
[2019-12-21 06:49] LABS: ANION GAP 13.5 mmol/L (8-16); CALCIUM 8.2 mg/dL (8.5-10.1); CARBON DIOXIDE 27.4 mmol/L (21.0-32.0); CREATININE - SERUM 6.5 mg/dL (0.6-1.3); POTASSIUM - SERUM 4.9 mmol/L (3.5-5.1)
[2019-12-21 07:29] LABS: BASOPHILS 0.2 % (0-2); EOSINOPHILS 0.8 % (0-7); HEMATOCRIT 23.1 % (36.0-48.0); IMMATURE GRANULOCYTES 0.5 % (0-5); LYMPHOCYTES 4.9 % (15-50); MCH 28.4 pg (26.0-34.0); MCHC 32.5 g/dL (31.0-37.0); MEAN PLATELET VOLUME 9.5 fL (7.4-10.4); MONOCYTES 11.4 % (2-11); NEUTROPHILS 82.2 % (40-80); PLATELET COUNT 286 10x3/uL (130-400); RBC 2.64 10x6/uL (4.00-5.40); RDW 15.1 % (11.5-14.5)
[2019-12-21 07:31] LABS: MCV 87.5 fL (80.0-100.0); WBC 16.8 10x3/uL (4.8-10.8)
[2019-12-21 07:35] LABS: HEMOGLOBIN 7.5 g/dL (12-16)
[2019-12-21 08:04] VITALS: BP 131/84
--- NOTE | 2019-12-21 10:14 | NUR ---
RECIVED REPORT. PATIENT IS SITTING UP IN BED AT THIS TIME EATTING BREAKFAST. SHE TOOK HER MEDICATIONS ORDERED. SHE REQUESTED THE PRN PAIN MEDICATION AND REPORTED THAT HER PAIN WAS AT A 10. DR LIANG ORDERED THAT I COLLECT THE PATIENT STOOL CDT AND SEND IT TO LAB, HOWEVER THE PATIENT HAS NOT HAD A STOOL YET TODAY. REPORTED HGB OF 7.5 AND HE ORDERED TO GIVE ONE UNIT OF PRBC'S TOMORROW ON DIALYSIS. CONTINUING TO MONITOR CLOSELY.
[2019-12-21 12:34] VITALS: BP 127/44
[2019-12-21 16:11] VITALS: BP 141/58
--- NOTE | 2019-12-21 16:39 | NUR ---
STOOL SPECIMEN DID NOT MEET CRITERIA REQUIRED TO SEND STOOL TO LAB FOR CDIFF TESTING. STOOL WAS FORMED WITH THICKENED CONSISTENCY. THIS WAS VERIFIED BY LESIA FRANCO RN AND DISCUSSED WITH KOTA WADDELL/HAILEY INFECTION CONTROL.
--- NOTE | 2019-12-21 18:21 | NUR ---
STOOL WAS FIRM. PATIENT GOT UP TO BED SIDE COMMODE WITH STAND BY ASSIST.
[2019-12-21 20:00] VITALS: BP 122/61
[2019-12-22] VITALS: BP 133/63
[2019-12-22 04:00] VITALS: BP 121/80
--- NOTE | 2019-12-22 06:09 | NUR ---
L.BKA DRESSING CHANGED. PT PULLED OLD DRESSING OFF SELF. ASSESSED THE SITE. NO S/S OF BLEEDING OR EXUDATE. SITE APPEARS C/D/I. HATTIE INTACT. WOUND CLEANSER APPLIED TO 4X4 ANDF PAT-DRY SITE. XEROFORM APPLIED, COVERED WITH KERLIX AND WRAPPED WITH RAFAEL BANDAGE. PT EDUCATE TO PUSH PAIN BOTTON IF HURTING. PT VERBALIZE UNDERSTANDING. FSBS 89. NO INSULIN GIVEN AT THIS TIME. PT DENIES ANY FURTHER NEEDS AT THIS TIME. WILL CPOC. CL WITHIN REACH.
[2019-12-22 06:43] LABS: CARBON DIOXIDE 25.3 mmol/L (21.0-32.0); CREATININE - SERUM 7.9 mg/dL (0.6-1.3); POTASSIUM - SERUM 5.3 mmol/L (3.5-5.1)
--- NOTE | 2019-12-22 07:25 | NUR ---
PT RECEIVED AWAKE IN BED MESSING WITH DRESSING ON LEG. TRIED TO HELP REWRAP STUMP BUT SHE STATES WE DO IT WRONG, ITS TOO TIGHT. SHE WRAPPED IT HERSELF, LOOSELY, AND ALREADY SLIDING OFF END OF LEG.
[2019-12-22 07:27] LABS: BASOPHILS 0.2 % (0-2); EOSINOPHILS 0.9 % (0-7); HEMATOCRIT 25.8 % (36.0-48.0); HEMOGLOBIN 8.1 g/dL (12-16); IMMATURE GRANULOCYTES 0.7 % (0-5); LYMPHOCYTES 8.1 % (15-50); MCHC 31.4 g/dL (31.0-37.0); MCV 89.3 fL (80.0-100.0); MEAN PLATELET VOLUME 9.1 fL (7.4-10.4); MONOCYTES 11.7 % (2-11); NEUTROPHILS 78.4 % (40-80); PLATELET COUNT 309 10x3/uL (130-400); RBC 2.89 10x6/uL (4.00-5.40); RDW 15.1 % (11.5-14.5); WBC 15.2 10x3/uL (4.8-10.8)
[2019-12-22 09:55] VITALS: BP 147/44
--- NOTE | 2019-12-22 10:01 | NUR ---
CALL FROM DIALYSIS WITH PT COMPLAINING OF PAIN 07/27. HAS BEEN ON [facility]GE [facility] MORPHINE WITH NORCO EVERY 4 HOURS PRN. DOSE GIVEN AT 0715. EDGE MOLDER STOPPED PRIOR TO TRANSPORT TO DIALYSIS SO MAYBE ONE HOUR AGO AT MOST. INSTRUCTED TOO EARLY FOR NEXT DOSE, SHE IS WANTING SOMETHING STRONGER. WILL PAGE ALLEY TENDER.
--- NOTE | 2019-12-22 12:44 | NUR ---
Nutrition Follow-up: HD today. ~25% of breakfast eaten this AM. Diet: Renal ADA PO intake: 25-75% No new wt; last wt: 165# (12/18) Last BM: 12/20 per chart Labs noted: Na 133, K+ 5.3, Glu 83 Meds noted: Renagel, Humulin, Pancrease, Humulin -Offer Nepro with meals. -Encourage PO intake and honor food preferences within diet restrictions. -Need new wt; noted daily wts ordered. -RD following.
--- NOTE | 2019-12-22 19:10 | NUR ---
BEDSIDE REPORT RECEIVED FROM DAY SHIFT, PT CARE ASSUMED. WROTE NAME ON BOARD. PT SITTING UP IN BED, USING CELLPHONE, AAOX4. DENIES ANY NEEDS AT THIS TIME. BED IN LOWEST POSITION, SR X2, CALL LIGHT WITHIN REACH. WILL CONTINUE TO MONITOR.
[2019-12-22 20:00] VITALS: BP 149/46
[2019-12-23] VITALS: BP 149/33
[2019-12-23 04:00] VITALS: BP 146/33
--- NOTE | 2019-12-23 07:30 | NUR ---
ORDERS CHECKED. MARKETING AND PROMOTIONS MANAGER WAS SUPPOSED TO BE D/C YESTERDAY AM AND STILL INFUSING. MARKETING AND PROMOTIONS MANAGER D/C PER ORDERS. BATH SUPPLIES RECIEVED PER REQUEST. PT DENIED NEEDING ASSISTANCE. BED IN LOWEST POSITION. CALL LIGHT WITHIN REACH. WILL CONTINUE TO MONITOR. RR EVEN AND UNLABORED. DENIES NEEDS OR PAIN AT THIS TIME.
[2019-12-23 07:40] LABS: BASOPHILS 0.2 % (0-2); EOSINOPHILS 0.7 % (0-7); HEMATOCRIT 30.6 % (36.0-48.0); HEMOGLOBIN 9.9 g/dL (12-16); IMMATURE GRANULOCYTES 0.8 % (0-5); LYMPHOCYTES 8.1 % (15-50); MCH 28.9 pg (26.0-34.0); MCHC 32.4 g/dL (31.0-37.0); MCV 89.5 fL (80.0-100.0); MEAN PLATELET VOLUME 9.1 fL (7.4-10.4); NEUTROPHILS 79.2 % (40-80); PLATELET COUNT 300 10x3/uL (130-400); RBC 3.42 10x6/uL (4.00-5.40); WBC 16.5 10x3/uL (4.8-10.8)
[2019-12-23 07:53] LABS: ANION GAP 13.8 mmol/L (8-16); CARBON DIOXIDE 25.8 mmol/L (21.0-32.0); CREATININE - SERUM 6.2 mg/dL (0.6-1.3); POTASSIUM - SERUM 4.6 mmol/L (3.5-5.1); VANCOMYCIN - RANDOM 19.1 ug/mL (10.0-20.0)
[2019-12-23 09:10] VITALS: BP 143/50
[2019-12-23 12:00] VITALS: BP 115/32
[2019-12-23 16:00] VITALS: BP 141/55
--- NOTE | 2019-12-23 16:50 | NUR ---
I have reviewed this patient and I concur with the Shift Assessment completed by the Licensed Practical Nurse today this shift.
--- NOTE | 2019-12-23 18:27 | NUR ---
IV LEAKING. D/C WITH CATHETER TIP INTACT. RESITED TO RIGHT FOREARM X2 ATTEMPTS.
--- NOTE | 2019-12-23 19:10 | NUR ---
BEDSIDE REPORT RECEIVED FROM DAY SHIFT, PT CARE ASSUMED. WROTE NAME ON BOARD. PT LYING IN BED WITH EYES CLOSED, RR EVEN AND NONLABORED, NO S/S OF DISTRESS, AROUSES EASILY TO VOICE. DENIES ANY NEEDS AT THIS TIME. BED IN LOWEST POSITION, SR X2, CALL LIGHT WITHIN REACH. WILL CONTINUE TO MONITOR.
[2019-12-23 20:00] VITALS: BP 141/55
--- NOTE | 2019-12-23 20:50 | NUR ---
NIGHT TIME MEDS ADMINSITERED, PER ORDER. PT ASKING FOR "PAIN PILL
--- NOTE | 2019-12-23 21:43 | NUR ---
PT NOW REFUSING NORCO 7.5-325MG STATING "THAT'S TOO STRONG." EDUCATED PT THAT IT WAS THE SAME PAIN MEDICATION PROVIDED TO HER MULTIPLE TIMES BEFORE. PT STILL DECLINED, STATING "I WANT THE GABAPENTIN, IT HELPED EARLIER TODAY." PAGED DEBORAH HOROWITZ APN, AND NOTIFIED HER OF PT'S REQUESTS/DEMANDS. RECEIVED NEW ORDER FOR TRAMADOL 50 MG PO Q4HPRN DISCOMFORT AND GABAPENTIN 100 MG PO TID. NO S/S OF ADVERSE REACTION FROM PREVIOUS DOSE, DENIES N/V, DENIES HALLUCINATIONS.
[2019-12-24 01:35] VITALS: BP 152/64
[2019-12-24 05:11] VITALS: BP 151/49
[2019-12-24 06:34] LABS: BASOPHILS 0.3 % (0-2); HEMATOCRIT 29.9 % (36.0-48.0); HEMOGLOBIN 9.6 g/dL (12-16); IMMATURE GRANULOCYTES 0.8 % (0-5); LYMPHOCYTES 10.3 % (15-50); MCH 28.6 pg (26.0-34.0); MCHC 32.1 g/dL (31.0-37.0); MEAN PLATELET VOLUME 9.1 fL (7.4-10.4); MONOCYTES 11.1 % (2-11); NEUTROPHILS 76.5 % (40-80); PLATELET COUNT 271 10x3/uL (130-400); RBC 3.36 10x6/uL (4.00-5.40); RDW 15.1 % (11.5-14.5); WBC 14.4 10x3/uL (4.8-10.8)
[2019-12-24 07:04] LABS: ANION GAP 15.5 mmol/L (8-16); CALCIUM 8.8 mg/dL (8.5-10.1); CARBON DIOXIDE 24.9 mmol/L (21.0-32.0); CREATININE - SERUM 7.7 mg/dL (0.6-1.3); POTASSIUM - SERUM 4.4 mmol/L (3.5-5.1); VANCOMYCIN - RANDOM 25.2 ug/mL (10.0-20.0)
[2019-12-24 09:14] VITALS: BP 162/55
[2019-12-24 12:00] VITALS: BP 147/40
[2019-12-24 16:42] VITALS: BP 153/69
--- NOTE | 2019-12-24 19:13 | NUR ---
RECEIVED UP IN BED WITH EYES OPEN AND TV ON. ALERT AND ORIENTED X4. UP WITH ASSIST. LT LEG BKA WITH DSG CDI. CALL LIGHT AND PERSONAL ITEMS IN REACH. DENIES ANY PAIN OR NEEDS AT THIS TIME.
[2019-12-24 20:00] VITALS: BP 167/50
[2019-12-25] VITALS: BP 105/49
--- NOTE | 2019-12-25 00:24 | NUR ---
PT REMOVED RAFAEL WRAP. ATTEMPTED TO EDUCATE ON NEED TO LEAVE IN PLACE. CONT TO REFUSE TO HAVE IT PUT BACK ON. VERY ARGUMENATIVE.
[2019-12-25 04:49] LABS: BASOPHILS 0.2 % (0-2); EOSINOPHILS 1.2 % (0-7); HEMOGLOBIN 9.9 g/dL (12-16); IMMATURE GRANULOCYTES 0.9 % (0-5); LYMPHOCYTES 9.8 % (15-50); MCH 28.2 pg (26.0-34.0); MCHC 31.9 g/dL (31.0-37.0); MCV 88.3 fL (80.0-100.0); MEAN PLATELET VOLUME 9.4 fL (7.4-10.4); MONOCYTES 11.2 % (2-11); NEUTROPHILS 76.7 % (40-80); PLATELET COUNT 283 10x3/uL (130-400); RBC 3.51 10x6/uL (4.00-5.40); RDW 15.2 % (11.5-14.5); WBC 13.7 10x3/uL (4.8-10.8)
[2019-12-25 05:04] VITALS: BP 123/56
[2019-12-25 05:34] LABS: ANION GAP 18.2 mmol/L (8-16); CALCIUM 8.5 mg/dL (8.5-10.1); CARBON DIOXIDE 24.6 mmol/L (21.0-32.0); CREATININE - SERUM 9.1 mg/dL (0.6-1.3); POTASSIUM - SERUM 4.8 mmol/L (3.5-5.1); VANCOMYCIN - RANDOM 22.3 ug/mL (10.0-20.0)
--- NOTE | 2019-12-25 07:44 | NUR ---
RECIEVED REPORT. PATIENT IS ALERT AND AWAKE. DENIES ANY NEEDS AT THIS TIME.
[2019-12-25 08:34] VITALS: BP 162/54
[2019-12-25] MEDS ORDERED: PLAVIX75 MG PO (11:20)
[2019-12-25] MEDS ORDERED: ULTRAM50 MG PO (11:20)
[2019-12-25] MEDS ORDERED: GABAPENTIN100 MG PO (11:20)
[2019-12-25] MEDS ORDERED: LEVOFLOXACIN500 MG PO (11:30)
[2019-12-25 12:00] VITALS: BP 151/43
--- NOTE | 2019-12-25 12:00 | NUR ---
PATIENT STATES THAT SHE DOES NOT WANT TO GO HOME TODAY, SHE STILL HAS TO HAVE DIALYSIS AND SHE SAYS THAT SHE DOES NOT WANT TO GO HOME AFTER DIALYSIS, THAT SHE WOULD FEEL MORE COMFORTABLE TO LEAVE TOMORROW. I LET HER KNOW THAT IF THE DR ORDERS A DISCHARGE, I HAVE TO FOLLOW ORDERS. I DID EXPRESS THE CONCERN STATED BYU THE PATIENT TO CHANA SALMERON RISK MANAGEMENT ANALYST.
--- NOTE | 2019-12-25 12:59 | MORECARE ---
CASE MANAGEMENT DISCHARGE SUMMARY PATIENT: SMITH GILBERT UNIT: [id number] ADM DATE: 12/04/19 AGE: 54 : 61 SEX: F ROOM/BED: D.2103 AUTHOR: BALTA,DOC PHYSICIAN: REFERRING PHYSICIAN: KATIE FORD DO DATE OF SERVICE: 12/25/19 Discharge Plan Patient Name: SMITH GILBERT Facility: [facility]:[place] : 1965 Planned Disposition: Home with Home Health Anticipated Discharge Date: 12/25/19 Discharge Date: Expected LOS: 21 Initial Reviewer: [id number] Initial Review Date: 12/04/2019 Generated: 12/25/19 1:58 pm DCP- Discharge Planning Updated by [id number]: Aldo Hernandez on 12/19/19 6:[address] Patient Name: SMITH GILBERT Encounter No: [id number] : 1965 Primary Insurance: MEDICAID [place] Anticipated DC Date: 12-08-2019 Planned Disposition: Home with home health External Planned Provider: To be determined DCP follow-up note: LATE ENTRY FROM 12-18-19, 1730 HOURS: CM MET WITH PT IN ROOM TO DISCUSS DISCHARGE PLANNING AND NEEDS. PT'S INSURANCE WILL NOT COVER INPATIENT REHAB., NOR WILL IT COVER CUSTODIAL FACILITY REHAB SERVICES. CM DISCUSSED DIRECTOR OF RETAIL ANALYTICS CARE PLACEMENT IN NURSING FACILITY. PT REFUSED AND REPORTS SHE WILL BE GOING HOME AT DISCHARGE AND THE DOCTOR NEEDS "TO BE GETTING HER PAIN UNDER CONTROL." CM EXPLAINED THAT THE DOCTOR CONTINUES TO TREAT PT AND THAT CM IS ASSISTING WITH DISCHARGE PLANNING, CM DISCUSSED AVAILABILITY OF HOME HEALTH. PT WILL CONSIDER HOME HEALTH AT DISCHARGE BUT AGAIN STATES SHE IS NOT GOING TO LIVE IN A HALFWAY. PT FEELS GOING HOME IS A SAFE DISHCHARGE PLAN AND INSISTS THAT SHE IS ABLE TO GET ON AND OFF THE MEDICAID TRANSPORTATION BUS FOR DIALYSIS TREATMENT. PT REFUSES PLACEMENT IN HALFWAY FOR DIRECTOR OF RETAIL ANALYTICS CARE PROVIDED BY MEDICAID. PT'S INSURANCE DOES NOT COVER INPATIENT REHAB OR CUSTODIAL REHAB SERVICES. PT WILL CONSIDER HOME HEALTH FOR THERAPY SERVICES AT HOME. CM TO CONTINUE TO FOLLOW AND ASSIST NEEDED. Aldo Hernandez CASE SHAAN DCP- Discharge Planning Updated by [id number]: Aldo Hernandez on 12/12/19 6:[address] Patient Name: SMITH GILBERT Encounter No: [id number] : 1965 Primary Insurance: MEDICAID [place] Anticipated DC Date: 12-08-2019 Planned Disposition: Home DCP follow-up note: CM MET WITH PT IN ROOM TO DISCUSS DISCHARGE NEEDS AND PLANNING. PT HAS WHEELCHAIR FROM [employer]. PT REPORTS IT IS A RENTAL AND SHE NEEDS ORDER FOR POWER WHEELCHAIR AND IT WILL TAKE UP TO THREE MONTHS TO GET. CM EXPLAINED SHE WILL NEED TO SPEAK TO THE DOCTOR ABOUT GETTING A POWER WHEELCHAIR. CM DISCUSSED AVAILABILITY OF HOME HEALTH, REHAB SERVICES AND MEDICAL EQUIPMENT. PT DENIES DISCHARGE NEEDS. STATES SHE NEEDS TO TALK TO THE RESOURCE RECOVERY ENGINEER ABOUT HER BLOOD CLOTS AND IF SHE HAS XERALTO ORDERED FOR DISCHARGE HOME, SHE CAN'T AFFORD IT. CM EXPLAINED THAT IF ORDERED XERALTO, CM CAN PROVIDE A COUPON. PT STATES SHE CAN AFFORD $10 PER MONTH. PT REPORTS SHE WILL NEED MEDICAID TRANPSORT HOME AT DISCHARGE, SHE HAS CALLED THEM TO ENSURE THEY CAN ACCOMODATE HER NEW WHEELCHAIR AND THEY CAN. IMPORTANT MESSAGE FROM MEDICARE PROVIDED AND EXPLAINED. CM TO FOLLOW AND ASSIST NEEDED. Aldo Hernandez, CASE MANAGEMENT Appended by Aldo Hernandez on 12/12/2019 8:23 RETAIL PHARMACY MERCHANDISER: CM MET WITH PT, EXPLAINED THAT THE IMPORTANT MESSAGE FROM MEDICARE HAD BEEN PROVIDED IN ERROR PT HAS MEDICAID, NOT MEDICARE. PT REPORTED UNDERSTANDING. ALDO HERNANDEZ, CASE MANAGMEENT DCP- Discharge Planning Updated by [id number]: Aldo Hernandez on 12/08/19 4:[address] Patient Name: SMITH GILBERT Admission Status: ER Accout number: [id number] Admission Date: 12-04-2019 : 1965 Admission Diagnosis: Attending: SYLVIA Current LOS: 4 Anticipated DC Date: 12-08-2019 Planned Disposition: Home Primary Insurance: MEDICAID [place] Discharge Planning Comments: CM RECEIVED REQUEST FOR WHEELCHAIR FROM PATIENT. CM SPOKE TO CHANA PERDOMO WHO PROVIDED ORDER FOR WHEELCHAIR. CM MET WITH PT IN ROOM TO DISCUSS DISCHARGE PLANNING AND NEEDS. PT REPORTS LIVING AT HOME ALONE DEPENDENTLY ON NIECE WHO IS PAID CAREGIVER THROUGH [employer] / [employer] WHO ASSISTS WITH BATHING AND TRANSFERS 2-3 HOURS PER DAY, 5 DAYS PER WEEK. PT HAS CANE AND WALKER FROM [facility]. CM DISCUSSED AVAILABILITY OF HOME HEALTH, REHAB SERVICES AND MEDICAL EQUIPMENT. PT DENIES DISCHARGE NEEDS OTHER THAN A WHEELCHAIR. CHOICE FOR [facility] SIGNED. PT REPORTS HER FAMILY WILL PICK HER UP FOR DISCHARGE HOME, IF THEY ARE NOT AVAILABLE, PT WILL NEED MEDICAID TRANSPORTATION THAT IS ONLY AVAILABLE ON WEEKDAYS. CM CALLED [facility], , SPOKE TO PATRICIA AND DISCUSSED REFERRAL. CM FAXED REFERRAL AND ORDER TO [facility] AT [phone]. [facility] TO PROCESS ORDER FOR WHEELCHAIR. PT PLANS TO DISCHARGE HOME. ORDER FOR WHEELCHAIR SENT TO [facility] FOR PROCESSING AND HOME DELIVERY OF WHEELCHAIR. CM TO FOLLOW AND ASSIST NEEDED. Planer Tailer: Aldo Hernandez DCPIA - Discharge Planning Initial Assessment Updated by [id number]: Aldo Hernandez on 12/08/19 6:05 pm * Is the patient Alert and Oriented? Yes * How many steps to enter\\exit or inside your home? NONE * PCP DR. REDD * Pharmacy [facility] * Preadmission Environment Home Alone * ADLs Partial Dependent * Partial ADLs (Assistance needed) Bathing Transfers * Equipment Cane Walker * Other Equipment [employer], MEDICAL EQUIPMENT PROVIDER * List name and contact numbers for known caregivers / representatives who currently or will assist patient after discharge: SALTY JARAMILLO, * Verbal permission to speak to the caregivers and representatives has been obtained from the patient. N/A * Community resources currently utilized Other Private Duty Care * Please name any agencies selected above. OUTPATIENT DIALYSIS, [facility], MWF, MEDICAID TRANSPORTATION [facility], SALTY IS PAID CAREGIVER, 5 DAYS PER WEEK, 2-3 HOURS PER DAY NEEDED. * Additional services required to return to the preadmission environment? No * Can the patient safely return to the preadmission environment? Yes * Has this patient been hospitalized within the prior 30 days at any hospital? No Coverage Notice Reviewer: [id number] - Aldo Hernandez Notice Issued Date-Time: 12/11/2019 17:20 Notice Type: IM Discharge Notice Notice Delivered To: Patient Relationship to Patient: Soldering Inspector Name: Delivery Method: HAND - Hand Delivered Nishi Days: Prior Verbal Notification: Recipient Understood Notice: Yes Recipient Signature: Yes Med Rec Note Co-signed by Attending: Coverage Notice Comment: Last DP export: 12/19/19 6:36 am Patient Name: SMITH GILBERT Page [id number] at 1259 All edits/amendments must be made on the electronic document DICTATION DATE: 12/25/193 THREAD ROLLER: ROSA 12/25/191257 RPT#: [id number] DC DATE: STATUS: ADM IN [facility] [address] [place] [address] END OF REPORT
--- NOTE | 2019-12-25 13:07 | MORECARE ---
CASE MANAGEMENT DISCHARGE SUMMARY PATIENT: SMITH GILBERT UNIT: [id number] ADM DATE: 12/04/19 AGE: 54 : 61 SEX: F ROOM/BED: D.2100 AUTHOR: BALTA,DOC PHYSICIAN: REFERRING PHYSICIAN: KATIE FORD DO DATE OF SERVICE: 12/25/19 Discharge Plan Patient Name: SMITH GILBERT Facility: [facility]:[place] : 1965 Planned Disposition: Home with Home Health Anticipated Discharge Date: 12/25/19 Discharge Date: Expected LOS: 21 Initial Reviewer: [id number] Initial Review Date: 12/04/2019 Generated: 12/25/19 2:06 pm Comments DCP- Discharge Planning Updated by [id number]: Aldo Hernandez on 12/25/19 12:[address] Patient Name: SMITH GILBERT Encounter No: [id number] : 1965 Primary Insurance: [place] Anticipated DC Date: 12-25-2019 Planned Disposition: Home with Home Health External Planned Provider: [facility] DCP follow-up note: CM SPOKE TO CHANA PERDOMO WHO INFORMED CM THAT PT WILL DISCHARGE TODAY. CM MET WITH PT IN ROOM TO DISCUSS DISCHARGE PLANNING AND NEEDS. CM DISCUSSED LOCAL DELIVERY DRIVER CARE PLACEMENT IN NURSING FACILITY. PT REFUSED AND REPORTS SHE WILL BE GOING HOME BUT NEEDS DIALYSIS TODAY AND IS NOT GOING HOME TODAY. CM EXPLAINED THAT THE DOCTOR HAS DISCHARGED PT TODAY. CM EXPLAINED THAT CM WILL CHECK ON DIALYSIS. PT STATES SHE WILL NEED HOME HEALTH AND HAS HAD [facility] IN THE PAST AND WANTS THEM AGAIN. CHOICE SIGNED. PT REPORTS SHE LEAVES FOR DIALYSIS ON MWF, 1030AM AND GETS HOME AT 3:00PM. PT REPORTS HER NIECE WILL ASSIST BUT IS NOT IN THE HOME ALL OF THE TIME, BUT LIVES ACROSS FROM HER IN THE APARTMENT COMPLEX. CM CALLED [employer], , SPOKE TO AAKASH AND PROVIDED REFERRAL AND DISCHARGE INFORMATION FOR HOME HEALTH DRESSING CHANGES AND PHYSICAL THERAPY. CM FAXED INFORMATION TO [facility] AT [phone]. AAKASH WILL TAKE A LOOK AT REFERRAL. CM TO CALL MEDICAID TRANSPORTATION AND [facility] SOON PT'S COMPLETION TIME FOR DIALYSIS TODAY IS KNOWN. Aldo Erik, CASE MANAGEMENT DCP- Discharge Planning Updated by [id number]: Aldo Hernandez on 12/19/19 6:[address] Patient Name: SMITH GILBERT Encounter No: [id number] : 1965 Primary Insurance: [place] Anticipated DC Date: 12-08-2019 Planned Disposition: Home with home health External Planned Provider: To be determined DCP follow-up note: LATE ENTRY FROM 12-18-19, 1730 HOURS: CM MET WITH PT IN ROOM TO DISCUSS DISCHARGE PLANNING AND NEEDS. PT'S INSURANCE WILL NOT COVER INPATIENT REHAB., NOR WILL IT COVER CORRECTION FACILITY REHAB SERVICES. CM DISCUSSED JAIL CARE PLACEMENT IN NURSING FACILITY. PT REFUSED AND REPORTS SHE WILL BE GOING HOME AT DISCHARGE AND THE DOCTOR NEEDS "TO BE GETTING HER PAIN UNDER CONTROL." CM EXPLAINED THAT THE DOCTOR CONTINUES TO TREAT PT AND THAT CM IS ASSISTING WITH DISCHARGE PLANNING, CM DISCUSSED AVAILABILITY OF HOME HEALTH. PT WILL CONSIDER HOME HEALTH AT DISCHARGE BUT AGAIN STATES SHE IS NOT GOING TO LIVE IN A [place]. PT FEELS GOING HOME IS A SAFE DISHCHARGE PLAN AND INSISTS THAT SHE IS ABLE TO GET ON AND OFF THE MEDICAID TRANSPORTATION BUS FOR DIALYSIS TREATMENT. PT REFUSES PLACEMENT IN [facility] FOR JAIL CARE PROVIDED BY MEDICAID. PT'S INSURANCE DOES NOT COVER INPATIENT REHAB OR CORRECTION REHAB SERVICES. PT WILL CONSIDER HOME HEALTH FOR THERAPY SERVICES AT HOME. CM TO CONTINUE TO FOLLOW AND ASSIST NEEDED. Aldo Hernandez CASE MANAGEMENT DCP- Discharge Planning Updated by [id number]: Aldo Hernandez on 12/12/19 6:[address] Patient Name: SMITH GILBERT Encounter No: [id number] : 1965 Primary Insurance: [place] Anticipated DC Date: 12-08-2019 Planned Disposition: Home DCP follow-up note: CM MET WITH PT IN ROOM TO DISCUSS DISCHARGE NEEDS AND PLANNING. PT HAS WHEELCHAIR FROM [employer]. PT REPORTS IT IS A RENTAL AND SHE NEEDS ORDER FOR POWER WHEELCHAIR AND IT WILL TAKE UP TO THREE MONTHS TO GET. CM EXPLAINED SHE WILL NEED TO SPEAK TO THE DOCTOR ABOUT GETTING A POWER WHEELCHAIR. CM DISCUSSED AVAILABILITY OF HOME HEALTH, REHAB SERVICES AND MEDICAL EQUIPMENT. PT DENIES DISCHARGE NEEDS. STATES SHE NEEDS TO TALK TO THE ARTIFICIAL CHERRY MAKER ABOUT HER BLOOD CLOTS AND IF SHE HAS XER[employer]TO ORDERED FOR DISCHARGE HOME, SHE CAN'T AFFORD IT. CM EXPLAINED THAT IF ORDERED XERALTO, CM CAN PROVIDE A COUPON. PT STATES SHE CAN AFFORD $10 PER MONTH. PT REPORTS SHE WILL NEED MEDICAID TRANPSORT HOME AT DISCHARGE, SHE HAS CALLED THEM TO ENSURE THEY CAN ACCOMODATE HER NEW WHEELCHAIR AND THEY CAN. IMPORTANT MESSAGE FROM MEDICARE PROVIDED AND EXPLAINED. CM TO FOLLOW AND ASSIST NEEDED. Aldo Hernandez, CASE MANAGEMENT Appended by Aldo Hernandez on 12/12/2019 8:23 JOY LOADER: CM MET WITH PT, EXPLAINED THAT THE IMPORTANT MESSAGE FROM MEDICARE HAD BEEN PROVIDED IN ERROR PT HAS MEDICAID, NOT MEDICARE. PT REPORTED UNDERSTANDING. ALDO HERNANDEZ, CASE MANAGMEENT DCP- Discharge Planning Updated by [id number]: Aldo Hernandez on 12/08/19 4:[address] Patient Name: SMITH GILBERT Admission Status: ER Accout number: [id number] Admission Date: 12-04-2019 : 1965 Admission Diagnosis: Attending: SYLVIA Current LOS: 4 Anticipated DC Date: 12-08-2019 Planned Disposition: Home Primary Insurance: [place] Discharge Planning Comments: CM RECEIVED REQUEST FOR WHEELCHAIR FROM PATIENT. CM SPOKE TO CHANA PERDOMO WHO PROVIDED ORDER FOR WHEELCHAIR. CM MET WITH PT IN ROOM TO DISCUSS DISCHARGE PLANNING AND NEEDS. PT REPORTS LIVING AT HOME ALONE DEPENDENTLY ON NIECE WHO IS PAID CAREGIVER THROUGH [employer] / [employer] WHO ASSISTS WITH BATHING AND TRANSFERS 2-3 HOURS PER DAY, 5 DAYS PER WEEK. PT HAS CANE AND WALKER FROM [facility]. CM DISCUSSED AVAILABILITY OF HOME HEALTH, REHAB SERVICES AND MEDICAL EQUIPMENT. PT DENIES DISCHARGE NEEDS OTHER THAN A WHEELCHAIR. CHOICE FOR [facility] SIGNED. PT REPORTS HER FAMILY WILL PICK HER UP FOR DISCHARGE HOME, IF THEY ARE NOT AVAILABLE, PT WILL NEED MEDICAID TRANSPORTATION THAT IS ONLY AVAILABLE ON WEEKDAYS. CM CALLED [facility], , SPOKE TO PATRICIA AND DISCUSSED REFERRAL. CM FAXED REFERRAL AND ORDER TO [facility] AT [phone]. [facility] TO PROCESS ORDER FOR WHEELCHAIR. PT PLANS TO DISCHARGE HOME. ORDER FOR WHEELCHAIR SENT TO [facility] FOR PROCESSING AND HOME DELIVERY OF WHEELCHAIR. CM TO FOLLOW AND ASSIST NEEDED. Behavioral Health Technician: Aldo Hernandez DCPIA - Discharge Planning Initial Assessment Updated by [id number]: Aldo Hernandez on 12/08/19 6:05 pm * Is the patient Alert and Oriented? Yes * How many steps to enter\\exit or inside your home? NONE * PCP DR. REDD * Pharmacy [facility] * Preadmission Environment Home Alone * ADLs Partial Dependent * Partial ADLs (Assistance needed) Bathing Transfers * Equipment Cane Walker * Other Equipment [employer], MEDICAL EQUIPMENT PROVIDER * List name and contact numbers for known caregivers / representatives who currently or will assist patient after discharge: SALTY JARAMILLO, * Verbal permission to speak to the caregivers and representatives has been obtained from the patient. N/A * Community resources currently utilized Other Private Duty Care * Please name any agencies selected above. OUTPATIENT DIALYSIS, [facility], [facility], MEDICAID TRANSPORTATION [facility], SALTY IS PAID CAREGIVER, 5 DAYS PER WEEK, 2-3 HOURS PER DAY NEEDED. * Additional services required to return to the preadmission environment? No * Can the patient safely return to the preadmission environment? Yes * Has this patient been hospitalized within the prior 30 days at any hospital? No Coverage Notice Reviewer: [id number] - Aldo Hernandez Notice Issued Date-Time: 12/11/2019 17:20 Notice Type: IM Discharge Notice Notice Delivered To: Patient Relationship to Patient: Correctional Food Service Supervisor Name: Delivery Method: HAND - Hand Delivered Nishi Days: Prior Verbal Notification: Recipient Understood Notice: Yes Recipient Signature: Yes Med Rec Note Co-signed by Attending: Coverage Notice Comment: Last DP export: 12/25/19 11:59 am Patient Name: SMITH GILBERT Page 79650 at 1307 All edits/amendments must be made on the electronic document DICTATION DATE: 12/25/19 1306 CONTRACTOR GENERAL ENGINEERING: ROSA 12/25/19 1306 RPT#: [id number] DC DATE: STATUS: ADM IN [facility] [address] [place] [address] END OF REPORT
--- NOTE | 2019-12-25 13:14 | MORECARE ---
CASE MANAGEMENT DISCHARGE SUMMARY PATIENT: SMITH GILBERT UNIT: [id number] ADM DATE: 12/04/19 AGE: 54 : 61 SEX: F ROOM/BED: D.2107 AUTHOR: BALTA,DOC PHYSICIAN: REFERRING PHYSICIAN: KATIE FORD DO DATE OF SERVICE: 12/25/19 Discharge Plan Patient Name: SMITH GILBERT Facility: [facility]:[place] : 1965 Planned Disposition: Home with Home Health Anticipated Discharge Date: 12/25/19 Discharge Date: Expected LOS: 21 Initial Reviewer: [id number] Initial Review Date: 12/04/2019 Generated: 12/25/19 2:14 pm Comments DCP- Discharge Planning Updated by [id number]: Aldo Hernandez on 12/25/19 12:[address] Patient Name: SMITH GILBERT Encounter No: [id number] : 1965 Primary Insurance: [place] Anticipated DC Date: 12-25-2019 Planned Disposition: Home with Home Health External Planned Provider: [facility] DCP follow-up note: CM SPOKE TO CHANA PERDOMO WHO INFORMED CM THAT PT WILL DISCHARGE TODAY. CM MET WITH PT IN ROOM TO DISCUSS DISCHARGE PLANNING AND NEEDS. CM DISCUSSED EXTRACTION MACHINE OPERATOR CARE PLACEMENT IN NURSING FACILITY. PT REFUSED AND REPORTS SHE WILL BE GOING HOME BUT NEEDS DIALYSIS TODAY AND IS NOT GOING HOME TODAY. CM EXPLAINED THAT THE DOCTOR HAS DISCHARGED PT TODAY. CM EXPLAINED THAT CM WILL CHECK ON DIALYSIS. PT STATES SHE WILL NEED HOME HEALTH AND HAS HAD [facility] IN THE PAST AND WANTS THEM AGAIN. CHOICE SIGNED. PT REPORTS SHE LEAVES FOR DIALYSIS ON MWF, 1030AM AND GETS HOME AT 3:00PM. PT REPORTS HER NIECE WILL ASSIST BUT IS NOT IN THE HOME ALL OF THE TIME, BUT LIVES ACROSS FROM HER IN THE APARTMENT COMPLEX. CM CALLED [employer], , SPOKE TO AAKASH AND PROVIDED REFERRAL AND DISCHARGE INFORMATION FOR HOME HEALTH DRESSING CHANGES AND PHYSICAL THERAPY. CM FAXED INFORMATION TO [facility] AT [phone]. AAKASH WILL TAKE A LOOK AT REFERRAL. CM TO CALL MEDICAID TRANSPORTATION AND [facility] PT'S COMPLETION TIME FOR DIALYSIS TODAY IS KNOWN. Aldo Erik, CASE MANAGEMENT DCP- Discharge Planning Updated by [id number]: Aldo Hernandez on 12/19/19 6:[address] Patient Name: SMITH GILBERT Encounter No: [id number] : 1965 Primary Insurance: [place] Anticipated DC Date: 12-08-2019 Planned Disposition: Home with home health External Planned Provider: To be determined DCP follow-up note: LATE ENTRY FROM 12-18-19, 1730 HOURS: CM MET WITH PT IN ROOM TO DISCUSS DISCHARGE PLANNING AND NEEDS. PT'S INSURANCE WILL NOT COVER INPATIENT REHAB., NOR WILL IT COVER LONG TERM FACILITY REHAB SERVICES. CM DISCUSSED SKILLED NURSING CARE PLACEMENT IN NURSING FACILITY. PT REFUSED AND REPORTS SHE WILL BE GOING HOME AT DISCHARGE AND THE DOCTOR NEEDS "TO BE GETTING HER PAIN UNDER CONTROL." CM EXPLAINED THAT THE DOCTOR CONTINUES TO TREAT PT AND THAT CM IS ASSISTING WITH DISCHARGE PLANNING, CM DISCUSSED AVAILABILITY OF HOME HEALTH. PT WILL CONSIDER HOME HEALTH AT DISCHARGE BUT AGAIN STATES SHE IS NOT GOING TO LIVE IN A SKILLED NURSING. PT FEELS GOING HOME IS A SAFE DISHCHARGE PLAN AND INSISTS THAT SHE IS ABLE TO GET ON AND OFF THE MEDICAID TRANSPORTATION BUS FOR DIALYSIS TREATMENT. PT REFUSES PLACEMENT IN [facility]ILLED NURSING FOR SKILLED NURSING CARE PROVIDED BY MEDICAID. PT'S INSURANCE DOES NOT COVER INPATIENT REHAB OR LONG TERM REHAB SERVICES. PT WILL CONSIDER HOME HEALTH FOR THERAPY SERVICES AT HOME. CM TO CONTINUE TO FOLLOW AND ASSIST NEEDED. Aldo Hernandez CASE MANAGEMENT DCP- Discharge Planning Updated by [id number]: Aldo Hernandez on 12/12/19 6:[address] Patient Name: SMITH GILBERT Encounter No: [id number] : 1965 Primary Insurance: [place]ID [place] Anticipated DC Date: 12-08-2019 Planned Disposition: Home DCP follow-up note: CM MET WITH PT IN ROOM TO DISCUSS DISCHARGE NEEDS AND PLANNING. PT HAS WHEELCHAIR FROM [employer]. PT REPORTS IT IS A RENTAL AND SHE NEEDS ORDER FOR POWER WHEELCHAIR AND IT WILL TAKE UP TO THREE MONTHS TO GET. CM EXPLAINED SHE WILL NEED TO SPEAK TO THE DOCTOR ABOUT GETTING A POWER WHEELCHAIR. CM DISCUSSED AVAILABILITY OF HOME HEALTH, REHAB SERVICES AND MEDICAL EQUIPMENT. PT DENIES DISCHARGE NEEDS. STATES SHE NEEDS TO TALK TO THE EDGING CATCHER ABOUT HER BLOOD CLOTS AND IF SHE HAS XER[employer]TO ORDERED FOR DISCHARGE HOME, SHE CAN'T AFFORD IT. CM EXPLAINED THAT IF ORDERED XERALTO, CM CAN PROVIDE A COUPON. PT STATES SHE CAN AFFORD $10 PER MONTH. PT REPORTS SHE WILL NEED MEDICAID TRANPSORT HOME AT DISCHARGE, SHE HAS CALLED THEM TO ENSURE THEY CAN ACCOMODATE HER NEW WHEELCHAIR AND THEY CAN. IMPORTANT MESSAGE FROM MEDICARE PROVIDED AND EXPLAINED. CM TO FOLLOW AND ASSIST NEEDED. Aldo Hernandez, CASE MANAGEMENT Appended by Aldo Hernandez on 12/12/2019 8:23 POWER DIGGER OPERATOR: CM MET WITH PT, EXPLAINED THAT THE IMPORTANT MESSAGE FROM MEDICARE HAD BEEN PROVIDED IN ERROR PT HAS MEDICAID, NOT MEDICARE. PT REPORTED UNDERSTANDING. ALDO HERNANDEZ, CASE MANAGMEENT DCP- Discharge Planning Updated by [id number]: Aldo Hernandez on 12/08/19 4:[address] Patient Name: SMITH GILBERT Admission Status: ER Accout number: [id number] Admission Date: 12-04-2019 : 1965 Admission Diagnosis: Attending: SYLVIA Current LOS: 4 Anticipated DC Date: 12-08-2019 Planned Disposition: Home Primary Insurance: MED[place]ID [place] Discharge Planning Comments: CM RECEIVED REQUEST FOR WHEELCHAIR FROM PATIENT. CM SPOKE TO CHANA PERDOMO WHO PROVIDED ORDER FOR WHEELCHAIR. CM MET WITH PT IN ROOM TO DISCUSS DISCHARGE PLANNING AND NEEDS. PT REPORTS LIVING AT HOME ALONE DEPENDENTLY ON NIECE WHO IS PAID CAREGIVER THROUGH [employer] / [employer] WHO ASSISTS WITH BATHING AND TRANSFERS 2-3 HOURS PER DAY, 5 DAYS PER WEEK. PT HAS CANE AND WALKER FROM [employer]. CM DISCUSSED AVAILABILITY OF HOME HEALTH, REHAB SERVICES AND MEDICAL EQUIPMENT. PT DENIES DISCHARGE NEEDS OTHER THAN A WHEELCHAIR. CHOICE FOR [facility] SIGNED. PT REPORTS HER FAMILY WILL PICK HER UP FOR DISCHARGE HOME, IF THEY ARE NOT AVAILABLE, PT WILL NEED MEDICAID TRANSPORTATION THAT IS ONLY AVAILABLE ON WEEKDAYS. CM CALLED [facility], , SPOKE TO PATRICIA AND DISCUSSED REFERRAL. CM FAXED REFERRAL AND ORDER TO [facility] AT [phone]. [facility] TO PROCESS ORDER FOR WHEELCHAIR. PT PLANS TO DISCHARGE HOME. ORDER FOR WHEELCHAIR SENT TO [facility] FOR PROCESSING AND HOME DELIVERY OF WHEELCHAIR. CM TO FOLLOW AND ASSIST NEEDED. Crew Foreman: Aldo Hernandez DCPIA - Discharge Planning Initial Assessment Updated by [id number]: Aldo Hernandez on 12/08/19 6:05 pm * Is the patient Alert and Oriented? Yes * How many steps to enter\\exit or inside your home? NONE * PCP DR. REDD * Pharmacy [facility] * Preadmission Environment Home Alone * ADLs Partial Dependent * Partial ADLs (Assistance needed) Bathing Transfers * Equipment Cane Walker * Other Equipment [employer], MEDICAL EQUIPMENT PROVIDER * List name and contact numbers for known caregivers / representatives who currently or will assist patient after discharge: SALTY JARAMILLO, * Verbal permission to speak to the caregivers and representatives has been obtained from the patient. N/A * Community resources currently utilized Other Private Duty Care * Please name any agencies selected above. OUTPATIENT DIALYSIS, [facility], [facility], MEDICAID TRANSPORTATION [facility], SALTY IS PAID CAREGIVER, 5 DAYS PER WEEK, 2-3 HOURS PER DAY NEEDED. * Additional services required to return to the preadmission environment? No * Can the patient safely return to the preadmission environment? Yes * Has this patient been hospitalized within the prior 30 days at any hospital? No External Providers [facility] Next Contact Date: 12/25/2019 Service Request Date: Service Type: Resolution: Reviewer: Comments: Coverage Notice Reviewer: [id number] - Aldo Hernandez Notice Issued Date-Time: 12/11/2019 17:20 Notice Type: IM Discharge Notice Notice Delivered To: Patient Relationship to Patient: Fretted Instrument Inspector Name: Delivery Method: HAND - Hand Delivered Nishi Days: Prior Verbal Notification: Recipient Understood Notice: Yes Recipient Signature: Yes Med Rec Note Co-signed by Attending: Coverage Notice Comment: Last DP export: 12/25/19 12:07 pm Patient Name: SMITH GILBERT Page [id number] at 1314 All edits/amendments must be made on the electronic document DICTATION DATE: 12/25/194 CROWN AND BRIDGE TECHNICIAN: ROSA 12/25/194 RPT#: [id number] DC DATE: STATUS: ADM IN [facility] [address] [place] [address] END OF REPORT
--- NOTE | 2019-12-25 13:31 | MORECARE ---
CASE MANAGEMENT DISCHARGE SUMMARY PATIENT: SMITH GILBERT UNIT: [id number] ADM DATE: 12/04/19 AGE: 54 : 61 SEX: F ROOM/BED: D.2107 AUTHOR: BALTA,DOC PHYSICIAN: REFERRING PHYSICIAN: KATIE FORD DO DATE OF SERVICE: 12/25/19 Discharge Plan Patient Name: SMITH GILBERT Facility: [facility]:[place] : 1965 Planned Disposition: Home with Home Health Anticipated Discharge Date: 12/25/19 Discharge Date: Expected LOS: 21 Initial Reviewer: [id number] Initial Review Date: 12/04/2019 Generated: 12/25/19 2:30 pm Comments DCP- Discharge Planning Updated by [id number]: Aldo Hernandez on 12/25/19 12:[address] Patient Name: SMITH GILBERT Encounter No: [id number] : 1965 Primary Insurance: [place]ID [place] Anticipated DC Date: 12-25-2019 Planned Disposition: Home with Home Health External Planned Provider: [facility] DCP follow-up note: CM SPOKE TO CHANA PERDOMO WHO INFORMED CM THAT PT WILL DISCHARGE TODAY. CM MET WITH PT IN ROOM TO DISCUSS DISCHARGE PLANNING AND NEEDS. CM DISCUSSED MANAGER BEHAVIORAL CARE PLACEMENT IN NURSING FACILITY. PT REFUSED AND REPORTS SHE WILL BE GOING HOME BUT NEEDS DIALYSIS TODAY AND IS NOT GOING HOME TODAY. CM EXPLAINED THAT THE DOCTOR HAS DISCHARGED PT TODAY. CM EXPLAINED THAT CM WILL CHECK ON DIALYSIS. PT STATES SHE WILL NEED HOME HEALTH AND HAS HAD [facility] IN THE PAST AND WANTS THEM AGAIN. CHOICE SIGNED. PT REPORTS SHE LEAVES FOR DIALYSIS ON MWF, 1030AM AND GETS HOME AT 3:00PM. PT REPORTS HER NIECE WILL ASSIST BUT IS NOT IN THE HOME ALL OF THE TIME, BUT LIVES ACROSS FROM HER IN THE APARTMENT COMPLEX. CM CALLED [employer], , SPOKE TO AAKASH AND PROVIDED REFERRAL AND DISCHARGE INFORMATION FOR HOME HEALTH DRESSING CHANGES AND PHYSICAL THERAPY. CM FAXED INFORMATION TO [facility] AT [phone]. AAKASH WILL TAKE A LOOK AT REFERRAL. CM TO CALL MEDICAID TRANSPORTATION AND ARRANGE VAN GIFT SHOP CLERK SOON PT'S COMPLETION TIME FOR DIALYSIS TODAY IS KNOWN. Aldo Hernandez, CASE MANAGEMENT Appended by Aldo Hernandez on 12/25/2019 13:24 CDT: CM SPOKE TO CHANA PERDOMO, PT WILL BE BACK TO HOSPITAL FROM DIALYSIS AND READY FOR DC HOME AT 5PM TODAY. CM CALLED AND SPOKE TO VINCENZO AT MEDICAID TRANSPORTATION, , WHO SCHEDULED PT FOR GIFT SHOP CLERK TODAY AT 1700 HOURS. CM NOTIFIED FLOW COODRINATOR AND CHANA PERDOMO. PT NOTIFIED WHO WILL CALL HER FAMILY TO MAKE SURE THEY ARE HOME TODAY WHEN SHE ARRIVES. PT DENIES FURTHER NEEDS AT THIS TIME. MEDICAID TRANSPORT CONFIRMATION # [id number]. DELGADO LUJAN DCP- Discharge Planning Updated by [id number]: Aldo Hernandez on 12/19/19 6:[address] Patient Name: SMITH GILBERT Encounter No: [id number] : 1965 Primary Insurance: MEDICAID [place] Anticipated DC Date: 12-08-2019 Planned Disposition: Home with home health External Planned Provider: To be determined DCP follow-up note: LATE ENTRY FROM 12-18-19, 1730 HOURS: CM MET WITH PT IN ROOM TO DISCUSS DISCHARGE PLANNING AND NEEDS. PT'S INSURANCE WILL NOT COVER INPATIENT REHAB., NOR WILL IT COVER [facility] FACILITY REHAB SERVICES. CM DISCUSSED ALF CARE PLACEMENT IN NURSING FACILITY. PT REFUSED AND REPORTS SHE WILL BE GOING HOME AT DISCHARGE AND THE DOCTOR NEEDS "TO BE GETTING HER PAIN UNDER CONTROL." CM EXPLAINED THAT THE DOCTOR CONTINUES TO TREAT PT AND THAT CM IS ASSISTING WITH DISCHARGE PLANNING, CM DISCUSSED AVAILABILITY OF HOME HEALTH. PT WILL CONSIDER HOME HEALTH AT DISCHARGE BUT AGAIN STATES SHE IS NOT GOING TO LIVE IN A LONGTERM. PT FEELS GOING HOME IS A SAFE DISHCHARGE PLAN AND INSISTS THAT SHE IS ABLE TO GET ON AND OFF THE MEDICAID TRANSPORTATION BUS FOR DIALYSIS TREATMENT. PT REFUSES PLACEMENT IN LONGTERM FOR ALF CARE PROVIDED BY MEDICAID. PT'S INSURANCE DOES NOT COVER INPATIENT REHAB OR [facility] REHAB SERVICES. PT WILL CONSIDER HOME HEALTH FOR THERAPY SERVICES AT HOME. CM TO CONTINUE TO FOLLOW AND ASSIST NEEDED. DELGADO Lujan DCP- Discharge Planning Updated by [id number]: Aldo Hernandez on 12/12/19 6:[address] Patient Name: SMITH GILBERT Encounter No: [id number] : 1965 Primary Insurance: MED[place]ID [place] Anticipated DC Date: 12-08-2019 Planned Disposition: Home DCP follow-up note: CM MET WITH PT IN ROOM TO DISCUSS DISCHARGE NEEDS AND PLANNING. PT HAS WHEELCHAIR FROM [employer]. PT REPORTS IT IS A RENTAL AND SHE NEEDS ORDER FOR POWER WHEELCHAIR AND IT WILL TAKE UP TO THREE MONTHS TO GET. CM EXPLAINED SHE WILL NEED TO SPEAK TO THE DOCTOR ABOUT GETTING A POWER WHEELCHAIR. CM DISCUSSED AVAILABILITY OF HOME HEALTH, REHAB SERVICES AND MEDICAL EQUIPMENT. PT DENIES DISCHARGE NEEDS. STATES SHE NEEDS TO TALK TO THE SHOVEL HANDLE ASSEMBLER ABOUT HER BLOOD CLOTS AND IF SHE HAS XERALTO ORDERED FOR DISCHARGE HOME, SHE CAN'T AFFORD IT. CM EXPLAINED THAT IF ORDERED XERALTO, CM CAN PROVIDE A COUPON. PT STATES SHE CAN AFFORD $10 PER MONTH. PT REPORTS SHE WILL NEED MEDICAID TRANPSORT HOME AT DISCHARGE, SHE HAS CALLED THEM TO ENSURE THEY CAN ACCOMODATE HER NEW WHEELCHAIR AND THEY CAN. IMPORTANT MESSAGE FROM MEDICARE PROVIDED AND EXPLAINED. CM TO FOLLOW AND ASSIST NEEDED. Aldo Hernandez, CASE MANAGEMENT Appended by Aldo Hernandez on 12/12/2019 8:23 HAND CANDLE DIPPER: CM MET WITH PT, EXPLAINED THAT THE IMPORTANT MESSAGE FROM MEDICARE HAD BEEN PROVIDED IN ERROR PT HAS MEDICAID, NOT MEDICARE. PT REPORTED UNDERSTANDING. ALDO HERNANDEZ, CASE MANAGMEENT DCP- Discharge Planning Updated by [id number]: Aldo Hernandez on 12/08/19 4:[address] Patient Name: SMITH GILBERT Admission Status: ER Accout number: [id number] Admission Date: 12-04-2019 : 1965 Admission Diagnosis: Attending: SYLVIA Current LOS: 4 Anticipated DC Date: 12-08-2019 Planned Disposition: Home Primary Insurance: MED[place]ID [place] Discharge Planning Comments: CM RECEIVED REQUEST FOR WHEELCHAIR FROM PATIENT. CM SPOKE TO CHANA PERDOMO WHO PROVIDED ORDER FOR WHEELCHAIR. CM MET WITH PT IN ROOM TO DISCUSS DISCHARGE PLANNING AND NEEDS. PT REPORTS LIVING AT HOME ALONE DEPENDENTLY ON NIECE WHO IS PAID CAREGIVER THROUGH [employer] / MEDICA[employer] WHO ASSISTS WITH BATHING AND TRANSFERS 2-3 HOURS PER DAY, 5 DAYS PER WEEK. PT HAS CANE AND WALKER FROM [employer]. CM DISCUSSED AVAILABILITY OF HOME HEALTH, REHAB SERVICES AND MEDICAL EQUIPMENT. PT DENIES DISCHARGE NEEDS OTHER THAN A WHEELCHAIR. CHOICE FOR [facility] SIGNED. PT REPORTS HER FAMILY WILL PICK HER UP FOR DISCHARGE HOME, IF THEY ARE NOT AVAILABLE, PT WILL NEED MEDICAID TRANSPORTATION THAT IS ONLY AVAILABLE ON WEEKDAYS. CM CALLED [facility], , SPOKE TO PATRICIA AND DISCUSSED REFERRAL. CM FAXED REFERRAL AND ORDER TO [facility] AT [phone]. [facility] TO PROCESS ORDER FOR WHEELCHAIR. PT PLANS TO DISCHARGE HOME. ORDER FOR WHEELCHAIR SENT TO [facility] FOR PROCESSING AND HOME DELIVERY OF WHEELCHAIR. CM TO FOLLOW AND ASSIST NEEDED. Flake Cutter Operator: Aldo Hernandez DCPIA - Discharge Planning Initial Assessment Updated by [id number]: Aldo Hernandez on 12/08/19 6:05 pm * Is the patient Alert and Oriented? Yes * How many steps to enter\\exit or inside your home? NONE * PCP DR. REDD * Pharmacy [facility] * Preadmission Environment Home Alone * ADLs Partial Dependent * Partial ADLs (Assistance needed) Bathing Transfers * Equipment Cane Walker * Other Equipment [employer], MEDICAL EQUIPMENT PROVIDER * List name and contact numbers for known caregivers / representatives who currently or will assist patient after discharge: SALTY JARAMILLO, * Verbal permission to speak to the caregivers and representatives has been obtained from the patient. N/A * Community resources currently utilized Other Private Duty Care * Please name any agencies selected above. OUTPATIENT DIALYSIS, [facility], MWF, MEDICAID TRANSPORTATION [facility], SALTY IS PAID CAREGIVER, 5 DAYS PER WEEK, 2-3 HOURS PER DAY NEEDED. * Additional services required to return to the preadmission environment? No * Can the patient safely return to the preadmission environment? Yes * Has this patient been hospitalized within the prior 30 days at any hospital? No Coverage Notice Reviewer: [id number] - Aldo Hernandez Notice Issued Date-Time: 12/11/2019 17:20 Notice Type: IM Discharge Notice Notice Delivered To: Patient Relationship to Patient: Planning Director Name: Delivery Method: HAND - Hand Delivered Nishi Days: Prior Verbal Notification: Recipient Understood Notice: Yes Recipient Signature: Yes Med Rec Note Co-signed by Attending: Coverage Notice Comment: Last DP export: 12/25/19 12:14 pm Patient Name: SMITH GILBERT Page [phone] at 1331 All edits/amendments must be made on the electronic document DICTATION DATE: 12/25/191329 RAILROAD WHEELS AND AXLES INSPECTOR: ROSA 12/25/191329 RPT#: [id number] DC DATE: STATUS: ADM IN [facility] [address] [place] [address] END OF REPORT
--- NOTE | 2019-12-25 13:45 | NUR ---
CALLED DIALYSIS TO MAKE SURE THEY KNOW THAT THIS PATIENT IS GOING HOME TODAY. DISCHARGE PAPERS HAVE BEEN DONE, HOWEVER, SHE HAS NOT SIGNED YET. [facility] BUS IS COMING AT 1700. PATIENT IS AWARE. WILL ASK HER TO SIGN THE PAPERS AGAIN WHEN SHE GETS OFF THE BEDPAN.
--- NOTE | 2019-12-25 14:38 | NUR ---
PATIENT IS IN DIALYSIS. SHE HAD A BM ON THE BEDPAN, AND SHE DOES NOT CLEAN HERSELF. STEAMFITTER SUPERVISOR AND I ASSISTED HER IN GETTING DRESSED. SHE SIGNED HER DISCHARGE PAPERWORK AND TEACHING COMPLETE. PATIENT AGREES TO BE GOING HOME ON THE [facility] BUS AFTER DIALYSIS.
--- NOTE | 2019-12-25 16:59 | NUR ---
[facility] BUS CAME TO CONTACT CENTER MANAGER THE PATIENT. SHE JUST GOT THROUGHT DIALYSIS AND SHE IS ON HER WAY DOWN NOW. SHE IS GOING DOWN IN HER WHEEL CHAIR AND ALL HER BELONGINGS ARE PACKED AND GOING WITH HER. IV REMOVED WITH CATHETER INTACT. SHE HAS HER COPIES OF HER PAPERWORK WITH HER. DISCHARGE COMPLETE.
--- NOTE | 2019-12-26 08:12 | MORECARE ---
CASE MANAGEMENT DISCHARGE SUMMARY PATIENT: SMITH GILBERT UNIT: [id number] ADM DATE: 12/04/19 AGE: 54 : 61 SEX: F ROOM/BED: D.2108 AUTHOR: BALTA,DOC PHYSICIAN: REFERRING PHYSICIAN: KATIE FORD DO DATE OF SERVICE: 12/26/19 Discharge Plan Patient Name: SMITH GILBERT Facility: [facility]:[place] : 1965 Planned Disposition: Home with Home Health Anticipated Discharge Date: 12/25/19 Discharge Date: 12/25/2019 Expected LOS: 21 Initial Reviewer: [id number] Initial Review Date: 12/04/2019 Generated: 12/26/19 9:12 am Comments DCP- Discharge Planning Updated by [id number]: Aldo Hernandez on 12/25/19 12:[address] Patient Name: SMITH GILBERT Encounter No: [id number] : 1965 Primary Insurance: MEDICAID [place] Anticipated DC Date: 12-25-2019 Planned Disposition: Home with Home Health External Planned Provider: [facility] DCP follow-up note: CM SPOKE TO CHANA PERDOMO WHO INFORMED CM THAT PT WILL DISCHARGE TODAY. CM MET WITH PT IN ROOM TO DISCUSS DISCHARGE PLANNING AND NEEDS. CM DISCUSSED PATTERN MAKER CARE PLACEMENT IN NURSING FACILITY. PT REFUSED AND REPORTS SHE WILL BE GOING HOME BUT NEEDS DIALYSIS TODAY AND IS NOT GOING HOME TODAY. CM EXPLAINED THAT THE DOCTOR HAS DISCHARGED PT TODAY. CM EXPLAINED THAT CM WILL CHECK ON DIALYSIS. PT STATES SHE WILL NEED HOME HEALTH AND HAS HAD [facility] IN THE PAST AND WANTS THEM AGAIN. CHOICE SIGNED. PT REPORTS SHE LEAVES FOR DIALYSIS ON MWF, 1030AM AND GETS HOME AT 3:00PM. PT REPORTS HER NIECE WILL ASSIST BUT IS NOT IN THE HOME ALL OF THE TIME, BUT LIVES ACROSS FROM HER IN THE APARTMENT COMPLEX. CM CALLED [email or web address], , SPOKE TO AAKASH AND PROVIDED REFERRAL AND DISCHARGE INFORMATION FOR HOME HEALTH DRESSING CHANGES AND PHYSICAL THERAPY. CM FAXED INFORMATION TO [facility] AT [phone]. AAKASH WILL TAKE A LOOK AT REFERRAL. CM TO CALL MEDICAID TRANSPORTATION AND ARRANGE VAN SUPREME COURT JUSTICE SOON PT'S COMPLETION TIME FOR DIALYSIS TODAY IS KNOWN. Aldo Hernandez, CASE MANAGEMENT Appended by Aldo Hernandez on 12/25/2019 13:24 CDT: CM SPOKE TO CHANA PERDOMO, PT WILL BE BACK TO HOSPITAL FROM DIALYSIS AND READY FOR DC HOME AT 5PM TODAY. CM CALLED AND SPOKE TO VINCENZO AT MEDICAID TRANSPORTATION, , WHO SCHEDULED PT FOR SUPREME COURT JUSTICE TODAY AT 1700 HOURS. CM NOTIFIED FLOW COODRINATOR AND CHANA PERDOMO. PT NOTIFIED WHO WILL CALL HER FAMILY TO MAKE SURE THEY ARE HOME TODAY WHEN SHE ARRIVES. PT DENIES FURTHER NEEDS AT THIS TIME. MEDICAID TRANSPORT CONFIRMATION # [id number]. DELGADO LUJAN DCP- Discharge Planning Updated by [id number]: Aldo Hernandez on 12/19/19 6:[address] Patient Name: SMITH GILBERT Encounter No: [id number] : 1965 Primary Insurance: MEDICAID [place] Anticipated DC Date: 12-08-2019 Planned Disposition: Home with home health External Planned Provider: To be determined DCP follow-up note: LATE ENTRY FROM 12-18-19, 1730 HOURS: CM MET WITH PT IN ROOM TO DISCUSS DISCHARGE PLANNING AND NEEDS. PT'S INSURANCE WILL NOT COVER INPATIENT REHAB., NOR WILL IT COVER SENIOR LIVING FACILITY REHAB SERVICES. CM DISCUSSED CUSTODIAL CARE PLACEMENT IN NURSING FACILITY. PT REFUSED AND REPORTS SHE WILL BE GOING HOME AT DISCHARGE AND THE DOCTOR NEEDS "TO BE GETTING HER PAIN UNDER CONTROL." CM EXPLAINED THAT THE DOCTOR CONTINUES TO TREAT PT AND THAT CM IS ASSISTING WITH DISCHARGE PLANNING, CM DISCUSSED AVAILABILITY OF HOME HEALTH. PT WILL CONSIDER HOME HEALTH AT DISCHARGE BUT AGAIN STATES SHE IS NOT GOING TO LIVE IN A HALFWAY. PT FEELS GOING HOME IS A SAFE DISHCHARGE PLAN AND INSISTS THAT SHE IS ABLE TO GET ON AND OFF THE MEDICAID TRANSPORTATION BUS FOR DIALYSIS TREATMENT. PT REFUSES PLACEMENT IN HALFWAY FOR PATTERN MAKER CARE PROVIDED BY MEDICAID. PT'S INSURANCE DOES NOT COVER INPATIENT REHAB OR SENIOR LIVING REHAB SERVICES. PT WILL CONSIDER HOME HEALTH FOR THERAPY SERVICES AT HOME. CM TO CONTINUE TO FOLLOW AND ASSIST NEEDED. DELGADO Lujan DCP- Discharge Planning Updated by [id number]: Aldo Hernandez on 12/12/19 6:[address] Patient Name: SMITH IGLBERT Encounter No: [id number] : 1965 Primary Insurance: MEDICAID [place] Anticipated DC Date: 12-08-2019 Planned Disposition: Home DCP follow-up note: CM MET WITH PT IN ROOM TO DISCUSS DISCHARGE NEEDS AND PLANNING. PT HAS WHEELCHAIR FROM [employer]. PT REPORTS IT IS A RENTAL AND SHE NEEDS ORDER FOR POWER WHEELCHAIR AND IT WILL TAKE UP TO THREE MONTHS TO GET. CM EXPLAINED SHE WILL NEED TO SPEAK TO THE DOCTOR ABOUT GETTING A POWER WHEELCHAIR. CM DISCUSSED AVAILABILITY OF HOME HEALTH, REHAB SERVICES AND MEDICAL EQUIPMENT. PT DENIES DISCHARGE NEEDS. STATES SHE NEEDS TO TALK TO THE ELECTRICAL & INSTRUMENTATION SUPERVISOR ABOUT HER BLOOD CLOTS AND IF SHE HAS XERALTO ORDERED FOR DISCHARGE HOME, SHE CAN'T AFFORD IT. CM EXPLAINED THAT IF ORDERED XERALTO, CM CAN PROVIDE A COUPON. PT STATES SHE CAN AFFORD $10 PER MONTH. PT REPORTS SHE WILL NEED MEDICAID TRANPSORT HOME AT DISCHARGE, SHE HAS CALLED THEM TO ENSURE THEY CAN ACCOMODATE HER NEW WHEELCHAIR AND THEY CAN. IMPORTANT MESSAGE FROM MEDICARE PROVIDED AND EXPLAINED. CM TO FOLLOW AND ASSIST NEEDED. Aldo Hernandez, CASE MANAGEMENT Appended by Aldo Hernandez on 12/12/2019 8:23 COSMETIC SALES ADVISOR: CM MET WITH PT, EXPLAINED THAT THE IMPORTANT MESSAGE FROM MEDICARE HAD BEEN PROVIDED IN ERROR PT HAS MEDICAID, NOT MEDICARE. PT REPORTED UNDERSTANDING. ALDO HERNANDEZ, CASE MANAGMEENT DCP- Discharge Planning Updated by [id number]: Aldo Hernandez on 12/08/19 4:[address] Patient Name: SMITH GILBERT Admission Status: ER Accout number: [id number] Admission Date: 12-04-2019 : 1965 Admission Diagnosis: Attending: SYLVIA Current LOS: 4 Anticipated DC Date: 12-08-2019 Planned Disposition: Home Primary Insurance: MEDICAID [place] Discharge Planning Comments: CM RECEIVED REQUEST FOR WHEELCHAIR FROM PATIENT. CM SPOKE TO CHANA PERDOMO WHO PROVIDED ORDER FOR WHEELCHAIR. CM MET WITH PT IN ROOM TO DISCUSS DISCHARGE PLANNING AND NEEDS. PT REPORTS LIVING AT HOME ALONE DEPENDENTLY ON NIECE WHO IS PAID CAREGIVER THROUGH [employer] / [employer] WHO ASSISTS WITH BATHING AND TRANSFERS 2-3 HOURS PER DAY, 5 DAYS PER WEEK. PT HAS CANE AND WALKER FROM [employer]. CM DISCUSSED AVAILABILITY OF HOME HEALTH, REHAB SERVICES AND MEDICAL EQUIPMENT. PT DENIES DISCHARGE NEEDS OTHER THAN A WHEELCHAIR. CHOICE FOR [facility] SIGNED. PT REPORTS HER FAMILY WILL PICK HER UP FOR DISCHARGE HOME, IF THEY ARE NOT AVAILABLE, PT WILL NEED MEDICAID TRANSPORTATION THAT IS ONLY AVAILABLE ON WEEKDAYS. CM CALLED [facility], , SPOKE TO PATRICIA AND DISCUSSED REFERRAL. CM FAXED REFERRAL AND ORDER TO [facility] AT [phone]. [facility] TO PROCESS ORDER FOR WHEELCHAIR. PT PLANS TO DISCHARGE HOME. ORDER FOR WHEELCHAIR SENT TO [employer] FOR PROCESSING AND HOME DELIVERY OF WHEELCHAIR. CM TO FOLLOW AND ASSIST NEEDED. Fraud Investigator: Aldo Hernandez DCPIA - Discharge Planning Initial Assessment Updated by [id number]: Aldo Hernandez on 12/08/19 6:05 pm * Is the patient Alert and Oriented? Yes * How many steps to enter\\exit or inside your home? NONE * PCP DR. REDD * Pharmacy [facility] * Preadmission Environment Home Alone * ADLs Partial Dependent * Partial ADLs (Assistance needed) Bathing Transfers * Equipment Cane Walker * Other Equipment [employer], MEDICAL EQUIPMENT PROVIDER * List name and contact numbers for known caregivers / representatives who currently or will assist patient after discharge: SALTY JARAMILLO, * Verbal permission to speak to the caregivers and representatives has been obtained from the patient. N/A * Community resources currently utilized Other Private Duty Care * Please name any agencies selected above. OUTPATIENT DIALYSIS, [facility], MWF, MEDICAID TRANSPORTATION [facility], SALTY IS PAID CAREGIVER, 5 DAYS PER WEEK, 2-3 HOURS PER DAY NEEDED. * Additional services required to return to the preadmission environment? No * Can the patient safely return to the preadmission environment? Yes * Has this patient been hospitalized within the prior 30 days at any hospital? No Coverage Notice Reviewer: [id number] - Aldo Hernandez Notice Issued Date-Time: 12/11/2019 17:20 Notice Type: IM Discharge Notice Notice Delivered To: Patient Relationship to Patient: Book Salesman Name: Delivery Method: HAND - Hand Delivered Nishi Days: Prior Verbal Notification: Recipient Understood Notice: Yes Recipient Signature: Yes Med Rec Note Co-signed by Attending: Coverage Notice Comment: Last DP export: 12/25/19 12:31 pm Patient Name: SMITH GILBERT Page [id number] at 0812 All edits/amendments must be made on the electronic document DICTATION DATE: 12/26/19811 SLICING MACHINE OPERATOR/TENDER: ROSA 12/26/19811 RPT#: [id number] DC DATE:12/25/19 STATUS: DIS IN [facility] [address] [place] [address] END OF REPORT
== END 2019-12-25 17:01 | disposition home health service (06) | DRG 239 ==
LOC: D.ER 16:21 → D.M2 20:59
PROVIDERS: Family Medicine; Internal Medicine Interventional Cardiology; Internal Medicine Nephrology; Orthopaedic Surgery; ADMIT Internal Medicine; ATTEND Internal Medicine
PROC: 047L3ZZ Dilation of Left Femoral Artery, Percutaneous Approach (ICD-10-PCS; 2019-12-05 12:50)
PROC: 5A1D70Z Performance of Urinary Filtration, Intermittent, Less than 6 Hours Per Day (ICD-10-PCS; 2019-12-06)
PROC: 0Y6J0Z2 Detachment at Left Lower Leg, Mid, Open Approach (ICD-10-PCS; principal; 2019-12-14 14:15)
DX: I70.202 Unspecified atherosclerosis of native arteries of extremities, left leg (principal); N18.6 End stage renal disease; K86.1 Other chronic pancreatitis; I12.0 Hypertensive chronic kidney disease with stage 5 chronic kidney disease or end stage renal disease; I42.9 Cardiomyopathy, unspecified; K59.00 Constipation, unspecified; E11.43 Type 2 diabetes mellitus with diabetic autonomic (poly)neuropathy; K31.84 Gastroparesis; I25.10 Atherosclerotic heart disease of native coronary artery without angina pectoris; E11.22 Type 2 diabetes mellitus with diabetic chronic kidney disease; E78.5 Hyperlipidemia, unspecified; E87.5 Hyperkalemia; D63.1 Anemia in chronic kidney disease

== ENCOUNTER 2020-01-05 18:06 | Inpatient (IN) | payer MEDICAID ==
[~2020-01-05] VITALS: Ht 158.8 cm; Wt 76.8 kg
[~2020-01-05 18:06] MED LIST changes: +GABAPENTIN100 MG PO; +LEVOFLOXACIN500 MG PO; +RENA-VITE TABL0.8 MG PO; +ULTRAM50 MG PO; +XALATAN 0.0052.5 ML LEFT EYE
--- NOTE | 2020-01-05 19:02 | NUR ---
REPORT TO HAILEY FREDERICK.
[2020-01-05 19:04] LABS: BASOPHILS 0.1 % (0-2); EOSINOPHILS 0.5 % (0-7); HEMATOCRIT 37.1 % (36.0-48.0); HEMOGLOBIN 11.6 g/dL (12-16); IMMATURE GRANULOCYTES 0.5 % (0-5); LYMPHOCYTES 6.1 % (15-50); MCH 28.2 pg (26.0-34.0); MCHC 31.3 g/dL (31.0-37.0); MCV 90.3 fL (80.0-100.0); MEAN PLATELET VOLUME 9.6 fL (7.4-10.4); MONOCYTES 4.9 % (2-11); NEUTROPHILS 87.9 % (40-80); RBC 4.11 10x6/uL (4.00-5.40); RDW 16.9 % (11.5-14.5); WBC 11.9 10x3/uL (4.8-10.8)
[2020-01-05 19:06] LABS: PLATELET COUNT 410 10x3/uL (130-400)
[2020-01-05 19:12] LABS: ANION GAP 13.1 mmol/L (8-16); CALCIUM 9.3 mg/dL (8.5-10.1); CARBON DIOXIDE 33.3 mmol/L (21.0-32.0); CREATININE - SERUM 5.1 mg/dL (0.6-1.3); POTASSIUM - SERUM 4.4 mmol/L (3.5-5.1)
[2020-01-05 19:14] LABS: APTT 21.7 SECONDS (22.8-39.4)
[2020-01-05 19:15] LABS: INR 1.08 (0.85-1.17); PROTIME 13.9 SECONDS (11.6-15.0)
[2020-01-05 19:17] LABS: ALBUMIN 3.2 g/dL (3.4-5.0); BILIRUBIN - TOTAL 0.65 mg/dL (0.2-1.3)
--- NOTE | 2020-01-05 19:36 | NUR ---
CONSENTS OBTAINED FOR CENTRAL LINE. PT MOVED TO TRAUMA ROOM 3 FOR PROCEDURE. EDP DOWNEN AND CRUZ AT BEDSIDE.
--- NOTE | 2020-01-05 20:24 | NUR ---
PT BED LINENS CHANGED AT THIS TIME. NO ACUTE DISTRESS NOED, BED IN LOWEST POSITION, CALL LIGHT WITHIN REACH, WILL CONTINUE TO MONITOR.
[2020-01-05 20:49] LABS: HEMATOCRIT 33.9 % (36.0-48.0); HEMOGLOBIN 10.5 g/dL (12-16)
--- NOTE | 2020-01-05 21:02 | NUR ---
PT BED LINENS CHANGED AT THIS TIME. NO OTHER COMPLAINTS, PT PROVIDED WITH BLANKET. WILL CONTINUE TO MONITOR.
--- NOTE | 2020-01-05 21:19 | NUR ---
REPORT RECEIVED FROM HAILEY FREDERICK, PT CARE ASSUMED. AWAITING PT'S ARRIVAL TO ROOM 2103.
--- NOTE | 2020-01-05 21:47 | NUR ---
REC'D PATIENT FROM ER VIA STRECTHER. BREATHING ROOM AIR. MODERATE AMOUNT OF BLOOD FROM RECTUM. EXTERNAL HEMORRHOIDS NOTED. SBP IN 180-190. STATED S/S STARTED ABOUT 2 DAYS AGO. ORIENTED TO ROOM. CALL LIGHT IN REACH. RIGHT IJ NOTED, NOTHING RUNNING THROUGH IV
[2020-01-05 21:59] VITALS: BP 185/86
[2020-01-05 22:00] VITALS: BP 177/86
--- NOTE | 2020-01-05 22:36 | NUR ---
PAGED DR. DARNELL ABOUT PATIENT. WAITING RETURN CALL
--- NOTE | 2020-01-05 22:47 | NUR ---
PAGED DR. DARNELL ABOUT PATIENT, WAITING RETURN CALL
[2020-01-05 23:00] VITALS: BP 164/78
--- NOTE | 2020-01-05 23:30 | NUR ---
SPOKE WITH DR. DARNELL. NEW ORDERS REC'D.
--- NOTE | 2020-01-05 23:40 | NUR ---
PAGED DR. LIANG ABOUT PATIENT, WAITING RETURN CALL
[2020-01-06] VITALS (24 sets, daily range): BP systolic 119–193; BP diastolic 46–104; Ht 158.8 cm; Wt 76.8 kg
--- NOTE | 2020-01-06 | NUR ---
PAGED DR. LIANG, WAITING RETURN CALL
[2020-01-06 00:09] LABS: HEMATOCRIT 31.3 % (36.0-48.0); HEMOGLOBIN 9.5 g/dL (12-16)
--- NOTE | 2020-01-06 00:20 | NUR ---
PAGED DR. LIANG, WAITING RETURN CALL
--- NOTE | 2020-01-06 00:30 | NUR ---
SPOKE WITH DR. LIANG, NEW ORDERS REC'D
--- NOTE | 2020-01-06 01:00 | NUR ---
FIRST UNIT OF PRBC STARTED.
--- NOTE | 2020-01-06 02:46 | NUR ---
SECOND UNIT OF PRBC STARTED
--- NOTE | 2020-01-06 03:25 | NUR ---
PAGED DR. LIANG ABOUT BP, WAITING RETURN CALL
--- NOTE | 2020-01-06 05:00 | NUR ---
2 MODERATE AMOUNT OF BLOOD WITH STOOLS. THIRD TOTAL THIS SHIFT.
[2020-01-06 06:24] LABS: BASOPHILS 0.1 % (0-2); EOSINOPHILS 0.4 % (0-7); IMMATURE GRANULOCYTES 0.3 % (0-5); LYMPHOCYTES 7.6 % (15-50); MCH 28.5 pg (26.0-34.0); MCHC 31.4 g/dL (31.0-37.0); MCV 90.8 fL (80.0-100.0); MEAN PLATELET VOLUME 9.2 fL (7.4-10.4); MONOCYTES 5.3 % (2-11); NEUTROPHILS 86.3 % (40-80); RBC 4.35 10x6/uL (4.00-5.40); RDW 16.8 % (11.5-14.5)
[2020-01-06 06:37] LABS: HEMATOCRIT 39.5 % (36.0-48.0); HEMOGLOBIN 12.4 g/dL (12-16); PLATELET COUNT 300 10x3/uL (130-400)
[2020-01-06 06:46] LABS: ALBUMIN 2.7 g/dL (3.4-5.0); ANION GAP 17.5 mmol/L (8-16); BILIRUBIN - TOTAL 0.93 mg/dL (0.2-1.3); CALCIUM 8.7 mg/dL (8.5-10.1); CARBON DIOXIDE 27.8 mmol/L (21.0-32.0); CREATININE - SERUM 5.7 mg/dL (0.6-1.3); POTASSIUM - SERUM 4.3 mmol/L (3.5-5.1); PROTEIN - SERUM 6.3 g/dL (6.4-8.2)
--- NOTE | 2020-01-06 08:12 | NUR ---
0700 REPORT RECIEVED AND CARE ASSUMED OF PATIENT .. PT IS AWAKE AND ALERT RESPONSIVE APPROPRIATLY WIHTOUT C/O AT PRESENT
--- NOTE | 2020-01-06 09:57 | NUR ---
0900 NAYANA GENERAL MATCHER RENAL IN TO SEE PT.. UPDTE GIVEN AND ORDERS ARE RECIEVED.. MEDS ARE GIVEN AND PT REQUEST THAT DRESSING ON BKA STUMP.. PT IS VERY SPECIFIC AND INSISTANT THAT THE DRESSING BE DONE ACCORDING TO HOW IT HAS BEEN DONE IN THE PAST.. THERE ARE NO ORDERS RE THIS AND NAYANA DOES NOT KNOW ,WOULND CARE IS CONSULTED AT THIS TIME BY HER FOR DIRECTIONS.. 0940 LOTION IS RUBBED ON PTS RIGHT LEG PER PATIENT REQUEST..
[2020-01-06 12:53] LABS: HEMATOCRIT 38.2 % (36.0-48.0)
--- NOTE | 2020-01-06 13:02 | NUR ---
1100 DR DARNELL IN TO SEE PT.. OK FOR CLEAR LIQUID DIET AND TRANSFER TO FLOOR IF OK WITH RENAL.. [address] RENAL FAST FOOD MANAGER CALLED AND OK FOR TRANSFER TO FLOOR RECIEVED.. 1130 CLEAR LIQUID DIET SERVED FOR LUNCH.. FSBS DONE WITH INSULIN COVER.. MEDS GIVEN.. 1220 PT STATES THAT SHE NEEDS TO USE BEDPAN.. 1240 PT WITH A LARGE LIQUID MAROON STOOL IN THE BEDPAN.. BATH WITH LINEN CHANGE DONE.. PT ABLE TO ASSIST WITH TURNING..LAB DRAWN FROM [facility] FOR ORDERED H AND H.. 1300 DR LIANG IN UNIT AND UPDATE GIVEN.. LEAVE PATIENT IN THE ICU FOR NOW.. 1310 DR DARNELL PAGED AND UPDATED RE BLOODY STOOL... LEAVE PATIENT IN UNIT.
--- NOTE | 2020-01-06 17:20 | NUR ---
1500 PT IS SLEEPING .. REASSESMENT IS COMPLETE EASILY ROUSED.. 1630 FSBS DONE WITH INSULIN COVER.. 1700 DIET HELD AT THIS TIME.. MED GIVEN , PT IS EASILY ROUSED
--- NOTE | 2020-01-06 19:45 | NUR ---
SHIFT ASSESSMENT COMPLETED SEE FLOWSHEET. PT REQUESTING FOOD AT THIS TIME, PATIENT IS AGITATED, AGGRESSIVE, AND DEMANDING. PT EDUCATION PROVIDED AT THIS TIME REGARDING SCHEDULE FOR THE NEXT FEW HOURS AND HER CLEAR LIQUID DIET STATUS. TOLD IN REPORT BY OFF GOING NURSE ABOUT BREAKTHROUGH RECTAL BLEEDING AFTER HAVING A CLEAR LIQUID MEAL. TOLD PATIENT WE CAN TRY TEA AND BROTH AND MONITOR TOLERANCE. EXPLAINED IF BREAKTHROUGH BLEEDING HAPPENED AGAIN WE WILL REASSESS HER DIET AT THAT TIME.
--- NOTE | 2020-01-06 20:30 | NUR ---
PT RECEIVED UNSWEETEND TEA AND CHICKEN BROTHER PER REQUEST. SET UP IN BED TO FACILITATE SAFE EATING/DRINKING. CALL LIGHT IN REACH BED AT LOWEST SETTING. VSS CPOC
--- NOTE | 2020-01-06 20:30 | NUR ---
PT SISTER CALLED FOR UPDATE, REQUESTED PASSWORD AND INFORMED THAT SHE DID NOT HAVE ONE. ASKED PATIENT PERMISSION TO GIVE FAMILY UPDATE AND PROVIDE THEM WITH PATIENT PASSWORD. PERMISSION RECEIVED FROM PATIENT, UPDATE GIVEN TO FAMILY AND THEY WERE PROVIDED WITH THE PASSWORD. CPOC
[2020-01-06 20:45] LABS: HEMATOCRIT 37.2 % (36.0-48.0); HEMOGLOBIN 11.8 g/dL (12-16)
--- NOTE | 2020-01-06 21:43 | NUR ---
PT RECEIVED HS MEDICATIONS, PT REQUESTING DRESSING CHANGE, COMPLAINS OF ACHING AND STINGING UNDER DRESSING STATES SHE KNOWS ITS TIME AND IT NEEDS TO BE CLEANED, PT RECEIVING SCHEDULED MEDICATIONS AT THIS TIME. EXSISTING DRESSING ASSESSED AT THIS TIME. INCISION APPROXAMATED HATTIE PRESENT WITH SCANT BLOODY EXUDATE IN A FEW AREAS. WOUND CLEANSED AND PATTED DRY. NEW DRESSING APPLIED AT THIS TIME.
--- NOTE | 2020-01-06 22:00 | NUR ---
PT INCREASING AGITATED AND RESTLESS, C/O STINGING AND ACHING ON LLE BKA - EXPLAINED TO PATIENT SHE WAS GIVEN MEDICATION PRIOR TO DRESSING CHANGE THAT SHOULD HELP WITH PAIN. PATIENT STATING MEDICATION IS NOT WORKING AND REQUESTING AN ALTERNATIVE. PT TEACHING REGARDING PAIN MEDICATIONS AT THIS TIME, INSTRUCTED TO GIVE THE MEDICATION A LITTLE MORE TIME AND I WILL SEE IF THERE IS AN ALTERNATIVE AVAILABLE TO HER. WILL CONTINUE TO MONITOR
--- NOTE | 2020-01-06 22:15 | NUR ---
PT RECEIVED PRN PAIN AND ANXIETY MEDICATION AT THIS TIME, SEE MAR FOR ADMINISTRATION.
--- NOTE | 2020-01-06 22:35 | NUR ---
pt c/o pain in left bka- described 07/27 with new onset burning and stabbig pain after dressing change, she was premedicated with scheduled medication instructed her to give the med some time and I will check her orders to see if there is anything else available if needed. patient increasingly agitated and restless will continue to monitor
--- NOTE | 2020-01-06 23:30 | NUR ---
PATIENT RESTING COMFORTABLY EASY RISE AND FALL OF CHEST, NO BLOODY STOOLS NOTED AT THIS TIME PT OPENS EYES TO SPEECH, CAN FOLLOW COMMANDS, DRIFTS BACK OFF TO SLEEP, ADEQUATE PAIN CONTROL AT THIS TIME. VSS WILL CONTINUE TO CLOSELY MONITOR
[2020-01-07] VITALS (15 sets, daily range): BP systolic 89–152; BP diastolic 36–98
--- NOTE | 2020-01-07 04:44 | NUR ---
PT RECEIVED JELLO PER REQUEST STATING "MY BLOOD SUGAR TOO LOW" - BLOOD SUGAR LEVEL AT PREVIOUS HOUR CHECK 77 - WILL CONTINUE TO CLOSELY MONITOR. PT AWAKE ALERT AND ORIENTED JELLO PROVIDED.
[2020-01-07 05:02] LABS: BASOPHILS 0.1 % (0-2); EOSINOPHILS 0.5 % (0-7); HEMATOCRIT 39.7 % (36.0-48.0); HEMOGLOBIN 12.5 g/dL (12-16); IMMATURE GRANULOCYTES 0.4 % (0-5); LYMPHOCYTES 7.9 % (15-50); MCH 28.7 pg (26.0-34.0); MCHC 31.5 g/dL (31.0-37.0); MCV 91.1 fL (80.0-100.0); MEAN PLATELET VOLUME 9.5 fL (7.4-10.4); MONOCYTES 7.6 % (2-11); NEUTROPHILS 83.5 % (40-80); PLATELET COUNT 277 10x3/uL (130-400); RBC 4.36 10x6/uL (4.00-5.40); RDW 17.4 % (11.5-14.5); WBC 9.8 10x3/uL (4.8-10.8)
[2020-01-07 05:16] LABS: ALBUMIN 2.5 g/dL (3.4-5.0); ANION GAP 13.9 mmol/L (8-16); BILIRUBIN - TOTAL 0.52 mg/dL (0.2-1.3); CALCIUM 8.6 mg/dL (8.5-10.1); CARBON DIOXIDE 28.6 mmol/L (21.0-32.0); CREATININE - SERUM 6.9 mg/dL (0.6-1.3); POTASSIUM - SERUM 4.5 mmol/L (3.5-5.1); PROTEIN - SERUM 6.1 g/dL (6.4-8.2)
--- NOTE | 2020-01-07 05:33 | NUR ---
PT REQUESTED BEDPAN AT THIS TIME, 200 CC BROWN LIQUID STOOL, SCANT AMOUNT DARK MAROON BLOOD NOTED. PT ALSO REQUESTED A NEW GOWN, WARM BLANKET, BLOOD SUGAR RECHECK, AND PRN PAIN MEDICATION FOR 10/10 PAIN NUMERIC PAIN SCALE LLE BKA. ALL PROVIDED SEE MAR FOR MEDICATION ADMINISTRATION. BLOOD SUGAR RECHECK 136 - NO INSULIN GIVEN AT THIS TIME. VSS CPOC
--- NOTE | 2020-01-07 11:59 | NUR ---
0700 CARE ASSUMED OF PATIENT AFTER REPORT RECIEVED.. 0730 DRESSING CHANGE BY NIGHT RN FELL OFF OF PATIENT STUMP...SITE REDRESSED USING 4X4 AND GAUZE 6 INCH ROLL 0800 NAYANA FROM RENAL IN TO SEE PT AND UPDATE IS GIVEN.. ORDERS FOR BOWEL PREP RECIEVED.. OK TO TRANSFER TO FLOOR RECIEVED 0830 CLEAR LIQUID DIET SERVED AND PT IS FEEDING SELF 0900 MEDS GIVEN.. CONT TO C/O PAIN IN STUMP ULTRAM GIVEN.. 1000 COLON PREP STARTED 1030 PT PLACED ON BED TORRES LIQUID BROWN STOOL 1130 DR DARNELL IN TO SEE PT.. UPDATE IS GIVEN TO HIM 1145 DR LIANG IN TO SEE PT.. UPDATE GIVEN TO HIM.. PT CONTINUES WITH C/O PAIN IN RIGHT STUMP ...
--- NOTE | 2020-01-07 13:59 | NUR ---
1200 LUNCH SERVED AND PT IS FEEDING SELF.. CLEAR LIQUID.. PT IS ON BEDPAN FREQUENT CHANGES OF LINEN AND TORRES DUE TO LIQUID STOOL SHE CONTINUES TO SIP ON MIRALAX FOR COLON PREP 1300 100% LUNCH EATEN 1400 PT IS SLEEPING AT THIS TIME..
--- NOTE | 2020-01-07 15:17 | NUR ---
1450 DR ROSENBERG CALLED .. INFORMED OF PT OGT BEING DISLODGED.. CXR ORDERED FOR CURRENT PLACEMENT 1520 XR HERE TO DO CXR FOR TUBE PLACEMENT
--- NOTE | 2020-01-07 15:23 | NUR ---
1430 PT IS AWAKE AND WITHOUT C/O PAIN AT THIS TIME.. 1500 COMPLETE BATH AND LINEN CHANGE DONE.. PT CONITNUES TO SIP CLEAR LIQUIDS
--- NOTE | 2020-01-07 16:48 | NUR ---
1600 PT AWAKE.. MEDS GIVEN .. PT REFUSES TO HAVE DRESSING REPLACED ON BKA SITE.. STATING IT HURTS... 1630 DIET SERVED AND INSULIN GIVEN FOR FSBS
--- NOTE | 2020-01-07 16:57 | NUR ---
RECEIVED REPORT FROM INESSA IN ICU. PATIENT TO UNIT SOON.
--- NOTE | 2020-01-07 16:57 | NUR ---
170 REPORT CALLED TO ZENOBIA HART PT TO TRANSFER TO 2106
--- NOTE | 2020-01-07 17:37 | NUR ---
1730 PRIOR TO TRANSPORT TO ROOM 2107 VIA BED PT ALLOWED BKA SITE TO BE DRESSED WITH STERI STRIPS VASELINE GAUZE AND 6 INCH ROLLED GAUZE.. CAUTION GIVEN TO PT THAT SHE NEEDS TO LEAVE THE DRESSING ON SITE AND NOT PICK AT IT SHE HAD PICKED OFF THE STERI STRIPS AND OPENED AN AREA ON THE LATERAL SIDE OF THE INCISION WHERE THE STERI STRIPS HAD BEEN PREVIOUSLY...
--- NOTE | 2020-01-07 18:05 | NUR ---
PATIENT ADMITTED TO ROOM 2106. PATIENT RESTING QUIETLY AT THIS TIME. FAMILY AT BEDSIDE. CALL LIGHT WITHIN REACH. NO DISTRESS.
--- NOTE | 2020-01-07 18:42 | NUR ---
BED TORRES REMOVED. LIGHT RUST COLORED CLEAR STOOL. MIRALAX PREP WITH GOOD RESULTS. BUTT PASTE APPLIED. REPOSITIONED AND PULLED UP IN BED. PATIENT FAMILY MEMBER AT BEDSIDE. NO DISTRESS.
--- NOTE | 2020-01-07 19:10 | NUR ---
BEDSIDE REPORT RECEIVED FROM DAY SHIFT, PT CARE ASSUMED. PT LYING IN BED WITH EYES CLOSED, RR EVEN AND NONLABORED, NO S/S OF DISTRESS, AROUSES EASILY TO VOICE, DENIES ANY NEEDS AT THIS TIME. INTRODUCED SELF AND WROTE NAME ON BOARD. BED IN LOWEST POSITION, SR X2, CALL LIGHT WITHIN REACH. WILL CONTINUE TO MONITOR.
[2020-01-08] VITALS: BP 126/60
[2020-01-08 04:00] VITALS: BP 128/74
[2020-01-08 05:05] LABS: ALBUMIN 2.3 g/dL (3.4-5.0); ANION GAP 14.9 mmol/L (8-16); BILIRUBIN - TOTAL 0.49 mg/dL (0.2-1.3); CALCIUM 8.1 mg/dL (8.5-10.1); CARBON DIOXIDE 26.4 mmol/L (21.0-32.0); CREATININE - SERUM 7.9 mg/dL (0.6-1.3); POTASSIUM - SERUM 4.3 mmol/L (3.5-5.1); PROTEIN - SERUM 5.5 g/dL (6.4-8.2)
[2020-01-08 05:13] LABS: BASOPHILS 0.1 % (0-2); HEMOGLOBIN 10.3 g/dL (12-16); IMMATURE GRANULOCYTES 0.3 % (0-5); LYMPHOCYTES 10.3 % (15-50); MCH 28.5 pg (26.0-34.0); MCHC 31.2 g/dL (31.0-37.0); MCV 91.4 fL (80.0-100.0); MEAN PLATELET VOLUME 9.2 fL (7.4-10.4); MONOCYTES 7.8 % (2-11); NEUTROPHILS 80.5 % (40-80); PLATELET COUNT 224 10x3/uL (130-400); RBC 3.61 10x6/uL (4.00-5.40); RDW 17.1 % (11.5-14.5); WBC 12.2 10x3/uL (4.8-10.8)
--- NOTE | 2020-01-08 05:35 | NUR ---
BLOOD SUGAR 63, PER AM LAB. PT AAOX4, NO S/S OF HYPOGLYCEMIA, DENIES S/S OF HYPOGLYCEMIA. NPO FOR COLONOSCOPY THIS AM, ADMINISTERED 25 ML 50%DEXTROSE VIA LEFT IJ. INSTRUCTED PT TO CALL IF EXPERIENCING ANY S/S OF HYPOGLYCEMIA, VERBALIZED UNDERSTANDING. BED IN LOWEST POSITION, SR X2, CALL LIGHT WITHIN REACH. WILL CONTINUE TO MONITOR.
--- NOTE | 2020-01-08 06:00 | NUR ---
FSBS 150, PT AAOX4, DENIES ANY NEEDS AT THIS TIME. BED IN LOWEST POSITION, SR X2, CALL LIGHT WITHIN REACH. WILL CONTINUE TO MONITOR.
[2020-01-08 08:40] VITALS: BP 153/92
[2020-01-08 11:54] VITALS: BP 153/75
--- NOTE | 2020-01-08 13:28 | NUR ---
PATIENT IN BED WITH IV INTACT. NO COMPLAINTS. CALL LIGHT WITHIN REACH.
--- NOTE | 2020-01-08 17:01 | MORECARE ---
CASE MANAGEMENT DISCHARGE SUMMARY PATIENT: SMITH GILBERT UNIT: [id number] ADM DATE: 01/05/20 AGE: 54 : 61 SEX: F ROOM/BED: D.2109 AUTHOR: PARVIN GIFFORD PHYSICIAN: REFERRING PHYSICIAN: ROBINSON LIANG MD DATE OF SERVICE: 01/08/20 Discharge Plan Patient Name: SMITH GILBERT [facility] [facility] 1965 Planned Disposition: Nursing Facility [facility] Cert Anticipated Discharge Date: Discharge Date: Expected LOS: Initial Reviewer: [id number] Initial Review Date: 01/08/2020 Generated: 01/08/20 6:01 pm Coverage Notice Reviewer: [id number] - Aldo Valencia Notice Issued Date-Time: 01/08/2020 16:50 Notice Type: Patient Choice Letter Notice Delivered To: Patient Relationship to Patient: Ground Crew Lines Person Name: Delivery Method: HAND - Hand Delivered Nishi Days: Prior Verbal Notification: Recipient Understood Notice: Yes Recipient Signature: Yes Med Rec Note Co-signed by Attending: Coverage Notice Comment: Patient Name: SMITH GILBERT Page [id number] at 1701 All edits/amendments must be made on the electronic document DICTATION DATE: 01/08/201700 DEVELOPMENT ENGINEER: ROSA 01/08/201700 RPT#: [id number] DC DATE: STATUS: ADM IN [facility] [address] [place] [address] END OF REPORT
[2020-01-08 17:09] VITALS: BP 137/46
--- NOTE | 2020-01-08 17:09 | MORECARE ---
CASE MANAGEMENT DISCHARGE SUMMARY PATIENT: SMITH GILBERT UNIT: [id number] ADM DATE: 01/05/20 AGE: 54 : 61 SEX: F ROOM/BED: D.6226 AUTHOR: BALTA,DOC PHYSICIAN: REFERRING PHYSICIAN: ROBINSON LIANG MD DATE OF SERVICE: 01/08/20 Discharge Plan Patient Name: SMITH GILBERT Facility: [facility]:[place] : 1965 Planned Disposition: Nursing Facility [facility] Cert Anticipated Discharge Date: Discharge Date: Expected LOS: Initial Reviewer: [id number] Initial Review Date: 01/08/2020 Generated: 01/08/20 6:08 pm Comments DCP- Discharge Planning Updated by [id number]: Aldo Valencia on 01/08/20 4:[address] Patient Name: SMITH GILBERT Admission Status: ER Accout number: [id number] Admission Date: 01-05-2020 : 1965 Admission Diagnosis:GASTROINTESTINAL HEMORRHAGE, UNSPECIFIED Attending: ROBINSON LIANG Current LOS: 3 Anticipated DC Date: Planned Disposition: Nursing Facility [facility] Cert Primary Insurance: [place]ID [place] PLANNED EXTERNAL PROVIDER: [place] [place], LONG TERM CARE MEDICAID BED Discharge Planning Comments: CM MET WITH PT IN ROOM TO DISCUSS DISCHARGE PLANNING AND NEEDS. PT REPORTS LIVING AT HOME ALONE, DEPENDENTLY ON NIECE WHO IS PAID CAREGIVER, 5 DAYS PER WEEK, 2-3 HOURS PER DAY THROUGH MEDICAID. PT HAS CANE, WALKER AND WHEELCHAIR FROM [facility]. PT HAS DIALYSIS AT [facility] AND USES [facility] MED[facility] TRANSPORTATION AT 1100AM. CM DISCUSSED AVAILABILITY OF HOME HEALTH, REHAB SERVICES AND MEDICAL EQUIPMENT. PT WANTS SENIOR LIVING CARE PLACEMENT AT [facility]. CHOICE SIGNED. CM TO SEND REFERRAL FOR SENIOR LIVING CARE PLACEMENT SOON POSSIBLE. Grip Wrapper: Aldo Valencia DCPIA - Discharge Planning Initial Assessment Updated by [id number]: Aldo Valencia on 01/08/20 5:02 pm * Is the patient Alert and Oriented? Yes * How many steps to enter\exit or inside your home? NONE * PCP DR. REDD * Pharmacy [facility] [place] * Preadmission Environment Home Alone * ADLs Partial Dependent * Partial ADLs (Assistance needed) Bathing Transfers * Equipment Cane Walker Wheelchair * Other Equipment [employer], PROVIDER * List name and contact numbers for known caregivers / representatives who currently or will assist patient after discharge: SALTY JARAMILLO, * Verbal permission to speak to the caregivers and representatives has been obtained from the patient. N/A * Community resources currently utilized Private Duty Care * Please name any agencies selected above. OUTPATIENT DIALYSIS, [facility], [facility], MEDICAID TRANSPORT PERSONAL CARE ([facility]), 5 DAYS PER WEEK 3 HOURS PER DAY (SALTY IS PAID CAREGIVER) * Additional services required to return to the preadmission environment? No * Can the patient safely return to the preadmission environment? Yes * Has this patient been hospitalized within the prior 30 days at any hospital? Yes Coverage Notice Reviewer: [id number] Surekha Valencia Notice Issued Date-Time: 01/08/2020 16:50 Notice Type: Patient Choice Letter Notice Delivered To: Patient Relationship to Patient: Parts Salvager Name: Delivery Method: HAND - Hand Delivered Nishi Days: Prior Verbal Notification: Recipient Understood Notice: Yes Recipient Signature: Yes Med Rec Note Co-signed by Attending: Coverage Notice Comment: Last DP export: 01/08/20 4:01 p Patient Name: SMITH GILBERT Page 46120 at 1709 All edits/amendments must be made on the electronic document DICTATION DATE: 01/08/201707 GRILL PREP COOK: ROSA 01/08/201707 RPT#: [id number] DC DATE: STATUS: ADM IN [facility] [address] [place] [address] END OF REPORT
--- NOTE | 2020-01-08 19:35 | NUR ---
PT CURRENTLY IN DIALYSIS.
--- NOTE | 2020-01-08 21:29 | NUR ---
HS MEDS GIVEN, ULTRAM 1 TAB GIVEN FOR C/O PAIN TO LEG. RATES PAIN AT AN 8 ON PAIN SCALE. XANAX 0.5 MG GIVEN AT PT REQUEST. SANDWHICH TRAY AND ICE GIVEN AT PT REQUEST. REPOSITIONED IN BED FOR COMFORT.
[2020-01-09 00:08] VITALS: BP 139/48
[2020-01-09 03:52] VITALS: BP 139/56
[2020-01-09 04:22] LABS: HEMATOCRIT 32.6 % (36.0-48.0); HEMOGLOBIN 10.3 g/dL (12-16); LYMPHOCYTES 3.5 % (15-50); MCH 28.5 pg (26.0-34.0); MCHC 31.6 g/dL (31.0-37.0); MCV 90.1 fL (80.0-100.0); MEAN PLATELET VOLUME 9.7 fL (7.4-10.4); RBC 3.62 10x6/uL (4.00-5.40); RDW 17.5 % (11.5-14.5); WBC 10.4 10x3/uL (4.8-10.8)
--- NOTE | 2020-01-09 04:25 | NUR ---
I have reviewed this patient and I concur with the Shift Assessment completed by the Licensed Practical Nurse today this shift.
[2020-01-09 04:31] LABS: ALBUMIN 2.3 g/dL (3.4-5.0); ANION GAP 18.5 mmol/L (8-16); BILIRUBIN - TOTAL 0.39 mg/dL (0.2-1.3); CALCIUM 8.2 mg/dL (8.5-10.1); CARBON DIOXIDE 23.2 mmol/L (21.0-32.0); CREATININE - SERUM 7.7 mg/dL (0.6-1.3); POTASSIUM - SERUM 4.7 mmol/L (3.5-5.1); PROTEIN - SERUM 5.9 g/dL (6.4-8.2)
[2020-01-09 04:32] LABS: PLATELET COUNT 176 10x3/uL (130-400)
--- NOTE | 2020-01-09 08:06 | MORECARE ---
CASE MANAGEMENT DISCHARGE SUMMARY PATIENT: SMITH GILBERT UNIT: [id number] ADM DATE: 01/05/20 AGE: 54 : 61 SEX: F ROOM/BED: D.4063 AUTHOR: BALTA,DOC PHYSICIAN: REFERRING PHYSICIAN: ROBINSON LIANG MD DATE OF SERVICE: 01/09/20 Discharge Plan Patient Name: SMITH GILBERT Facility: [facility]:[place] : 1965 Planned Disposition: Nursing Facility [facility] Cert Anticipated Discharge Date: Discharge Date: Expected LOS: Initial Reviewer: [id number] Initial Review Date: 01/08/2020 Generated: 01/09/20 9:06 am Comments DCP- Discharge Planning Updated by [id number]: Aldo Valencia on 01/08/20 4:[address] Patient Name: SMITH GILBERT Admission Status: ER Accout number: [id number] Admission Date: 01-05-2020 : 1965 Admission Diagnosis:GASTROINTESTINAL HEMORRHAGE, UNSPECIFIED Attending: ROBINSON LIANG Current LOS: 3 Anticipated DC Date: Planned Disposition: Nursing Facility [facility] Cert Primary Insurance: MEDICAID [place] PLANNED EXTERNAL PROVIDER: [employer] [place], LONG TERM CARE MEDICAID BED Discharge Planning Comments: CM MET WITH PT IN ROOM TO DISCUSS DISCHARGE PLANNING AND NEEDS. PT REPORTS LIVING AT HOME ALONE, DEPENDENTLY ON NIECE WHO IS PAID CAREGIVER, 5 DAYS PER WEEK, 2-3 HOURS PER DAY THROUGH MEDICAID. PT HAS CANE, WALKER AND WHEELCHAIR FROM [facility]. PT HAS DIALYSIS AT [facility] [place] AND USES [facility] MED[facility] TRANSPORTATION AT 1100AM. CM DISCUSSED AVAILABILITY OF HOME HEALTH, REHAB SERVICES AND MEDICAL EQUIPMENT. PT WANTS PRISON CARE PLACEMENT AT [facility]. CHOICE SIGNED. CM TO SEND REFERRAL FOR PRISON CARE PLACEMENT SOON POSSIBLE. Open Pit Quarry Supervisor: Aldo Valencia DCPIA - Discharge Planning Initial Assessment Updated by [id number]: Aldo Valencia on 01/08/20 5:02 pm * Is the patient Alert and Oriented? Yes * How many steps to enter\exit or inside your home? NONE * PCP DR. REDD * Pharmacy [facility] IN [place] * Preadmission Environment Home Alone * ADLs Partial Dependent * Partial ADLs (Assistance needed) Bathing Transfers * Equipment Cane Walker Wheelchair * Other Equipment [employer], PROVIDER * List name and contact numbers for known caregivers / representatives who currently or will assist patient after discharge: SALTY JARAMILLO, * Verbal permission to speak to the caregivers and representatives has been obtained from the patient. N/A * Community resources currently utilized Private Duty Care * Please name any agencies selected above. OUTPATIENT DIALYSIS, [facility], [facility], MEDICAID TRANSPORT PERSONAL CARE ([facility]), 5 DAYS PER WEEK 3 HOURS PER DAY (SALTY IS PAID CAREGIVER) * Additional services required to return to the preadmission environment? No * Can the patient safely return to the preadmission environment? Yes * Has this patient been hospitalized within the prior 30 days at any hospital? Yes Coverage Notice Reviewer: [id number] Surekha Valencia Notice Issued Date-Time: 01/08/2020 16:50 Notice Type: Patient Choice Letter Notice Delivered To: Patient Relationship to Patient: Community Health Program Coordinator Name: Delivery Method: HAND - Hand Delivered Nishi Days: Prior Verbal Notification: Recipient Understood Notice: Yes Recipient Signature: Yes Med Rec Note Co-signed by Attending: Coverage Notice Comment: Last DP export: 01/08/20 4:09 p Patient Name: SMITH GILBERT Page [id number] at 0806 All edits/amendments must be made on the electronic document DICTATION DATE: 01/09/20805 RESEARCH PROFESSOR OF BIOSTATISTICS: ROSA 01/09/20805 RPT#: [id number] DC DATE: STATUS: ADM IN [facility] [address] [place] [address] END OF REPORT
[2020-01-09 08:08] VITALS: BP 105/45
--- NOTE | 2020-01-09 09:04 | MORECARE ---
CASE MANAGEMENT DISCHARGE SUMMARY PATIENT: SMITH GILBERT UNIT: [id number] ADM DATE: 01/05/20 AGE: 54 : 61 SEX: F ROOM/BED: D.2061 AUTHOR: BALTA,DOC PHYSICIAN: REFERRING PHYSICIAN: ROBINSON LIANG MD DATE OF SERVICE: 01/09/20 Discharge Plan Patient Name: SMITH GILBERT Facility: [facility]:[place] : 1965 Planned Disposition: Nursing Facility [facility] Cert Anticipated Discharge Date: Discharge Date: Expected LOS: Initial Reviewer: [id number] Initial Review Date: 01/08/2020 Generated: 01/09/20 10:03 am Comments DCP- Discharge Planning Updated by [id number]: Aldo Valencia on 01/08/20 4:[address] Patient Name: SMITH GILBERT Admission Status: ER Accout number: [id number] Admission Date: 01-05-2020 : 1965 Admission Diagnosis:GASTROINTESTINAL HEMORRHAGE, UNSPECIFIED Attending: ROBINSON LIANG Current LOS: 3 Anticipated DC Date: Planned Disposition: Nursing Facility [facility] Cert Primary Insurance: MEDICAID [place] PLANNED EXTERNAL PROVIDER: [employer] [facility], LONG TERM CARE MEDICAID BED Discharge Planning Comments: CM MET WITH PT IN ROOM TO DISCUSS DISCHARGE PLANNING AND NEEDS. PT REPORTS LIVING AT HOME ALONE, DEPENDENTLY ON NIECE WHO IS PAID CAREGIVER, 5 DAYS PER WEEK, 2-3 HOURS PER DAY THROUGH MEDICAID. PT HAS CANE, WALKER AND WHEELCHAIR FROM [facility]. PT HAS DIALYSIS AT [facility] [place] AND USES [facility] MED[facility]ID TRANSPORTATION AT 1100AM. CM DISCUSSED AVAILABILITY OF HOME HEALTH, REHAB SERVICES AND MEDICAL EQUIPMENT. PT WANTS SENIOR ELECTRONICS TECHNICIAN CARE PLACEMENT AT [facility]. CHOICE SIGNED. CM TO SEND REFERRAL FOR SENIOR ELECTRONICS TECHNICIAN CARE PLACEMENT SOON POSSIBLE. Sandblaster Stone: Aldo Valencia DCPIA - Discharge Planning Initial Assessment Updated by [id number]: Aldo Valencia on 01/08/20 5:02 pm * Is the patient Alert and Oriented? Yes * How many steps to enter\exit or inside your home? NONE * PCP DR. REDD * Pharmacy [facility] IN [place] * Preadmission Environment Home Alone * ADLs Partial Dependent * Partial ADLs (Assistance needed) Bathing Transfers * Equipment Cane Walker Wheelchair * Other Equipment [employer], PROVIDER * List name and contact numbers for known caregivers / representatives who currently or will assist patient after discharge: SALTY JARAMILLO, * Verbal permission to speak to the caregivers and representatives has been obtained from the patient. N/A * Community resources currently utilized Private Duty Care * Please name any agencies selected above. OUTPATIENT DIALYSIS, [facility], [facility], MEDICAID TRANSPORT PERSONAL CARE ([facility]), 5 DAYS PER WEEK 3 HOURS PER DAY (SALTY IS PAID CAREGIVER) * Additional services required to return to the preadmission environment? No * Can the patient safely return to the preadmission environment? Yes * Has this patient been hospitalized within the prior 30 days at any hospital? Yes External Providers External Provider: [facility] Next Contact Date: 01/09/2020 Service Request Date: Service Type: Resolution: Reviewer: Comments: Coverage Notice Reviewer: [id number] Surekha Valencia Notice Issued Date-Time: 01/08/2020 16:50 Notice Type: Patient Choice Letter Notice Delivered To: Patient Relationship to Patient: Whistle Punk Name: Delivery Method: HAND - Hand Delivered Nishi Days: Prior Verbal Notification: Recipient Understood Notice: Yes Recipient Signature: Yes Med Rec Note Co-signed by Attending: Coverage Notice Comment: Last DP export: 01/09/20 7:06 a Patient Name: SMITH GILBERT Page 28501 at 0904 All edits/amendments must be made on the electronic document DICTATION DATE: 01/09/20902 INSPECTOR EXPERIMENTAL ASSEMBLY: ROSA 01/09/20902 RPT#: [id number] DC DATE: STATUS: ADM IN [facility] [address] [place] [address] END OF REPORT
--- NOTE | 2020-01-09 09:25 | MORECARE ---
CASE MANAGEMENT DISCHARGE SUMMARY PATIENT: SMITH GILBERT UNIT: [id number] ADM DATE: 01/05/20 AGE: 54 : 61 SEX: F ROOM/BED: D.2105 AUTHOR: BALTA,DOC PHYSICIAN: REFERRING PHYSICIAN: ROBINSON LIANG MD DATE OF SERVICE: 01/09/20 Discharge Plan Patient Name: SMITH GILBERT Facility: [facility]:[place] : 1965 Planned Disposition: Nursing Facility [facility] Cert Anticipated Discharge Date: Discharge Date: Expected LOS: Initial Reviewer: [id number] Initial Review Date: 01/08/2020 Generated: 01/09/20 10:24 am Comments DCP- Discharge Planning Updated by [id number]: Aldo Valencia on 01/09/20 8:[address] Patient Name: SMITH GILBERT Encounter No: [id number] : 1965 Primary Insurance: MEDICAID [place] Anticipated DC Date: Planned Disposition: Nursing Facility [facility] Cert External [facility] LONG [facility]M C[facility] MEDICA[facility] BED DCP follow-up note: CM FAXED REFERRAL TO [facility], CLINICAL LIAISON, . CM NOTIFED [facility] OF REFERRAL FOR HYBRID CORN BREEDER CARE AT [phone]. DR. LIANG UPDATED. CM WAITING ADMISSION DETERMINATION FROM [facility] FOR ASSISTED CARE. DELGADO Del Valle DCP- Discharge Planning Updated by [id number]: Aldo Valencia on 01/08/20 4:[address] Patient Name: SMITH GILBERT Admission Status: ER Accout number: [id number] Admission Date: 01-05-2020 : 1965 Admission Diagnosis:GASTROINTESTINAL HEMORRHAGE, UNSPECIFIED Attending: ROBINSON LIANG Current LOS: 3 Anticipated DC Date: Planned Disposition: Nursing Facility [facility] Cert Primary Insurance: MEDICAID [place] PLANNED EXTERNAL PROVIDER: [place], LONG TERM CARE MEDICAID BED Discharge Planning Comments: CM MET WITH PT IN ROOM TO DISCUSS DISCHARGE PLANNING AND NEEDS. PT REPORTS LIVING AT HOME ALONE, DEPENDENTLY ON NIECE WHO IS PAID CAREGIVER, 5 DAYS PER WEEK, 2-3 HOURS PER DAY THROUGH MEDICAID. PT HAS CANE, WALKER AND WHEELCHAIR FROM [employer]. PT HAS DIALYSIS AT [facility] AND USES [facility] MEDICAID TRANSPORTATION AT 1100AM. CM DISCUSSED AVAILABILITY OF HOME HEALTH, REHAB SERVICES AND MEDICAL EQUIPMENT. PT WANTS HYBRID CORN BREEDER CARE PLACEMENT AT [facility] [place]. CHOICE SIGNED. CM TO SEND REFERRAL FOR ASSISTED CARE PLACEMENT SOON POSSIBLE. Department Secretary: Aldo Valencia DCPIA - Discharge Planning Initial Assessment Updated by [id number]: Aldo Valencia on 01/08/20 5:02 pm * Is the patient Alert and Oriented? Yes * How many steps to enter\exit or inside your home? NONE * PCP DR. REDD * Pharmacy [facility] [place] * Preadmission Environment Home Alone * ADLs Partial Dependent * Partial ADLs (Assistance needed) Bathing Transfers * Equipment Cane Walker Wheelchair * Other Equipment [employer], PROVIDER * List name and contact numbers for known caregivers / representatives who currently or will assist patient after discharge: SALTY JARAMILLO, * Verbal permission to speak to the caregivers and representatives has been obtained from the patient. N/A * Community resources currently utilized Private Duty Care * Please name any agencies selected above. OUTPATIENT DIALYSIS, [facility], [facility], MEDICAID TRANSPORT PERSONAL CARE ([facility]), 5 DAYS PER WEEK 3 HOURS PER DAY (SALTY IS PAID CAREGIVER) * Additional services required to return to the preadmission environment? No * Can the patient safely return to the preadmission environment? Yes * Has this patient been hospitalized within the prior 30 days at any hospital? Yes Coverage Notice Reviewer: [id number] - Aldo Valencia Notice Issued Date-Time: 01/08/2020 16:50 Notice Type: Patient Choice Letter Notice Delivered To: Patient Relationship to Patient: Billing Machine Operator Name: Delivery Method: HAND - Hand Delivered Nishi Days: Prior Verbal Notification: Recipient Understood Notice: Yes Recipient Signature: Yes Med Rec Note Co-signed by Attending: Coverage Notice Comment: Last DP export: 01/09/20 8:04 a Patient Name: SMITH GILBERT Page 88738 at 0925 All edits/amendments must be made on the electronic document DICTATION DATE: 01/09/20923 HIGH SCHOOL SPORTS COACH: ROSA 01/09/2024 RPT#: [id number] DC DATE: STATUS: ADM IN [facility] [address] [place] [address] END OF REPORT
--- NOTE | 2020-01-09 09:33 | NUR ---
Nutrition Follow-up: Eating well. HD and colonoscopy yesterday. LTC placement pending. Diet: Renal PO intake: 100% x 5 meals Wt: 168.6# (01/08); 163# (01/05) Labs noted: Na 133, K+ 4.7, Glu 361, Ca 8.2, Alb 2.3, Amylase 264, Lipase 772 Meds noted: Solumedrol, Nephrovite, Protonix, Humulin, Florajen3 -Change to Renal ADA diet. -Encourage PO intake and honor food preferences within diet restrictions. -Monitor wt. -RD following.
--- NOTE | 2020-01-09 11:00 | NUR ---
PT ON BEDPAN AND HAD SMALL BROWN DIARRHEA EPISODE. WIPED PT AND REPOSITIONED HER UP IN BED FOR COMFORT. PT NOW RESTING QUIETLY AND DENIES ANY CURRENT NEEDS. CL IN REACH. WILL CTM.
[2020-01-09 12:02] VITALS: BP 138/59
--- NOTE | 2020-01-09 12:55 | NUR ---
PT C/O SEVERE PAIN IN HER R.AMPUTATED LEG. PT IS VERY ANXIOUS AND CONCERNED THAT SHE DOESNT HAVE STRONG ENOUGH MEDICATIONS. PROVIDED PT WITH PRN XANAX AND TRAMADOL AND WILL SEE IF IT HELPS. PT DENIES WANTING TO BE REPOSITIONED AND STATES "NOTHING HELPS" ROUNDED AND PT C/O DIARRHEA, ONE TIME ORDER OF IMMODIUM GIVEN ORDERED. EXPLAINED NEW MEDICATION TO PT AND SHE VERBALIZED UNDERSTANDING. NO FURTHER NEEDS AT THIS TIME. CL IN REACH, BED IN LOWEST, SIDE RAILS X2. WILL CTM.
[2020-01-09 17:33] VITALS: BP 154/63
--- NOTE | 2020-01-09 20:06 | NUR ---
REPORT RECIEVD AND ROUNDING COMPLETE. LEGALLY BLIND, A&O X4, LEFT BKA WITH DRESSING C/D/I, LEFT TRPILE IJ, DRESSING C/D/I AT THIS TIME. 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 NO S/SX OF DISTRESS AT THIS TIME. ASKED TO BE PLACED ON BED TORRES, PATIENT TO USE CALL LIGHT WHEN NEEDS ASSISTANCE TO GET OFF BED TORRES. CALL LIGHT WITHIN REACH AND BED IN LOWEST LOCKED POSITION.
--- NOTE | 2020-01-09 20:45 | NUR ---
CHCKED ON PATIE T ASKED IF SHE WAS READY TO GET OFF BEDPAN. PATIENT STATED"IM HAVING ALOT OF GAS I WILL CALL YOU WHEN I'M FINISHED" EDUCATED IT WAS NOT GOOD FOR HER SKIN TO SIT ON BEDPAN FOR A LONG TIME, PATIENT REPEATED CHCK ON HER IN A LITTLE BIT SHE WAS NOT READY TO COME OFF BEDPAN.
[2020-01-09 21:31] VITALS: BP 152/58
[2020-01-10 00:33] VITALS: BP 141/50
[2020-01-10 04:46] LABS: HEMATOCRIT 31.5 % (36.0-48.0); HEMOGLOBIN 9.7 g/dL (12-16); MCH 27.9 pg (26.0-34.0); MCHC 30.8 g/dL (31.0-37.0); MCV 90.5 fL (80.0-100.0); MEAN PLATELET VOLUME 9.8 fL (7.4-10.4); NEUTROPHILS 79.5 % (40-80); PLATELET COUNT 181 10x3/uL (130-400); RBC 3.48 10x6/uL (4.00-5.40); RDW 17.6 % (11.5-14.5); WBC 10.9 10x3/uL (4.8-10.8)
--- NOTE | 2020-01-10 04:47 | NUR ---
I have reviewed this patient and I concur with the Shift Assessment completed by the Licensed Practical Nurse today this shift.
[2020-01-10 05:08] LABS: ALBUMIN 2.2 g/dL (3.4-5.0); BILIRUBIN - TOTAL 0.28 mg/dL (0.2-1.3); CALCIUM 8.2 mg/dL (8.5-10.1); CARBON DIOXIDE 24.2 mmol/L (21.0-32.0); CREATININE - SERUM 8.7 mg/dL (0.6-1.3); POTASSIUM - SERUM 4.2 mmol/L (3.5-5.1); PROTEIN - SERUM 5.7 g/dL (6.4-8.2)
--- NOTE | 2020-01-10 07:45 | NUR ---
AM ROUNDS COMPLETED. INTRODUCED MYSELF TO PT PRIMARY RN FOR TODAYS SHIFT. SHIFT ASSESSMENT COMPLETED. PT IS A&O SITTING UP IN BED RESTING QUIETLY. PT IS INQUIRING ABOUT BEING DISCHARGED TODAY. PRIMARY AWARE AND IN AGREEANCE, CURRENTLY WAITING ON CASE MANAGEMENT ABOUT PLACEMENT ACCEPTANCE. PTS MABLE YEH IS OFF AND SHE IS INQUIRING ABOUT HATTIE BEING REMOVED, NO ORDERS OR ORTHO NOTES, WILL CONTACT OFFICE AND INQUIRE WHEN WE CAN TAKE THEM OUT. OVERALL STUMP APPEARS TO BE HEALING WELL, NO DRAINAGE OR SWELLING NOTED. PT STILL C/O DIARRHEA AND AT BEDSIDE ROUNDING, NEW MEDICATION ORDERED TO HELP REDUCE EPISODES. REPOSITIONED PT UP IN BED FOR BREAKFAST. PT VOICED THANKS. NO IMMEDIATE NEEDS AT THIS TIME. CL IN REACH, BED IN LOWEST, SIDE RAILS X2. WILL CPOC.
[2020-01-10 08:23] VITALS: BP 127/53
--- NOTE | 2020-01-10 09:32 | NUR ---
LBKA incision clean, dry and intact. Everyother staple has been removed. No drainage, edema, odor or redness noted. Recommended cleaning daily with wound quill cleaner and wrapping with dry dressing. Wound care will monitor.
--- NOTE | 2020-01-10 09:50 | MORECARE ---
CASE MANAGEMENT DISCHARGE SUMMARY PATIENT: SMITH GILBERT UNIT: [id number] ADM DATE: 01/05/20 AGE: 54 : 61 SEX: F ROOM/BED: D.5790 AUTHOR: BALTA,DOC PHYSICIAN: REFERRING PHYSICIAN: ROBINSON LIANG MD DATE OF SERVICE: 01/10/20 Discharge Plan Patient Name: SMITH GILBERT Facility: [facility]:[place] : 1965 Planned Disposition: Nursing Facility [facility] Cert Anticipated Discharge Date: 01/10/20 Discharge Date: Expected LOS: 5 Initial Reviewer: [id number] Initial Review Date: 01/08/2020 Generated: 01/10/20 10:49 am Comments DCP- Discharge Planning Updated by [id number]: Aldo Valencia on 01/09/20 8:[address] Patient Name: SMITH GILBERT Encounter No: [id number] : 1965 Primary Insurance: MEDICAID [place] Anticipated DC Date: Planned Disposition: Nursing Facility [facility] Cert External Planned Provider: [facility] MEDICAID BED DCP follow-up note: CM FAXED REFERRAL TO [facility] VIA [facility] CLINICAL LIAISON, . CM NOTIFED NIANTIC OF REFERRAL FOR FDC CARE AT [phone]. DR. LIANG UPDATED. CM WAITING ADMISSION DETERMINATION FROM [facility] FOR EXTERNAL RELATIONS DIRECTOR CARE. Aldo Valencia CASE SHAAN DCP- Discharge Planning Updated by [email or web address]: Aldo Valencia on 01/08/20 4:[address] Patient Name: SMITH GILBERT Admission Status: ER Accout number: [id number] Admission Date: 01-05-2020 : 1965 Admission Diagnosis:GASTROINTESTINAL HEMORRHAGE, UNSPECIFIED Attending: ROBINSON LIANG Current LOS: 3 Anticipated DC Date: Planned Disposition: Nursing Facility [facility] Cert Primary Insurance: MEDICAID [place] PLANNED EXTERNAL PROVIDER: [facility] MEDICA[facility] BED Discharge Planning Comments: CM MET WITH PT IN ROOM TO DISCUSS DISCHARGE PLANNING AND NEEDS. PT REPORTS LIVING AT HOME ALONE, DEPENDENTLY ON NIECE WHO IS PAID CAREGIVER, 5 DAYS PER WEEK, 2-3 HOURS PER DAY THROUGH MEDICAID. PT HAS CANE, WALKER AND WHEELCHAIR FROM [employer]. PT HAS DIALYSIS AT [facility] AND USES [facility] MEDICAID TRANSPORTATION AT 1100AM. CM DISCUSSED AVAILABILITY OF HOME HEALTH, REHAB SERVICES AND MEDICAL EQUIPMENT. PT WANTS EXTERNAL RELATIONS DIRECTOR CARE PLACEMENT AT [facility] IN [place]. CHOICE SIGNED. CM TO SEND REFERRAL FOR EXTERNAL RELATIONS DIRECTOR CARE PLACEMENT SOON POSSIBLE. Fast Food Cook: Aldo Valencia DCPIA - Discharge Planning Initial Assessment Updated by [email or web address]: Aldo Valencia on 01/08/20 5:02 pm * Is the patient Alert and Oriented? Yes * How many steps to enter\exit or inside your home? NONE * PCP DR. REDD * Pharmacy [facility] IN [place] * Preadmission Environment Home Alone * ADLs Partial Dependent * Partial ADLs (Assistance needed) Bathing Transfers * Equipment Cane Walker Wheelchair * Other Equipment [employer], PROVIDER * List name and contact numbers for known caregivers / representatives who currently or will assist patient after discharge: SALTY JARAMILLO, * Verbal permission to speak to the caregivers and representatives has been obtained from the patient. N/A * Community resources currently utilized Private Duty Care * Please name any agencies selected above. OUTPATIENT DIALYSIS, [facility], [facility], MEDICAID TRANSPORT PERSONAL CARE ([place]), 5 DAYS PER WEEK 3 HOURS PER DAY (SALTY IS PAID CAREGIVER) * Additional services required to return to the preadmission environment? No * Can the patient safely return to the preadmission environment? Yes * Has this patient been hospitalized within the prior 30 days at any hospital? Yes External Providers External Provider: MAYDA Davidson Next Contact Date: 01/10/2020 Service Request Date: Service Type: Resolution: Reviewer: Comments: Coverage Notice Reviewer: [id number] - Aldo Valencia Notice Issued Date-Time: 01/08/2020 16:50 Notice Type: Patient Choice Letter Notice Delivered To: Patient Relationship to Patient: Athletic Team Physician Name: Delivery Method: HAND - Hand Delivered Nishi Days: Prior Verbal Notification: Recipient Understood Notice: Yes Recipient Signature: Yes Med Rec Note Co-signed by Attending: Coverage Notice Comment: Last DP export: 01/09/20 8:24 a Patient Name: SMITH GILBERT Page 03688 at 0950 All edits/amendments must be made on the electronic document DICTATION DATE: 01/10/20948 FUND ACCOUNTANT: ROSA 01/10/20948 RPT#: [id number] DC DATE: STATUS: ADM IN [facility] [address] [place] [address] END OF REPORT
--- NOTE | 2020-01-10 10:08 | NUR ---
DISCUSSED WITH ORTHO OFFICE PLANS FOR PTS MABLE. OBTAINED ORDERS FOR DRSG CHANGES AT [facility] AND TO D/C THE REMAINING HATTIE. REMOVED 14 HATTIE FROM MABLE AND CLEANSED INCISION THEN APPLIED STERI STRIPS. APPLIED GUAZE DRSG AND WRAPPED WITH KERLIX AND THEN APPLIED GUAZE STOCKING. PT VOICED THANKS AND STATES IT REALLY HURT BUT IT FEELS A LITTLE BETTER WITH THE HATTIE REMOVED. PT WAITING TO GO TO DIALYSIS. NO IMMEDIATE NEEDS. CL IN REACH, BED IN LOWEST, SIDE RAILS X2, WILL CTM.
--- NOTE | 2020-01-10 10:09 | MORECARE ---
CASE MANAGEMENT DISCHARGE SUMMARY PATIENT: SMITH GILBERT UNIT: [id number] ADM DATE: 01/05/20 AGE: 54 : 61 SEX: F ROOM/BED: D.4102 AUTHOR: BALTA,DOC PHYSICIAN: REFERRING PHYSICIAN: ROBINSON LIANG MD DATE OF SERVICE: 01/10/20 Discharge Plan Patient Name: SMITH GILBERT Facility: [facility]:[place] : 1965 Planned Disposition: Nursing Facility [facility] Cert Anticipated Discharge Date: 01/11/20 Discharge Date: Expected LOS: 6 Initial Reviewer: [id number] Initial Review Date: 01/08/2020 Generated: 01/10/20 11:09 am Comments DCP- Discharge Planning Updated by [email or web address]: Aldo Valencia on 01/09/20 8:[address] Patient Name: SMITH GILBERT Encounter No: [id number] : 1965 Primary Insurance: [place]ID [place] Anticipated DC Date: Planned Disposition: Nursing Facility [facility] Cert External Planned Provider: [facility] TERM CARE MEDICAID BED DCP follow-up note: CM FA[place]ED REFERR[place] [facility] [place] [facility] CLINICAL LIAISON, . CM NOTIFED [place] OF REFERRAL FOR HALFWAY CARE AT [phone]. DR. LIANG UPDATED. CM WAITING ADMISSION DETERMINATION FROM [facility] [place] BUILDING MAINTENANCE SUPERINTENDENT CARE. Aldo Valencia CASE SHAAN DCP- Discharge Planning Updated by [email or web address]: Aldo Valencia on 01/08/20 4:[address] Patient Name: SMITH GILBERT Admission Status: ER Accout number: [id number] Admission Date: 01-05-2020 : 1965 Admission Diagnosis:GASTROINTESTINAL HEMORRHAGE, UNSPECIFIED Attending: ROBINSON LIANG Current LOS: 3 Anticipated DC Date: Planned Disposition: Nursing Facility [facility] Cert Primary Insurance: [place]ID [place] PLANNED EXTERNAL PROVIDER: [facility] TERM CARE MEDICAID BED Discharge Planning Comments: CM MET WITH PT IN ROOM TO DISCUSS DISCHARGE PLANNING AND NEEDS. PT REPORTS LIVING AT HOME ALONE, DEPENDENTLY ON NIECE WHO IS PAID CAREGIVER, 5 DAYS PER WEEK, 2-3 HOURS PER DAY THROUGH MEDICAID. PT HAS CANE, WALKER AND WHEELCHAIR FROM [employer]. PT HAS DIALYSIS AT [facility] AND USES [facility] MEDICAID TRANSPORTATION AT 1100AM. CM DISCUSSED AVAILABILITY OF HOME HEALTH, REHAB SERVICES AND MEDICAL EQUIPMENT. PT WANTS BUILDING MAINTENANCE SUPERINTENDENT CARE PLACEMENT AT [facility] [place]. CHOICE SIGNED. CM TO SEND REFERRAL FOR BUILDING MAINTENANCE SUPERINTENDENT CARE PLACEMENT SOON POSSIBLE. Election Supervisor: Aldo Valencia DCPIA - Discharge Planning Initial Assessment Updated by [id number]: Aldo Valencia on 01/08/20 5:02 pm * Is the patient Alert and Oriented? Yes * How many steps to enter\exit or inside your home? NONE * PCP DR. REDD * Pharmacy [facility] [place] * Preadmission Environment Home Alone * ADLs Partial Dependent * Partial ADLs (Assistance needed) Bathing Transfers * Equipment Cane Walker Wheelchair * Other Equipment [employer], PROVIDER * List name and contact numbers for known caregivers / representatives who currently or will assist patient after discharge: SALTY JARAMILLO, * Verbal permission to speak to the caregivers and representatives has been obtained from the patient. N/A * Community resources currently utilized Private Duty Care * Please name any agencies selected above. OUTPATIENT DIALYSIS, [facility], [facility], MEDICAID TRANSPORT PERSONAL CARE ([place]), 5 DAYS PER WEEK 3 HOURS PER DAY (SALTY IS PAID CAREGIVER) * Additional services required to return to the preadmission environment? No * Can the patient safely return to the preadmission environment? Yes * Has this patient been hospitalized within the prior 30 days at any hospital? Yes Coverage Notice Reviewer: [id number] - Aldo Valencia Notice Issued Date-Time: 01/08/2020 16:50 Notice Type: Patient Choice Letter Notice Delivered To: Patient Relationship to Patient: Professor Of Communication And Writing Name: Delivery Method: HAND - Hand Delivered Nishi Days: Prior Verbal Notification: Recipient Understood Notice: Yes Recipient Signature: Yes Med Rec Note Co-signed by Attending: Coverage Notice Comment: Last DP export: 01/10/20 8:50 a Patient Name: SMITH GILBERT Page 24240 at 1009 All edits/amendments must be made on the electronic document DICTATION DATE: 03/25/20 1009 MACHINE GROUP LEADER: ROSA 01/10/20 100 RPT#: [id number] DC DATE: STATUS: ADM IN [facility] [address] [place] [address] END OF REPORT
--- NOTE | 2020-01-10 10:15 | NUR ---
DIALYSIS CALLED FOR PT. BROUGHT PT DOWN TO DIALYSIS VIA BED. NO CURRRENT NEEDS. WILL CPOC.
--- NOTE | 2020-01-10 10:17 | MORECARE ---
CASE MANAGEMENT DISCHARGE SUMMARY PATIENT: SMITH GILBERT UNIT: [id number] ADM DATE: 01/05/20 AGE: 54 : 61 SEX: F ROOM/BED: D.8729 AUTHOR: BALTA,DOC PHYSICIAN: REFERRING PHYSICIAN: ROBINSON LIANG MD DATE OF SERVICE: 01/10/20 Discharge Plan Patient Name: SMITH GILBERT Facility: [facility]:[place] : 1965 Planned Disposition: Nursing Facility [facility] Cert Anticipated Discharge Date: 01/11/20 Discharge Date: Expected LOS: 6 Initial Reviewer: [id number] Initial Review Date: 01/08/2020 Generated: 01/10/20 11:16 am Comments DCP- Discharge Planning Updated by [email or web address]: Aldo Valencia on 01/10/20 9:[address] Patient Name: SMITH GILBERT Encounter No: [id number] : 1965 Primary Insurance: [place]ID [place] Anticipated DC Date: 01-11-2020 Planned Disposition: Nursing Facility [facility] Cert External Planned Provider: [facility], LONG TERM CARE MEDICAID BED DCP follow-up note: CM RECEIVED MESSAGE FROM ED OF [facility], THEY REQUIRE VIVIANA APPROVAL TO ACCEPT PT DUE TO HISTORY OF DEPRESSION AND ANXIETY. CM MET WITH PT, COMPLETED VIVIANA, RECEIVED PHYSICIAN SIGNATURE. CM FAXED VIVIANA SCREENING WITH SUPPORTING DOCUMENTS TO [employer] AT [phone]. CM FAXED REFERRA UDPATE TO [facility] VIA ED, CLINICAL LIAISON, . ED ADVISED THEY ARE NOW ONLY WAITING FINANCIAL APPROVAL TO ACCEPT PT. CM WAITING FINANCIAL APPROVAL FROM [facility] FOR CLUB ROOM ATTENDANT CARE WELL VIVIANA SCREENING COMPLETION. Aldo Valencia, CASE MANAGEMENT DCP- Discharge Planning Updated by [id number]: Aldo Valencia on 01/09/20 8:[address] Patient Name: SMITH GILBERT Encounter No: [id number] : 1965 Primary Insurance: MEDICAID [place] Anticipated DC Date: Planned Disposition: Nursing Facility [facility] Cert External Planned Provider: [facility], LONG TERM CARE MEDICAID BED DCP follow-up note: CM FAXED REFERRAL TO [facility] VIA ED CLINICAL LIAISON, . CM NOTIFED ED OF REFERRAL FOR CORRECTION CARE AT [phone]. DR. LIANG UPDATED. CM WAITING ADMISSION DETERMINATION FROM [facility] FOR CLUB ROOM ATTENDANT CARE. Aldo Valencia, CASE MANAGEMENT DCP- Discharge Planning Updated by [id number]: Aldo Valencia on 01/08/20 4:[address] Patient Name: SMITH GILBERT Admission Status: ER Accout number: [id number] Admission Date: 01-05-2020 : 1965 Admission Diagnosis:GASTROINTESTINAL HEMORRHAGE, UNSPECIFIED Attending: ROBINSON LIANG Current LOS: 3 Anticipated DC Date: Planned Disposition: Nursing Facility [facility] Primary Insurance: MEDICAID [place] PLANNED EXTERNAL PROVIDER: [facility] TERM CARE MEDICAID BED Discharge Planning Comments: CM MET WITH PT IN ROOM TO DISCUSS DISCHARGE PLANNING AND NEEDS. PT REPORTS LIVING AT HOME ALONE, DEPENDENTLY ON NIECE WHO IS PAID CAREGIVER, 5 DAYS PER WEEK, 2-3 HOURS PER DAY THROUGH MEDICAID. PT HAS CANE, WALKER AND WHEELCHAIR FROM [employer]. PT HAS DIALYSIS AT [facility] AND USES [facility] MEDICAID TRANSPORTATION AT 1100AM. CM DISCUSSED AVAILABILITY OF HOME HEALTH, REHAB SERVICES AND MEDICAL EQUIPMENT. PT WANTS CLUB ROOM ATTENDANT CARE PLACEMENT AT [facility] IN [place]. CHOICE SIGNED. CM TO SEND REFERRAL FOR CLUB ROOM ATTENDANT CARE PLACEMENT SOON POSSIBLE. Desk Top Publisher: Aldo Valencia DCPIA - Discharge Planning Initial Assessment Updated by [id number]: Aldo Valencia on 01/08/20 5:02 pm * Is the patient Alert and Oriented? Yes * How many steps to enter\exit or inside your home? NONE * PCP DR. REDD * Pharmacy [facility] IN [place] * Preadmission Environment Home Alone * ADLs Partial Dependent * Partial ADLs (Assistance needed) Bathing Transfers * Equipment Cane Walker Wheelchair * Other Equipment [employer], PROVIDER * List name and contact numbers for known caregivers / representatives who currently or will assist patient after discharge: PARDEEP BROWN, SALTY, * Verbal permission to speak to the caregivers and representatives has been obtained from the patient. N/A * Community resources currently utilized Private Duty Care * Please name any agencies selected above. OUTPATIENT DIALYSIS, [facility], [facility], MEDICAID TRANSPORT PERSONAL CARE ([place]), 5 DAYS PER WEEK 3 HOURS PER DAY (NIECE IS PAID CAREGIVER) * Additional services required to return to the preadmission environment? No * Can the patient safely return to the preadmission environment? Yes * Has this patient been hospitalized within the prior 30 days at any hospital? Yes Coverage Notice Reviewer: [id number] Surekha Valencia Notice Issued Date-Time: 01/08/2020 16:50 Notice Type: Patient Choice Letter Notice Delivered To: Patient Relationship to Patient: Flake Cutter Operator Name: Delivery Method: HAND - Hand Delivered Nishi Days: Prior Verbal Notification: Recipient Understood Notice: Yes Recipient Signature: Yes Med Rec Note Co-signed by Attending: Coverage Notice Comment: Last DP export: 01/10/20 9:10 a Patient Name: SMITH GILBERT Page 84081 at 1017 All edits/amendments must be made on the electronic document DICTATION DATE: 01/10/20 1016 RETAIL SALES ASSOCIATE SEASONAL: ROSA 01/10/20 1016 RPT#: [id number] DC DATE: STATUS: ADM IN [facility] [address] [place] [address] END OF REPORT
--- NOTE | 2020-01-10 12:36 | MORECARE ---
CASE MANAGEMENT DISCHARGE SUMMARY PATIENT: SMITH GILBERT UNIT: [id number] ADM DATE: 01/05/20 AGE: 54 : 61 SEX: F ROOM/BED: D.9951 AUTHOR: BALTA,DOC PHYSICIAN: REFERRING PHYSICIAN: ROBINSON LIANG MD DATE OF SERVICE: 01/10/20 Discharge Plan Patient Name: SMITH GILBERT Facility: [facility]:[place] : 1965 Planned Disposition: Nursing Facility [facility] Cert Anticipated Discharge Date: 01/11/20 Discharge Date: Expected LOS: 6 Initial Reviewer: [email or web address] Initial Review Date: 01/08/2020 Generated: 01/10/20 1:36 pm Comments DCP- Discharge Planning Updated by [id number]: Alod Valencia on 01/10/20 11:[address] Patient Name: SMITH GILBERT Encounter No: [id number] : 1965 Primary Insurance: MED[place]ID [place] Anticipated DC Date: 01-11-2020 Planned Disposition: Nursing Facility [facility] Cert External Planned Provider: [facility], LONG TERM CARE MEDICAID BED DCP follow-up note: CM RECEIVED MESSAGE FROM ED OF [facility], THEY REQUIRE VIVIANA APPROVAL TO ACCEPT PT DUE TO HISTORY OF DEPRESSION AND ANXIETY. CM MET WITH PT, COMPLETED VIVIANA, RECEIVED PHYSICIAN SIGNATURE. CM FAXED VIVIANA SCREENING WITH SUPPORTING DOCUMENTS TO [employer] AT [phone]. CM FAXED REFERRA UDPATE TO [facility] VIA ED, CLINICAL LIAISON, . ED ADVISED THEY ARE NOW ONLY WAITING FINANCIAL APPROVAL TO ACCEPT PT. CM WAITING FINANCIAL APPROVAL FROM [facility] FOR MANAGER IT SECURITY [facility] VIVIANA SCREENING COMPLETION. Aldo Valencia, CASE MANAGEMENT Appended by Aldo Valencia on 01/10/2020 12:28 CDT: CM RECEIVED VIVIANA APPROVAL FOR NURSING FACILITY ADMISSION, PT IS NON PASRR CLIENT. CM NOTIFIED ED OF [facility], . CM FAXED NON PASRR FORM TO [facility] VIA ED AT [phone]. CM WAITING FINANCIAL APPROVAL FROM [facility] FOR MANAGER IT SECURITY CARE. Aldo Natalia, CASE MANAGEMENT DCP- Discharge Planning Updated by [id number]: Aldo Valencia on 01/09/20 8:[address] Patient Name: SMITH GILBERT Encounter No: [id number] : 1965 Primary Insurance: [place]ID [place] Anticipated DC Date: Planned Disposition: Nursing Facility [facility] Cert External Planned Provider: [facility] TERM CARE MEDICAID BED DCP follow-up note: CM FAXED REFERRAL TO [facility] VIA ED, CLINICAL LIAISON, . CM NOTIFED ED OF REFERRAL FOR MANAGER IT SECURITY CARE AT [phone]. DR. LIANG UPDATED. CM WAITING ADMISSION DETERMINATION FROM [facility] FOR SENIOR LIVING CARE. DELGADO Del Valle DCP- Discharge Planning Updated by [id number]: Aldo Valencia on 01/08/20 4:[address] Patient Name: SMITH GILBERT Admission Status: ER Accout number: [id number] Admission Date: 01-05-2020 : 1965 Admission Diagnosis:GASTROINTESTINAL HEMORRHAGE, UNSPECIFIED Attending: ROBINSON LIANG Current LOS: 3 Anticipated DC Date: Planned Disposition: Nursing Facility [facility] Cert Primary Insurance: [place]ID [place] PLANNED EXTERNAL PROVIDER: [facility] TERM CARE MEDICAID BED Discharge Planning Comments: CM MET WITH PT IN ROOM TO DISCUSS DISCHARGE PLANNING AND NEEDS. PT REPORTS LIVING AT HOME ALONE, DEPENDENTLY ON NIECE WHO IS PAID CAREGIVER, 5 DAYS PER WEEK, 2-3 HOURS PER DAY THROUGH MEDICAID. PT HAS CANE, WALKER AND WHEELCHAIR FROM [employer]. PT HAS DIALYSIS AT [facility] AND USES [facility] MEDICAID TRANSPORTATION AT 1100AM. CM DISCUSSED AVAILABILITY OF HOME HEALTH, REHAB SERVICES AND MEDICAL EQUIPMENT. PT WANTS SENIOR LIVING CARE PLACEMENT AT [facility] IN [place]. CHOICE SIGNED. CM TO SEND REFERRAL FOR MANAGER IT SECURITY CARE PLACEMENT SOON POSSIBLE. Telephone Cleaner: Aldo Valencia DCPIA - Discharge Planning Initial Assessment Updated by [email or web address]: Aldo Valencia on 01/08/20 5:02 pm * Is the patient Alert and Oriented? Yes * How many steps to enter\exit or inside your home? NONE * PCP DR. REDD * Pharmacy [facility] IN [place] * Preadmission Environment Home Alone * ADLs Partial Dependent * Partial ADLs (Assistance needed) Bathing Transfers * Equipment Cane Walker Wheelchair * Other Equipment [employer], PROVIDER * List name and contact numbers for known caregivers / representatives who currently or will assist patient after discharge: SALTY JARAMILLO, * Verbal permission to speak to the caregivers and representatives has been obtained from the patient. N/A * Community resources currently utilized Private Duty Care * Please name any agencies selected above. OUTPATIENT DIALYSIS, [facility], [facility], MEDICAID TRANSPORT PERSONAL CARE ([place]), 5 DAYS PER WEEK 3 HOURS PER DAY (SALTY IS PAID CAREGIVER) * Additional services required to return to the preadmission environment? No * Can the patient safely return to the preadmission environment? Yes * Has this patient been hospitalized within the prior 30 days at any hospital? Yes Coverage Notice Reviewer: [id number] Surekha Valencia Notice Issued Date-Time: 01/08/2020 16:50 Notice Type: Patient Choice Letter Notice Delivered To: Patient Relationship to Patient: Countersinker Balance Screw Hole Name: Delivery Method: HAND - Hand Delivered Nishi Days: Prior Verbal Notification: Recipient Understood Notice: Yes Recipient Signature: Yes Med Rec Note Co-signed by Attending: Coverage Notice Comment: Last DP export: 01/10/20 9:17 a Patient Name: SMITH GILBERT Page 63596 at 1236 All edits/amendments must be made on the electronic document DICTATION DATE: 01/10/20 1236 EXECUTIVE VP: ROSA 01/10/20 1236 RPT#: [id number] DC DATE: STATUS: ADM IN [facility] [address] [place] [address] END OF REPORT
--- NOTE | 2020-01-10 13:10 | NUR ---
PT C/O PAIN DOWN IN DIALYSIS. PROVIDED PT WITH HER PRN MEDICATION AND BROUGHT DOWN HER LUNCH TRAY. PT VOICED THANKS AND DENIES ANY FURTHER NEEDS AT THIS TIME. WILL CPOC.
--- NOTE | 2020-01-10 13:46 | NUR ---
[facility] APN TO CALL AND REVIEWED DISCHARGE MEDICATIONS WITH ME FOR PATIENT DISCHARGE.
--- NOTE | 2020-01-10 14:01 | MORECARE ---
CASE MANAGEMENT DISCHARGE SUMMARY PATIENT: SMITH GILBERT UNIT: [id number] ADM DATE: 01/05/20 AGE: 54 : 61 SEX: F ROOM/BED: D.7852 AUTHOR: BALTA,DOC PHYSICIAN: REFERRING PHYSICIAN: ROBINSON LIANG MD DATE OF SERVICE: 01/10/20 Discharge Plan Patient Name: SMITH GILBERT Facility: [facility]:[place] : 1965 Planned Disposition: Nursing Facility [facility] Cert Anticipated Discharge Date: 01/10/20 Discharge Date: Expected LOS: 5 Initial Reviewer: CHEPE Initial Review Date: 01/08/2020 Generated: 01/10/20 3:00 pm Comments DCP- Discharge Planning Updated by [id number]: Aldo Valencia on 01/10/20 11:[address] Patient Name: SMITH GILBERT Encounter No: [id number] : 1965 Primary Insurance: [place]ID [place] Anticipated DC Date: 01-11-2020 Planned Disposition: Nursing Facility [facility] Cert External Planned Provider: [facility], LONG TERM CARE MEDICAID BED DCP follow-up note: CM RECEIVED MESSAGE FROM ED OF [facility], THEY REQUIRE VIVIANA APPROVAL TO ACCEPT PT DUE TO HISTORY OF DEPRESSION AND ANXIETY. CM MET WITH PT, COMPLETED VIVIANA, RECEIVED PHYSICIAN SIGNATURE. CM FAXED VIVIANA SCREENING WITH SUPPORTING DOCUMENTS TO [employer] AT [phone]. CM FAXED REFERRA UDPATE TO [facility] VIA ED, CLINICAL LIAISON, . ED ADVISED THEY ARE NOW ONLY WAITING FINANCIAL APPROVAL TO ACCEPT PT. CM WAITING FINANCIAL APPROVAL FROM [facility] FOR SURFACE BOSS [facility] VIVIANA SCREENING COMPLETION. Aldo Valencia, CASE MANAGEMENT Appended by Aldo Valencia on 01/10/2020 12:28 CDT: CM RECEIVED VIVIANA APPROVAL FOR NURSING FACILITY ADMISSION, PT IS NON PASRR CLIENT. CM NOTIFIED ED OF [facility], . CM FAXED NON PASRR FORM TO [facility] VIA ED AT [phone]. CM WAITING FINANCIAL APPROVAL FROM [facility] FOR SURFACE BOSS CARE. Aldo [place], CASE MANAGEMENT DCP- Discharge Planning Updated by [id number]: Aldo Valencia on 01/09/20 8:[address] Patient Name: SMITH GILBERT Encounter No: [id number] : 1965 Primary Insurance: [place]ID [place] Anticipated DC Date: Planned Disposition: Nursing Facility [facility] Cert External Planned Provider: [facility] TERM CARE MEDICAID BED DCP follow-up note: CM FAXED REFERRAL TO [facility] VIA ED, CLINICAL LIAISON, . CM NOTIFED ED OF REFERRAL FOR SURFACE BOSS CARE AT [phone]. DR. LIANG UPDATED. CM WAITING ADMISSION DETERMINATION FROM [facility] FOR NURSING HOME CARE. DELGADO Del Valel DCP- Discharge Planning Updated by [id number]: Aldo Valencia on 01/08/20 4:[address] Patient Name: SMITH GILBERT Admission Status: ER Accout number: [id number] Admission Date: 01-05-2020 : 1965 Admission Diagnosis:GASTROINTESTINAL HEMORRHAGE, UNSPECIFIED Attending: ROBINSON LIANG Current LOS: 3 Anticipated DC Date: Planned Disposition: Nursing Facility [facility] Cert Primary Insurance: MEDICAID [place] PLANNED EXTERNAL PROVIDER: [facility] TERM CARE MEDICAID BED Discharge Planning Comments: CM MET WITH PT IN ROOM TO DISCUSS DISCHARGE PLANNING AND NEEDS. PT REPORTS LIVING AT HOME ALONE, DEPENDENTLY ON NIECE WHO IS PAID CAREGIVER, 5 DAYS PER WEEK, 2-3 HOURS PER DAY THROUGH MEDICAID. PT HAS CANE, WALKER AND WHEELCHAIR FROM [employer] PT HAS DIALYSIS AT [facility] AND USES [facility] MEDICAID TRANSPORTATION AT 1100AM. CM DISCUSSED AVAILABILITY OF HOME HEALTH, REHAB SERVICES AND MEDICAL EQUIPMENT. PT WANTS NURSING HOME CARE PLACEMENT AT [facility] IN [place]. CHOICE SIGNED. CM TO SEND REFERRAL FOR SURFACE BOSS CARE PLACEMENT SOON POSSIBLE. Project Engineering Director: Aldo Valencia DCPIA - Discharge Planning Initial Assessment Updated by [id number]: Aldo Valencia on 01/08/20 5:02 pm * Is the patient Alert and Oriented? Yes * How many steps to enter\exit or inside your home? NONE * PCP DR. REDD * Pharmacy [facility] IN [place] * Preadmission Environment Home Alone * ADLs Partial Dependent * Partial ADLs (Assistance needed) Bathing Transfers * Equipment Cane Walker Wheelchair * Other Equipment [employer], PROVIDER * List name and contact numbers for known caregivers / representatives who currently or will assist patient after discharge: SALTY JARAMILLO, * Verbal permission to speak to the caregivers and representatives has been obtained from the patient. N/A * Community resources currently utilized Private Duty Care * Please name any agencies selected above. OUTPATIENT DIALYSIS, [facility], [facility], MEDICAID TRANSPORT PERSONAL CARE ([facility]), 5 DAYS PER WEEK 3 HOURS PER DAY (SATLY IS PAID CAREGIVER) * Additional services required to return to the preadmission environment? No * Can the patient safely return to the preadmission environment? Yes * Has this patient been hospitalized within the prior 30 days at any hospital? Yes Coverage Notice Reviewer: [id number] Surekha Valencia Notice Issued Date-Time: 01/08/2020 16:50 Notice Type: Patient Choice Letter Notice Delivered To: Patient Relationship to Patient: Tool And Die Engineer Name: Delivery Method: HAND - Hand Delivered Nishi Days: Prior Verbal Notification: Recipient Understood Notice: Yes Recipient Signature: Yes Med Rec Note Co-signed by Attending: Coverage Notice Comment: Last DP export: 01/10/20 11:36 a Patient Name: SMITH GILBERT Page 49646 at 1401 All edits/amendments must be made on the electronic document DICTATION DATE: 01/10/201399 THERAPEUTIC SPECIALIST: ROSA 01/10/20 1400 RPT#: [id number] DC DATE: STATUS: ADM IN [facility] [address] [place] [address] END OF REPORT
--- NOTE | 2020-01-10 14:08 | MORECARE ---
CASE MANAGEMENT DISCHARGE SUMMARY PATIENT: SMITH GILBERT UNIT: [id number] ADM DATE: 01/05/20 AGE: 54 : 61 SEX: F ROOM/BED: D.9569 AUTHOR: BALTA,DOC PHYSICIAN: REFERRING PHYSICIAN: ROBINSON LIANG MD DATE OF SERVICE: 01/10/20 Discharge Plan Patient Name: SMITH GILBERT Facility: [facility]:[place] : 1965 Planned Disposition: Nursing Facility [facility] Cert Anticipated Discharge Date: 01/10/20 Discharge Date: Expected LOS: 5 Initial Reviewer: CHEPE Initial Review Date: 01/08/2020 Generated: 01/10/20 3:08 pm Comments DCP- Discharge Planning Updated by [email or web address]: Aldo Valencia on 01/10/20 11:[address] Patient Name: SMITH GILBERT Encounter No: [id number] : 1965 Primary Insurance: MEDICAID [place] Anticipated DC Date: 01-11-2020 Planned Disposition: Nursing Facility [facility] Cert External Planned Provider: [facility], LONG TERM CARE MEDICAID BED DCP follow-up note: CM RECEIVED MESSAGE FROM ED OF [facility], THEY REQUIRE VIVIANA APPROVAL TO ACCEPT PT DUE TO HISTORY OF DEPRESSION AND ANXIETY. CM MET WITH PT, COMPLETED VIVIANA, RECEIVED PHYSICIAN SIGNATURE. CM FAXED VIVIANA SCREENING WITH SUPPORTING DOCUMENTS TO [employer] [facility] AT [phone]. CM FAXED REFERRA UDPATE TO [facility] VIA ED, CLINICAL LIAISON, . ED ADVISED THEY ARE NOW ONLY WAITING FINANCIAL APPROVAL TO ACCEPT PT. CM WAITING FINANCIAL APPROVAL FROM [facility] FOR JOURNALIST [facility] WE[facility] VIVIANA SCREENING COMPLETION. Aldo Valencia, CASE MANAGEMENT Appended by Aldo Valencia on 01/10/2020 12:28 CDT: CM RECEIVED VIVIANA APPROVAL FOR NURSING FACILITY ADMISSION, PT IS NON PASRR CLIENT. CM NOTIFIED ED OF [facility], . CM FAXED NON PASRR FORM TO [facility] VIA ED AT [phone]. CM WAITING FINANCIAL APPROVAL FROM [facility] FOR JOURNALIST CARE. Aldo [place], CASE MANAGEMENT DCP- Discharge Planning Updated by [id number]: Aldo Valencia on 01/09/20 8:[address] Patient Name: SMITH GILBERT Encounter No: [id number] : 1965 Primary Insurance: MEDICAID [place] Anticipated DC Date: Planned Disposition: Nursing Facility [facility] Cert External Planned Provider: [facility] TERM CARE MEDICAID BED DCP follow-up note: CM FAXED REFERRAL TO [facility] VIA ED, CLINICAL LIAISON, . CM NOTIFED ED OF REFERRAL FOR JOURNALIST CARE AT [phone]. DR. LIANG UPDATED. CM WAITING ADMISSION DETERMINATION FROM [facility] FOR HALF-WAY CARE. DELGADO Del Valle DCP- Discharge Planning Updated by [id number]: Aldo Valencia on 01/08/20 4:[address] Patient Name: SMITH GILBERT Admission Status: ER Accout number: [id number] Admission Date: 01-05-2020 : 1965 Admission Diagnosis:GASTROINTESTINAL HEMORRHAGE, UNSPECIFIED Attending: ROBINSON LIANG Current LOS: 3 Anticipated DC Date: Planned Disposition: Nursing Facility [facility] Cert Primary Insurance: MEDICAID [place] PLANNED EXTERNAL PROVIDER: [facility] TERM CARE MEDICAID BED Discharge Planning Comments: CM MET WITH PT IN ROOM TO DISCUSS DISCHARGE PLANNING AND NEEDS. PT REPORTS LIVING AT HOME ALONE, DEPENDENTLY ON NIECE WHO IS PAID CAREGIVER, 5 DAYS PER WEEK, 2-3 HOURS PER DAY THROUGH MEDICAID. PT HAS CANE, WALKER AND WHEELCHAIR FROM [employer]. PT HAS DIALYSIS AT [facility] AND USES [facility] MEDICAID TRANSPORTATION AT 1100AM. CM DISCUSSED AVAILABILITY OF HOME HEALTH, REHAB SERVICES AND MEDICAL EQUIPMENT. PT WANTS HALF-WAY CARE PLACEMENT AT [facility] IN [place]. CHOICE SIGNED. CM TO SEND REFERRAL FOR JOURNALIST CARE PLACEMENT SOON POSSIBLE. Pulp Mill Supervisor: Aldo Valencia DCPIA - Discharge Planning Initial Assessment Updated by [id number]: Aldo Valencia on 01/08/20 5:02 pm * Is the patient Alert and Oriented? Yes * How many steps to enter\exit or inside your home? NONE * PCP DR. REDD * Pharmacy [facility] IN [place] * Preadmission Environment Home Alone * ADLs Partial Dependent * Partial ADLs (Assistance needed) Bathing Transfers * Equipment Cane Walker Wheelchair * Other Equipment [employer], PROVIDER * List name and contact numbers for known caregivers / representatives who currently or will assist patient after discharge: SALTY JARAMILLO, * Verbal permission to speak to the caregivers and representatives has been obtained from the patient. N/A * Community resources currently utilized Private Duty Care * Please name any agencies selected above. OUTPATIENT DIALYSIS, [facility], [facility], MEDICAID TRANSPORT PERSONAL CARE ([place]), 5 DAYS PER WEEK 3 HOURS PER DAY (SALTY IS PAID CAREGIVER) * Additional services required to return to the preadmission environment? No * Can the patient safely return to the preadmission environment? Yes * Has this patient been hospitalized within the prior 30 days at any hospital? Yes Coverage Notice Reviewer: [id number] Surekha Valencia Notice Issued Date-Time: 01/08/2020 16:50 Notice Type: Patient Choice Letter Notice Delivered To: Patient Relationship to Patient: Teacher Adult Education Name: Delivery Method: HAND - Hand Delivered Nishi Days: Prior Verbal Notification: Recipient Understood Notice: Yes Recipient Signature: Yes Med Rec Note Co-signed by Attending: Coverage Notice Comment: Last DP export: 01/10/20 1:01 p Patient Name: SMITH GILBERT Page 44641 at 1408 All edits/amendments must be made on the electronic document DICTATION DATE: 01/10/201407 SECTION SUPERVISOR: ROSA 01/10/20 1408 RPT#: [id number] DC DATE: STATUS: ADM IN [facility] [address] [place] [address] END OF REPORT
--- NOTE | 2020-01-10 14:45 | MORECARE ---
CASE MANAGEMENT DISCHARGE SUMMARY PATIENT: SMITH GILBERT UNIT: [id number] ADM DATE: 01/05/20 AGE: 54 : 61 SEX: F ROOM/BED: D.7497 AUTHOR: BALTA,DOC PHYSICIAN: REFERRING PHYSICIAN: ROBINSON LIANG MD DATE OF SERVICE: 01/10/20 Discharge Plan Patient Name: SMITH GILBERT Facility: [facility]:[place] : 1965 Planned Disposition: Nursing Facility [facility] Cert Anticipated Discharge Date: 01/10/20 Discharge Date: Expected LOS: 5 Initial Reviewer: CHEPE Initial Review Date: 01/08/2020 Generated: 01/10/20 3:45 pm Comments DCP- Discharge Planning Updated by [id number]: Aldo Hernandez on 01/10/20 1:[address] Patient Name: SMITH GILBERT Encounter No: [id number] : 1965 Primary Insurance: MEDICAID [place] Anticipated DC Date: 01-11-2020 Planned Disposition: Nursing Facility [facility] Cert External Planned Provider: [facility], LONG TERM CARE MEDICAID BED DCP follow-up note: CM RECEIVED MESSAGE FROM ED OF [facility], THEY REQUIRE VIVIANA APPROVAL TO ACCEPT PT DUE TO HISTORY OF DEPRESSION AND ANXIETY. CM MET WITH PT, COMPLETED VIVIANA, RECEIVED PHYSICIAN SIGNATURE. CM FAXED VIVIANA SCREENING WITH SUPPORTING DOCUMENTS TO [employer] [facility] AT [phone]. CM FAXED REFERRA UDPATE TO [facility] VIA ED, CLINICAL LIAISON, . ED ADVISED THEY ARE NOW ONLY WAITING FINANCIAL APPROVAL TO ACCEPT PT. CM WAITING FINANCIAL APPROVAL FROM [facility] FOR MIXING PLANT OPERATOR [facility] WELL VIVIANA SCREENING COMPLETION. Aldo Hernandez, CASE MANAGEMENT Appended by Aldo Hernandez on 01/10/2020 12:28 CDT: CM RECEIVED VIVIANA APPROVAL FOR NURSING FACILITY ADMISSION, PT IS NON PASRR CLIENT. CM NOTIFIED ED OF [facility], . CM FAXED NON PASRR FORM TO [facility] VIA ED AT [phone]. CM WAITING FINANCIAL APPROVAL FROM [facility] FOR MIXING PLANT OPERATOR CARE. Aldo Hernandez, CASE MANAGEMENT Appended by Aldo Hernandez on 01/10/2020 14:42 CDT: CM RECEIVED CALL FROM [facility], THEY WILL ACCEPT TODAY. CM NOTIFED PT WHO IS IN AGREEMENT. CM CALLED PT'S ZINA, SHE WILL BRING PT'S PERSONAL THINGS TO [facility] TODAY. CM NOTIFIED SHAPE CARVER NURSE AND BEDSIDE NURSE. CM NOTIFIED [facility]ANA MONT[facility] WHO PROVIDED DISCHARGE ORDERS. CM FAXED DSICHARGE INFOMATION TO [facility] AT [phone]. NURSE REPORT TO BE CALLED TO [facility] AT [phone]. [facility] PROVIDING VAN STOREPERSON. ALDO HERNANDEZ CASE MANAGEMENT DCP- Discharge Planning Updated by [email or web address]: Aldo Hernandez on 01/09/20 8:[address] Patient Name: SMITH GILBERT Encounter No: [id number] : 1965 Primary Insurance: MED[place]ID [place] Anticipated DC Date: Planned Disposition: Nursing Facility [facility] Cert External Planned Provider: [facility] TERM CARE MEDICAID BED DCP follow-up note: CM FAXED REFERRAL TO [facility] VIA ED, CLINICAL LIAISON, . CM NOTIFED [facility] OF REFERRAL FOR FDC CARE AT [phone]. DR. LIANG UPDATED. CM WAITING ADMISSION DETERMINATION FROM [facility] FOR MIXING PLANT OPERATOR CARE. DELGADO Del Valle DCP- Discharge Planning Updated by [id number]: Aldo Hernandez on 01/08/20 4:[address] Patient Name: SMITH GILBERT Admission Status: ER Accout number: [id number] Admission Date: 01-05-2020 : 1965 Admission Diagnosis:GASTROINTESTINAL HEMORRHAGE, UNSPECIFIED Attending: ROBINSON LIANG Current LOS: 3 Anticipated DC Date: Planned Disposition: Nursing Facility [facility] Cert Primary Insurance: MEDICAID [place] PLANNED EXTERNAL PROVIDER: [facility], LONG TERM CARE MEDICAID BED Discharge Planning Comments: CM MET WITH PT IN ROOM TO DISCUSS DISCHARGE PLANNING AND NEEDS. PT REPORTS LIVING AT HOME ALONE, DEPENDENTLY ON NIECE WHO IS PAID CAREGIVER, 5 DAYS PER WEEK, 2-3 HOURS PER DAY THROUGH MEDICAID. PT HAS CANE, WALKER AND WHEELCHAIR FROM [employer]. PT HAS DIALYSIS AT [facility] AND USES [facility] MEDICAID TRANSPORTATION AT 1100AM. CM DISCUSSED AVAILABILITY OF HOME HEALTH, REHAB SERVICES AND MEDICAL EQUIPMENT. PT WANTS FDC CARE PLACEMENT AT [facility] IN [place]. CHOICE SIGNED. CM TO SEND REFERRAL FOR MIXING PLANT OPERATOR CARE PLACEMENT SOON POSSIBLE. Varnish Filterer: Aldo Hernandez DCPIA - Discharge Planning Initial Assessment Updated by [id number]: Adlo Hernandez on 01/08/20 5:02 pm * Is the patient Alert and Oriented? Yes * How many steps to enter\exit or inside your home? NONE * PCP DR. REDD * Pharmacy [facility] IN [place] * Preadmission Environment Home Alone * ADLs Partial Dependent * Partial ADLs (Assistance needed) Bathing Transfers * Equipment Cane Walker Wheelchair * Other Equipment [employer], PROVIDER * List name and contact numbers for known caregivers / representatives who currently or will assist patient after discharge: SALTY JARAMILLO, * Verbal permission to speak to the caregivers and representatives has been obtained from the patient. N/A * Community resources currently utilized Private Duty Care * Please name any agencies selected above. OUTPATIENT DIALYSIS, [facility], [facility], MEDICAID TRANSPORT PERSONAL CARE ([place]), 5 DAYS PER WEEK 3 HOURS PER DAY (SALTY IS PAID CAREGIVER) * Additional services required to return to the preadmission environment? No * Can the patient safely return to the preadmission environment? Yes * Has this patient been hospitalized within the prior 30 days at any hospital? Yes Coverage Notice Reviewer: [id number] - Aldo Hernandez Notice Issued Date-Time: 01/08/2020 16:50 Notice Type: Patient Choice Letter Notice Delivered To: Patient Relationship to Patient: Customer Service Representative Name: Delivery Method: HAND - Hand Delivered Nishi Days: Prior Verbal Notification: Recipient Understood Notice: Yes Recipient Signature: Yes Med Rec Note Co-signed by Attending: Coverage Notice Comment: Last DP export: 01/10/20 1:08 p Patient Name: SMITH GILBERT Page 45140 at 1445 All edits/amendments must be made on the electronic document DICTATION DATE: 01/10/20 1443 BROADCAST TRANSMITTER OPERATOR: ROSA 01/10/20 1445 RPT#: [id number] DC DATE: STATUS: ADM IN [facility] [address] [place] [address] END OF REPORT
--- NOTE | 2020-01-10 15:07 | NUR ---
PICKED PT UP FROM DIALYSIS. D/C PTS L.IJ TRIPLE LUMEN SHE IS GOING TO BE DISCHARGED TODAY. HELD PRESSURE AND REMOVED 1 SUTURE, NO BLEEDING NOTED, COVERED WITH DRSG. DISCHARGE TEACHING PROVIDED AND PAPERS SIGNED. PT VERBALIZED UNDERSTANDING AND WILL BE GOING TO A NH. ASSISTED PT GETTING DRESSED AND WILL NOW WAIT ON NURSING TRANSPORTATION.
== END 2020-01-10 16:17 | DRG 393 ==
LOC: D.ER 18:06 → D.M2 20:59 → D.ICU 21:28 → D.M2 01-07 17:35 → D.SDCHOLD 01-09 15:22 → D.M2 01-10 16:17
PROVIDERS: Family Medicine; Internal Medicine Gastroenterology; ADMIT Internal Medicine Nephrology; ATTEND Internal Medicine Nephrology
PROC: 0DBE8ZX Excision of Large Intestine, Via Natural or Artificial Opening Endoscopic, Diagnostic (ICD-10-PCS; 2020-01-08)
PROC: 0DBM8ZZ Excision of Descending Colon, Via Natural or Artificial Opening Endoscopic (ICD-10-PCS; principal; 2020-01-08 08:43)
DX: K63.3 Ulcer of intestine (principal); N18.6 End stage renal disease; K86.1 Other chronic pancreatitis; K55.9 Vascular disorder of intestine, unspecified; I12.0 Hypertensive chronic kidney disease with stage 5 chronic kidney disease or end stage renal disease; E11.22 Type 2 diabetes mellitus with diabetic chronic kidney disease; E11.40 Type 2 diabetes mellitus with diabetic neuropathy, unspecified; I25.10 Atherosclerotic heart disease of native coronary artery without angina pectoris; E11.43 Type 2 diabetes mellitus with diabetic autonomic (poly)neuropathy; K31.84 Gastroparesis; K21.9 Gastro-esophageal reflux disease without esophagitis; F41.8 Other specified anxiety disorders; D63.1 Anemia in chronic kidney disease; K63.5 Polyp of colon; K64.8 Other hemorrhoids

== ENCOUNTER 2020-01-23 14:03 | Inpatient (IN) | payer MEDICAID ==
[~2020-01-23] VITALS: Ht 158.8 cm; Wt 94.7 kg
--- NOTE | ~2020-01-23 | OP ---
PATIENT NAME: SMITH WALKER MEDICAL RECORD: [id number] :[birth year] LOCATION:D.M2 D.2139 ADMISSION DATE:01/25/20 SURGEON: CLARI TAVAREZ MD DATE OF OPERATION: 02/01/2020 PREOPERATIVE DIAGNOSIS: Failed below-knee amputation. POSTOPERATIVE DIAGNOSIS: Failed below-knee amputation. PROCEDURE: Revision of below-knee amputation to above-knee amputation. SURGEON: Clari Tavarez MD DAIRY NUTRITION SPECIALIST: GRANT Huntley INTRAOPERATIVE COMPLICATIONS: None. SUMMARY OF PATHOLOGIC FINDINGS: The patient did appear to have abundant bleeding and good tissue for an AKA. INDICATIONS: Ms. Walker is a 54-year-old dialysis patient who has been recently diagnosed with end-stage peripheral vascular disease. BKA was performed by myself; however, Ms. Walker has had a hard time not keeping her dressing on. In fact, in an attempt to salvage the BKA, I recently did an I&D and put a wound VAC on and over the weekend she pulled her wound VAC off in its entirety, leaving it exposed for some time. After a long discussion, we basically told her that if she was not going to heal her BKA and then she needed to be revised to an AKA. OPERATIVE SUMMARY IN DETAIL: After obtaining the appropriate preoperative orthopedic surgery consent as well as anesthetic consultation, evaluation and clearance, the patient was brought to the operating room and placed on the operating table in supine position. After adequate general laryngeal mask airway was administered, tourniquet was placed about the proximal aspect of the left lower extremity stump. Left lower extremity was then prepped and draped in routine sterile fashion. With good coverage over the open portion of the BKA, fishmouth incision was created and taken down for the standard AKA. After corticotomy was done and posterior and anterior flaps were created, the large femoral artery was tied and high-ligated. She did have a substantial amount of intra-arterial plaque. The sciatic nerve likewise was also cut and high ligated. Small bleeders were also cut and high ligated. Tourniquet was then deflated. General ooze for healing was noted, but no bleeders were seen. After copious pulsatile lavage irrigation, the BKA was closed with an adductor kaylee-tenodesis using a #1 Vicryl. The flaps were then closed with #1 Vicryl, 2-0 Vicryl and skin ian. Sterile dressings were applied. The patient was then awakened and taken to the recovery room in stable condition. All final needle and sponge counts were correct. Estimated blood loss was 250 cc. TRANSINT:[id number] Voice Confirmation ID: [id number] DOCUMENT ID: [id number] OPERATIVE REPORT [id number] SMITH WALKER MD, CLARI MAURO CC: [id number] DICTATION DATE: 02/05/20715 SURFACE WATER MANAGER: 02/05/20 0818 ADM IN [facility] [id number] [place] [address]
[2020-01-24] MEDS ORDERED: ZOFRAN ODT4 MG/UDTAB PO (11:47)
[2020-01-24] MEDS ORDERED: PERCOCET 10-321 EAC1 PO (11:47)
[2020-01-25 08:57] LABS: HEMATOCRIT 34.2 % (36.0-48.0); HEMOGLOBIN 10.1 g/dL (12-16); MCH 26.7 pg (26.0-34.0); MCHC 29.5 g/dL (31.0-37.0); MCV 90.5 fL (80.0-100.0); MEAN PLATELET VOLUME 9.3 fL (7.4-10.4); RBC 3.78 10x6/uL (4.00-5.40); RDW 17.2 % (11.5-14.5); WBC 8.5 10x3/uL (4.8-10.8)
[2020-01-25 09:09] LABS: APTT 31.3 SECONDS (22.8-39.4); INR 1.13 (0.85-1.17); PROTIME 14.4 SECONDS (11.6-15.0)
[2020-01-25 09:13] LABS: ANION GAP 13.2 mmol/L (8-16); CALCIUM 9.1 mg/dL (8.5-10.1); CARBON DIOXIDE 27.3 mmol/L (21.0-32.0); CREATININE - SERUM 5.4 mg/dL (0.6-1.3); POTASSIUM - SERUM 4.5 mmol/L (3.5-5.1)
[2020-01-25 09:35] VITALS: BP 154/49; BMI 30.6
[2020-01-25] MEDS ORDERED: RENVELA800 MG PO (10:01)
[2020-01-25 12:00] VITALS: BP 154/74
--- NOTE | 2020-01-25 12:31 | NUR ---
PATIENT IS HERE FROM [place]. SHE IS ALERT AND AWAKE AND REPORTING PAIN. SHE FELL AT THE LONG-TERM ON HER BKA. REPORTING THAT SHE HAS ARRIVED TO THE FLOOR TO CHANA AGUIRRE DIRECTOR GEOPHYSICAL LABORATORY. WILL FOLLOW ORDERS TO CONTROL PAIN.
--- NOTE | 2020-01-25 13:17 | NUR ---
STARTED AUDITOR ORDERED. PATIENT WANTS COFFEE AND FOOD. CHECKING ORDERS NOW.
[2020-01-25 16:00] VITALS: BP 128/63
[2020-01-25 18:01] VITALS: BMI 28.8
--- NOTE | 2020-01-25 19:35 | OP ---
PATIENT NAME: SMITH WALKER MEDICAL RECORD: [id number] :61 LOCATION:D.M2 D.2139 ADMISSION DATE:01/25/20 SURGEON: CLARI TAVAREZ MD DATE OF OPERATION: 01/25/2020 PREOPERATIVE DIAGNOSIS: Infection of the left below-knee amputation stump. POSTOPERATIVE DIAGNOSIS: Infection of the left below-knee amputation stump. PROCEDURE: 1. Excisional debridement of left below-knee amputation stump. 2. Application of negative pressure dressing - wound VAC. SURGEON: Clari Tavarez MD INTRAOPERATIVE COMPLICATIONS: None. SUMMARY OF PATHOLOGIC FINDINGS: The patient basically had a complete devascularization of the deepest aspect of her muscle flap. This was all debrided back to good bleeding tissue and then a wound VAC was applied. The patient did have early infection. Cultures were taken. INDICATIONS: Ms. Walker is a 54-year-old female who is a dialysis patient who required below-knee amputation. She had been doing fairly well until she fell on her stump and at the time she fell in her stump, she began to have the symptoms of breakdown of the wound with eschar. She presented to the office and was scheduled for exploration and irrigation and debridement with excisional debridement; however, today it was obvious that she needed a wound VAC and we will possibly need transition to an AKA in the future. OPERATIVE SUMMARY IN DETAIL: After obtaining the appropriate preoperative orthopedic surgery consent as well as anesthetic consultation, evaluation and clearance, the patient was brought to the operating room and placed on the operating table in supine position. After general laryngeal mask airway was administered, the patient's left lower extremity and stump were prepped and draped in routine sterile fashion. Attention was first turned to taking cultures. Upon probing the wound with cultures, the culture tip held deeply into the wound, cultures were then taken. The entire flap was then opened in its entirety and the deep posterior gastroc muscle belly appeared to be in its entirety and was noncontractile. At this point, serial and sequential excisional debridement was undertaken with the rongeur, scalpel, as well as curettage. The distal bone was curettage as well was the intramedullary aspect of it. Having completed this, copious irrigation was then followed by placement of a wound VAC. The wound VAC was placed in attempts to try and salvage a below-knee amputation for attempts at ambulation later. The wound VAC was placed with good seal at 125 mmHg continuous medium intensity. The patient was then awakened and taken to the recovery room in stable condition. All final needle and sponge counts were correct. TRANSINT:[id number] Voice Confirmation ID: [id number] DOCUMENT ID: [id number] OPERATIVE REPORT [id number] SMITH WALKER MD, CLARI MAURO at 1935 CC: [id number] DICTATION DATE: 01/25/201904 CRAYON GRADER: 01/25/201929 ADM IN [facility] [address] [place] [address]
--- NOTE | 2020-01-25 19:44 | NUR ---
PT LYING IN BED RESTING WITH EYES CLOSED. EASILY AWAKEN WITH VOICE STIMULATION NO SIGNS OR SYMPTOMS OF DISTRESS NOTED. RESPIRATIONS EVEN AND UNLABORED. PT HAS NO COMPLAINTS AT THIS TIME. PT ENCOUARGED TO CALL FOR HELP WHEN NEEDED. WILL CONTINUE TO MONITOR.
[2020-01-25 21:37] VITALS: BP 145/76
[2020-01-26] VITALS: BP 125/65
--- NOTE | 2020-01-26 02:53 | NUR ---
PT REFUSED SHERWIN STATED THT SHE WILL GET DIALYSIS TODAY. SO SHE DOES NOT NEED IT. CALL LIGHT WITH IN REACH WILL CONTINUE TO MONITOR
[2020-01-26 04:00] VITALS: BP 139/74
--- NOTE | 2020-01-26 06:37 | NUR ---
BLADDER SCAN DONE. PT HAS 16CC IN BLADDER. NO SIGNS OF DISTRESS NOTED. CALL LIGHT WITH IN REACH. WILL CONTINUE TO MONITOR.
[2020-01-26 07:26] LABS: BASOPHILS 0.2 % (0-2); EOSINOPHILS 2.5 % (0-7); HEMATOCRIT 35.5 % (36.0-48.0); HEMOGLOBIN 10.3 g/dL (12-16); IMMATURE GRANULOCYTES 0.2 % (0-5); MCH 26.8 pg (26.0-34.0); MCV 92.2 fL (80.0-100.0); MEAN PLATELET VOLUME 9.6 fL (7.4-10.4); MONOCYTES 8.1 % (2-11); PLATELET COUNT 266 10x3/uL (130-400); RBC 3.85 10x6/uL (4.00-5.40); RDW 17.3 % (11.5-14.5); WBC 8.3 10x3/uL (4.8-10.8)
[2020-01-26 07:44] LABS: ANION GAP 15.9 mmol/L (8-16); CARBON DIOXIDE 25.7 mmol/L (21.0-32.0); PHOSPHOROUS 7.8 mg/dL (2.5-4.9); VANCOMYCIN - RANDOM 33.4 ug/mL (10.0-20.0)
[2020-01-26 07:45] LABS: POTASSIUM - SERUM 5.6 mmol/L (3.5-5.1)
[2020-01-26 10:08] VITALS: BP 123/66
--- NOTE | 2020-01-26 10:24 | MORECARE ---
CASE MANAGEMENT DISCHARGE SUMMARY PATIENT: SMITH GILBERT UNIT: [id number] ADM DATE: 01/25/20 AGE: 54 : 61 SEX: F ROOM/BED: D.8849 AUTHOR: PARVIN GIFFORD PHYSICIAN: REFERRING PHYSICIAN: CLARI TAVAREZ MD DATE OF SERVICE: 01/26/20 Discharge Plan Patient Name: SMITH GILBERT Facility: [facility] : 1965 Planned Disposition: Home Anticipated Discharge Date: 01/26/20 Discharge Date: Expected LOS: 1 Initial Reviewer: [email or web address] Initial Review Date: 01/26/2020 Generated: 01/26/20 11:23 am DCPIA - Discharge Planning Initial Assessment Updated by [email or web address]: Aldo Valencia on 01/26/20 10:21 am * Is the patient Alert and Oriented? Yes * How many steps to enter\exit or inside your home? NONE * PCP DR. GRAY * Pharmacy [facility] * Preadmission Environment Care Home Residential * Facility Name [facility] * ADLs Partial Dependent * Partial ADLs (Assistance needed) Ambulation Bathing Medication Management Transfers * Equipment Cane Walker Wheelchair * Other Equipment [employer] - PREFERRED EQUIPMENT PROVIDER * List name and contact numbers for known caregivers / representatives who currently or will assist patient after discharge: SALTY JARAMILLO, [phone] * Verbal permission to speak to the caregivers and representatives has been obtained from the patient. N/A * Community resources currently utilized Other * Please name any agencies selected above. [facility], M[facility] * Additional services required to return to the preadmission environment? No * Can the patient safely return to the preadmission environment? Yes * Has this patient been hospitalized within the prior 30 days at any hospital? Yes External Providers External Provider: [facility] Next Contact Date: 01/26/2020 Service Request Date: Service Type: Resolution: Reviewer: Comments: Patient Name: SMITH GILBERT Page 67504 at 1024 All edits/amendments must be made on the electronic document DICTATION DATE: 01/26/20 1024 PRODUCTION DISPATCHER: ROSA 01/26/20 1024 RPT#: [id number] DC DATE: STATUS: ADM IN [facility] [address] [facility] [place] [address] END OF REPORT
--- NOTE | 2020-01-26 11:13 | NUR ---
PT TAKEN TO DIALYSIS VIA BED.
--- NOTE | 2020-01-26 13:03 | NUR ---
I have reviewed this patient and I concur with the Shift Assessment completed by the Licensed Practical Nurse today this shift.
--- NOTE | 2020-01-26 13:40 | MORECARE ---
CASE MANAGEMENT DISCHARGE SUMMARY PATIENT: SMITH GILBERT UNIT: [id number] ADM DATE: 01/25/20 AGE: 54 : 61 SEX: F ROOM/BED: D.8445 AUTHOR: PARVIN GIFFORD PHYSICIAN: REFERRING PHYSICIAN: CLARI TAVAREZ MD DATE OF SERVICE: 01/26/20 Discharge Plan Patient Name: SMITH GILBERT Facility: [facility]:[place] : 1965 Planned Disposition: Nursing Facility JORGE Cert Anticipated Discharge Date: 01/26/20 Discharge Date: Expected LOS: 1 Initial Reviewer: [email or web address] Initial Review Date: 01/26/2020 Generated: 01/26/20 2:39 pm DCPIA - Discharge Planning Initial Assessment Updated by [email or web address]: Aldo Valencia on 01/26/20 10:21 am * Is the patient Alert and Oriented? Yes * How many steps to enter\exit or inside your home? NONE * PCP DR. GRAY * Pharmacy [facility] * Preadmission Environment [facility] * Facility Name [facility] * ADLs Partial Dependent * Partial ADLs (Assistance needed) Ambulation Bathing Medication Management Transfers * Equipment Cane Walker Wheelchair * Other Equipment [employer] - PREFERRED EQUIPMENT PROVIDER * List name and contact numbers for known caregivers / representatives who currently or will assist patient after discharge: SALTY JARAMILLO, [phone] * Verbal permission to speak to the caregivers and representatives has been obtained from the patient. N/A * Community resources currently utilized Other * Please name any agencies selected above. [facility], [facility], MWF * Additional services required to return to the preadmission environment? No * Can the patient safely return to the preadmission environment? Yes * Has this patient been hospitalized within the prior 30 days at any hospital? Yes Last DP export: 01/26/20 9:24 a Patient Name: SMITH GILBERT Page 20013 at 1340 All edits/amendments must be made on the electronic document DICTATION DATE: 01/26/20 1339 FISHER WEIR: ROSA 01/26/20 1339 RPT#: [id number] DC DATE: STATUS: ADM IN [facility] [address] [place] [address] END OF REPORT
[2020-01-26 13:46] VITALS: Ht 158.8 cm; Wt 94.7 kg
--- NOTE | 2020-01-26 13:59 | MORECARE ---
CASE MANAGEMENT DISCHARGE SUMMARY PATIENT: SMITH GILBERT UNIT: [id number] ADM DATE: 01/25/20 AGE: 54 : 61 SEX: F ROOM/BED: D.4817 AUTHOR: BALTA,DOC PHYSICIAN: REFERRING PHYSICIAN: CLARI TAVAREZ MD DATE OF SERVICE: 01/26/20 Discharge Plan Patient Name: SMITH GILBERT Facility: [facility]:[place] : 1965 Planned Disposition: Nursing Facility JORGE Cert Anticipated Discharge Date: 01/26/20 Discharge Date: Expected LOS: 1 Initial Reviewer: [email or web address] Initial Review Date: 01/26/2020 Generated: 01/26/20 2:59 pm Comments DCP- Discharge Planning Updated by [email or web address]: Aldo Valencia on 01/26/20 12:[address] Patient Name: SMITH GILBERT Admission Status: Elective Accout number: [id number] Admission Date: 01-25-2020 : 1965 Admission Diagnosis:INFECTION OF AMPUTATION STUMP, LEFT LOWER EXTREMITY Attending: CLARI TAVAREZ Current LOS: 1 Anticipated DC Date: 01-26-2020 Planned Disposition: Nursing Facility JORGE Cert Primary Insurance: MEDICAID [place] PLANN[facility] MEDICA[facility] Discharge Planning Comments: CM MET WITH PT IN ROOM TO DISCUSS DISCHARGE PLANNING AND NEEDS. PT REPORTS LIVING AT [facility] IN [place]. PT HAS WHEELCHAIR WITH NO MEDICAL EQUIPMENT PROVIDER PREFERENCE. CM DISCUSSED AVAILABILITY OF HOME HEALTH, REHAB SERVICES AND MEDICAL EQUIPMENT. PT REPORTS SHE IS RETURNING TO [facility] AT DISCHARGE, NEEDS VAN TO UNIT TECHNICIAN AT DISCHARGE. PT WANTS THE [facility] TO ANNIE HER A POWER WHEELCHAIR, PROVIDE MORE SNACKS AT NIGHT TO KEEP HER BLOOD SUGAR UP AND WOULD LIKE A REFERRAL TO SEE A COUNSELOR. CM NOTIFIED ED OF [facility] OF PT'S REQUEST AND ALSO INFORMED THAT PT WILL NEED WOUND VAC AT THE [facility] FOR DISCHARGE BACK. ED WILL WORK ON GETTING WOUND VAC. CM FAXED REFERRAL TO [facility] VIA ED, . [facility] WORKING ON GETTING WOUND VAC TO USE AT [facility]. FOR DISCHARGE, FAX DISCHARGE INFORMATION TO [facility] AT [phone]; NURSE REPORT TO BE CALLED TO [facility], . PT TO TRANSPORT VIA [facility] VAN. Bend Up: Aldo Valencia DCPIA - Discharge Planning Initial Assessment Updated by [email or web address]: Aldo Valencia on 01/26/20 10:21 am * Is the patient Alert and Oriented? Yes * How many steps to enter\exit or inside your home? NONE * PCP DR. GRAY * Pharmacy [facility] * Preadmission Environment [facility] * Facility Name [facility] * ADLs Partial Dependent * Partial ADLs (Assistance needed) Ambulation Bathing Medication Management Transfers * Equipment Cane Walker Wheelchair * Other Equipment [employer] - PREFERRED EQUIPMENT PROVIDER * List name and contact numbers for known caregivers / representatives who currently or will assist patient after discharge: SALTY JARAMILLO, [phone] * Verbal permission to speak to the caregivers and representatives has been obtained from the patient. N/A * Community resources currently utilized Other * Please name any agencies selected above. [facility], [facility], MWF * Additional services required to return to the preadmission environment? No * Can the patient safely return to the preadmission environment? Yes * Has this patient been hospitalized within the prior 30 days at any hospital? Yes Last DP export: 01/26/20 12:40 p Patient Name: SMITH GILBERT Page 38849 at 1359 All edits/amendments must be made on the electronic document DICTATION DATE: 01/26/20 1351 REGIONAL SALES ASSOCIATE: ROSA 01/26/20 1351 RPT#: [id number] DC DATE: STATUS: ADM IN [facility] [address] [place] [address] END OF REPORT
--- NOTE | 2020-01-26 15:44 | NUR ---
PT RETURNED FROM DIALYSIS VIA BED. ANMOL HART IN DIALYSIS STATES THEY GOT OFF A LITTLE OVER 2L.
--- NOTE | 2020-01-26 19:15 | NUR ---
PT LYING IN BED AWAKE AND ALERT. NO SIGNS OF DISTRESS NOTED. RESPIRATIONS EVEN AND UNLABORED. CALL LIGHT WITH IN REACH. PT ENCOURAGED TO CALL FOR HELP WHEN NEEDED. WILL CONTINUE TO MONITOR
[2020-01-26 20:00] VITALS: BP 131/39
[2020-01-26 23:35] VITALS: BP 131/50
[2020-01-27 00:30] VITALS: BP 126/50
--- NOTE | 2020-01-27 02:21 | NUR ---
PT RESTING IN BED. EASILY AWAKEN WITH VOICE STIMULATION. REPOSITIONED PT. CALL LIGHT WITH IN REACH. WILL CONTINUE TO MONITOR.
[2020-01-27 04:00] VITALS: BP 100/23
--- NOTE | 2020-01-27 05:22 | NUR ---
I have reviewed this patient and I concur with the Shift Assessment completed by the Licensed Practical Nurse today this shift.
[2020-01-27 06:19] LABS: BASOPHILS 0.2 % (0-2); EOSINOPHILS 1.2 % (0-7); HEMATOCRIT 30.2 % (36.0-48.0); IMMATURE GRANULOCYTES 0.4 % (0-5); LYMPHOCYTES 12.6 % (15-50); MCH 26.9 pg (26.0-34.0); MCHC 29.8 g/dL (31.0-37.0); MCV 90.4 fL (80.0-100.0); MEAN PLATELET VOLUME 9.5 fL (7.4-10.4); MONOCYTES 10.7 % (2-11); NEUTROPHILS 74.9 % (40-80); PLATELET COUNT 260 10x3/uL (130-400); RBC 3.34 10x6/uL (4.00-5.40); RDW 17.1 % (11.5-14.5); WBC 8.2 10x3/uL (4.8-10.8)
[2020-01-27 06:55] LABS: ALBUMIN 2.5 g/dL (3.4-5.0); ANION GAP 16.8 mmol/L (8-16); BILIRUBIN - TOTAL 0.36 mg/dL (0.2-1.3); CALCIUM 8.7 mg/dL (8.5-10.1); CREATININE - SERUM 5.6 mg/dL (0.6-1.3); PHOSPHOROUS 6.3 mg/dL (2.5-4.9); POTASSIUM - SERUM 4.8 mmol/L (3.5-5.1); VANCOMYCIN - RANDOM 26.9 ug/mL (10.0-20.0)
[2020-01-27 08:18] VITALS: BP 142/76
--- NOTE | 2020-01-27 09:45 | NUR ---
resting in bed, no distress noted, c/o wound vac hurting her, states that it hurts more when she hits the loom winder tender button like they are connected, cont to monitor
[2020-01-27 11:37] VITALS: BP 145/34
[2020-01-27 20:00] VITALS: BP 133/42
[2020-01-28] VITALS: BP 152/53
[2020-01-28 04:00] VITALS: BP 129/54
[2020-01-28 05:58] LABS: BASOPHILS 0.3 % (0-2); EOSINOPHILS 1.1 % (0-7); HEMATOCRIT 29.5 % (36.0-48.0); IMMATURE GRANULOCYTES 0.4 % (0-5); LYMPHOCYTES 12.3 % (15-50); MCH 26.5 pg (26.0-34.0); MCHC 30.5 g/dL (31.0-37.0); MEAN PLATELET VOLUME 9.2 fL (7.4-10.4); MONOCYTES 9.2 % (2-11); NEUTROPHILS 76.7 % (40-80); PLATELET COUNT 253 10x3/uL (130-400); RBC 3.39 10x6/uL (4.00-5.40); RDW 17.2 % (11.5-14.5); WBC 9.6 10x3/uL (4.8-10.8)
[2020-01-28 06:39] LABS: ALBUMIN 2.4 g/dL (3.4-5.0); ANION GAP 16.5 mmol/L (8-16); BILIRUBIN - TOTAL 0.42 mg/dL (0.2-1.3); CALCIUM 8.8 mg/dL (8.5-10.1); CARBON DIOXIDE 25.3 mmol/L (21.0-32.0); CREATININE - SERUM 7.5 mg/dL (0.6-1.3); POTASSIUM - SERUM 4.8 mmol/L (3.5-5.1)
--- NOTE | 2020-01-28 07:25 | NUR ---
CLEARED COMMUNITY DEVELOPMENT AIDE WITH NIGHT NURSE SIGNED OFF ON COMMUNITY DEVELOPMENT AIDE SHEET IN COMPUTER. PATEINT IN BED WITH LIGHTS ON ANGRY THAT HOUSEKEEPING BUMPED HER BED. WOUND VAC TO LEFT BKA LOOKS TO BE MESSED WITH BY PATIENT.
[2020-01-28 09:25] VITALS: BP 129/64
--- NOTE | 2020-01-28 13:58 | NUR ---
AIR LEAK BEEPING AGAIN. REINFORCED WOUND VAC. EDUCATED PATIENT ON THE IMPORTANCE OF LEAVING IT ALONE AND NOT PICKING AT THE TAPE. PT STATED THAT SHE WAS NOT PICKING IT JUST ITCHING. THIS NURSE WITNESSED PT PICKING AT DRESSING WHEN ENTERING THE ROOM.
[2020-01-28 14:00] VITALS: BP 132/73
--- NOTE | 2020-01-28 15:45 | NUR ---
ASKED ANOTHER NURSE FROM [facility] TO ASSIST WITHT HE WOUND VAC BECAUSE IT STATED THAT IT HAD AN AIR LEAK AGAIN. THE PATIENT SCREAMED AT BOTH NURSES IN THE ROOM AND STATED THAT WE WERE KILLING HER. MEDICATION WAS GIVEN PER THE [employer] HELPER BUTTON. PT REFUSED TO ALLOW US TO ASSIST HER UP IN THE BED AND REFUSED TO ALLOW US TO TAKE OFF THE DRESSING AND REINFORCE. EDUCATED PATIENT THAT IF SHE REFUSED TO ALLOW US TO FIX THE WOUND VAC THERE WAS NO WAY THAT WE COULD MAKE THE BEEPING STOP. PATIENT STATED THAT THE BEEPING BOTHERED HER LESS THAN WE DID SO SHE WAS FINE WITH THAT
--- NOTE | 2020-01-28 16:07 | NUR ---
CALLED LONNIE TO ASK IF THERE WAS ANYTHING I COULD DO FOR THE PATIENT. REPORTED TAHT THE PT WOULD NOT LEAVE WOUND VAC DRESSING ALONE, WOULD NOT ALLOW NURSE TO FIX AND/OR APPLY A WET TO DRY UNTIL THE WOUND NURSE GOT HERE Wednesday. TOLD ALL OF THIS TO THE PATIENT WITH TECH IN THE ROOM AND THE PATIENT SAID THAT SHE IS TRAINED TO TAKE THE WOUND VAC OFF. TOLD THE PATIENT TO LEAVE THE DRESING ALONE TO PREVENT MORE INFECTION FROM ENTERING THE OUND AND THE PATIENT TOLD ME TO LEAVE HER ROOM AND NOT COME BACK.
--- NOTE | 2020-01-28 19:10 | NUR ---
BEDSIDE REPORT RECEIVED, PT CARE ASSUMED. WROTE NAME ON BOARD. PT LYING IN BED, WATCHING TV, AAOX4. BED IN LOWEST, SR X2, CALL LIGHT WITHIN REACH. WILL CTM.
[2020-01-28 20:00] VITALS: BP 170/75
--- NOTE | 2020-01-28 23:15 | NUR ---
PT C/O OF WOUND VAC ALARM, ATTEMPTED TO REINFORCE DRESSING TO LEFT BKA, PT REFUSED. EXPLAINED TO PT ALARM WOULD CONTINUE UNLESS REINFORCED, CONTINUES TO REFUSE ASSISTANCE FROM THIS NURSE. BED IN LOWEST POSITION, SR X2, CALL LIGHT WITHIN REACH. WILL CONTINUE TO MONITOR.
[2020-01-29] VITALS: BP 164/77
--- NOTE | 2020-01-29 03:20 | NUR ---
PT REQUESTING ICED TEA, PROVIDED. C/O WOUND VAC ALARM, EXPLAINED ISSUE WITH ALARM R/T SEAL BROKEN ON HER DRESSING, REFUSING TO ALLOW THIS NURSE TO REINFORCE. EXPLAINED TO PT THE ONLY WAY TO STOP THE ALARM WOULD BE TO REINFORCE OR TURN OFF MACHINE, STATES "JUST TURN IT OFF THEN." THIS NURSE TURNED OFF WOUND VAC, ATTEMPTED TO EXPLAIN REASON FOR WOUND VAC, PT WOULD NOT ALLOW THIS NURSE TO FINISH EXPLANATION AND STATED "JUST LEAVE."
[2020-01-29 04:00] VITALS: BP 167/76
--- NOTE | 2020-01-29 06:37 | NUR ---
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 PT PLACED IN CONTACT ISOLATION
[2020-01-29 07:39] LABS: BASOPHILS 0.4 % (0-2); EOSINOPHILS 1.5 % (0-7); HEMATOCRIT 28.3 % (36.0-48.0); HEMOGLOBIN 8.7 g/dL (12-16); IMMATURE GRANULOCYTES 0.3 % (0-5); LYMPHOCYTES 9.5 % (15-50); MCH 26.6 pg (26.0-34.0); MCHC 30.7 g/dL (31.0-37.0); MCV 86.5 fL (80.0-100.0); MEAN PLATELET VOLUME 9.2 fL (7.4-10.4); MONOCYTES 7.6 % (2-11); NEUTROPHILS 80.7 % (40-80); PLATELET COUNT 281 10x3/uL (130-400); RBC 3.27 10x6/uL (4.00-5.40); WBC 10.1 10x3/uL (4.8-10.8)
[2020-01-29 07:56] LABS: ALBUMIN 2.4 g/dL (3.4-5.0); BILIRUBIN - TOTAL 0.54 mg/dL (0.2-1.3); CALCIUM 8.7 mg/dL (8.5-10.1); CARBON DIOXIDE 22.8 mmol/L (21.0-32.0); CREATININE - SERUM 8.8 mg/dL (0.6-1.3); PHOSPHOROUS 7.4 mg/dL (2.5-4.9); POTASSIUM - SERUM 4.8 mmol/L (3.5-5.1)
[2020-01-29 09:35] VITALS: BP 150/69
--- NOTE | 2020-01-29 10:50 | NUR ---
DIALYSIS UPDATED ON PT BEING IN ISOLATION SO NEEDS TO BE DONE IN ROOM. WILL BE LATER TODAY.
[2020-01-29 12:00] VITALS: BP 159/63
--- NOTE | 2020-01-29 13:42 | NUR ---
Nutrition follow-up: Diet: Renal ADA consistent CHO Pt unhappy with diet order. RDN asked dietist to call for menu selections. PO intake ~75% of meals Labs reviewed Possible surgery soon Pt noncompliant with wound VAC; just unhappy. Wt: 160# Dialysis today. RDN following.
--- NOTE | 2020-01-29 14:05 | NUR ---
Wound vac d/c'd today per Dr. Terry's orders. Pt has been refusing to allow reinforcement of dressing in order for vac to function properly. New orders for wet to dry dressing changes using 1/4 strength Dakins solution received. Wound care assisted Vinh johnson RN with removal of vac dressing and application of wet dressing. The wound, located on left leg below knee (LBKA), is soupy, brown/ramirez and bone is exposed. Dressing completed and pt was instructed to leave it in place. Wound care continues to monitor.
--- NOTE | 2020-01-29 14:06 | NUR ---
WOUND VAC REMOVED FROM LEFT STUMP PER ORDER DR TAVAREZ. DRESSING PLACED DAKINS WET TO DRY, CAST PADDING, KERLIX, SPANDAGE. WOUND BASE IS WET, GREEN, NON-VIABLE TISSUE AND MUSCLE. BONE STICKING SOLID INCH PAST SKIN EDGES. TOP OF BONE WITH WHAT APPEARS TO BE FURRY, MOLD LOOKING COVERING. PT WILL NOT ALLOW SNUG DRESSING DUE TO DISCOMFORT. OFFICE CALLED IN REGARDS TO CLARIFICATION OF ANTIBIOTICS DUE TO NEW CULTURE RESULT OF VRE.
--- NOTE | 2020-01-29 17:20 | MORECARE ---
CASE MANAGEMENT DISCHARGE SUMMARY PATIENT: SMITH GILBERT UNIT: [id number] ADM DATE: 01/25/20 AGE: 54 : 61 SEX: F ROOM/BED: D.5826 AUTHOR: BALTA,DOC PHYSICIAN: REFERRING PHYSICIAN: CLARI TAVAREZ MD DATE OF SERVICE: 01/29/20 Discharge Plan Patient Name: SMITH GILBERT Facility: [facility]:[place] : 1965 Planned Disposition: Nursing Facility JORGE Cert Anticipated Discharge Date: 01/26/20 Discharge Date: Expected LOS: 1 Initial Reviewer: [email or web address] Initial Review Date: 01/26/2020 Generated: 01/29/20 6:19 pm Comments DCP- Discharge Planning Updated by [email or web address]: Pat Granados on 01/29/20 4:[address] CM contacted patient's niece, Chana Rogers #[phone], regarding the possibility of an AKA per Ortho progress notes. Patients HD schedule: M/W/Fr @ the [place] [facility] unit. Made niece aware of change in IV ABX. Patient resides at [facility], in a group home bed. The facility transports the patient to HD's unit. Provided my telephone # if she has further questions. DCP- Discharge Planning Updated by [id number]: Aldo Valencia on 01/26/20 12:[address] Patient Name: SMITH GILBERT Admission Status: Elective Accout number: [id number] Admission Date: 01-25-2020 : 1965 Admission Diagnosis:INFECTION OF AMPUTATION STUMP, LEFT LOWER EXTREMITY Attending: CLARI TAVAREZ Current LOS: 1 Anticipated DC Date: 01-26-2020 Planned Disposition: Nursing Facility JORGE Cert Primary Insurance: MEDICAID [place] PLANNED EXTERNAL PROVIDER: [facility], LONG TERM CARE MEDICAID BED Discharge Planning Comments: CM MET WITH PT IN ROOM TO DISCUSS DISCHARGE PLANNING AND NEEDS. PT REPORTS LIVING AT [facility] IN [place]. PT HAS WHEELCHAIR WITH NO MEDICAL EQUIPMENT PROVIDER PREFERENCE. CM DISCUSSED AVAILABILITY OF HOME HEALTH, REHAB SERVICES AND MEDICAL EQUIPMENT. PT REPORTS SHE IS RETURNING TO [facility] AT DISCHARGE, NEEDS VAN TO PSYCHIATRY PHYSICIAN AT DISCHARGE. PT WANTS THE [facility] TO [facility] A POWER WHEELCHAIR, PROVIDE MORE SNACKS AT NIGHT TO KEEP HER BLOOD SUGAR UP AND WOULD LIKE A REFERRAL TO SEE A COUNSELOR. VERO NOTIFIED ED OF [facility] OF PT'S REQUEST AND ALSO INFORMED THAT PT WILL NEED WOUND VAC AT THE [facility] FOR DISCHARGE BACK. ED WILL WORK ON GETTING WOUND VAC. CM FAXED REFERRAL TO [facility] [place], . [facility] WORKING ON GETTING WOUND VAC TO USE AT [facility]. FOR DISCHARGE, FAX DISCHARGE INFORMATION TO [facility] AT [phone]; NURSE REPORT TO BE CALLED TO [facility], . PT TO TRANSPORT VIA [facility] V[facility]. Biodiesel Technology Manager: Aldo Valencia [facility] - Discharge Planning Initial Assessment Updated by [email or web address]: Aldo Valencia on 01/26/20 10:21 am * Is the patient Alert and Oriented? Yes * How many steps to enter\exit or inside your home? NONE * PCP DR. GRAY * Pharmacy [facility] * Preadmission Environment [facility] * Facility Name [facility] * ADLs Partial Dependent * Partial ADLs (Assistance needed) Ambulation Bathing Medication Management Transfers * Equipment Cane Walker Wheelchair * Other Equipment [employer] - PREFERRED EQUIPMENT PROVIDER * List name and contact numbers for known caregivers / representatives who currently or will assist patient after discharge: SALTY JARAMILLO, [phone] * Verbal permission to speak to the caregivers and representatives has been obtained from the patient. N/A * Community resources currently utilized Other * Please name any agencies selected above. [facility], [facility], [facility] * Additional services required to return to the preadmission environment? No * Can the patient safely return to the preadmission environment? Yes * Has this patient been hospitalized within the prior 30 days at any hospital? Yes Last DP export: 01/26/20 12:59 p Patient Name: SMITH GILBERT Page 30049 at 2239 All edits/amendments must be made on the electronic document DICTATION DATE: 01/29/20 8153 ORTHODONTIC LABORATORY TECHNICIAN: ROSA 01/29/20 1719 RPT#: [id number] DC DATE: STATUS: ADM IN [facility] [address] [place] [address] END OF REPORT
[2020-01-29 20:00] VITALS: BP 145/70
[2020-01-30 04:00] VITALS: BP 163/49
[2020-01-30 05:49] LABS: BASOPHILS 0.2 % (0-2); EOSINOPHILS 1.2 % (0-7); HEMATOCRIT 30.3 % (36.0-48.0); HEMOGLOBIN 9.2 g/dL (12-16); IMMATURE GRANULOCYTES 0.6 % (0-5); LYMPHOCYTES 7.4 % (15-50); MCH 26.5 pg (26.0-34.0); MCHC 30.4 g/dL (31.0-37.0); MCV 87.3 fL (80.0-100.0); NEUTROPHILS 80.6 % (40-80); PLATELET COUNT 305 10x3/uL (130-400); RBC 3.47 10x6/uL (4.00-5.40); RDW 16.9 % (11.5-14.5); WBC 10.7 10x3/uL (4.8-10.8)
[2020-01-30 06:19] LABS: ALBUMIN 2.3 g/dL (3.4-5.0); ANION GAP 18.2 mmol/L (8-16); BILIRUBIN - TOTAL 0.43 mg/dL (0.2-1.3); CALCIUM 8.5 mg/dL (8.5-10.1); CREATININE - SERUM 6.6 mg/dL (0.6-1.3); POTASSIUM - SERUM 4.2 mmol/L (3.5-5.1); PROTEIN - SERUM 6.1 g/dL (6.4-8.2)
[2020-01-30 08:00] VITALS: BP 181/62
[2020-01-30 13:25] VITALS: BP 185/81
--- NOTE | 2020-01-30 16:32 | NUR ---
I have reviewed this patient and I concur with the Shift Assessment completed by the Licensed Practical Nurse today this shift.
[2020-01-30 21:12] VITALS: BP 191/78
--- NOTE | 2020-01-31 03:57 | NUR ---
REPOSITIONED PATIENT IN BED. PATIENT REQUESTED APPLESAUCE AND PUDDING, GIVEN.
[2020-01-31 05:17] VITALS: BP 178/51
--- NOTE | 2020-01-31 05:20 | NUR ---
PATIENT REMOVED DRESSING FROM LT BKA. CLEANSED AND DRESSED WOUND PER ORDERS.
[2020-01-31 06:17] LABS: BASOPHILS 0.2 % (0-2); EOSINOPHILS 1.3 % (0-7); HEMOGLOBIN 9.1 g/dL (12-16); IMMATURE GRANULOCYTES 0.3 % (0-5); LYMPHOCYTES 10.1 % (15-50); MCH 26.7 pg (26.0-34.0); MCHC 30.3 g/dL (31.0-37.0); MEAN PLATELET VOLUME 8.9 fL (7.4-10.4); MONOCYTES 8.5 % (2-11); NEUTROPHILS 79.6 % (40-80); PLATELET COUNT 293 10x3/uL (130-400); RBC 3.41 10x6/uL (4.00-5.40); RDW 16.8 % (11.5-14.5); WBC 10.8 10x3/uL (4.8-10.8)
[2020-01-31 07:03] LABS: ALBUMIN 2.4 g/dL (3.4-5.0); ANION GAP 16.5 mmol/L (8-16); BILIRUBIN - TOTAL 0.4 mg/dL (0.2-1.3); CALCIUM 8.8 mg/dL (8.5-10.1); CARBON DIOXIDE 25.7 mmol/L (21.0-32.0); CREATININE - SERUM 7.3 mg/dL (0.6-1.3); PHOSPHOROUS 6.4 mg/dL (2.5-4.9); POTASSIUM - SERUM 4.2 mmol/L (3.5-5.1); PROTEIN - SERUM 6.3 g/dL (6.4-8.2)
[2020-01-31 09:27] VITALS: BP 153/94
--- NOTE | 2020-01-31 10:00 | NUR ---
RECIEVED REPORT. PATIENT IS ALERT AND AWAKE. FULL DRESSING CHANGE COMPLETED ON HER LEFT STUMP. SHE IS AWARE THAT SHE IS HAVING SURGERY TOMORROW. SHE STILL NEEDS TO SIGN THE CONSENTS. SHE HAS MADE SEVERAL CHANGES TO HER MENU AND HAS REQUESTED A NEW BREAKFAST THIS MORNING. SHE HAS BEEN ON THE BED TORRES AND IS REQUESTING A BED BATH.
[2020-01-31 12:26] VITALS: BP 153/94
[2020-01-31 13:40] VITALS: BP 172/51
--- NOTE | 2020-01-31 14:07 | NUR ---
PATIENT B/P IS RUNNING HIGH, AND IN REPORT I WAS TOLD THAT IT WAS HIGH YESTERDAY AND LAST NIGHT. I PAGED CHANA CABRERA BALL POINTS INSPECTOR FOR RENAL TO REPORT.
[2020-01-31 16:34] VITALS: BP 172/51
--- NOTE | 2020-01-31 16:53 | NUR ---
PATIENT HAS SIGNED THE CONSENT FOR SURGERY TOMORROW. SHE HAS HAD A BATH. ECG IS IN THE CHART. SHE IS NPO AFTER MIDNIGHT TONIGHT.
--- NOTE | 2020-01-31 18:30 | NUR ---
PATIENT IS GETTING DIALYSIS AT BEDSIDE NOW.
--- NOTE | 2020-01-31 19:45 | NUR ---
PT IN BED, RECEIVING BEDSIDE DIALYSIS, AAO, NO DISTRESS NOTED, CL IN REACH, SR UP X 2.
[2020-01-31 20:00] VITALS: BP 161/53
[2020-02-01 00:30] VITALS: BP 158/55
[2020-02-01 04:30] VITALS: BP 176/52
--- NOTE | 2020-02-01 06:07 | NUR ---
I have reviewed this patient and I concur with the Shift Assessment completed by the Licensed Practical Nurse today this shift.
[2020-02-01 06:43] LABS: BASOPHILS 0.2 % (0-2); EOSINOPHILS 1.2 % (0-7); HEMATOCRIT 31.3 % (36.0-48.0); HEMOGLOBIN 9.4 g/dL (12-16); IMMATURE GRANULOCYTES 0.3 % (0-5); LYMPHOCYTES 8.1 % (15-50); MCH 26.4 pg (26.0-34.0); MCV 87.9 fL (80.0-100.0); MEAN PLATELET VOLUME 9.2 fL (7.4-10.4); MONOCYTES 5.9 % (2-11); NEUTROPHILS 84.3 % (40-80); PLATELET COUNT 290 10x3/uL (130-400); RBC 3.56 10x6/uL (4.00-5.40); RDW 16.7 % (11.5-14.5); WBC 10.4 10x3/uL (4.8-10.8)
[2020-02-01 07:18] LABS: ALBUMIN 2.4 g/dL (3.4-5.0); ANION GAP 15.6 mmol/L (8-16); BILIRUBIN - TOTAL 0.37 mg/dL (0.2-1.3); CALCIUM 8.7 mg/dL (8.5-10.1); CARBON DIOXIDE 25.5 mmol/L (21.0-32.0); CREATININE - SERUM 5.5 mg/dL (0.6-1.3); POTASSIUM - SERUM 4.1 mmol/L (3.5-5.1); PROTEIN - SERUM 6.3 g/dL (6.4-8.2)
--- NOTE | 2020-02-01 07:43 | NUR ---
PT RECEIVED ALERT AWAKE. PREOP MEDS GIVEN. REFUSING SCOPALIMINE PATCH. DRESSING TO LEFT LEG CLEAN AND DRY. COMPLAINTS OF PAIN ALL NIGHT AND NOW RIGHT LEG HURTING SAME LEFT LEG DID PRIOR TO SURGERY.
--- NOTE | 2020-02-01 09:49 | NUR ---
0942 - PT AWAKENING, OPA REMOVED
[2020-02-01 10:30] VITALS: BP 142/83
--- NOTE | 2020-02-01 10:35 | NUR ---
PT BACK TO ROOM FROM PACU. DRESSING TO LEFT LEG CLEAN AND DRY, RAFAEL WRAPPED. RESTING QUIETLY, AROUSES EASY. COMPLAINS OF PAIN TO LEG. BUPRENEX GIVEN PRIOR TO COMING TO FLOOR.
[2020-02-01 14:11] VITALS: BP 142/86
[2020-02-01 18:05] VITALS: BP 156/86
[2020-02-01 20:00] VITALS: BP 101/30
[2020-02-02] VITALS: BP 103/34
--- NOTE | 2020-02-02 01:32 | NUR ---
ASSESSED AT THE BEGINNING OF THE SHIFT. PT IS ALERT AND SEEMS ORIENTED, ABLE TO VERBALIZE NEEDS. SHE IS IN ESRD AND HAS NOT VOIDED. SHE DID HAVE DIALYSIS WEDNESDAY. SIS ON ROOM AIR AND HAS A LEFT ARM GRAFT WHICH IS IN RESERVE. BLOOD SUGAR AT HS WAS 238 AND WE ADDRESSED IT. TELEMETRY REMAINS SINUS RHYTHM WITH A BBB. AT BEDTIME SHE TOOK A NORCO FOR GENERALIZED PAIN RELIEF AND WE HAVE NOT HAD ANY MORE COMPLAINTS.
--- NOTE | 2020-02-02 01:55 | NUR ---
ASSESSED AT THE BEGINNING OF THE SHIFT. PT IS ALERT AND ORIENTED BUT VERY CONFRONTATIONAL. SHE QUESTIONS EVERYTHING YOU DO AND DEMANDS THINGS BE DONE. SHE ASKED FOR PAIN MEDS AND IT WAS GIVEN ORDERED, ALMOST IMMEDIATELY SHE TOLD US THAT WE DID NOT GIVE HER PAIN MEDS BUT INSTEAD GAVE SOMETHING TO MAKE IT HURT WORSE. SHE WAS SET UP WITH SOUP AND CRACKERS, TEA, AND HER DESSERT FROM HER TRAY. AFTER A WHILE THAT WAS FOUND ALL OVER HER, THE BED, AND THE FLOOR. WHEN CLEANED UP SHE WAS DEMANDING PAIN MEDS BUT HAD TO WAIT FOR THE TIME. WHEN IT WAS TIME IT WAS TAKEN IN BUT SHE WAS ASLEEP AND IT WAS NOT GIVEN. THEN SHE WOKE AND COMPLAINED AGAIN SO IT WAS GIVEN.
[2020-02-02 04:00] VITALS: BP 111/58
--- NOTE | 2020-02-02 04:17 | NUR ---
LIGHTLY ASLEEP WITH EASY RESPITATIONS. DRESSING INTACT AND NO DISTRESS NOTED.
[2020-02-02 06:27] LABS: BASOPHILS 0.2 % (0-2); EOSINOPHILS 0.2 % (0-7); HEMATOCRIT 31.2 % (36.0-48.0); HEMOGLOBIN 8.9 g/dL (12-16); IMMATURE GRANULOCYTES 0.5 % (0-5); LYMPHOCYTES 6.8 % (15-50); MCH 26.1 pg (26.0-34.0); MCHC 28.5 g/dL (31.0-37.0); MEAN PLATELET VOLUME 9.8 fL (7.4-10.4); MONOCYTES 7.4 % (2-11); NEUTROPHILS 84.9 % (40-80); PLATELET COUNT 269 10x3/uL (130-400); RBC 3.41 10x6/uL (4.00-5.40); RDW 17.2 % (11.5-14.5)
[2020-02-02 06:53] LABS: ALBUMIN 2.4 g/dL (3.4-5.0); ANION GAP 21.6 mmol/L (8-16); BILIRUBIN - TOTAL 0.31 mg/dL (0.2-1.3); CALCIUM 8.5 mg/dL (8.5-10.1); CARBON DIOXIDE 20.9 mmol/L (21.0-32.0); CREATININE - SERUM 6.7 mg/dL (0.6-1.3); PHOSPHOROUS 7.3 mg/dL (2.5-4.9); POTASSIUM - SERUM 5.5 mmol/L (3.5-5.1); PROTEIN - SERUM 6.2 g/dL (6.4-8.2)
[2020-02-02 07:02] LABS: MCV 91.5 fL (80.0-100.0); WBC 13.3 10x3/uL (4.8-10.8)
--- NOTE | 2020-02-02 08:31 | NUR ---
PT SLEEPING RESTLESSLY THIS MORNING. DRESSING TO LEG CLEAN AND DRY. PAIN MEDS GIVEN PRIOR TO SHIFT CHANGE.
[2020-02-02 10:56] VITALS: BP 123/47
--- NOTE | 2020-02-02 12:13 | NUR ---
PT STILL RESTING FOR MOST OF MORNING. AROUSES TO TOUCH. VITALS STABLE.
[2020-02-02 14:29] VITALS: BP 134/68
[2020-02-02 18:29] VITALS: BP 154/59
--- NOTE | 2020-02-02 19:00 | NUR ---
REPORT RECEIVED. PT CARE ASSUMED. PT CURRENTLEY GETTING DIALYSIS IN ROOM. PT TOLERATING WELL. PT RANDOMLY SCREAMING AND SEEING BUGS THAT ARE NOT THERE. NO S/SX OF DISTRESS OBSERVED. CALL LIGHT IN REACH. WILL CPOC.
--- NOTE | 2020-02-02 20:30 | NUR ---
DIALYSIS NURSE REPORTS TALKING OFF 1.9L. AND STATED THAT PT IS HALLUCINATING. WILL CTM.
[2020-02-02 21:20] VITALS: BP 154/52
[2020-02-03 01:30] VITALS: BP 175/56
--- NOTE | 2020-02-03 01:42 | NUR ---
PT CONTINUES TO YELL OUT JAYLEY. PT STATED THAT SOMEONE WAS "SITTING ON HER LEG". UNALBE TO REDIRECT OR REORIENT AT THIS TIME. WILL CTM.
--- NOTE | 2020-02-03 04:28 | NUR ---
PT CALLED FOR ASSISTANCE. OT WAS SCREAMING AT THIS NURSE TO REMOVE HER COVERS FROM HER BED. PT REFUSIN PAIN MEDICATION AT THIS TIME. CALIMS TO SEE A PERSON SITTING IN HER ROOM. CALL LIGHT IN REACH. WILL CTM.
[2020-02-03 04:43] VITALS: BP 165/52
[2020-02-03 05:57] LABS: BASOPHILS 0.1 % (0-2); EOSINOPHILS 0.7 % (0-7); HEMATOCRIT 28.7 % (36.0-48.0); HEMOGLOBIN 8.5 g/dL (12-16); IMMATURE GRANULOCYTES 0.6 % (0-5); LYMPHOCYTES 5.7 % (15-50); MCH 26.4 pg (26.0-34.0); MCHC 29.6 g/dL (31.0-37.0); MEAN PLATELET VOLUME 9.2 fL (7.4-10.4); MONOCYTES 5.7 % (2-11); NEUTROPHILS 87.2 % (40-80); PLATELET COUNT 281 10x3/uL (130-400); RBC 3.22 10x6/uL (4.00-5.40); RDW 17.1 % (11.5-14.5); WBC 16.5 10x3/uL (4.8-10.8)
[2020-02-03 06:12] LABS: MCV 89.1 fL (80.0-100.0)
[2020-02-03 06:17] LABS: ALBUMIN 2.3 g/dL (3.4-5.0); BILIRUBIN - TOTAL 0.38 mg/dL (0.2-1.3); CALCIUM 9.1 mg/dL (8.5-10.1); CARBON DIOXIDE 23.3 mmol/L (21.0-32.0); CREATININE - SERUM 5.7 mg/dL (0.6-1.3); PROTEIN - SERUM 6.7 g/dL (6.4-8.2)
[2020-02-03 06:18] LABS: ANION GAP 18.2 mmol/L (8-16); POTASSIUM - SERUM 4.5 mmol/L (3.5-5.1)
--- NOTE | 2020-02-03 07:59 | NUR ---
PT AWAKE AND ORIENTED WHEN ROOM ENTERED. PT HAS MUTLIPLE REUQESTS AND STATES THE AID NEEDS TO MEET HER REQUESTS HER WAY. WILL TRY AND ACCOMIDATE BUT PT HAS LONG HISTORY OF BEING GENRALLY DISPLEASED WITH ALL EFFORTS OF CARE. CL IN REACH, SRX2.
[2020-02-03 10:20] VITALS: BP 136/73
[2020-02-03 14:18] VITALS: BP 150/69
--- NOTE | 2020-02-03 18:53 | NUR ---
I have reviewed this patient and I concur with the Shift Assessment completed by the Licensed Practical Nurse today this shift.
--- NOTE | 2020-02-03 19:00 | NUR ---
REPORT RECEIVED. PT CARE ASSUMED. PT IN BED, RR EVEN AND UNLABORED. LAYING SIDEWAYS IN BED BUT REFUSES TO LET STAFF REPOSITION. NOT HALLUCINATING THIS EVENING. NO S/SX OF DISTRESS OBSERVED. DENIES NEEDS. CALL LIGHT IN REACH, SR X2. WILL CPOC.
[2020-02-04 04:00] VITALS: BP 158/54
[2020-02-04 06:33] LABS: BASOPHILS 0.2 % (0-2); EOSINOPHILS 1.1 % (0-7); HEMATOCRIT 26.9 % (36.0-48.0); HEMOGLOBIN 8.1 g/dL (12-16); IMMATURE GRANULOCYTES 0.8 % (0-5); LYMPHOCYTES 6.9 % (15-50); MCH 27.1 pg (26.0-34.0); MCHC 30.1 g/dL (31.0-37.0); MONOCYTES 6.5 % (2-11); NEUTROPHILS 84.5 % (40-80); RBC 2.99 10x6/uL (4.00-5.40); RDW 17.5 % (11.5-14.5)
[2020-02-04 06:37] LABS: PLATELET COUNT 222 10x3/uL (130-400)
[2020-02-04 07:11] LABS: ALBUMIN 2.1 g/dL (3.4-5.0); ANION GAP 18.5 mmol/L (8-16); BILIRUBIN - TOTAL 0.34 mg/dL (0.2-1.3); CALCIUM 8.7 mg/dL (8.5-10.1); CREATININE - SERUM 6.8 mg/dL (0.6-1.3); PHOSPHOROUS 5.9 mg/dL (2.5-4.9); POTASSIUM - SERUM 4.5 mmol/L (3.5-5.1); PROTEIN - SERUM 6.4 g/dL (6.4-8.2)
--- NOTE | 2020-02-04 08:38 | NUR ---
PT AWAKE AND ORIENTED, LYING IN BED. WHEN I ENTERED ROOM PT WAS ACTIVELY COMPLAINING THAT WE WERE NOT HELPING HER THE WAY SHE DESERVED, CLAIMING WE WERE SETTING HER UP FOR FAILURE [facility] BREAKFAST TRAY. I INFORMED DARIUS PT I WAS NOW THERE TO HELP, SHE COMPLAINED THAT IT WASNT FAST ENOUGH (I WALKED IN THE PT WAS PUSHING HER CL). PT STATED SHE ONLY WANTED THE HEAD OF HER BED RAISED, I INFORMED PT ID LIKE TO PULL HER UP FIRST SHE WAS VERY FAR DOWN IN BED AND LIFING HER HEAD WOULD NOT HELP HER. PT STATED "DID I SAY THATS WHAT I WANTED?". SO I LIFTED JUST HER HEAD, WHICH SHE THEN COMPLAINED SHE WAS TOO FAR DOWN AND THAT DIDN'T DO ANY GOOD AND WHY DIDN'T WE PULL HER UP. PULLED PT UP WITH NURSE ASSIST. PT THEN COMPLAINED ABOUT HER ENTIRE BREAKFAST STATING SHE'S TOLD THEM REPEATEDLY "I DON'T EAT THAT SHIT". PT COMPLAINED THEY GAVE HER A CINNIMON ROLE AND THAT SHE CANT EATED, THEN IMMEDIATELY ATE HALF OF IT IN FRONT OF ME. TRIED TO GIVE PTS MEDICATIONS WITH USUAL WATER, PT COMPLAINED THAT SHE WANTED TEA WITH HER MEDICATIONS AND THAT "YOU (ME) SHOULD KNOW MY ORDER BY NOW". I SAID OK, WENT AND FIXED THE PT TEA THE SAME WAY SHE REQUESTED IT ALL DAY YESTERDAY. PT THEN COMPALINED, TO THE POINT OF TEARS, THAT I DID IT WRONG AND SHE WANTED HOT TEA WITH THE BAG IN IT AND TO MIX THE SUGAR HERSELF AND THAT, ONCE AGAIN, I SHOULD'VE KNOWN THAT. PT SENT ME TO MAKE THE TEA THE WAY I SHOULD'VE KNOWN SHE WANTED IT. FIXED THE PT HOT TEA FOLLOWING ALL HER REQUESTS. UPON BRINGING IT IN THE ROOM PT ANGRYILY ACUSED ME OF BEING SLOW. I WAS NOT SLOW. PT THEN STATED SHE SPILLED HER PILLS BECAUSE SHE CAN'T HOLD THINGS TODAY, WHICH I APPARENTLY SHOULD HAVE KNOWN. THEN PT STATED SHE DOESN'T NEED THAT RED PILL (EVEN THOUGH ACCORDING TO PT SHE IS BLIND AND SHOULD NOT BE ABLE TO SEE THE RED PILL) (COLACE). STATING HER ELAINE ARE MOVING JUST FINE. SO I TOSSED THE COLACE. PT THEN WANTED ME TO GO OVER ALL HER OTHER PILLS, STATING THERE SHOULD BE MORE THAN 5 TOTAL. I WENT OVER EACH PILL INDIVIDUALLY. PT THEN INSISTED I ORDER HER A YOGURT. WILL ORDER. CL IN REACH, SRX2. PT ALSO STATES WE DONT KNOW HER LIKE HER FAMILY DOES AND IF THEY WERE HERE THEY'D JUST KNOW HOW SHE LIKES THINGS.
[2020-02-04 10:35] VITALS: BP 164/41
--- NOTE | 2020-02-04 11:44 | NUR ---
PT STATES SHE DOES NOT WISH TO BE DISTURBED WHILE SHE IS NAPPING. SHE WILL WAKE UP AND DO WHAT SHE WANTS WHEN SHE PLEASES. WILL OBLIGE. CL IN REACH, SRX2.
--- NOTE | 2020-02-04 15:16 | NUR ---
PT AWAKE AND ORIENTED, STARTED SCREAMING HEY! HEY!. WENT AND CHECKED ON PT, SHE STATED SHE DROPPED HER CL. THEN SHE HAD TO USE THE BEDPAN, ONCE AGAIN INSSITING ON DOING IT HERSELF NO MATTER THE TYPICAL MESS SHE MAKES. REFUSES TO LET US CHANGE HER LINNENS AT THIS TIME. UPON REMOVING THE PILLOW GENTLY FROM UNDER HER BOTTOM AND LEG (PT STATED I STILL DID IT TO HARSHLY) PT NOTED BLOOD ON HER PILLOW. THIS IS BLOOD THAT WAS THERE FROM THE DRS DRESSING CHANGE THIS AM. PT HAD THEN REFUSED TO ALLOW ME TO CAHNGE THE CASE. NOW PT STATES IT'S NEW AND IM TO NOTIFY THE DR. "IMMEDIATELY". AGAIN OFFERED TO ASSIST PT WITH BED TORRES, SHE AGAIN REFUSED. CL IN REACH,S RX2.
--- NOTE | 2020-02-04 17:34 | NUR ---
I have reviewed this patient and I concur with the Shift Assessment completed by the Licensed Practical Nurse today this shift.
--- NOTE | 2020-02-04 18:16 | NUR ---
ASSISTED AID IN ASSITNG PT ON AND OFF THE BEDPAN. PT WAS DISPLEASED WITH HOW WE DID IT. UNSURE AT THIS TIME HOW TO MAKE PT HAPPY. ALL ACCOMIDATIONS POSSIBLE HAVE MAO MADE, ADJUSTED, AND ALL WISHES GRANTED TO THE BEST OF OUR ABILITIES AND HOSPITAL POLICIES. CL IN REACH,SRX2.
[2020-02-04 20:00] VITALS: BP 158/60
--- NOTE | 2020-02-04 20:00 | NUR ---
REPORT RECEIVED. PT IN BED RR EVEN AND UNLABORED. PT C/O OF PAIN BUT REFUSING MEDICATION AT THIS TIME. LINEN CHANGE PROVIDED. NO S/SX OF DISTRESS. CALL LIGHT IN REACH. WILL CTM.
[2020-02-05] VITALS: BP 166/36
[2020-02-05 04:00] VITALS: BP 162/58
--- NOTE | 2020-02-05 04:41 | NUR ---
PT CALLED FOR ASSISTANCE WITH BEDPAN. REFUSES TO ALLOW NURSING STAFF TO HELP. C/O OF PAIN TO AKA. STATED THE DRESSING WAS TIGHT. WHEN ATTEMPTING TO ASSESS PT BECAME VERBALLY AGGRESSIVE AND ARGUMENTATIVE. CALL LIGHT IN REACH.
[2020-02-05 08:00] VITALS: BP 144/56
[2020-02-05] MEDS ORDERED: PERCOCET 10-321 EAC1 PO (12:02)
[2020-02-05] MEDS ORDERED: ZYVOX600 MG PO (12:04)
[2020-02-05 13:52] LABS: BASOPHILS 0.5 % (0-2); EOSINOPHILS 3.3 % (0-7); HEMATOCRIT 25.9 % (36.0-48.0); HEMOGLOBIN 7.9 g/dL (12-16); IMMATURE GRANULOCYTES 0.7 % (0-5); LYMPHOCYTES 19.4 % (15-50); MCH 26.2 pg (26.0-34.0); MCHC 30.5 g/dL (31.0-37.0); MEAN PLATELET VOLUME 8.8 fL (7.4-10.4); MONOCYTES 4.7 % (2-11); NEUTROPHILS 71.4 % (40-80); PLATELET COUNT 218 10x3/uL (130-400); RBC 3.01 10x6/uL (4.00-5.40); RDW 16.6 % (11.5-14.5)
[2020-02-05 13:53] LABS: WBC 4.2 10x3/uL (4.8-10.8)
[2020-02-05 14:05] LABS: ALBUMIN 1.9 g/dL (3.4-5.0); ANION GAP 12.5 mmol/L (8-16); BILIRUBIN - TOTAL 0.31 mg/dL (0.2-1.3); CALCIUM 7.9 mg/dL (8.5-10.1); CARBON DIOXIDE 26.5 mmol/L (21.0-32.0); CREATININE - SERUM 6.7 mg/dL (0.6-1.3); PROTEIN - SERUM 6.1 g/dL (6.4-8.2)
--- NOTE | 2020-02-05 14:06 | MORECARE ---
CASE MANAGEMENT DISCHARGE SUMMARY PATIENT: SMITH GILBERT UNIT: [id number] ADM DATE: 01/25/20 AGE: 54 : 61 SEX: F ROOM/BED: D.9146 AUTHOR: BALTA,DOC PHYSICIAN: REFERRING PHYSICIAN: CLARI TAVAREZ MD DATE OF SERVICE: 02/05/20 Discharge Plan Patient Name: SMITH GILBERT Facility: [facility]:[place] : 1965 Planned Disposition: Nursing Facility [facility] Anticipated Discharge Date: 01/26/20 Discharge Date: Expected LOS: 1 Initial Reviewer: [email or web address] Initial Review Date: 01/26/2020 Generated: 02/05/20 3:05 pm Comments DCP- Discharge Planning Updated by [id number]: Christi Allan on 02/05/20 12:[address] Received discharge orders. [facility] will p/u patient at 1600 today. I have notified Natalya rAon of discharge. Naomi states she will notify [facility] dialysis unit of discharge to place back on schedule. Clinical faxed to [facility]. She is discharging to a terminal system operator (Medicaid) bed. I notified her niece of discharge. DCP- Discharge Planning Updated by [id number]: Pat Granados on 01/29/20 4:[address] CM contacted patient's niece, Chana Rogers #[phone], regarding the possibility of an AKA per Ortho progress notes. Patients HD schedule: M/W/Fr @ the [facility] HD unit. Made niece aware of change in IV ABX. Patient resides at [facility], in a terminal system operator bed. The facility transports the patient to HD's unit. Provided my telephone # if she has further questions. DCP- Discharge Planning Updated by [id number]: Aldo Valencia on 01/26/20 12:[address] Patient Name: SMITH GILBERT Admission Status: Elective Accout number: [id number] Admission Date: 01-25-2020 : 1965 Admission Diagnosis:INFECTION OF AMPUTATION STUMP, LEFT LOWER EXTREMITY Attending: CLARI TAVAREZ Current LOS: 1 Anticipated DC Date: 01-26-2020 Planned Disposition: Nursing Facility J[facility]GE Cert Primary Insurance: MEDICAID [place] PLANN[facility] Discharge Planning Comments: CM MET WITH PT IN ROOM TO DISCUSS DISCHARGE PLANNING AND NEEDS. PT REPORTS LIVING AT [facility] IN [place]. PT HAS WHEELCHAIR WITH NO MEDICAL EQUIPMENT PROVIDER PREFERENCE. CM DISCUSSED AVAILABILITY OF HOME HEALTH, REHAB SERVICES AND MEDICAL EQUIPMENT. PT REPORTS SHE IS RETURNING TO [facility] AT DISCHARGE, NEEDS VAN TO WHITEWASHER AT DISCHARGE. PT WANTS THE JAIL TO ANNIE HER A POWER WHEELCHAIR, PROVIDE MORE SNACKS AT NIGHT TO KEEP HER BLOOD SUGAR UP AND WOULD LIKE A REFERRAL TO SEE A COUNSELOR. CM NOTIFIED ED OF [facility] OF PT'S REQUEST AND ALSO INFORMED THAT PT WILL NEED WOUND VAC AT THE JAIL FOR DISCHARGE BACK. ED WILL WORK ON GETTING WOUND VAC. CM FAXED REFERRAL TO [facility] VIA [place], . [facility] WORKING ON GETTING WOUND VAC TO USE AT JAIL. FOR DISCHARGE, FAX DISCHARGE INFORMATION TO [facility] AT [phone]; NURSE REPORT TO BE CALLED TO [facility], . PT TO TRANSPORT VIA [facility] VAN. Train Announcer: Aldo Valencia [facility] - Discharge Planning Initial Assessment Updated by [id number]: Aldo Valencia on 01/26/20 10:21 am * Is the patient Alert and Oriented? Yes * How many steps to enter\exit or inside your home? NONE * PCP DR. GRAY * Pharmacy [facility] * Preadmission Environment Correction Mcfp * Facility Name [facility] * ADLs Partial Dependent * Partial ADLs (Assistance needed) Ambulation Bathing Medication Management Transfers * Equipment Cane Walker Wheelchair * Other Equipment [employer] - PREFERRED EQUIPMENT PROVIDER * List name and contact numbers for known caregivers / representatives who currently or will assist patient after discharge: SALTY JARAMILLO, [phone] * Verbal permission to speak to the caregivers and representatives has been obtained from the patient. N/A * Community resources currently utilized Other * Please name any agencies selected above. [facility], MWF * Additional services required to return to the preadmission environment? No * Can the patient safely return to the preadmission environment? Yes * Has this patient been hospitalized within the prior 30 days at any hospital? Yes Last DP export: 01/29/20 4:20 p Patient Name: SMITH GILBERT Page [id number] at 1406 All edits/amendments must be made on the electronic document DICTATION DATE: 02/05/201405 WEB COORDINATOR: ROSA 02/05/201405 RPT#: [id number] DC DATE: STATUS: ADM IN [facility] [address] [place] [address] END OF REPORT
--- NOTE | 2020-02-05 14:32 | MORECARE ---
CASE MANAGEMENT DISCHARGE SUMMARY PATIENT: SMITH GILBERT UNIT: [id number] ADM DATE: 01/25/20 AGE: 54 : 61 SEX: F ROOM/BED: D.5271 AUTHOR: BATLA,DOC PHYSICIAN: REFERRING PHYSICIAN: CLARI TAVAREZ MD DATE OF SERVICE: 02/05/20 Discharge Plan Patient Name: SMITH GILBERT Facility: [facility]:[place] : 1965 Planned Disposition: Nursing Facility JORGE [facility] Anticipated Discharge Date: 01/26/20 Discharge Date: Expected LOS: 1 Initial Reviewer: [email or web address] Initial Review Date: 01/26/2020 Generated: 02/05/20 3:31 pm Comments DCP- Discharge Planning Updated by [id number]: Christi Allan on 02/05/20 12:[address] Received discharge orders. [facility] will p/u patient at 1600 today. I have notified Natalya Aron of discharge. Naomi states she will notify [facility] dialysis unit of discharge to place back on schedule. Clinical faxed to [facility]. She is discharging to a equipment operator intermodal yard (Medicaid) bed. I notified her niece of discharge. DCP- Discharge Planning Updated by [id number]: Pat Granados on 01/29/20 4:[address] CM contacted patient's niece, Chana Rogers #[phone], regarding the possibility of an AKA per Ortho progress notes. Patients HD schedule: M/W/Fr @ the [place] HD unit. Made niece aware of change in IV ABX. Patient resides at [facility], in a equipment operator intermodal yard bed. The facility transports the patient to HD's unit. Provided my telephone # if she has further questions. DCP- Discharge Planning Updated by [id number]: Aldo Valencia on 01/26/20 12:[address] Patient Name: SMITH GILBERT Admission Status: Elective Accout number: [id number] Admission Date: 01-25-2020 : 1965 Admission Diagnosis:INFECTION OF AMPUTATION STUMP, LEFT LOWER EXTREMITY Attending: CLARI TAVAREZ Current LOS: 1 Anticipated DC Date: 01-26-2020 Planned Disposition: Nursing Facility [facility] Cert Primary Insurance: MEDICAID [place] PLANN[facility] Discharge Planning Comments: CM MET WITH PT IN ROOM TO DISCUSS DISCHARGE PLANNING AND NEEDS. PT REPORTS LIVING AT [facility] IN [place]. PT HAS WHEELCHAIR WITH NO MEDICAL EQUIPMENT PROVIDER PREFERENCE. CM DISCUSSED AVAILABILITY OF HOME HEALTH, REHAB SERVICES AND MEDICAL EQUIPMENT. PT REPORTS SHE IS RETURNING TO ON LICENSE OF [facility] AT DISCHARGE, NEEDS VAN TO PRESS ROOM SUPERVISOR AT DISCHARGE. PT WANTS THE SENIOR LIVING TO ANNIE HER A POWER WHEELCHAIR, PROVIDE MORE SNACKS AT NIGHT TO KEEP HER BLOOD SUGAR UP AND WOULD LIKE A REFERRAL TO SEE A COUNSELOR. CM NOTIFIED ED OF ON LICENSE OF [facility] OF PT'S REQUEST AND ALSO INFORMED THAT PT WILL NEED WOUND VAC AT THE SENIOR LIVING FOR DISCHARGE BACK. ED WILL WORK ON GETTING WOUND VAC. CM FAXED REFERRAL TO [facility]IA [place], . ON LICENSE OF [facility] WORKING ON GETTING WOUND VAC TO USE AT SENIOR LIVING. FOR DISCHARGE, FAX DISCHARGE INFORMATION TO [facility] AT [phone]; NURSE REPORT TO BE CALLED TO [facility], . PT TO TRANSPORT VIA SENIOR LIVING VAN. Train Attendant: [facility] - Discharge Planning Initial Assessment Updated by [email or web address]: Aldo Valencia on 01/26/20 10:21 am * Is the patient Alert and Oriented? Yes * How many steps to enter\exit or inside your home? NONE * PCP DR. GRAY * Pharmacy [facility] * Preadmission Environment Halfway Assisted * Facility Name [facility] * ADLs Partial Dependent * Partial ADLs (Assistance needed) Ambulation Bathing Medication Management Transfers * Equipment Cane Walker Wheelchair * Other Equipment [employer] - PREFERRED EQUIPMENT PROVIDER * List name and contact numbers for known caregivers / representatives who currently or will assist patient after discharge: SALTY JARAMILLO, [phone] * Verbal permission to speak to the caregivers and representatives has been obtained from the patient. N/A * Community resources currently utilized Other * Please name any agencies selected above. [facility], [facility], MWF * Additional services required to return to the preadmission environment? No * Can the patient safely return to the preadmission environment? Yes * Has this patient been hospitalized within the prior 30 days at any hospital? Yes External Providers External Provider: [facility] Next Contact Date: Service Request Date: Service Type: Resolution: Reviewer: Comments: Last DP export: 02/05/20 1:06 p Patient Name: SMITH GILBERT Page [id number] at 1432 All edits/amendments must be made on the electronic document DICTATION DATE: 02/05/20 1431 PUBLIC HEALTH SANITARIAN: ROSA 02/05/20 1431 RPT#: [id number] DC DATE: STATUS: ADM IN [facility] [address] [place] [address] END OF REPORT
--- NOTE | 2020-02-06 07:27 | MORECARE ---
CASE MANAGEMENT DISCHARGE SUMMARY PATIENT: SMITH GILBERT UNIT: [id number] ADM DATE: 01/25/20 AGE: 54 : 61 SEX: F ROOM/BED: D.9662 AUTHOR: BALTA,DOC PHYSICIAN: REFERRING PHYSICIAN: CLARI TAVAREZ MD DATE OF SERVICE: 02/06/20 Discharge Plan Patient Name: SMITH GILBERT Facility: [facility]:[place] : 1965 Planned Disposition: Nursing Facility JOR[facility] Anticipated Discharge Date: 01/26/20 Discharge Date: 02/05/2020 Expected LOS: 1 Initial Reviewer: [email or web address] Initial Review Date: 01/26/2020 Generated: 02/06/20 8:27 am DCP- Discharge Planning Updated by [id number]: Christi Allan on 02/05/20 12:[address] Received discharge orders. [facility] will p/u patient at 1600 today. I have notified Natalya Aron of discharge. Naomi states she will notify [facility] dialysis unit of discharge to place back on schedule. Clinical faxed to [facility]. She is discharging to a rat exterminator (Medicaid) bed. I notified her niece of discharge. DCP- Discharge Planning Updated by [id number]: Pat Granados on 01/29/20 4:[address] CM contacted patient's niece, Chana Rogers #[phone], regarding the possibility of an AKA per Ortho progress notes. Patients HD schedule: M/W/Fr @ the [facility] HD unit. Made niece aware of change in IV ABX. Patient resides at [facility], in a detention bed. The facility transports the patient to HD's unit. Provided my telephone # if she has further questions. DCP- Discharge Planning Updated by [id number]: Aldo Valencia on 01/26/20 12:[address] Patient Name: SMITH GILBERT Admission Status: Elective Accout number: [id number] Admission Date: 01-25-2020 : 1965 Admission Diagnosis:INFECTION OF AMPUTATION STUMP, LEFT LOWER EXTREMITY Attending: CLARI TAVAREZ Current LOS: 1 Anticipated DC Date: 01-26-2020 Planned Disposition: Nursing Facility [facility] Cert Primary Insurance: MEDICAID [place] PLANNED [facility] Discharge Planning Comments: CM MET WITH PT IN ROOM TO DISCUSS DISCHARGE PLANNING AND NEEDS. PT REPORTS LIVING AT [facility] IN [place]. PT HAS WHEELCHAIR WITH NO MEDICAL EQUIPMENT PROVIDER PREFERENCE. CM DISCUSSED AVAILABILITY OF HOME HEALTH, REHAB SERVICES AND MEDICAL EQUIPMENT. PT REPORTS SHE IS RETURNING TO [facility] AT DISCHARGE, NEEDS VAN TO IMPLEMENT MECHANIC AT DISCHARGE. PT WANTS THE RESIDENTIAL TO ANNIE HER A POWER WHEELCHAIR, PROVIDE MORE SNACKS AT NIGHT TO KEEP HER BLOOD SUGAR UP AND WOULD LIKE A REFERRAL TO SEE A COUNSELOR. CM NOTIFIED ED OF [facility] OF PT'S REQUEST AND ALSO INFORMED THAT PT WILL NEED WOUND VAC AT THE RESIDENTIAL FOR DISCHARGE BACK. ED WILL WORK ON GETTING WOUND VAC. CM FAXED REFERRAL TO [facility] VIA [place], . [facility] WORKING ON GETTING WOUND VAC TO USE AT RESIDENTIAL. FOR DISCHARGE, FAX DISCHARGE INFORMATION TO [facility] AT [phone]; NURSE REPORT TO BE CALLED TO [facility], . PT TO TRANSPORT VIA RESIDENTIAL VAN. Tonger: Aldo Valencia [facility] - Discharge Planning Initial Assessment Updated by [id number]: Aldo Valencia on 01/26/20 10:21 am * Is the patient Alert and Oriented? Yes * How many steps to enter\exit or inside your home? NONE * PCP DR. GRAY * Pharmacy [facility] * Preadmission Environment Sleeve Maker Longterm * Facility Name [facility] * ADLs Partial Dependent * Partial ADLs (Assistance needed) Ambulation Bathing Medication Management Transfers * Equipment Cane Walker Wheelchair * Other Equipment [employer] - PREFERRED EQUIPMENT PROVIDER * List name and contact numbers for known caregivers / representatives who currently or will assist patient after discharge: SALTY JARAMILLO, [phone] * Verbal permission to speak to the caregivers and representatives has been obtained from the patient. N/A * Community resources currently utilized Other * Please name any agencies selected above. [facility], [facility], [facility] * Additional services required to return to the preadmission environment? No * Can the patient safely return to the preadmission environment? Yes * Has this patient been hospitalized within the prior 30 days at any hospital? Yes Last DP export: 02/05/20 1:32 p Patient Name: SMITH GILBERT Page [phone] at 0727 All edits/amendments must be made on the electronic document DICTATION DATE: 02/06/20726 IMPORT/EXPORT SPECIALIST: ROSA 02/06/20726 RPT#: [id number] DC DATE:02/05/20 STATUS: DIS IN [facility] [address] [place] [address] END OF REPORT
== END 2020-02-05 17:26 | DRG 474 ==
LOC: D.SDCHOLD 01-25 09:30 → D.M2 01-25 11:43
PROVIDERS: Anesthesiology; Internal Medicine; ADMIT Orthopaedic Surgery; ATTEND Orthopaedic Surgery
PROC: 0KBT0ZZ Excision of Left Lower Leg Muscle, Open Approach (ICD-10-PCS; 2020-01-25)
PROC: 5A1D70Z Performance of Urinary Filtration, Intermittent, Less than 6 Hours Per Day (ICD-10-PCS; 2020-01-26)
PROC: 0Y6D0Z3 Detachment at Left Upper Leg, Low, Open Approach (ICD-10-PCS; principal; 2020-02-01 08:00)
DX: T87.44 Infection of amputation stump, left lower extremity (principal); N18.6 End stage renal disease; I12.0 Hypertensive chronic kidney disease with stage 5 chronic kidney disease or end stage renal disease; Y83.8 Other surgical procedures as the cause of abnormal reaction of the patient, or of later complication, without mention of misadventure at the time of the procedure; E11.22 Type 2 diabetes mellitus with diabetic chronic kidney disease; Z99.2 Dependence on renal dialysis; D63.1 Anemia in chronic kidney disease